=== PATIENT | male | born 1950 | race Caucasian/White ===

== ENCOUNTER 2023-03-19 08:31 | Outpatient (OUT) | payer MEDICARE, SELFPAY ==
--- NOTE | 2023-03-19 08:35 | CT_ITS ---
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 Dose reduction techniques were achieved by using automated exposure control and/or adjustment of mA and/or kV according to patient size and/or use of iterative reconstruction technique. FINDINGS: MAXILLARY SINUSES: No significant mucosal thickening or fluid. Infundibula are patent. No significant anomalous inferior orbital ethmoid ([place]) air cells. ETHMOID SINUSES: No significant mucosal thickening or fluid. Fovea ethmoidali and lamina papyracea are symmetric and intact. SPHENOID SINUSES: No significant mucosal thickening or fluid. Sphenoethmoidal recesses are patent. No bony dehiscence. FRONTAL SINUSES: Stable 2.3 x 1.6 x 0.8 cm rim calcified lesion within anterior medial aspect of right frontal sinus. No mucosal thickening or obstruction of the frontoethmoidal recesses. NASAL FOSSA: 3 mm rightward deviation of the nasal septum. No jewel bullosa or paradoxical turbinates are identified. OTHER: Negative. Limited views of the skull base and orbits are unremarkable. CT/CT sinus wo con IMPRESSION: 1. Stable rim calcified structure within right frontal sinus midline; nonspecific, possibly sequela of chronic fungal infection or remote infection. No osseous destruction, periosteal reaction, or overtly suspicious findings. Consider additional follow-up in one year. Electronically authenticated by: ONEL MCFARLAND Date: 03/19/2023 12:11
== END 2023-03-19 08:32 | disposition home or self-care (01) ==
LOC: CT 08:32
PROVIDERS: PCP Family Medicine
DX: D49.1 Neoplasm of unspecified behavior of respiratory system (principal)
CPT/HCPCS: 70486

== ENCOUNTER 2023-06-17 13:55 | Outpatient (OUT) | payer MEDICARE, SELFPAY ==
--- NOTE | 2023-06-17 | XR_ITS ---
The [address] [address] Patient Name: KEDAR VENTURA MRN: [id number] date: 1950 Sex: M Assigned Patient Location: [facility] Current Patient Location: Accession/Order Number: [id number] Exam Date: 06/17/2023 13:58 Report Date: 06/18/2023 07:30 At the request of: CLAUDIO HAYDEN Procedure: XR foot LT min 3V PROCEDURE: XR foot LT min 3V HISTORY: LEFT FOOT PAIN COMPARISON: None. FINDINGS: BONES:No fracture, acute abnormality, or significant arthropathy. SOFT TISSUES:No visible soft tissue swelling. Mild atherosclerotic disease. EFFUSION:None visible. OTHER: Negative. XR/XR foot LT min 3V IMPRESSION: 1. Minimal degenerative changes. 2. No acute or suspicious abnormality. Electronically authenticated by: ONEL MCFARLAND Date: 06/18/2023 07:30
--- NOTE | 2023-06-17 | XR_ITS ---
The [address] [address] Patient Name: KEDAR VENTURA MRN: [id number] date: 1950 Sex: M Assigned Patient Location: RAD Current Patient Location: [facility] Accession/Order Number: [id number] Exam Date: 06/17/2023 13:58 Report Date: 06/17/2023 23:15 At the request of: CLAUDIO HAYDEN Procedure: XR ankle LT min 3V EXAM: XR ankle LT min 3V HISTORY: LEFT ANKLE PAIN COMPARISON: None. TECHNIQUE: 3 views left ankle FINDINGS: Tibiotalar joint is congruent without large osteochondral defect. No acute fracture or aggressive osseous abnormality. There is generalized soft tissue swelling about the left ankle. Incidental note of vascular calcification. No joint effusion. XR/XR ankle LT min 3V IMPRESSION: Generalized soft tissue swelling of the left ankle without acute osseous abnormality. Electronically authenticated by: TAWANDA FRANCES Date: 06/17/2023 23:15
== END 2023-06-17 13:56 | disposition home or self-care (01) ==
LOC: RAD 13:57
PROVIDERS: PCP Family Medicine; Visit Provider Physician Assistant
DX: M25.572 Pain in left ankle and joints of left foot (principal); M25.472 Effusion, left ankle
CPT/HCPCS: 73610; 73630

== ENCOUNTER 2023-08-06 08:24 | Outpatient (OUT) | payer MEDICARE, SELFPAY ==
--- OUTSIDE RECORDS SUMMARY | 2023-08-06 08:26 | XMS_ITS | CCD ---
Author Name Unknown Address [address] [place] [address] Organization [facility] Care Team Providers Care Geoscientist Name Role Phone PHYSICIAN, DEFAULT Unavailable Unavailable PHYSICIAN, DEFAULT Unavailable Unavailable Adama Faye Primary Care Physician [phone] DALIA RANKIN Attending Unavailable HOY ., DR GALAN Attending Unavailable HOY ., DR GALAN Admitting Unavailable HOY ., DR GALAN Primary Care Unavailable HOY ., DR GALAN Consulting Unavailable DALIA RANKIN Admitting Unavailable DALIA RANKIN Attending Unavailable HOY ., DR GALAN Primary Care Unavailable HOY ., DR GALAN Attending Unavailable HOY ., DR GALAN Admitting Unavailable HOY ., DR GALAN Primary Care Unavailable HOY ., DR GALAN Consulting Unavailable HOY ., DR GALAN Attending Unavailable HOY ., DR GALAN Admitting Unavailable HOY ., DR GALAN Primary Care Unavailable HOY ., DR GALAN Consulting Unavailable BREEDEN, DR ALIYA Sierra Consulting Unavailable HOY ., DR GALAN Attending Unavailable HOY ., DR GALAN Admitting Unavailable HOY ., DR GALAN Primary Care Unavailable HOY ., DR GALAN Consulting Unavailable DONNELL RENTERIA Consulting Unavailable Adama Faye MD Primary Care Provider [phone] OSMIN GOODEN Referring Unavailable MARY ANN FAYELAS M Primary Care Unavailable OSMIN GOODEN Referring Unavailable ADAMA FAYE M Primary Care Unavailable OSMIN GOODEN Referring Unavailable HOY ADAMA M Primary Care Unavailable Unknown, Referring Provider Unavailable Unav ailable Unavailable Unavailable Yaniv, Dr. Charles Will Attending Susan vailable Yaniv, Dr. Charles Will Referring Susan vailable UNKNOWN, PCP Primary Care Unavailable Yaniv, Dr. Charles Will Attending Susan Dr. Charles Evans Referring Susan vailable UNKNOWN, PCP Primary Care Unavailable Dr. Charles Purvis Referring Susan vailable UNKNOWN, PCP Primary Care Unavailable Dr. Charles Purvis Attending Susan cesar Allergies Allergy Classification Reported Allergen(s) Allergy Type Date of Onset Reaction(s) Facility (2 sources) Penicillin; Translations: [penicillin] Drug Allergy Eruption of skin (disorder) [facility] (2 sources) Penicillins Drug allergy (disorder) 3 [facility] (3 sources) Penicillins Propensity to adverse reactions to drug 3 [facility] Medications Current Medications Medication Drug Class(es) Dates Sig (Normalized) Sig (Original) aspirin 81 mg oral tablet (4 sources) Platelet Aggregation Inhibitor, Nonsteroidal Anti-inflammatory Drug Start: 06-01-2019 take 1 tablet by mouth once daily aspirin 81 mg oral tablet 81 mg = 1 tab(s), Oral, Daily, # 30 tab(s), Refills(s) 0 Start Date: 06/01/19 Status: Ordered take 1 tablet by mouth once renee y aspirin 81 MG EC tablet Take 81 mg by mouth daily 0 Active 1 ml dexamethasone phosphate 4 mg/ml injection (3 sources) Corticosteroid Start: 10-15-2022 dexamethasone (DECADRON) injection 4 mg 2 ml dupilumab 150 mg/ml prefilled syringe (4 sources) Interleukin-4 Receptor alpha Antagonist Start: 06-20-2019 inject 300 mg by subcutaneous injection every other week Dupixent 300 mg/2 mL subcutaneous solution 300 mg, SubCutaneous, Once, Every 2 weeks for eczema Start Date: 06/20/19 Status: Ordered dupilumab (DUPIX ENT) 300 MG/2ML SOPN injection Inject 300 mg into the skin every 14 days 0 Active fluticasone propionate 0.05 mg/actuat metered dose nasal spray (3 sources) Corticosteroid take 1 spray(s) nasal route twice daily as needed fluticasone (FLONASE) 50 MCG/ACT nasal spray 1 spray by Each Nostril route 2 times daily as needed 0 Active lisinopril 40 mg oral tablet (1 source) Angiotensin Converting Enzyme Inhibitor Start: 04-28-20 take 1 mg by mouth once daily lisinopril 40 mg Tab mg tab(s), Oral, Daily, Refills(s) 0 Start Date: 04/28/19 Status: Ordered Completed/Discontinued Medications Medication Drug Class(es) Dates Sig (Normalized) Sig (Original) Cetirizine (6 sources) Histamine-1 Receptor Antagonist Cetirizine HCl TABS Quantity: 0 Refills: 0 Ordered: 03-Mar-2023 DO Active take 2 tablets by mouth once baron ly cetirizine (ZYRTEC) 10 MG tablet Take 20 mg by mouth daily 0 Active diclofenac sodium 75 mg delayed release oral tablet (6 sources) Nonsteroidal Anti-inflammatory Drug Start: 12-02-2022 Diclofenac Sodium 75 MG Oral Tablet Delayed Release Quantity: 60 Refills: 0 Ordered: 02-Dec-2022 DO Start : 02-Dec-2022 Active take 1 tablet by mouth twice baron ly diclofenac (VOLTAREN) 75 MG EC tablet Take 75 mg by mouth 2 times daily 0 Active esomeprazole 40 mg delayed release oral capsule (7 sources) Proton Pump Inhibitor Start: 12-05-2022 Esomeprazole Magnesi um 40 MG Oral Capsule Delayed Release Quantity: 90 Refills: 0 Ordered: 05-Dec-2022 DO Start : 05-Dec-2022 Active Start: 04-28-2019 take 1 mg by mouth once daily esomeprazole 40 mg Cap-EC mg cap(s), Oral, Daily, Refills(s) 0 Start Date: 04/28/19 Status: Ordered take 40 mg by mouth once daily e someprazole Magnesium (NEXIUM) 40 MG PACK Take 40 mg by mouth daily 0 Active ipratropium bromide 0.021 mg/actuat metered dose nasal spray (7 sources) Anticholinergic Start: 11-04-2022 take 2 spray(s) nasal route three times daily Ipratropium [place] 0.03 % Nasal Solution USE 2 SPRAYS IN EACH NOSTRIL 3 TIMES DAILY. Quantity: 1 Refills: 11 Ordered: 13-Apr-2023 Charles Purvis MD Start : 13-Apr-2023 Active irbesartan 300 mg oral tablet (6 sources) Angiotensin 2 Receptor Donna Start: 03-27-2022 take 1 tablet by mouth once daily Irbesartan 300 MG Oral Tablet TAKE 1 TABLET BY MOUTH EVERY DAY Quantity: 90 Refills: 0 Ordered: 24-Dec-2022 DO Start : 27-Mar-2022 Active latanoprost 0.05 mg/ml ophthalmic solution (6 sources) Prostaglandin Analog Start: 02-24-2023 Latanoprost 0.005 % Ophthalmic Solution Quantity: 8 Refills: 0 Ordered: 24-Feb-2023 DO Start : 24-Feb-2023 Active Latanoprost 0.00 5 % Ophthalmic Solution Quantity: 0 Refills: 0 Ordered: 03-Mar-2023 DO Active levoFLOXacin 750 mg oral tablet (3 sources) Quinolone Antimicrobial Start: 06-22-2022 take 1 tablet by mouth once daily levoFLOXacin 750 MG Oral Tablet TAKE 1 TABLET BY MOUTH EVERY DAY Quantity: 10 Refills: 0 Ordered: 22-Jun-2022 DO Start : 22-Jun-2022 Active montelukast 10 mg oral tablet (6 sources) Leukotriene Receptor Antagonist Start: 01-11-2023 Montelukast Sodium 10 MG Oral Tablet Quantity: 90 Refills: 0 Ordered: 11-Jan-2023 DO Start : 11-Jan-2023 Active take 1 tablet by mouth once renee y montelukast (SINGULAIR) 10 MG tablet Take 10 mg by mouth nightly 0 Active simvastatin 40 mg oral tablet (7 sources) HMG-CoA Reductase Inhibitor Start: 12-24-2022 take 1 tablet by mouth once daily Simvastatin 40 MG Oral Tablet TAKE 1 TABLET BY MOUTH EVERY DAY Quantity: 90 Refills: 0 Ordered: 24-Dec-2022 DO Start : 24-Dec-2022 Active Start: 04-28-2019 take 1 mg by mouth o nce daily at bedtime simvastatin 40 mg Tab mg tab(s), Oral, Once a day (at bedtime), Refills(s) 0 Start Date: 04/28/19 Status: Ordered Problems Active Problems Problem Classification Problem Date Documented Da te Episodic/Chronic Abdominal pain (1 source) Left lower quadrant pain 06-20-2019 Episodic Asthma (1 source) Asthma 04-28-2019 Chronic Calculus of urinary tract (2 sources) Kidney stone; Translations: [Calculus of kidney] Onset: 3 Episodic Deficiency and other anemia (1 source) Anemia, unspecified; Translations: [ANEMIA UNSPECIFIED] Onset: 3 Episodic Disorders of lipid metabolism (5 sources) Hyperlipidemia; Translations: [Hyperlipidemia, unspecified] Onset: 2 04-28-2019 Chronic Esophageal disorders (2 sources) Gastroesophageal reflux disease; Translations: [Gastroesophageal reflux disease with hiatal hernia] 04-28-2019 Chronic Essential hypertension (1 source) Hypertensive disorder 04-28-2019 Chronic Hyperplasia of prostate (2 sources) Benign prostatic hypertrophy with outflow obstruction; Translations: [Benign prostatic hyperplasia with lower urinary tract symptoms] Onset: 3 Chronic Neoplasms of unspecified nature or uncertain behavior (5 sources) Neoplasm of frontal sinus; 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] Episodic Osteoarthritis (1 source) Arthritis 04-28-2019 Chronic Other circulatory disease (5 sources) Clearing throat - hawking; Translations: [Other respiratory abnormalities] Episodic Other connective tissue disease (2 sources) Pain of bilateral hands; Translations: [Pain in right hand] Episodic Other connective tissue disease (3 sources) Pain in right hand; Translations: [Pain in right hand] Onset: 3 Episodic Other connective tissue disease (3 sources) Pain in left hand; Translations: [Pain in left hand] Onset: 3 Episodic Other diseases of kidney and ureters (1 source) Disorder of kidney and/or ureter; Translations: [Other specified disorders of kidney and ureter] Onset: 3 Chronic Other diseases of kidney and ureters (1 source) Renal mass 08-20-2020 Chronic Other diseases of kidney and ureters (1 source) 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; Translations: [Cyst of kidney, acquired] Onset: 3 Episodic Other diseases of kidney and ureters (1 source) 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 Other gastrointestinal disorders (1 source) Abdominal bloating 08-07-2019 Episodic Other gastrointestinal disorders (1 source) Constipation alternates with diarrhea 06-20-2019 Episodic Other non-traumatic joint disorders (4 sources) Other specified arthritis, unspecified hand; Translations: [OTHER SPECIFIED ARTHRITIS UNS HAND] Onset: 3 Chronic Other upper respiratory disease (4 sources) Other seasonal allergic rhinitis; Translations: [OTHER SEASONAL ALLERGIC RHINITIS] Onset: 3 Chronic Other upper respiratory disease (6 sources) Nasal discharge; Translations: [Other disease of nasal cavity and sinuses] Episodic Past or Other Problems Problem Classification Problem Date Documented Da te Episodic/Chronic Malaise and fatigue (1 source) Other fatigue; Translations: [OTHER FATIGUE] Onset: 05-04-2022 Episodic Other screening for suspected conditions (not mental disorders or infectious disease) (2 sources) Encounter for screening for malignant neoplasm of rectum; Translations: [Encounter for screening for malignant neoplasm of prostate] Onset: 04-10-2022 Episodic Results Test Name Value Interpretation Reference Range Facility Established Visit (Otolaryng ology)on 04-13-2023 Established Visit (Otolaryngology) Diagnoses/Problems Rhinorrhea (478.19) (J34.89) 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 Please feel free to contact my office by calling [phone] with any questions. Provider Impressions 1. Frontal sinus lesion; favor benign pathology 2. Rhinorrhea 3. Throat clearing, coughing, dysphonia, dysphagia 4. Dermatological issues on Dupixent 5. Asthma, allergic rhinitis with history of immunotherapy 6. Reflux on proton pump inhibitor Discussion: Kedar and I again discussed his baseline symptoms and imaging. In regard to his baseline symptoms, he was comfortable continuing his current intranasal medical therapy. We again discussed some concerns he had related to the sensation of mucus in his throat and that I am happy to arrange a consultation with one of my voice partners to look at a potential swallowing contribution. At this point in time, he was comfortable deferring. In regard to his imaging findings, the lesion within his frontal sinus has been stable over 6 months. We again discussed options including observation versus surgical intervention and he was comfortable with observation. Given that there is been no change person 6 months I recommended virtual follow-up in about 12 months to discuss additional options. He was amenable to this and all questions were answered. Chief Complaint An interactive audio and video telecommunication system which permits real time communications between the patient (at the originating site) and provider (at the distant site) was utilized to provide this telehealth service. Verbal consent was requested and obtained from KEDAR VENTURA on this date, 04/13/2023 04:00 PM , for a telehealth visit. 1. Frontal sinus lesion; favor benign pathology 2. Rhinorrhea 3. Throat clearing, coughing, dysphonia, dysphagia 4. Dermatological issues on Dupixent 5. Asthma, allergic rhinitis with history of immunotherapy 6. Reflux on proton pump inhibitor History of Present Illness Reason for visit: KEDAR VENTURA patient presents since last being seen 03/03/23. Main Symptoms: Patient has posterior nasal drainage. Associated Symptoms: Patient has throat clearing. Patient has coughing. Medications currently on for sinonasal symptoms Flonase/Fluticasone - PRN (as needed) . Ipratropium BID. Kedar presents for routine follow-up. He has been utilizing ipratropium and fluticasone for his nasal symptoms. He obtained imaging of his sinuses that we reviewed together today. 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 Irbesartan 300 MG Oral TabletTAKE 1 TABLET BY MOUTH EVERY DAY Latanoprost 0.005 % Ophthalmic Solution Latanoprost 0.005 % Ophthalmic Solution levoFLOXacin 750 MG Oral TabletTAKE 1 TABLET BY MOUTH EVERY DAY Montelukast Sodium 10 MG Oral Tablet Simvastatin 40 MG Oral TabletTAKE 1 TABLET BY MOUTH EVERY DAY Vitals Vital Signs Recorded: 13Apr2023 03:40PM Tobacco Useb) No Falls Screening (Age 18+)a) No falls within the last year Results/Data I personally reviewed a sinus CT from September 16, 2022 and March 19, 2023 and we compared the studies today. There was no significant change in the size of the anterior table frontal sinus neoplasm that was previously noted. 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 : Unknown Radiologist to Determine Optimal Study : Y What are the patient's signs and symptoms? : Bony frontal sinus neoplasm Patient Discussion/Summary Please feel free to contact my office by calling [phone] with any questions. Provider Impressions 1. Frontal sinus lesion; favor benign pathology 2. Rhinorrhea 3. Throat clearing, coughing, dysphonia, dysphagia 4. Dermatological issues on Dupixent 5. Asthma, allergic rhinitis with history of immunotherapy 6. Reflux on proton pump inhibitor Discussion: Kedar and I again discussed his postnasal drainage. We discussed a number of options in regard to medical therapies. He has been seen by a different ENT and evaluated without specific findings. We also discussed the concept of seeing a voice specialist particularly in the context of someone having issues with mucus in the throat but also in his context of some measure of dysphagia. I am happy to coordinate this assessment but in the short-term he was comfortable deferring. In regard to the frontal sinus lesion, we discussed obtaining a repeat CT sinus about 6 to 8 months following his original study in September. An order was placed for this today. He would like to obtain this closer to home so I will ask my litigation legal secretary to print off the order and mail it to him and he will need to obtain the imaging on a CD and I provided him with contact information for my office to mail the imaging back to us. Once it is received, we can coordinate a virtual visit to review as we have done previously. All questions were answered. Chief Complaint An interactive audio and video telecommunication system which permits real time communications between the patient (at the originating site) and provider (at the distant site) was utilized to provide this telehealth service. Verbal consent was requested and obtained from KEDAR VENTURA on this date, 03/03/2023 03:45 PM , for a telehealth visit. 1. Frontal sinus lesion; favor benign pathology 2. Rhinorrhea 3. Throat clearing, coughing, dysphonia, dysphagia 4. Dermatological issues on Dupixent 5. Asthma, allergic rhinitis with history of immunotherapy 6. Reflux on proton pump inhibitor History of Present Illness Reason for visit: KEDAR VENTURA patient presents since last being seen 11/04/22. Medications currently on for sinonasal symptoms. Ipratropium BID. Medications tried in the past for sinonasal symptoms Flonase/Fluticasone. Kedar presents for routine follow-up. He continues to have issues related to postnasal drainage despite ipratropium. He does feel the ipratropium is providing some measure of benefit. 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 Irbesartan 300 MG Oral TabletTAKE 1 TABLET BY MOUTH EVERY DAY Latanoprost 0.005 % Ophthalmic Solution Latanoprost 0.005 % Ophthalmic Solution levoFLOXacin 750 MG Oral TabletTAKE 1 TABLET BY MOUTH EVERY DAY Montelukast Sodium 10 MG Oral Tablet Simvastatin 40 MG Oral TabletTAKE 1 TABLET BY MOUTH EVERY DAY Results/Data We again reviewed his CT sinus from September 16, 2022 demonstrating an 11 x 8 mm lesion centrally between his right and left frontal sinus. 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 Provider Impressions 1. Frontal sinus lesion; favor benign pathology 2. Rhinorrhea 3. Throat clearing, coughing, dysphonia, dysphagia 4. Dermatological issues on Dupixent 5. Asthma, allergic rhinitis with history of immunotherapy 6. Reflux on proton pump inhibitor Discussion: Kedar presents with a number of ongoing concerns. In regard to the lesion within his frontal sinus we discussed a number of options including observation with repeat imaging versus obtaining a biopsy via an endoscopic approach. Given that this is the first time this lesion was visualized I think it would be in his best interest to observe in the short-term and get repeat imaging about 6 months after the original CT to look for changes. If the lesion is stable we can certainly consider repeat imaging a number of years in the future but if there are significant changes I do think biopsy would be indicated. He was comfortable with this concept. In regard to his ongoing sinonasal symptoms he was bothered by his nasal drainage and I suggested a trial of ipratropium. This was prescribed and my nurse and the patient discussed appropriate administration technique. In regard to his difficulty swallowing, this will be worked up with a swallowing evaluation and likely assessment with one of my voice partners. He was comfortable deferring this in the short-term but we certainly can discuss this at his next assessment. I will coordinate a virtual visit for him during the summer. I will order the repeat CT at that time. All questions were answered. Chief Complaint An interactive audio and video telecommunication system which permits real time communications between the patient (at the originating site) and provider (at the distant site) was utilized to provide this telehealth service.1 . Verbal consent was requested and obtained from KEDAR VENTURA on this date, 11/04/2022 01:15 PM , for a telehealth visit.1 . 1 Frontal sinus lesion 1 Amended By: Charles Purvis; Nov 06 2022 3:47 PM ESTHistory of Present Illness Reason for visit: KEDAR VENTURA presents to the Otolaryngology Clinic for a self-referred new patient visit for evaluation of sinus problems. Main Symptoms: Patient has anterior nasal drainage. tolerable. Patient has posterior nasal drainage. Patient does not have nasal airway obstruction. Patient does not have facial pain. Patient does not have facial pressure. Patient does not have decreased sense of smell. Associated Symptoms: Patient does not have headaches. Patient has throat clearing. often. Patient has coughing. spells once in a while. Patient has dysphonia. with voice usage. Patient has sneezing. Patient does not have itchy eyes. Patient has nasal bleeding. ? with steroid spray. Medications currently on for sinonasal symptoms Flonase/Fluticasone - PRN (as needed) and Zyrtec (BID) . Singulair, Dupixent every 2 weeks (for skin issues). Medications tried in the past for sinonasal symptoms. Antibiotics. Other Pertinent Medical Conditions: Patient has asthma. Patient does not have aspirin sensitivity. Patient does not have migraines. Patient has had allergy testing. When: 2019 (-). 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 Patient does not have history of sinus surgery. Patient has not had a nasal fracture. Patient does not have heartburn. The patient takes medical therapy for heartburn. Esomeprazole Qam. The patient has had imaging of sinuses, If yes,. Kedar presents as a new patient to me. He was having ongoing sinus symptoms and imaging was obtained demonstrating a lesion within his frontal sinus. He was asked to get a second opinion with me to discuss options. He had some other concerns that we discussed today including sinonasal symptoms as outlined above. He has some dermatological issues and utilizes Dupixent twice per month. He has a history of allergic shots in his youth but was retested as negative more recently. He can get some coughing with oral intake and questions whether or not he has enough moisture in his throat to move the food through. PMHx: Hypertension Active Problems Rhinorrhea (478.19) (J34.89) Allergies No Known Drug Allergies Recorded By: Fatou Lane; 11/04/2022 2:37:48 PM Results/Data I personally reviewed his sinus CT from September 16, 2022. There was a fibro-osseous lesion centrally within his right frontal sinus. This did not appear specifically concerning. 'Scores and Scales' Signatures Electronically signed by : Charles Purvis MD; Nov 06 2022 3:48PM EST (Author) Normal [facility] XR HAND LEFT (MIN 3 VIEWS)on 10-15-2022 XR HAND LEFT (MIN 3 VIEWS) EXAMINATION: THREE XRAY VIEWS OF THE LEFT HAND 10/15/2022 9:57 am COMPARISON: None. HISTORY: ORDERING SYSTEM PROVIDED HISTORY: Pain in both hands FINDINGS: There is no evidence of acute fracture. There is normal alignment. No acute joint abnormality. No focal osseous lesion. No focal soft tissue abnormality. Degenerative changes seen in the 1st CMC joint. Vascular calcifications. IMPRESSION: No acute osseous abnormality. Degenerative changes 1st CMC joint Interpreted by: Luis A Adams MD Signed by: Luis A Adams MD 10/15/22 Final result Normal [facility] No acute osseous abnormality. Degenerative changes 1st CMC joint [facility] EXAMINATION: THREE XRAY VIEWS OF THE LEFT HAND 10/15/2022 9:57 am COMPARISON: None. HISTORY: ORDERING SYSTEM PROVIDED HISTORY: Pain in both hands FINDINGS: There is no evidence of acute fracture. There is normal alignment. No acute joint abnormality. No focal osseous lesion. No focal soft tissue abnormality. Degenerative changes seen in the 1st CMC joint. Vascular calcifications. [facility] Luis A Adams MD - 10/15/2022 EXAMINATION: THREE XRAY VIEWS OF THE LEFT HAND 10/15/2022 9:57 am COMPARISON: None. HISTORY: ORDERING SYSTEM PROVIDED HISTORY: Pain in both hands FINDINGS: There is no evidence of acute fracture. There is normal alignment. No acute joint abnormality. No focal osseous lesion. No focal soft tissue abnormality. Degenerative changes seen in the 1st CMC joint. Vascular calcifications. IMPRESSION: No acute osseous abnormality. Degenerative changes 1st CMC joint [employer] Phone: Radiology Study observation (narrative) [employer]: XR HAND LEFT (MIN 3 VIEWS)Or dered By: Luis A Adams on 10-15-2022 [employer]: XR HAND RIGHT (MIN 3 VIEWS)o n 10-15-2022 XR HAND RIGHT (MIN 3 VIEWS) EXAMINATION: THREE XRAY VIEWS OF THE RIGHT HAND 10/15/2022 9:57 am COMPARISON: None. HISTORY: ORDERING SYSTEM PROVIDED HISTORY: Pain in both hands FINDINGS: There is no evidence of acute fracture. There is normal alignment. No acute joint abnormality. No focal osseous lesion. No focal soft tissue abnormality. Degenerative changes seen in the 3rd MCP joint and 1st CMC joint with joint space narrowing and bony overgrowth. IMPRESSION: No acute osseous abnormality. Degenerative changes 3rd MCP joint and 1st CMC joint Interpreted by: Luis A Adams MD Signed by: Luis A Adams MD 10/15/22 Final result Normal [facility] No acute osseous abnormality. Degenerative changes 3rd MCP joint and 1st CMC joint [facility] EXAMINATION: THREE XRAY VIEWS OF THE RIGHT HAND 10/15/2022 9:57 am COMPARISON: None. HISTORY: ORDERING SYSTEM PROVIDED HISTORY: Pain in both hands FINDINGS: There is no evidence of acute fracture. There is normal alignment. No acute joint abnormality. No focal osseous lesion. No focal soft tissue abnormality. Degenerative changes seen in the 3rd MCP joint and 1st CMC joint with joint space narrowing and bony overgrowth. [facility] Luis A Adams MD - 10/15/2022 EXAMINATION: THREE XRAY VIEWS OF THE RIGHT HAND 10/15/2022 9:57 am COMPARISON: None. HISTORY: ORDERING SYSTEM PROVIDED HISTORY: Pain in both hands FINDINGS: There is no evidence of acute fracture. There is normal alignment. No acute joint abnormality. No focal osseous lesion. No focal soft tissue abnormality. Degenerative changes seen in the 3rd MCP joint and 1st CMC joint with joint space narrowing and bony overgrowth. IMPRESSION: No acute osseous abnormality. Degenerative changes 3rd MCP joint and 1st CMC joint [facility] [employer] Phone: Radiology Study observation (narrative) [facility] Phone: XR HAND RIGHT (MIN 3 VIEWS)O rdered By: Luis A Adams on 10-15-2022 [facility] [employer] Phone: PERLA by IFAon 10-06-2022 Antinuclear Antibodies, IFA Negative Normal [facility] Comment on above: Result Comment: Nega tive <1:80 Borderline 1:80 Positive >1:80 ICAP nomenclature: AC-0 For more information about Hep-2 cell patterns use ANApatterns.org, the official website for the International Consensus on Antinuclear Antibody (PERLA) Patterns (ICAP). Performed By: #### C BC #### [facility] [address] [place] [address] Dr. Akua Thomas ANTISTREPTOLYSIN O AB (ASO)o n 10-06-2022 Antistreptolysin O Ab 69.9 IU/mL Normal 0.0-200.0 [facility] Comment on above: Performed By: #### A SOAB #### [facility] [address] [place] [address] Dr. Akua Thomas CALCIUM IONIZEDon 10-06-2022 Calcium, Ionized, Serum 5.5 mg/dL Normal 4.5-5.6 [facility] Comment on above: Performed By: #### C AIONZ #### [facility] [address] [place] [address] Dr. Akua Thomas RHEUMATOID FACTORon 10-06-19 RA Latex Turbid. 12.6 IU/mL Normal <14.0 [facility] Comment on above: Performed By: #### R F #### [facility] [address] [place] [address] Dr. Akua Thomas CBC AUTO DIFFon 10-05-2022 BASO # 0.0 103/ul Normal 0.0-0.1 [facility] Comment on above: Performed By: #### C BC #### [facility] [address] [place] [address] Dr. Akua Thomas Basophils/100 WBC (Bld) 0.2 % Normal 0.2-2.0 [facility] Comment on above: Performed By: #### C BC #### [facility] [address] [place] [address] Dr. Akua Thomas EO # 0.1 103/ul Normal 0.0-0.7 [facility] Comment on above: Performed By: #### C BC #### [facility] [address] [place] [address] Dr. Akua Thomas Eosinophils/100 WBC (Bld) 1.4 % Normal 0.9-7.0 [facility] Comment on above: Performed By: #### C BC #### [facility] [address] [place] [address] Dr. Akua Thomas Erythrocyte distribution width (RBC) [Ratio] 14.3 % Normal 11.0-15.0 [facility] Comment on above: Performed By: #### C BC #### [facility] [address] [place] [address] Dr. Akua Thomas Hematocrit (Bld) [Volume fraction] 45.5 % Normal 42.0-54.0 [facility] Comment on above: Performed By: #### C BC #### [facility] [address] [place] [address] Dr. Akua Thomas Hemoglobin (Bld) [Mass/Vol] 15.1 g/dL Normal 14.0-18.0 [facility] Comment on above: Performed By: #### C BC #### [facility] [address] [place] [address] Dr. Akua Thomas IG # 0.03 10e3/ul Normal 0.00-0.03 [facility] Comment on above: Performed By: #### C BC #### [facility] [address] [place] [address] Dr. Akua Thomas IG % 0.3 % Normal 0.0-0.5 [facility] Comment on above: Performed By: #### C BC #### [facility] [address] [place] [address] Dr. Akua Thomas LYMPH # 3.0 103/ul Normal 1.2-3.8 [facility] Comment on above: Performed By: #### C BC #### [facility] [address] [place] [address] Dr. Akua Thomas Lymphocytes/100 WBC (Bld) 31.9 % Normal 20.5-60.0 [facility] Comment on above: Performed By: #### C BC #### [facility] [address] [place] [address] Dr. Akua Thomas MANUAL DIFF REQ NO Normal [facility] Comment on above: Performed By: #### C BC #### [facility] [address] [place] [address] Dr. Akua Thomas MCH (RBC) [Entitic mass] 29.6 pg Normal 25.9-34.0 [facility] Comment on above: Performed By: #### C BC #### [facility] [address] [place] [address] Dr. Akua Thomas MCHC (RBC) [Mass/Vol] 33.2 g/dL Normal 29.9-35.2 [facility] Comment on above: Performed By: #### C BC #### [facility] [address] [place] [address] Dr. Akua Thomas MCV (RBC) [Entitic vol] 89.2 fL Normal 80.0-94.0 [facility] Comment on above: Performed By: #### C BC #### [facility] [address] [place] [address] Dr. Akua Thomas MONO # 0.7 103/ul Normal 0.3-0.8 [facility] Comment on above: Performed By: #### C BC #### [facility] [address] [place] [address] Dr. Akua Thomas Monocytes/100 WBC (Bld) 7.2 % Normal 1.7-12.0 [facility] Comment on above: Performed By: #### C BC #### [facility] [address] [place] [address] Dr. Akua Thomas NEUT # 5.5 103/ul Normal 1.4-6.5 [facility] Comment on above: Performed By: #### C BC #### [facility] [address] [place] [address] Dr. Akua Thomas Neutrophils/100 WBC (Bld) 59.0 % Normal 43.0-75.0 [facility] Comment on above: Performed By: #### C BC #### [facility] [address] [address] [address] Akua Thomas Platelet mean volume (Bld) [Entitic vol] 9.9 fL Normal 9.5-13.5 [facility] Comment on above: Performed By: #### C BC #### [facility] [address] [place] [address] Dr. Akua Thomas PLT 237 103/ul Normal 150-450 [facility] Comment on above: Performed By: #### C BC #### [facility] [address] [place] [address] Dr. Akua Thomas RBC 5.10 106/ul Normal 4.70-6.10 [facility] Comment on above: Performed By: #### C BC #### [facility] [address] [place] [address] Dr. Akua Thomas WBC 9.3 103/ul Normal 4.0-11.0 [facility] Comment on above: Performed By: #### C BC #### [facility] [address] [place] [address] Dr. Akua Thomas CRPon 10-05-2022 CRP [Mass/Vol] mg/L Normal <=1.0 [facility] Comment on above: Performed By: #### C MP, URIC, PHOS, MG, T7, CRP, TSH #### [facility] [address] [place] [address] Dr. Akua Thomas FREE THYROXINE INDEX T7on FTI 3.28 Normal 1.30-4.50 [facility] Comment on above: Performed By: #### C BC #### [facility] [address] [place] [address] Dr. Akua Thomas T3U 36.0 % Normal 33.0-40.0 [facility] Comment on above: Performed By: #### C BC #### [facility] [address] [place] [address] Dr. Akua Thomas T4 [Mass/Vol] 9.10 ug/dL Normal 4.50-12.10 [facility] Comment on above: Performed By: #### C BC #### [facility] [address] [place] [address] Dr. Akua Thomas IRONon 10-05-2022 Iron [Mass/Vol] 119.0 ug/dL Normal 65.0-175.0 [facility] Comment on above: Performed By: #### I SHILPI #### [facility] [address] [place] [address] Dr. Akua Thomas MAGNESIUMon 10-05-2022 Magnesium [Mass/Vol] 1.8 mg/dL Normal 1.8-2.4 [facility] Comment on above: Performed By: #### C BC #### [facility] [address] [place] [address] Dr. Akua Thomas PHOSPHORUSon 10-05-2022 Phosphate [Mass/Vol] 3.4 mg/dL Normal 2.6-4.7 [facility] Comment on above: Performed By: #### C BC #### [facility] [address] [place] [address] Dr. Akua Thomas PROF 14(COMP METB)on 023 Albumin [Mass/Vol] 4.0 g/dL Normal 3.4-5.0 [facility] Comment on above: Performed By: #### C BC #### [facility] [address] [place] [address] Dr. Akua Thomas Albumin/Globulin [Mass ratio] 1.4 {ratio} Normal [facility] Comment on above: Performed By: #### C BC #### [facility] [address] [place] [address] Dr. Akua Thomas ALP [Catalytic activity/Vol] 119 U/L Critically high 46-116 [facility] Comment on above: Performed By: #### C BC #### [facility] [address] [place] [address] Dr. Akua Thomas ALT [Catalytic activity/Vol] 69 U/L Critically high 16-63 [facility] Comment on above: Performed By: #### C BC #### [facility] [address] [place] [address] Dr. Akua Thomas Anion gap [Moles/Vol] 10.0 mmol/L Normal [facility] Comment on above: Performed By: #### C BC #### [facility] [address] [address] [address] Akua Thomas AST [Catalytic activity/Vol] 37 U/L Normal 15-37 [facility] Comment on above: Performed By: #### C BC #### [facility] [address] [address] [address] Akua Thomas Bilirubin [Mass/Vol] 0.7 mg/dL Normal 0.2-1.0 [facility] Comment on above: Performed By: #### C BC #### [facility] [address] [address] [address] Akua Thomas Calcium [Mass/Vol] 9.2 mg/dL Normal 8.5-10.1 [facility] Comment on above: Performed By: #### C BC #### [facility] [address] [address] [address] Akua Thomas Chloride [Moles/Vol] 100 mmol/L Normal 98-107 [facility] Comment on above: Performed By: #### C BC #### [facility] [address] [address] [address] Akua Thomsa CO2 [Moles/Vol] 30.5 mmol/L Normal 21.0-32.0 [facility] Comment on above: Performed By: #### C BC #### [facility] [address] [address] [address] Akua Thomas Creatinine [Mass/Vol] 0.75 mg/dL Normal 0.70-1.30 [facility] Comment on above: Performed By: #### C BC #### [facility] [address] [address] [address] Akua Thomas EGFR-AF BENINESE >60 Normal >=60 [facility] Comment on above: Performed By: #### C BC #### [facility] [address] [address] [address] Akua Thomas EGFR-NON AF BENINESE >60 Normal >=60 [facility] Comment on above: Performed By: #### C BC #### [facility] [address] [address] [address] Akua Thomas Globulin (S) [Mass/Vol] 2.9 g/dL Normal [facility] Comment on above: Performed By: #### C BC #### [facility] [address] [address] [address] Akua Thomas Glucose [Mass/Vol] 97 mg/dL Normal 74-106 [facility] Comment on above: Performed By: #### C BC #### [facility] [address] [place] [address] Dr. Akua Thomas Potassium [Moles/Vol] 4.5 mmol/L Normal 3.5-5.1 [facility] Comment on above: Performed By: #### C BC #### [facility] [address] [place] [address] Dr. Akua Thomas Protein [Mass/Vol] 6.9 g/dL Normal 6.4-8.2 [facility] Comment on above: Performed By: #### C BC #### [facility] [address] [place] [address] Dr. Akua Thomas Sodium [Moles/Vol] 136 mmol/L Normal 136-145 [facility] Comment on above: Performed By: #### C BC #### [facility] [address] [place] [address] Dr. Akua Thomas Urea nitrogen [Mass/Vol] 24.0 mg/dL Critically high 7.0-18.0 [facility] Comment on above: Performed By: #### C BC #### [facility] [address] [place] [address] Dr. Akua Thomas Urea nitrogen/Creatinine [Mass ratio] 32.0 mg/mg Normal [facility] Comment on above: Performed By: #### C BC #### [facility] [address] [place] [address] Dr. Akua Thomas TSHon 10-05-2022 TSH 0.725 uIU/mL Normal 0.358-3.740 [facility] Comment on above: Performed By: #### C BC #### [facility] [address] [place], [place] [address] Dr. Akua Thomas URIC ACID SERUMon 10-05-2022 Urate [Mass/Vol] 2.2 mg/dL Critically low 3.5-7.2 [facility] Comment on above: Performed By: #### C MP, URIC, PHOS, MG, T7, CRP, TSH #### [facility] [address] [place], [place] [address] Dr. Akua Thomas XR HAND LT MIN 3Von 10-05-19 23 XR HAND LT MIN 3V EXAMINATION: XR WRIS T MARÍA MIN 3 V, XR HAND LT MIN 3V HISTORY: Arthritis of hand COMPARISON: No relevant comparison available. FINDINGS: RIGHT FINDINGS: BONES: No acute fracture or dislocation. Severe degenerative changes at the first carpometacarpal joint with [id number] articulation and extensive heterotopic ossification SOFT TISSUES: Negative. No visible soft tissue swelling. OTHER: Negative. LEFT FINDINGS: BONES: No acute fracture or dislocation. Degenerative changes most significant in the medial carpus and first carpometacarpal joint but there is joint space narrowing and marginal osteophyte formation SOFT TISSUES: Negative. No visible soft tissue swelling. OTHER: Negative. IMPRESSION: RIGHT CONCLUSION: Severe degenerative changes first carpometacarpal joint LEFT CONCLUSION: Moderate degenerative changes Electronically authenticated by: ALIYA KILLIAN Date: 2022-10-05 13:24 Normal [facility] CT SINUSES WO CONon 09-16-[address] SINUSES WO CON EXAMINATION: CT SINUSES WO CON HISTORY: Seasonal allergic rhinitis COMPARISON: None. TECHNIQUE: Multi slice thin computed tomograms of the paranasal sinuses were obtained, with sagittal and coronal reconstructions. Dose reduction techniques were achieved by using automated exposure control and/or adjustment of mA and/or kV according to patient size and/or use of iterative reconstruction technique. FINDINGS: The paranasal sinuses are well-developed. There is a small mass with peripheral calcifications seen in the frontal sinuses in the midline, and the paranasal sinuses are otherwise clear. This mass is seen centered in image 32 of series 3 and image 23 of series 7. The ostiomeatal complex on either side is patent. The orbital rims and floors are intact. The zhang of the sinuses are intact. There is a small S-shaped appearance of the nasal septum, with small osteophytes extending eccentric to the right in the left, graves mild narrowing of the nasal passages. There is also some thickening of the mucosa about the turbinates, particularly along the inferior aspect. There is no obstruction of the nasal passages. The middle ears and the mastoid sinuses are not included in the [id number]. IMPRESSION: There is a small mass seen in the anterior aspect of the frontal sinuses near the midline, with peripheral calcification. While the exact etiology is uncertain, this appears benign in nature, possibly an intraosseous lipoma. The paranasal sinuses are otherwise clear. The ostiomeatal complex on either side is patent. The osseous structures are intact. There is no apparent fracture. Direct comparison with a previous study may be helpful in determining the chronicity of these findings. Electronically authenticated by: DONNELL RENTERIA Date: 2022-09-16 19:40 Normal [facility] Lab Reportson 08-20-2022 Lab Reports [id number]:127 Normal [facility] Screenson 08-20-2022 Screens [id number]:127 Normal [facility] Patient Educationon 08-19-19 Patient Education Urology Transurethral Resection of the Prostate Transurethral resection of the prostate (TURP) is the removal (resection) of part of the gland that produces semen (prostate gland). This procedure is done to treat benign prostatic hyperplasia (BPH). BPH is an abnormal, noncancerous (benign) increase in the number of cells that make up the prostate tissue. BPH causes the prostate to get bigger. The enlarged prostate can push against or block the tube that drains urine from the bladder out of the body (urethra). BPH can affect normal urine flow by causing bladder infections, difficulty controlling bladder function, and difficulty emptying the bladder. The goal of TURP is to remove enough prostate tissue to allow for a normal flow of urine. The procedure will allow you to empty your bladder more completely when you urinate so that you can urinate less often. In a transurethral resection, a thin telescope with a light, a tiny camera, and an electric cutting edge (resectoscope) is passed through the urethra and into the prostate. The opening of the urethra is at the end of the penis. Tell a health care provider about: ? Any allergies you have. ? All medicines you are taking, including vitamins, herbs, eye drops, creams, and odcy-pmh-ntcqzep medicines. ? Any problems you or family members have had with anesthetic medicines. ? Any blood disorders you have. ? Any surgeries you have had. ? Any medical conditions you have. ? Any prostate infections you have had. What are the risks? Generally, this is a safe procedure. However, problems may occur, including: ? Infection. ? Bleeding. ? Allergic reactions to medicines. ? Damage to other structures or organs, such as: ? The urethra. ? The bladder. ? Muscles that surround the prostate. ? Difficulty getting an erection. ? Inability to control when you urinate (incontinence). ? Scarring, which may cause problems with urine flow. What happens before the procedure? Medicines Ask your health care provider about: ? Changing or stopping your regular medicines. This is especially important if you are taking diabetes medicines or blood thinners. ? Taking medicines such as aspirin and ibuprofen. These medicines can thin your blood. Do not take these medicines unless your health care provider tells you to take them. ? Taking fjqy-ugd-fwwfpln medicines, vitamins, herbs, and supplements. Eating and drinking Follow instructions from your health care provider about eating and drinking, which may include: ? 8 hours before the procedure ? stop eating heavy meals or foods, such as meat, fried foods, or fatty foods. ? 6 hours before the procedure ? stop eating light meals or foods, such as toast or cereal. ? 6 hours before the procedure ? stop drinking milk or drinks that contain milk. ? 2 hours before the procedure ? stop drinking clear liquids. Staying hydrated Follow instructions from your health care provider about hydration, which may include: ? Up to 2 hours before the procedure ? you may continue to drink clear liquids, such as water, clear fruit juice, black coffee, and plain tea. General instructions ? You may have a physical exam. ? You may have a blood or urine sample taken. ? Ask your health care provider what steps will be taken to help prevent infection. These may include: ? Washing skin with a germ-killing soap. ? Taking antibiotic medicine. ? Plan to have someone take you home from the hospital or clinic. You may not be able to drive for up to 10 days after your procedure. ? Plan to have a responsible adult care for you for at least 24 hours after you leave the hospital or clinic. This is important. What happens during the procedure? ? An IV will be inserted into one of your veins. ? You will be given one or more of the following: ? A medicine to help you relax (sedative). ? A medicine to make you fall asleep (general anesthetic). ? A medicine that is injected into your spine to numb the area below and slightly above the injection site (spinal anesthetic). ? Your legs will be placed in foot rests (stirrups) so that your legs are apart and your knees are bent. ? The resectoscope will be passed through your urethra to your prostate. ? Parts of your prostate will be resected using the cutting edge of the resectoscope. ? The resectoscope will be removed. ? A small, thin tube (catheter) will be passed through your urethra and into your bladder. The catheter will drain urine into a bag outside of your body. ? Fluid may be passed through the catheter to keep the catheter open. The procedure may vary among health care providers and hospitals. What happens after the procedure? ? Your blood pressure, heart rate, breathing rate, and blood oxygen level will be monitored until you leave the hospital or clinic. ? You may continue to receive fluids and medicines through an IV. ? You may have some pain. Pain medicine will be m[place] (more content not included)... Normal [facility] Urology Office/Clinic Noteon 08-19-2022 Urology Office/Clinic Note Chief Complaint 1yr PSA HPI Staff DLS pt here for 1 yr PSA F/T. DX: BPH, Rt Renal Mass, Parapelvic Renal Cyst & Lt Kidney Stone. *No Urology Medications. PSA done 04/09/22- 0.9 & 17.8% IPSS 7 Denies any urinary complaints or concerns. Denies any flank pain. History of Present Illness staff HPI reviewed and agree. Review of Systems PHQ Score Initial Depression Screen Score: 0 no fever, chills, malaise, myalgia. no rash/lesions. no chest pain, palpitations, or SOB. no abdominal pain, nausea, vomiting. no unilateral calf swelling, redness, pain Physical Exam Vitals & Measurements HT: 71 in HT: 180 cm WT: 85.9 kg WT: 188.98 lb BMI: 26.51 General: nontoxic, NAD Mouth: moist mucosa Lungs: normal respiratory effort Cardio: regular rate, good distal perfusion Abdomen: nondistended, no suprapubic distention or tenderness, no CVA tenderness Neurologic: Grossly normal Skin: No rashes or suspicious lesions Assessment/Plan UA completed in office today shows no microhematuria or signs of infection. 1. BPH with obstruction/lower urinary tract symptoms (N40.1: Benign prostatic hyperplasia with lower urinary tract symptoms) Pt is currently taking no bladder/prostate medication and is highly satisfied with overall symptom control. No indication for treatment at this time. Continue to monitor. PSA was done 06/2020 and was at 1.0 PSA done 04/09/22- 0.9 & 17.8% 2. Right renal mass (N28.89: Other specified disorders of kidney and ureter) Stable 12mm nodule Vs complex cyst projecting laterally from the superior pole of the right kidney. This has been stable since 2015. Will no longer keep monitoring this according to DLS last OV. 3. 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 4. Kidney stone on left side (N20.0: Calculus of kidney) multiple small nonobstructing stones found on CT done 07/15/21. Pt denies any issues or passing any stones discussed 1 yr f/u vs PRN. pt prefers PRN. he will have his PCP order PSA for the next few years or will go to [facility] to obtain. Follow-up With When Contact Information DALIA RANKIN PA-C, URL Only if needed [id number] [place] [address] [phone] Additional Instructions: Patient Education Transurethral Resection of the Prostate Pilar Mobley personally scribed for Dalia Rankin PA-C on 08/19/2022 13:24:49. . Documentation recorded by the liliana Whitt accurately reflects the services(s) I performed and decisions made by me. Authenticated by Dalia Rankin PA-C on 08/19/2022 13:28:59. Problem List/Past Medical History Ongoing Alternating constipation and diarrhea Arthritis Asthma BPH with obstruction/lower urinary tract symptoms GERD (gastroesophageal reflux disease) Hiatal hernia with GERD Hyperlipidemia Hypertension Kidney stone on left side LLQ abdominal pain Parapelvic renal cyst Postprandial bloating Right renal mass Historical No qualifying data Procedure/Surgical History Colonoscopy, Shoulder. Medications aspirin 81 mg oral tablet, 81 mg= 1 tab(s), Oral, Daily Dupixent 300 mg/2 mL subcutaneous solution, 300 mg, SubCutaneous, Once esomeprazole 40 mg Cap-EC, Oral, Daily lisinopril 40 mg Tab, Oral, Daily simvastatin 40 mg Tab, Oral, Once a day (at bedtime) Allergies penicillin (Rash) Social History Alcohol - Denies Alcohol Use, 06/20/2019 Substance Abuse - Denies Substance Abuse, 06/20/2019 Tobacco - Denies Tobacco Use, 06/01/2019 Never (less than 100 in lifetime) Tobacco Use:. Never Smokeless Tobacco Use:. Stopped age 20 Years., 08/19/2022 Family History Family history is negative Immunizations Vaccine Date Status Comments influenza virus vaccine, inactivated 06/05/2022 Recorded SARS-CoV-2 (COVID-19) mRNA-1273 vaccine 07/07/2021 Recorded SARS-CoV-2 (COVID-19) mRNA-1273 vaccine 11/02/2020 Recorded 2022-08-19: TPV70 SARS-CoV-2 (COVID-19) mRNA-1273 vaccine 10/05/2020 Recorded 2022-08-19: TPV70 influenza virus vaccine, inactivated 05/08/2020 Recorded influenza virus vaccine, inactivated - Not Given Patient Refuses influenza virus vaccine, inactivated 05/17/2019 Recorded influenza virus vaccine, inactivated 05/25/2018 Recorded pneumococcal 13-valent vaccine 06/24/2017 Recorded Lab Results Test Name Test Result Date/Time PSA Total 1.1 ng/mL 08/05/2021 13:52 EST PSA, External 0.9 ng/mL 04/09/2022 12:50 EDT PSA, External 1.00 ng/mL 06/17/2020 13:41 EST Ambulatory Point of Care Results Bilirubin Urine Dipstick: Negative (08/19/22 13:07:00) Blood Urine Dipstick: Negative (08/19/22 13:07:00) Glucose Urine Dipstick: Negative (08/19/22 13:07:00) Ketones Urine Dipstick: Negative (08/19/22 13:07:00) Leukocytes Urine Dipstick: Negative (08/19/22 13:07:00) Nitrite Urine Dipstick: Negative (08/19/22 13:07:00) Protein Urine Dipstick: Negat (more content not included)... Normal [facility] Comment on above: Result Comment: Elec tronically Signed By: DALIA RANKIN PA-C\.br\Date and Time Signed: 08/19/22 13:29 EST\.br\Electronically Co-Signed By: Pilar Whitt MA\.br\Date and Time Co-Signed: 08/19/22 13:25 EST OCC BLD IMMUNO SCREENon 04-10 OCCULT BLOOD Negative Normal NEGATIVE [facility] Comment on above: Performed By: #### C BC #### [facility] [address] [address] [address] Akua Thomas PSA, FREE AND TOTAL RATIOon 04-10-2022 % Free PSA 17.8 % Normal [facility] Comment on above: Result Comment: The table below lists the probability of prostate cancer for men with non-suspicious MARY results and total PSA between 4 and 10 ng/mL, by patient age (Rafiq et al, RICKIE 1998, 279:1542). % Free PSA 50-64 yr 65-75 yr 0.00-10.00% 56% 55% 10.01-15.00% 24% 35% 15.01-20.00% 17% 23% 20.01-25.00% 10% 20% >25.00% 5% 9% Please note: Rafiq et al did not make specific recommendations regarding the use of percent free PSA for any other population of men. Performed By: #### C BC #### [facility] [address] [place] [id number] [address] Akua Thomas Prostate specific Ag [Mass/Vol] 0.9 ng/mL Normal 0.0-4.0 [facility] Comment on above: Result Comment: Leslye FOSTER methodology. . According to the [place] [employer], Serum PSA should decrease and remain at undetectable levels after radical prostatectomy. The AUA defines biochemical recurrence as an initial PSA value 0.2 ng/mL or greater followed by a subsequent confirmatory PSA value 0.2 ng/mL or greater. Values obtained with different assay methods or kits cannot be used interchangeably. Results cannot be interpreted as absolute evidence of the presence or absence of malignant disease. Performed By: #### C BC #### [facility] [address] [place] [address] Dr. Akua Thomas PSA, Free 0.16 ng/mL Normal N/A [facility] Comment on above: Result Comment: Leslye juan ECLIA methodology. Performed By: #### C BC #### [facility] [address] [place] [address] Dr. Akua Thomas T4 LABCORPon 04-10-2022 T4 [Mass/Vol] 8.0 ug/dL Normal 4.5-12.0 [facility] Comment on above: Performed By: #### C BC #### [facility] [address] [place] [address] Dr. Akua Thomas CBC AUTO DIFFon 04-09-2022 BASO # 0.0 103/ul Normal 0.0-0.1 [facility] Comment on above: Performed By: #### C BC #### [facility] [address] [place] [address] Dr. Akua Thomas Basophils/100 WBC (Bld) 0.2 % Normal 0.2-2.0 [facility] Comment on above: Performed By: #### C BC #### [facility] [address] [place] [address] Dr. Akua Thomas EO # 0.2 103/ul Normal 0.0-0.7 [facility] Comment on above: Performed By: #### C BC #### [facility] [address] [place] [address] Dr. Akua Thomas Eosinophils/100 WBC (Bld) 2.2 % Normal 0.9-7.0 [facility] Comment on above: Performed By: #### C BC #### [facility] [address] [place] [address] Dr. Akua Thomas Erythrocyte distribution width (RBC) [Ratio] 14.2 % Normal 11.0-15.0 [facility] Comment on above: Performed By: #### C BC #### [facility] [address] [place] [address] Dr. Akua Thomas Hematocrit (Bld) [Volume fraction] 43.3 % Normal 42.0-54.0 [facility] Comment on above: Performed By: #### C BC #### [facility] [address] [place] [address] Dr. Akua Thomas Hemoglobin (Bld) [Mass/Vol] 14.2 g/dL Normal 14.0-18.0 [facility] Comment on above: Performed By: #### C BC #### [facility] [address] [place] [address] Dr. Akua Thomas IG # 0.02 10e3/ul Normal 0.00-0.03 [facility] Comment on above: Performed By: #### C BC #### [facility] [address] [place] [address] Dr. Akua Thomas IG % 0.2 % Normal 0.0-0.5 [facility] Comment on above: Performed By: #### C BC #### [facility] [address] [place] [address] Dr. Akua Thomas LYMPH # 1.8 103/ul Normal 1.2-3.8 [facility] Comment on above: Performed By: #### C BC #### [facility] [address] [place] [address] Dr. Akua Thomas Lymphocytes/100 WBC (Bld) 20.6 % Normal 20.5-60.0 [facility] Comment on above: Performed By: #### C BC #### [facility] [address] [place] [address] Dr. Akua Thomas MANUAL DIFF REQ NO Normal [facility] Comment on above: Performed By: #### C BC #### [facility] [address] [place] [address] Dr. Akua Thomas MCH (RBC) [Entitic mass] 29.8 pg Normal 25.9-34.0 [facility] Comment on above: Performed By: #### C BC #### [facility] [address] [address] [address] Akua Thomas MCHC (RBC) [Mass/Vol] 32.8 g/dL Normal 29.9-35.2 [facility] Comment on above: Performed By: #### C BC #### [facility] [address] [address] [address] Akua Thomas MCV (RBC) [Entitic vol] 91.0 fL Normal 80.0-94.0 [facility] Comment on above: Performed By: #### C BC #### [facility] [address] [place] [address] Dr. Akua Thomas MONO # 0.7 103/ul Normal 0.3-0.8 [facility] Comment on above: Performed By: #### C BC #### [facility] [address] [place] [address] Dr. Akua Thomas Monocytes/100 WBC (Bld) 8.2 % Normal 1.7-12.0 [facility] Comment on above: Performed By: #### C BC #### [facility] [address] [place] [address] Dr. Akua Thomas NEUT # 6.1 103/ul Normal 1.4-6.5 [facility] Comment on above: Performed By: #### C BC #### [facility] [address] [place] [address] Dr. Akua Thomas Neutrophils/100 WBC (Bld) 68.6 % Normal 43.0-75.0 [facility] Comment on above: Performed By: #### C BC #### [facility] [address] [place] [address] Dr. Akua Thomas Platelet mean volume (Bld) [Entitic vol] 10.1 fL Normal 9.5-13.5 [facility] Comment on above: Performed By: #### C BC #### [facility] [address] [address] [address] Akua Thomas PLT 231 103/ul Normal 150-450 [facility] Comment on above: Performed By: #### C BC #### [facility] [address] [place] [address] Dr. Akua Thomas RBC 4.76 106/ul Normal 4.70-6.10 [facility] Comment on above: Performed By: #### C BC #### [facility] [address] [place] [address] Dr. Akua Thomas WBC 8.9 103/ul Normal 4.0-11.0 [facility] Comment on above: Performed By: #### C BC #### [facility] [address] [place] [address] Dr. Akua Thomas FREE T3on 04-09-2022 FREE T3 2.53 pg/mlL Normal 2.18-3.98 [facility] Comment on above: Performed By: #### R F #### [facility] [address] [place] [address] Dr. Akua Thomas GLYCOHEMOGLOBIN A1Con 2021 ADA RECOMMENDATION SEE BELOW Normal [facility] Comment on above: Result Comment: ADA RECOMMENDED LIMIT 4.0 - 6.0 ADA THERAPEUTIC TARGET < 7.0 ACTION SUGGESTED > 7.0 Performed By: #### A 1C #### [facility] [address] [place] [address] Dr. Akua Thomas Glucose [Mass/Vol] 123 mg/dL Normal [facility] Comment on above: Performed By: #### A 1C #### [facility] [address] [place] [address] Dr. Akua Thomas HbA1c (Bld) [Mass fraction] 5.9 % Normal 4.5-6.2 [facility] Comment on above: Performed By: #### A 1C #### [facility] [address] [place] [address] Dr. Akua Thomas LIPID PROFILEon 04-09-2022 CHOL-HDL RATIO NORM SEE BELOW Normal [facility] Comment on above: Result Comment: 3.3 - 4.4 LOW RISK 4.4 - 7.1 AVERAGE RISK 7.1 - 11.0 MODERATE RISK >11.0 HIGH RISK Performed By: #### R F #### [facility] [address] [address] [address] Akua Thomas Cholesterol [Mass/Vol] 154 mg/dL Normal <=200 [facility] Comment on above: Performed By: #### R F #### [facility] [address] [address] [address] Akua Thomas Cholesterol in HDL [Mass/Vol] 71 mg/dL Critically high 40-60 [facility] Comment on above: Performed By: #### R F #### [facility] [address] [address] [address] Akua Thomas Cholesterol in LDL [Mass/Vol] 74.8 mg/dL Normal [facility] Comment on above: Performed By: #### R F #### [facility] [address] [address] [address] Akua Thomas Cholesterol.total/Ch olesterol in HDL [Mass ratio] 2.2 {ratio} Normal [facility] Comment on above: Performed By: #### R F #### [facility] [address] [address] [address] Akua Thomas HDL NORMAL > or = 60 mg/dl - LO W CARDIOVASCULAR RISK <40 mg/dl - HIGH CARDIOVASCULAR RISK Normal [facility] Comment on above: Performed By: #### R F #### [facility] [address] [address] [address] Akua Thomas LDL CALC NORMAL SEE BELOW Normal [facility] Comment on above: Result Comment: <100 mg/dl OPTIMAL 100 - 129 mg/dl NEAR OR ABOVE OPTIMAL 130 - 159 mg/dl BORDERLINE HIGH 160 - 189 mg/dl HIGH >190 mg/dl VERY HIGH Performed By: #### R F #### [facility] [address] [address] [address] Akua Thomas Triglyceride [Mass/Vol] 41 mg/dL Normal <=150 [facility] Comment on above: Performed By: #### R F #### [facility] [address] [address] [address] Akua Thomas VLDL CALC 8.2 mg/dL Normal [facility] Comment on above: Performed By: #### R F #### [facility] [address] [place] [address] Dr. Akua Thomas PROF 14(COMP METB)on 022 Albumin [Mass/Vol] 3.8 g/dL Normal 3.4-5.0 [facility] Comment on above: Performed By: #### R F #### [facility] [address] [place] [address] Dr. Akua Thomas Albumin/Globulin [Mass ratio] 1.4 {ratio} Normal [facility] Comment on above: Performed By: #### R F #### [facility] [address] [place] [address] Dr. Akua Thomas ALP [Catalytic activity/Vol] 127 U/L Critically high 46-116 [facility] Comment on above: Performed By: #### R F #### [facility] [address] [place] [address] Dr. Akua Thomas ALT [Catalytic activity/Vol] 45 U/L Normal 16-63 [facility] Comment on above: Performed By: #### R F #### [facility] [address] [place] [address] Dr. Akua Thomas Anion gap [Moles/Vol] 12.6 mmol/L Normal [facility] Comment on above: Performed By: #### R F #### [facility] [address] [place] [address] Dr. Akua Thomas AST [Catalytic activity/Vol] 28 U/L Normal 15-37 [facility] Comment on above: Performed By: #### R F #### [facility] [address] [place] [address] Dr. Akua Thomas Bilirubin [Mass/Vol] 0.8 mg/dL Normal 0.2-1.0 [facility] Comment on above: Performed By: #### R F #### [facility] [address] [place] [address] Dr. Akua Thomas Calcium [Mass/Vol] 8.7 mg/dL Normal 8.5-10.1 [facility] Comment on above: Performed By: #### R F #### [facility] [address] [place] [address] Dr. Akua Thomas Chloride [Moles/Vol] 102 mmol/L Normal 98-107 [facility] Comment on above: Performed By: #### R F #### [facility] [address] [place] [address] Dr. Akua Thomas CO2 [Moles/Vol] 28.1 mmol/L Normal 21.0-32.0 [facility] Comment on above: Performed By: #### R F #### [facility] [address] [place] [address] Dr. Akua Thomas Creatinine [Mass/Vol] 0.77 mg/dL Normal 0.70-1.30 [facility] Comment on above: Performed By: #### R F #### [facility] [address] [place] [address] Dr. Akua Thomas EGFR-AF BENINESE >60 Normal >=60 [facility] Comment on above: Performed By: #### R F #### [facility] [address] [place] [address] Dr. Akua Thomas EGFR-NON AF BENINESE >60 Normal >=60 [facility] Comment on above: Performed By: #### R F #### [facility] [address] [place] [address] Dr. Akua Thomas Globulin (S) [Mass/Vol] 2.7 g/dL Normal [facility] Comment on above: Performed By: #### R F #### [facility] [address] [place] [address] Dr. Akua Thomas Glucose [Mass/Vol] 105 mg/dL Normal 74-106 [facility] Comment on above: Performed By: #### R F #### [facility] [address] [place] [address] Dr. Akua Thomas Potassium [Moles/Vol] 3.7 mmol/L Normal 3.5-5.1 [facility] Comment on above: Performed By: #### R F #### [facility] [address] [place] [address] Dr. Akua Thomas Protein [Mass/Vol] 6.5 g/dL Normal 6.4-8.2 [facility] Comment on above: Performed By: #### R F #### [facility] [address] [address] [address] Akua Thomas Sodium [Moles/Vol] 139 mmol/L Normal 136-145 [facility] Comment on above: Performed By: #### R F #### [facility] [address] [address] [address] Akua Thomas Urea nitrogen [Mass/Vol] 17.0 mg/dL Normal 7.0-18.0 [facility] Comment on above: Performed By: #### R F #### [facility] [address] [place] [address] Dr. Akua Thomas Urea nitrogen/Creatinine [Mass ratio] 22.1 mg/mg Normal [facility] Comment on above: Performed By: #### R F #### [facility] [address] [address] [address] Akua Thomas TSHon 04-09-2022 TSH 0.547 uIU/mL Normal 0.358-3.740 [facility] Comment on above: Performed By: #### R F #### [facility] [address] [place] [address] Dr. Akua Thomas Encounters Encounter Date Encounter Type Care Provider Facility Start: 04-13-2023 Patient encounter procedure Referring Provider [facility] Work Phone: Start: 04-13-[address] Charles Gallegos Facility:[id number] Start: 03-03-2023 Office outpatient vi sit 15 minutes Referring Provider Unknown OM-Gxpzoiwyspctvt-[place] Work Phone: Start: 03-03-2023 Patient encounter procedure Referring Provider Unknown OM-Ngdxhbiojyhxnc-Bwz [place] Work Phone: Start: 03-03-[address] Charles Gallegos Facility:[id number] Start: 11-04-2022 Office outpatient ne w 45 minutes Referring Provider Unknown BY-Pxjmqaljchonju-Huk grin [facility] 4100 Work Phone: Start: 11-04-2022 Patient encounter procedure Referring Provider Unknown TH-Vhqfgwozpgtmnk-Pss [place] Work Phone: Start: 11-04-[address] Charles Gallegos Facility:[id number] Start: 10-15-2022 End: 10-18-2022 ambulatory OSMIN GOODEN [facility] Start: 10-15-2022 End: 10-17-2022 Subsequent hospital visit by physician Paresh Griffith Dr Room 4 [facility] Comment on above: Pain in both hands Start: 10-05-2022 End: 10-06-[address] ADAMA FAYE . Facility: Start: 09-24-2022 ambulatory DALIA RANKIN Facility : Start: 09-16-2022 End: 09-17-[address] ADAMA FAYE . Facility: Start: 08-19-2022 End: 08-20-2022 ambulatory DALIA RANKIN Facility:[facility] Start: 08-19-2022 End: 08-19-2022 Patient encounter procedure DALIA RANKIN [facility] Start: 05-01-2022 End: 05-01-[address] ADAMA FAYE . Facility: Start: 04-09-2022 End: 04-10-[address] ADAMA FAYE . Facility: Start: 07-12-2017 End: 07-13-2017 Ambulatory DEFAULT PHYSICIAN Facility:[facility] Procedures Date Procedure Procedure Detail Performing Clinician Start: 10-15-2022 End: 10-15-2022 Radex hand minimum 3 views Osmin Gooden MD Work Phone: Colonoscopy DALIA RANKIN Shoulder region stru cture (body structure) DALIA RANKIN Plan of Treatment Date Care Activity Detail Author Start: 03-03-2023 PHUONG, Provider : Charles Purvis, Status: Pen, Time: 1:00 PM PHUONG, Provider: Charles Purvis, Status: Pen, Time: 1:00 PM DD-Pbfvsxcmyyygur-D [place] Work Phone: Start: 10-15-2022 Annual Wellness Visi t (AWV) Annual Wellness Visit (AWV) [facility] Start: 09-01-2021 COVID-19 Vaccine (4 - Booster for Moderna series) COVID-19 Vaccine (4 - Booster for Moderna series) [facility] Start: 06-24-2018 Pneumococcal 65+ yea rs Vaccine (2 - PPSV23 if available, else PCV20) Pneumococcal 65+ years Vaccine (2 - PPSV23 if available, else PCV20) [facility] Start: 2013 Abdominal aortic ane urysm screening AAA screen [facility] Start: 1998 Shingles vaccine (1 of 2) Becerril gles vaccine (1 of 2) [facility] Start: 1993 Screening for malign ant neoplasm of colon [facility] Start: 1967 DTaP/Tdap/Td vaccine (1 - Tdap) DTaP/Tdap/Td vaccine (1 - Tdap) [facility] Start: 1966 Hepatitis C screening Hepatitis C sc reen [facility] Start: 1960 Depression Screen Depression Screen [facility] Start: 1958 Lipid panel Lipids [facility] Immunizations Immunization Date Immunization Notes Care Provider [facility] 06-05-2022 influenza virus vaccine, unspecified formulation DALIA RANKIN [facility] 07-07-2021 SARS-CoV-2 (COVID-19 ) mRNA-1273 vaccine DALIA RANKIN [facility] 11-02-2020 SARS-CoV-2 (COVID-19 ) mRNA-1273 vaccine DALIA RANKIN [facility] Comment on above: Result Comment: 2022: TPV70 10-05-2020 SARS-CoV-2 (COVID-19 ) mRNA-1273 vaccine DALIA RANKIN [facility] Comment on above: Result Comment: 2022: TPV70 05-08-2020 influenza virus vaccine, unspecified formulation DALIA RANKIN [facility] 05-17-2019 influenza virus vaccine, unspecified formulation DALIAMAY RANKIN [facility] [place] 05-25-2018 influenza virus vaccine, unspecified formulation DALIAMAY RANKIN [facility] 06-24-2017 pneumococcal conjuga te vaccine, 13 valent DALIA MASSIEL [facility] NEGATED: Highlighted row has not occurred!06-20-2019 influenza virus vaccine, unspecified formulation DALIA RANKIN [facility] [place] Payers Date Payer Category Payer Private Health Insurance [id number] 1961 Self-pay 1950 Unknown [id number] [id number] 1950 Unknown [id number] 2.16.84 [id number] 1948 Unknown [id number] 2.16.84 [id number] 1948 Unknown [id number] 2.16.84 [id number] 1948 Unknown [id number] 2.16.84 [id number] 1948 Unknown [id number] 2.16.84 [id number] 1950 Unknown [id number] [id number] 1950 Unknown [id number] 2.16.8 [id number] 1950 Unknown [id number] 2.16.8 [id number] 1950 Unknown [id number] 2.16. [id number] 1950 Unknown [id number] 2.16. [id number] 1950 Unknown [id number] 2.16. [id number] Unknown Social History Date Type Detail Facility Start: 08-19-2022 Tobacco smoking status Never s moked tobacco (finding) [facility] Tobacco smoking status Never [facility] Sex Assigned At Male [facility] Start: 10-15-2022 Tobacco smoking stat [facility] Ex-smoker [employer] Phone: End: 08-09-1972 History of tobacco use Current smoker [employer] Phone: End: 08-09-1972 History of tobacco use Cigarette Smoker [employer] Phone: Start: 10-15-2022 Tobacco use and exposure Smokeless tobacco non-user [employer] Phone: Start: 10-15-2022 Alcohol intake Lifetime non-d rafa (finding) [employer] Phone: Start: 10-15-2022 Tobacco Comment Only smoked fo r about a year [employer] Phone: Start: 1950 Sex Assigned At Not on file [facility] Work Phone: Functional Status Date Assessment Result Facility 08-19-2022 Functional Status N/A [facility] Clinical Notes 08-19-2022 to 04-13-2023 Note Date & Type Note Facility 04-13-2023 Chief complaint Narrative - Reported An interactive audio and video telecommunication system which permits real time communications between the patient (at the originating site) and provider (at the distant site) was utilized to provide this telehealth service.Verbal consent was requested and obtained from KEDAR VENTURA on this date, 04/13/2023 04:00 PM , for a telehealth visit.1. Frontal sinus lesion; favor benign pathology2. Rhinorrhea3. Throat clearing, coughing, dysphonia, dysphagia4. Dermatological issues on Dupixent5. Asthma, allergic rhinitis with history of immunotherapy6. Reflux on proton pump inhibitor [facility] Work Phone: 03-03-2023 Chief complaint Narrative - Reported An interactive audio and video telecommunication system which permits real time communications between the patient (at the originating site) and provider (at the distant site) was utilized to provide this telehealth service.Verbal consent was requested and obtained from KEDAR VENTURA on this date, 03/03/2023 03:45 PM , for a telehealth visit.1. Frontal sinus lesion; favor benign pathology2. Rhinorrhea3. Throat clearing, coughing, dysphonia, dysphagia4. Dermatological issues on Dupixent5. Asthma, allergic rhinitis with history of immunotherapy6. Reflux on proton pump inhibitor PZ-Ybxiwffoxpxhta-Mcbnge ke Work Phone: 11-04-2022 Chief complaint Narrative - Reported An interactive audio and video telecommunication system which permits real time communications between the patient (at the originating site) and provider (at the distant site) was utilized to provide this telehealth service.Verbal consent was requested and obtained from KEDAR VENTURA on this date, 11/04/2022 01:15 PM , for a telehealth visit.Frontal sinus lesion [facility] Work Phone: 11-04-2022 History of Present illness Narrative Reason for visit:KEDAR VENTURA patient presents since last being seen 11/04/22.Medications currently on for sinonasal symptoms.Ipratropium BID.Medications tried in the past for sinonasal symptoms Flonase/Fluticasone.Spoke about PND CF-Cakbaxvtwcghkg-Fdafpm ke Work Phone: 11-04-2022 History of Present illness Narrative Reason for visit:KEDAR VENTURA patient presents since last being seen 11/04/22.Medications currently on for sinonasal symptoms.Ipratropium BID.Medications tried in the past for sinonasal symptoms Flonase/Fluticasone.Kedar presents for routine follow-up. He continues to have issues related to postnasal drainage despite ipratropium. He does feel the ipratropium is providing some measure of benefit. NZ-Ktddzrhcauigic-Utgfwo ke Work Phone: 08-19-2022 Hospital Discharge instructions Patient Education 08/19/2022 13:08:13 Transurethral Resection of the Prostate Transurethral Resection of the Prostate Transurethral resection of the prostate (TURP) is the removal (resection) of part of the gland that produces semen (prostate gland). This procedure is done to treat benign prostatic hyperplasia (BPH). BPH is an abnormal, noncancerous (benign) increase in the number of cells that make up the prostate tissue. BPH causes the prostate to get bigger. The enlarged prostate can push against or block the tube that drains urine from the bladder out of the body (urethra). BPH can affect normal urine flow by causing bladder infections, difficulty controlling bladder function, and difficulty emptying the bladder. The goal of TURP is to remove enough prostate tissue to allow for a normal flow of urine. The procedure will allow you to empty your bladder more completely when you urinate so that you can urinate less often. In a transurethral resection, a thin telescope with a light, a tiny camera, and an electric cutting edge (resectoscope) is passed through the urethra and into the prostate. The opening of the urethra is at the end of the penis. Tell a health care provider about: Any allergies you have. All medicines you are taking, including vitamins, herbs, eye drops, creams, and avwh-eco-hsedzdg medicines. Any problems you or family members have had with anesthetic medicines. Any blood disorders you have. Any surgeries you have had. Any medical conditions you have. Any prostate infections you have had. What are the risks? Generally, this is a safe procedure. However, problems may occur, including: Infection. Bleeding. Allergic reactions to medicines. Damage to other structures or organs, such as: ?The urethra. ?The bladder. ?Muscles that surround the prostate. Difficulty getting an erection. Inability to control when you urinate (incontinence). Scarring, which may cause problems with urine flow. What happens before the procedure? Medicines Ask your health care provider about: Changing or stopping your regular medicines. This is especially important if you are taking diabetes medicines or blood thinners. Taking medicines such as aspirin and ibuprofen. These medicines can thin your blood. Do not take these medicines unless your health care provider tells you to take them. Taking azhz-lph-llufmny medicines, vitamins, herbs, and supplements. Eating and drinking Follow instructions from your health care provider about eating and drinking, which may include: 8 hours before the procedure stop eating heavy meals or foods, such as meat, fried foods, or fatty foods. 6 hours before the procedure stop eating light meals or foods, such as toast or cereal. 6 hours before the procedure stop drinking milk or drinks that contain milk. 2 hours before the procedure stop drinking clear liquids. Staying hydrated Follow instructions from your health care provider about hydration, which may include: Up to 2 hours before the procedure you may continue to drink clear liquids, such as water, clear fruit juice, black coffee, and plain tea. General instructions You may have a physical exam. You may have a blood or urine sample taken. Ask your health care provider what steps will be taken to help prevent infection. These may include: ?Washing skin with a germ-killing soap. ?Taking antibiotic medicine. Plan to have someone take you home from the hospital or clinic. You may not be able to drive for up to 10 days after your procedure. Plan to have a responsible adult care for you for at least 24 hours after you leave the hospital or clinic. This is important. What happens during the procedure? An IV will be inserted into one of your veins. You will be given one or more of the following: ?A medicine to help you relax (sedative). ?A medicine to make you fall asleep (general anesthetic). ?A medicine that is injected into your spine to numb the area below and slightly above the injection site (spinal anesthetic). Your legs will be placed in foot rests (stirrups) so that your legs are apart and your knees are bent. The resectoscope will be passed through your urethra to your prostate. Parts of your prostate will be resected using the cutting edge of the resectoscope. The resectoscope will be removed. A small, thin tube (catheter) will be passed through your urethra and into your bladder. The catheter will drain urine into a bag outside of your body. ?Fluid may be passed through the catheter to keep the catheter open. The procedure may vary among health care providers and hospitals. What happens after the procedure? Your blood pressure, heart rate, breathing rate, and blood oxygen level will be monitored until you leave the hospital or clinic. You may continue to receive fluids and medicines through an IV. You may have some pain. Pain medicine will be available to help you. You will have a catheter draining your urine. ?You may have blood in your urine. Your catheter may be kept in until your urine is clear. ?Your urinary drainage will be monitored. If necessary, your bladder may be rinsed out (irrigated) through your catheter. You will be encouraged to walk around as soon as possible. You may have to wear compression stockings. These stockings help prevent blood clots and reduce swelling in your legs. Do not drive for 24 hours if you were given a sedative during your procedure. Summary Transurethral resection of the prostate (TURP) is the removal (resection) of part of the gland that produces semen (prostate gland). The goal of this procedure is to remove enough prostate tissue to allow for a normal flow of urine. Follow instructions from your health care provider about taking medicines and about eating and drinking before the procedure. This information is not intended to replace advice given to you by your health care provider. Make sure you discuss any questions you have with your health care provider. Document Released: 07/26/2006 Document Revised: 11/15/2019 Document Reviewed: 04/26/2019 [employer] Patient Education 2020 [employer] Follow Up Care 08/05/2021 11:01:39 With:MASSIEL CASE, DALAI Juan, URL Address: [address] [place] [address] [phone] When: only if needed [facility] Evaluation + Plan note No data available for this section [facility] Evaluation note Diagnosis Pain in both hands documented in this encounter [facility] Work Phone: History of Present illness Narrative* Reason for visit: * KEDAR VENTURA presents to the Otol[facility]ology Clinic for a self-referred new patient visit for evaluation of sinus problems. * Main Symptoms: * Patient has anterior nasal drainage. tolerable. * Patient has posterior nasal drainage. * Patient does not have nasal airway obstruction. * Patient does not have facial pain. * Patient does not have facial pressure. * Patient does not have decreased sense of smell. * Associated Symptoms: * Patient does not have headaches. * Patient has throat clearing. often. * Patient has coughing. spells once in a while. * Patient has dysphonia. with voice usage. * Patient has sneezing. * Patient does not have itchy eyes. * Patient has nasal bleeding. ? with steroid spray. * Medications currently on for sinonasal symptoms Flonase/Fluticasone - PRN (as needed) and Zyrtec (BID) . * Singulair, Dupixent every 2 weeks (for skin issues). * Medications tried in the past for sinonasal symptoms. * Antibiotics. * Other Pertinent Medical Conditions: * Patient has asthma. * Patient does not have aspirin sensitivity. * Patient does not have migraines. * Patient has had allergy testing. When: 2019 (-). 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 * Patient does not have history of sinus surgery. * Patient has not had a nasal fracture. * Patient does not have heartburn. * The patient takes medical therapy for heartburn. Esomeprazole Qam. * The patient has had imaging of sinuses, If yes,. * Can cough with oral intake ? not enough moisture in his throat * PMHx: Hypertension IU-Ebangimlfdosbd-Ytmgkool Work Phone: History of Present illness Narrative* Reason for visit: * KEDAR VENTURA presents to the Otolaryngology Clinic for a self-referred new patient visit for evaluation of sinus problems. * Main Symptoms: * Patient has anterior nasal drainage. tolerable. * Patient has posterior nasal drainage. * Patient does not have nasal airway obstruction. * Patient does not have facial pain. * Patient does not have facial pressure. * Patient does not have decreased sense of smell. * Associated Symptoms: * Patient does not have headaches. * Patient has throat clearing. often. * Patient has coughing. spells once in a while. * Patient has dysphonia. with voice usage. * Patient has sneezing. * Patient does not have itchy eyes. * Patient has nasal bleeding. ? with steroid spray. * Medications currently on for sinonasal symptoms Flonase/Fluticasone - PRN (as needed) and Zyrtec (BID) . * Singulair, Dupixent every 2 weeks (for skin issues). * Medications tried in the past for sinonasal symptoms. * Antibiotics. * Other Pertinent Medical Conditions: * Patient has asthma. * Patient does not have aspirin sensitivity. * Patient does not have migraines. * Patient has had allergy testing. When: 2019 (-). 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 * Patient does not have history of sinus surgery. * Patient has not had a nasal fracture. * Patient does not have heartburn. * The patient takes medical therapy for heartburn. Esomeprazole Qam. * The patient has had imaging of sinuses, If yes,. * Kedar presents as a new patient to me. He was having ongoing sinus symptoms and imaging was obtained demonstrating a lesion within his frontal sinus. He was asked to get a second opinion with me to discuss options. * He had some other concerns that we discussed today including sinonasal symptoms as outlined above. He has some dermatological issues and utilizes Dupixent twice per month. * He has a history of allergic shots in his youth but was retested as negative more recently. * He can get some coughing with oral intake and questions whether or not he has enough moisture in his throat to move the food through. * PMHx: Hypertension PV[facility]ruxkt[facility] Work Phone: History of Present illness Narrative* Main Symptoms: * Patient has posterior nasal drainage. * Associated Symptoms: * Patient has throat clearing. * Patient has coughing. * Medications currently on for sinonasal symptoms Flonase/Fluticasone - PRN (as needed) . * Ipratropium BID. SL-Pwjwrglkhirybq-HdttcmdSan[facility] Work Phone: Progress note No data available for this section [facility] Summary Purpose Family History No Family History Records FoundNo Family History Records FoundNo Family History Records FoundNo Family History Records FoundNo Family History Records FoundNo Family History Records Found Advance Directives No Advanced Directives Records FoundNo Advanced Directives Records FoundNo Advanced Directives Records FoundNo Advanced Directives Records FoundNo Advanced Directives Records FoundNo Advanced Directives Records Found Chief Complaint Frontal sinus lesion* 1. Frontal sinus lesion; favor benign pathology * 2. Rhinorrhea * 3. Throat clearing, coughing, dysphonia, dysphagia * 4. Dermatological issues on Dupixent * 5. Asthma, allergic rhinitis with history of immunotherapy * 6. Reflux on proton pump inhibitor Additional Source Comments (unrecognized sect ion and content) No Status Records FoundNo Status Records FoundNo Status Records FoundNo Status Records FoundNo Status Records FoundNo Status Records Found INFORMATION SOURCE (unrecogn ized section and content) DATE CREATED AUTHOR 02/01/2018 [facility] DATE CREATED AUTHOR AUTHOR'S ORGANIZ ATION 08/20/2022 [facility] DATE CREATED AUTHOR AUTHOR'S ORGANIZ ATION 10/10/2022 [facility] DATE CREATED AUTHOR AUTHOR'S ORGANIZ ATION 10/18/[address] [facility] DATE CREATED AUTHOR AUTHOR'S ORGANIZ ATION 04/13/2023 [facility] DATE CREATED AUTHOR AUTHOR'S ORGANIZ ATION 04/15/2023 [employer] Patient Care team informatio n (unrecognized section and content) Geoscientist Relationship Specialty Start Date End Date Aadma Faye MD [address] [place] [id number] PCP - General Family Medicine 10/08/22 Geoscientist Relationship Specialty Start Date End Date Adama Faye MD [address] [place] [address] PCP - General Family Medicine 10/08/22 FOR RECORDS PERTAINING TO PATIENTS WHO ARE OR HAVE BEEN ENROLLED IN A CHEMICAL DEPENDENCY/SUBSTANCEABUSE PROGRAM, SOME INFORMATION MAY BE OMITTED. This clinical summary was aggregated from multiple sources. Caution should be exercised in using it in the provision of clinical care. This summary normalizes information from multiple sources, and as a consequence, information in this document may materially change the coding, format and clinical context of patient data. In addition, data may be omitted in some cases. CLINICAL DECISIONS SHOULD BE BASED ON THE PRIMARY CLINICAL RECORDS. [employer] provides no warranty or guarantee of the accuracy or completeness of information in this document.
--- NOTE | 2023-08-06 08:27 | XR_ITS ---
The [address] [address] Patient Name: KEDAR VENTURA MRN: [id number] date: 1950 Sex: M Assigned Patient Location: LAB Current Patient Location: LAB Accession/Order Number: [id number] Exam Date: 08/06/2023 08:32 Report Date: 08/06/2023 09:32 At the request of: ADAMA OSBORNE Procedure: XR chest 2V EXAM: XR chest 2V HISTORY: Cough R05.9 COMPARISON: None. TECHNIQUE: PA and lateral views of the chest. FINDINGS: The cardiomediastinal silhouette is normal. No focal consolidation is identified. There is no pneumothorax. No pleural effusion is noted. The osseous structures are intact. XR/XR chest 2V IMPRESSION: No acute cardiopulmonary process. Electronically authenticated by: JENNIE BERTRAND Date: 08/06/2023 09:32
[2023-08-06 08:50] LABS: Basophils Percent Auto 0.4 % (0.2-2.0); Eosinophils Absolute Auto 0.4 10^3/uL (0.0-0.7); Eosinophils Percent Auto 4.6 % (0.9-7.0); Hematocrit 44.2 % (42.0-54.0); Hemoglobin 14.2 g/dL (14.0-18.0); Immature Granulocytes Abs Auto 0.02 10^3/uL (0.00-0.03); Immature Granulocytes Pct Auto 0.2 % (0.0-0.5); Lymphocytes Absolute Auto 2.1 10^3/uL (1.2-3.8); Lymphocytes Percent Auto 23.3 % (20.5-60.0); Mean Corpuscular HGB Conc 32.1 g/dL (29.9-35.2); Mean Corpuscular Hemoglobin 29.1 pg (25.9-34.0); Mean Corpuscular Volume 90.6 fL (80.0-94.0); Mean Platelet Volume 10.3 fL (9.5-13.5); Monocytes Absolute Auto 0.7 10^3/uL (0.3-0.8); Monocytes Percent Auto 8.2 % (1.7-12.0); Neutrophils Absolute Auto 5.6 10^3/uL (1.4-6.5); Neutrophils Percent Auto 63.3 % (43.0-75.0); Platelet Count 247 10^3/uL (150-450); Red Blood Count 4.88 10^6/uL (4.70-6.10); Red Cell Distribution Width 15.1 % (11.0-15.0); White Blood Count 8.9 10^3/uL (4.0-11.0)
[2023-08-06 10:01] LABS: Estimated Average Glucose 123 mg/dL; Glycohemoglobin A1C 5.9 % (4.5-6.2)
[2023-08-06 11:36] LABS: Alanine Aminotransferase 37 U/L (16-63); Albumin Globulin Ratio 1.1; Albumin Level 3.6 g/dL (3.4-5.0); Alkaline Phosphatase 102 U/L (46-116); Anion Gap 8.9; Aspartate Amino Transferase 20 U/L (15-37); BUN Creatinine Ratio 23.7; Bilirubin Total 0.7 mg/dL (0.2-1.0); Calcium 9.2 mg/dL (8.5-10.1); Carbon Dioxide 31.1 mmol/L (21.0-32.0); Chloride 101 mmol/L (98-107); Chol HDL Ratio 3.2; Cholesterol 237 mg/dL (<=200); Estimated GFR (African America >60 (>=60); Estimated GFR (Non-African Ame >60 (>=60); Free T3 2.58 pg/mL (2.18-3.98); Globulin 3.2 g/dL; Glucose 100 mg/dL (74-106); HDL Cholesterol 73 mg/dL (40-60); Sodium 137 mmol/L (136-145); Thyroid Stimulating Hormone 0.898 uIU/mL (0.358-3.740); Total Protein 6.8 g/dL (6.4-8.2); Triglycerides 83 mg/dL (<=150); VLDL CHOLESTEROL 16.6 mg/dL
[2023-08-06 12:45] LABS: Prostate Specific Antigen Scrn 1.56 ng/mL (<=4.00)
== END 2023-08-06 08:25 | disposition home or self-care (01) ==
LOC: LAB 08:24
PROVIDERS: PCP Family Medicine; Visit Provider Family Medicine
DX: R05.9 Cough, unspecified (principal); I10 Essential (primary) hypertension; R00.2 Palpitations; E78.5 Hyperlipidemia, unspecified; E03.9 Hypothyroidism, unspecified; Z12.5 Encounter for screening for malignant neoplasm of prostate; E11.65 Type 2 diabetes mellitus with hyperglycemia
CPT/HCPCS: 36415; 71046; 80053; 80061; 83036; 84436; 84443; 84481; 85025; G0103

== ENCOUNTER 2023-09-03 11:15 | Outpatient (REF) | payer MEDICARE, SELFPAY ==
--- OUTSIDE RECORDS SUMMARY | 2023-09-03 11:19 | XMS_ITS | CCD ---
Author Name Unknown Address [address] [place] [address] Organization [facility] Care Team Providers Care Delinquency Counselor Name Role Phone PHYSICIAN, DEFAULT Unavailable Unavailable PHYSICIAN, DEFAULT Unavailable Unavailable Adama Faye Primary Care Physician DALIA RANKIN Attending Unavailable HOY ., DR [...] Unavailable HOY ., DR GALAN Consulting Unavailable [place], DR ALIYA Sierra Consulting Unavailable HOY ., DR GALAN Attending Unavailable HOY ., DR GALAN Admitting Unavailable HOY ., DR GALAN Primary Care Unavailable HOY ., DR GALAN Consulting Unavailable DONNELL RENTERIA Consulting Unavailable Adama Faye MD Primary Care Provider [phone] OSMIN GOODEN Referring Unavailable MARY ANN [...] Eruption of skin (disorder) [facility] (2 sources) Penicillins Drug allergy (disorder) 3 [facility] Repository (3 sources) Penicillins Propensity to adverse reactions to drug 3 [facility] Medications Current Medications Medication Drug Class(es) Dates [...] spray(s) nasal route three times daily Ipratropium Monon 0.03 % Nasal Solution USE 2 SPRAYS [...] frontal sinus (239.1) (D49.1) Orders Start: Ipratropium Monon 0.03 % Nasal Solution; USE 2 SPRAYS IN EACH NOSTRIL 3 TIMES DAILY Patient Discussion/Summary Please followup with me in 12 months for reevaluation or sooner with any questions or concerns. Please feel free to contact my office by calling [phone] with any questions. Provider Impressions 1. Frontal [...] observation. Given that there is been no globe changer 6 months I recommended virtual follow-up in [...] 40 MG Oral Capsule Delayed Release Ipratropium Monon 0.03 % Nasal SolutionUSE 2 SPRAYS IN [...] falls within the last year MG-Otolaryngolo [facility] [address] Work Phone: Tobacco use status [facility] b) No MG-Otolaryngolo [facility] [address] Work Phone: Established Visit (Otolaryng ology)on [...] free to contact my office by calling [phone] with any questions. Provider Impressions 1. Frontal [...] to home so I will ask my medical secretary to print off the order and [...] 40 MG Oral Capsule Delayed Release Ipratropium Monon 0.03 % Nasal SolutionUSE 2 SPRAYS IN [...] Throat clearing (786.09) (R09.89) Orders Start: Ipratropium Monon 0.03 % Nasal Solution; USE 2 SPRAYS IN EACH NOSTRIL 3 TIMES DAILY NEEDED Patient Discussion/Summary Please feel free to contact my office by calling [phone] with any questions. Provider Impressions 1. Frontal [...] A Adams MD 10/15/22 Final result Normal [facility] No acute osseous abnormality. Degenerative changes 1st CMC joint [facility] EXAMINATION: THREE XRAY VIEWS OF THE LEFT HAND 10/15/2022 9:57 am COMPARISON: None. HISTORY: ORDERING SYSTEM PROVIDED HISTORY: Pain in both hands FINDINGS: There is no evidence of acute fracture. There is normal alignment. No acute joint abnormality. No focal osseous lesion. No focal soft tissue abnormality. Degenerative changes seen in the 1st CMC joint. Vascular calcifications. [facility] Luis A Adams MD - 10/15/2022 [...] osseous abnormality. Degenerative changes 1st CMC joint [employer] Phone: Radiology Study observation (narrative) [employer] Phone: XR HAND LEFT (MIN 3 VIEWS)Or dered By: Luis A Adams on 10-15-2022 [employer] Phone: XR HAND RIGHT (MIN 3 VIEWS)o [...] A Adams MD 10/15/22 Final result Normal [facility] No acute osseous abnormality. Degenerative changes 3rd MCP joint and 1st CMC joint [facility] EXAMINATION: THREE XRAY VIEWS OF THE [...] with joint space narrowing and bony overgrowth. [facility] Luis A Adams MD - 10/15/2022 [...] 3rd MCP joint and 1st CMC joint [facility] [employer] Phone: Radiology Study observation (narrative) [facility] Phone: XR HAND RIGHT (MIN 3 VIEWS)O rdered By: Luis A Adams on 10-15-2022 [facility] [employer] Phone: PERLA by IFAon 10-06-2022 Antinuclear Antibodies, IFA Negative Normal [facility] Comment on above: Result Comment: Nega tive <1:80 Borderline 1:80 Positive >1:80 ICAP nomenclature: AC-0 For more information about Hep-2 cell patterns use ANApatterns.org, the official website for the International Consensus on Antinuclear Antibody (PERLA) Patterns (ICAP). Performed By: #### C BC #### [facility] [address] [place] [address] Dr. Akua Thomas ANTISTREPTOLYSIN O AB (ASO)o n 10-06-2022 Antistreptolysin O Ab 69.9 IU/mL Normal 0.0-200.0 [facility] Comment on above: Performed By: #### A SOAB #### [facility] [address] [place] [address] Dr. Akua Thomas CALCIUM IONIZEDon 10-06-2022 Calcium, Ionized, Serum 5.5 mg/dL Normal 4.5-5.6 [facility] Comment on above: Performed By: #### C AIONZ #### [facility] [address] [place] [address] Dr. Akua Thomas RHEUMATOID FACTORon 10-06-19 RA Latex Turbid. 12.6 IU/mL Normal <14.0 [facility] Comment on above: Performed By: #### R F #### [facility] [address] [place] [address] Dr. Akua Thomas CBC AUTO DIFFon 10-05-2022 BASO # 0.0 103/ul Normal 0.0-0.1 [facility] Comment on above: Performed By: #### C BC #### [facility] [address] [place] [address] Dr. Akua Thomas Basophils/100 WBC (Bld) 0.2 % Normal 0.2-2.0 [facility] Comment on above: Performed By: #### C BC #### [facility] [address] [place] [address] Dr. Akua Thomas EO # 0.1 103/ul Normal 0.0-0.7 [facility] Comment on above: Performed By: #### C BC #### [facility] [address] [place] [address] Dr. Akua Thomas Eosinophils/100 WBC (Bld) 1.4 % Normal 0.9-7.0 [facility] Comment on above: Performed By: #### C BC #### [facility] [address] [place] [address] Dr. Akua Thomas Erythrocyte distribution width (RBC) [Ratio] 14.3 % Normal 11.0-15.0 [facility] Comment on above: Performed By: #### C BC #### [facility] [address] [place] [address] Dr. Akua Thomas Hematocrit (Bld) [Volume fraction] 45.5 % Normal 42.0-54.0 [facility] Comment on above: Performed By: #### C BC #### [facility] [address] [place] [address] Dr. Akua Thomas Hemoglobin (Bld) [Mass/Vol] 15.1 g/dL Normal 14.0-18.0 [facility] Comment on above: Performed By: #### C BC #### [facility] [address] [place] [address] Dr. Akua Thomas IG # 0.03 10e3/ul Normal 0.00-0.03 [facility] Comment on above: Performed By: #### C BC #### [facility] [address] [place] [address] Dr. Akua Thomas IG % 0.3 % Normal 0.0-0.5 [facility] Comment on above: Performed By: #### C BC #### [facility] [address] [place] [address] Dr. Akua Thomas LYMPH # 3.0 103/ul Normal 1.2-3.8 [facility] Comment on above: Performed By: #### C BC #### [facility] [address] [place] [address] Dr. Akua Thomas Lymphocytes/100 WBC (Bld) 31.9 % Normal 20.5-60.0 [facility] Comment on above: Performed By: #### C BC #### [facility] [address] [place] [address] Dr. Akua Thomas MANUAL DIFF REQ NO Normal The [facility] Comment on above: Performed By: #### C BC #### [facility] [address] [place] [address] Dr. Akua Thomas MCH (RBC) [Entitic mass] 29.6 pg Normal 25.9-34.0 [facility] Comment on above: Performed By: #### C BC #### [facility] [address] [place] [address] Dr. Akua Thomas MCHC (RBC) [Mass/Vol] 33.2 g/dL Normal 29.9-35.2 [facility] Comment on above: Performed By: #### C BC #### [facility] [address] [place] [address] Dr. Akua Thomas MCV (RBC) [Entitic vol] 89.2 fL Normal 80.0-94.0 [facility] Comment on above: Performed By: #### C BC #### [facility] [address] [place] [address] Dr. Akua Thomas MONO # 0.7 103/ul Normal 0.3-0.8 [facility] Comment on above: Performed By: #### C BC #### [facility] [address] [place] [address] Dr. Akua Thomas Monocytes/100 WBC (Bld) 7.2 % Normal 1.7-12.0 [facility] Comment on above: Performed By: #### C BC #### [facility] [address] [place] [address] Dr. Akua Thomas NEUT # 5.5 103/ul Normal 1.4-6.5 [facility] Comment on above: Performed By: #### C BC #### [facility] [address] [place] [address] Dr. Akua Thomas Neutrophils/100 WBC (Bld) 59.0 % Normal 43.0-75.0 [facility] Comment on above: Performed By: #### C BC #### [facility] [address] [address] [address] Akua Thomas Platelet mean volume (Bld) [Entitic vol] 9.9 fL Normal 9.5-13.5 [facility] Comment on above: Performed By: #### C BC #### [facility] [address] [place] [address] Dr. Akua Thomas PLT 237 103/ul Normal 150-450 [facility] Comment on above: Performed By: #### C BC #### [facility] [address] [place] [address] Dr. Akua Thomas RBC 5.10 106/ul Normal 4.70-6.10 [facility] Comment on above: Performed By: #### C BC #### [facility] [address] [place] [address] Dr. Akua Thomas WBC 9.3 103/ul Normal 4.0-11.0 [facility] Comment on above: Performed By: #### C BC #### [facility] [address] [place] [address] Dr. Akua Thomas CRPon 10-05-2022 CRP [Mass/Vol] mg/L Normal <=1.0 [facility] Comment on above: Performed By: #### C MP, URIC, PHOS, MG, T7, CRP, TSH #### [facility] [address] [place] [address] Dr. Akua Thomas FREE THYROXINE INDEX T7on FTI 3.28 Normal 1.30-4.50 [facility] Comment on above: Performed By: #### C BC #### [facility] [address] [place] [address] Dr. Akua Thomas T3U 36.0 % Normal 33.0-40.0 [facility] Comment on above: Performed By: #### C BC #### [facility] [address] [place] [address] Dr. Akua Thomas T4 [Mass/Vol] 9.10 ug/dL Normal 4.50-12.10 [facility] Comment on above: Performed By: #### C BC #### [facility] [address] [place] [address] Dr. Akua Thomas IRONon 10-05-2022 Iron [Mass/Vol] 119.0 ug/dL Normal 65.0-175.0 [facility] Comment on above: Performed By: #### I SHILPI #### [facility] [address] [place] [address] Dr. Akua Thomas MAGNESIUMon 10-05-2022 Magnesium [Mass/Vol] 1.8 mg/dL Normal 1.8-2.4 [facility] Comment on above: Performed By: #### C BC #### [facility] [address] [place] [address] Dr. Akua Thomas PHOSPHORUSon 10-05-2022 Phosphate [Mass/Vol] 3.4 mg/dL Normal 2.6-4.7 [facility] Comment on above: Performed By: #### C BC #### [facility] [address] [place] [address] Dr. Akua Thomas PROF 14(COMP METB)on 023 Albumin [Mass/Vol] 4.0 g/dL Normal 3.4-5.0 [facility] Comment on above: Performed By: #### C BC #### [facility] [address] [place] [address] Dr. Akua Thomas Albumin/Globulin [Mass ratio] 1.4 {ratio} Normal [facility] Comment on above: Performed By: #### C BC #### [facility] [address] [place] [address] Dr. Akua Thomas ALP [Catalytic activity/Vol] 119 U/L Critically high 46-116 [facility] Comment on above: Performed By: #### C BC #### [facility] [address] [place] [address] Dr. Akua Thomas ALT [Catalytic activity/Vol] 69 U/L Critically high 16-63 [facility] Comment on above: Performed By: #### C BC #### [facility] [address] [place] [address] Dr. Akua Thomas Anion gap [Moles/Vol] 10.0 mmol/L Normal [facility] Comment on above: Performed By: #### C BC #### [facility] [address] [address] [address] Akua Thomas AST [Catalytic activity/Vol] 37 U/L Normal 15-37 [facility] Comment on above: Performed By: #### C BC #### [facility] [address] [address] [address] Akua Thomas Bilirubin [Mass/Vol] 0.7 mg/dL Normal 0.2-1.0 [facility] Comment on above: Performed By: #### C BC #### [facility] [address] [address] [address] Akua Thomas Calcium [Mass/Vol] 9.2 mg/dL Normal 8.5-10.1 [facility] Comment on above: Performed By: #### C BC #### [facility] [address] [address] [address] Akua Thomas Chloride [Moles/Vol] 100 mmol/L Normal 98-107 [facility] Comment on above: Performed By: #### C BC #### [facility] [address] [address] [address] Akua Thomas CO2 [Moles/Vol] 30.5 mmol/L Normal 21.0-32.0 [facility] Comment on above: Performed By: #### C BC #### [facility] [address] [address] [address] Akua Thomas Creatinine [Mass/Vol] 0.75 mg/dL Normal 0.70-1.30 [facility] Comment on above: Performed By: #### C BC #### [facility] [address] [address] [address] Akua Thomas EGFR-AF GUINEAN >60 Normal >=60 [facility] Comment on above: Performed By: #### C BC #### [facility] [address] [address] [address] Akua Thomas EGFR-NON AF GUINEAN >60 Normal >=60 [facility] Comment on above: Performed By: #### C BC #### [facility] [address] [address] [address] Akua Thomas Globulin (S) [Mass/Vol] 2.9 g/dL Normal [facility] Comment on above: Performed By: #### C BC #### [facility] [address] [address] [address] Akua Thomas Glucose [Mass/Vol] 97 mg/dL Normal 74-106 [facility] Comment on above: Performed By: #### C BC #### [facility] [address] [place] [address] Dr. Akua Thomas Potassium [Moles/Vol] 4.5 mmol/L Normal 3.5-5.1 [facility] Comment on above: Performed By: #### C BC #### [facility] [address] [place] [address] Dr. Akua Thomas Protein [Mass/Vol] 6.9 g/dL Normal 6.4-8.2 [facility] Comment on above: Performed By: #### C BC #### [facility] [address] [place] [address] Dr. Akua Thomas Sodium [Moles/Vol] 136 mmol/L Normal 136-145 [facility] Comment on above: Performed By: #### C BC #### [facility] [address] [place] [address] Dr. Akua Thomas Urea nitrogen [Mass/Vol] 24.0 mg/dL Critically high 7.0-18.0 [facility] Comment on above: Performed By: #### C BC #### [facility] [address] [place] [address] Dr. Akua Thomas Urea nitrogen/Creatinine [Mass ratio] 32.0 mg/mg Normal [facility] Comment on above: Performed By: #### C BC #### [facility] [address] [place] [address] Dr. Akua Thomas TSHon 10-05-2022 TSH 0.725 uIU/mL Normal 0.358-3.740 [facility] Comment on above: Performed By: #### C BC #### [facility] [address] [place], [place] [address] Dr. Akua Thomas URIC ACID SERUMon 10-05-2022 Urate [Mass/Vol] 2.2 mg/dL Critically low 3.5-7.2 [facility] Comment on above: Performed By: #### C MP, URIC, PHOS, MG, T7, CRP, TSH #### [facility] [address] [place], [place] [address] Dr. Akua Thomas XR HAND LT MIN 3Von 10-05-19 23 XR HAND LT MIN 3V EXAMINATION: XR WRIS T MARÍA MIN 3 V, XR HAND LT MIN 3V HISTORY: Arthritis of hand COMPARISON: No relevant comparison available. FINDINGS: RIGHT FINDINGS: BONES: No acute fracture or dislocation. Severe degenerative changes at the first carpometacarpal joint with sgpd-ep-fxny articulation and extensive heterotopic ossification SOFT TISSUES: [...] ALIYA KILLIAN Date: 2022-10-05 13:24 Normal [facility] CT SINUSES WO CONon 09-16-[address] [...] mastoid sinuses are not included in the sckyz-kn-lesv. IMPRESSION: There is a small mass seen [...] by: DONNELL RENTERIA Date: 2022-09-16 19:40 Normal [facility] Lab Reportson 08-20-2022 Lab Reports [id number]:127 Normal [facility] Screenson 08-20-2022 Screens [id number]:127 Normal [facility] Patient Educationon 08-19-19 Patient Education Urology [...] including vitamins, herbs, eye drops, creams, and hsol-mhb-nxxcjyk medicines. ? Any problems you or family [...] tells you to take them. ? Taking tkbl-rfq-iempvkz medicines, vitamins, herbs, and supplements. Eating and [...] be [place] (more content not included)... Normal [facility] Urology Office/Clinic Noteon 08-19-2022 Urology Office/Clinic [...] next few years or will go to [facility] to obtain. Follow-up With When Contact Information DALIA RANKIN PA-C, URL Only if needed [address] [place] [address] [phone] Additional Instructions: Patient Education Transurethral Resection of [...] Dipstick: Negat (more content not included)... Normal [facility] Comment on above: Result Comment: Elec tronically Signed By: DALIA RANKIN PA-C\.br\Date and Time Signed: 08/19/22 13:29 EST\.br\Electronically Co-Signed By: Pilar Whitt MA\.br\Date and Time Co-Signed: 08/19/22 13:25 EST OCC BLD IMMUNO SCREENon 04-10 OCCULT BLOOD Negative Normal NEGATIVE [facility] Comment on above: Performed By: #### C BC #### [facility] [address] [address] [address] Akua Thomas PSA, FREE AND TOTAL RATIOon 04-10-2022 % Free PSA 17.8 % Normal [facility] Comment on above: Result Comment: [...] men. Performed By: #### C BC #### [facility] [address] [place] [address] [address] [address] Akua Thomas Prostate specific Ag [Mass/Vol] 0.9 ng/mL Normal 0.0-4.0 [facility] Comment on above: Result Comment: Leslye FOSTER methodology. . According to the [place] [employer], Serum PSA should decrease and [...] disease. Performed By: #### C BC #### [facility] [address] [place] [address] Dr. Akua Thomas PSA, Free 0.16 ng/mL Normal N/A [facility] Comment on above: Result Comment: Leslye juan ECLIA methodology. Performed By: #### C BC #### [facility] [address] [place] [address] Dr. Akua Thomas T4 LABCORPon 04-10-2022 T4 [Mass/Vol] 8.0 ug/dL Normal 4.5-12.0 [facility] Comment on above: Performed By: #### C BC #### [facility] [address] [place] [address] Dr. Akua Thomas CBC AUTO DIFFon 04-09-2022 BASO # 0.0 103/ul Normal 0.0-0.1 [facility] Comment on above: Performed By: #### C BC #### [facility] [address] [place] [address] Dr. Akua Thomas Basophils/100 WBC (Bld) 0.2 % Normal 0.2-2.0 [facility] Comment on above: Performed By: #### C BC #### [facility] [address] [place] [address] Dr. Akua Thomas EO # 0.2 103/ul Normal 0.0-0.7 [facility] Comment on above: Performed By: #### C BC #### [facility] [address] [place] [address] Dr. Akua Thomas Eosinophils/100 WBC (Bld) 2.2 % Normal 0.9-7.0 [facility] Comment on above: Performed By: #### C BC #### [facility] [address] [place] [address] Dr. Akua Thomas Erythrocyte distribution width (RBC) [Ratio] 14.2 % Normal 11.0-15.0 [facility] Comment on above: Performed By: #### C BC #### [facility] [address] [place] [address] Dr. Akua Thomas Hematocrit (Bld) [Volume fraction] 43.3 % Normal 42.0-54.0 [facility] Comment on above: Performed By: #### C BC #### [facility] [address] [place] [address] Dr. Akua Thomas Hemoglobin (Bld) [Mass/Vol] 14.2 g/dL Normal 14.0-18.0 [facility] Comment on above: Performed By: #### C BC #### [facility] [address] [place] [address] Dr. Akua Thomas IG # 0.02 10e3/ul Normal 0.00-0.03 [facility] Comment on above: Performed By: #### C BC #### [facility] [address] [place] [address] Dr. Akua Thomas IG % 0.2 % Normal 0.0-0.5 [facility] Comment on above: Performed By: #### C BC #### [facility] [address] [place] [address] Dr. Akua Thomas LYMPH # 1.8 103/ul Normal 1.2-3.8 [facility] Comment on above: Performed By: #### C BC #### [facility] [address] [place] [address] Dr. Akua Thomas Lymphocytes/100 WBC (Bld) 20.6 % Normal 20.5-60.0 [facility] Comment on above: Performed By: #### C BC #### [facility] [address] [place] [address] Dr. Akua Thomas MANUAL DIFF REQ NO Normal [facility] Comment on above: Performed By: #### C BC #### [facility] [address] [place] [address] Dr. Akua Thomas MCH (RBC) [Entitic mass] 29.8 pg Normal 25.9-34.0 [facility] Comment on above: Performed By: #### C BC #### [facility] [address] [address] [address] Akua Thomas MCHC (RBC) [Mass/Vol] 32.8 g/dL Normal 29.9-35.2 [facility] Comment on above: Performed By: #### C BC #### [facility] [address] [address] [address] Akua Thomas MCV (RBC) [Entitic vol] 91.0 fL Normal 80.0-94.0 [facility] Comment on above: Performed By: #### C BC #### [facility] [address] [place] [address] Dr. Akua Thomas MONO # 0.7 103/ul Normal 0.3-0.8 [facility] Comment on above: Performed By: #### C BC #### [facility] [address] [place] [address] Dr. Akua Thomas Monocytes/100 WBC (Bld) 8.2 % Normal 1.7-12.0 [facility] Comment on above: Performed By: #### C BC #### [facility] [address] [place] [address] Dr. Akua Thomas NEUT # 6.1 103/ul Normal 1.4-6.5 [facility] Comment on above: Performed By: #### C BC #### [facility] [address] [place] [address] Dr. Akua Thomas Neutrophils/100 WBC (Bld) 68.6 % Normal 43.0-75.0 [facility] Comment on above: Performed By: #### C BC #### [facility] [address] [place] [address] Dr. Akua Thomas Platelet mean volume (Bld) [Entitic vol] 10.1 fL Normal 9.5-13.5 [facility] Comment on above: Performed By: #### C BC #### [facility] [address] [address] [address] Akua Thomas PLT 231 103/ul Normal 150-450 [facility] Comment on above: Performed By: #### C BC #### [facility] [address] [place] [address] Dr. Akua Thomas RBC 4.76 106/ul Normal 4.70-6.10 [facility] Comment on above: Performed By: #### C BC #### [facility] [address] [place] [address] Dr. Akua Thomas WBC 8.9 103/ul Normal 4.0-11.0 [facility] Comment on above: Performed By: #### C BC #### [facility] [address] [place] [address] Dr. Akua Thomas FREE T3on 04-09-2022 FREE T3 2.53 pg/mlL Normal 2.18-3.98 [facility] Comment on above: Performed By: #### R F #### [facility] [address] [place] [address] Dr. Akua Thomas GLYCOHEMOGLOBIN A1Con 2021 ADA RECOMMENDATION SEE BELOW Normal [facility] Comment on above: Result Comment: ADA RECOMMENDED LIMIT 4.0 - 6.0 ADA THERAPEUTIC TARGET < 7.0 ACTION SUGGESTED > 7.0 Performed By: #### A 1C #### [facility] [address] [place] [address] Dr. Akua Thomas Glucose [Mass/Vol] 123 mg/dL Normal [facility] Comment on above: Performed By: #### A 1C #### [facility] [address] [place] [address] Dr. Akua hTomas HbA1c (Bld) [Mass fraction] 5.9 % Normal 4.5-6.2 [facility] Comment on above: Performed By: #### A 1C #### [facility] [address] [place] [address] Dr. Akua Thomas LIPID PROFILEon 04-09-2022 CHOL-HDL RATIO NORM SEE BELOW Normal [facility] Comment on above: Result Comment: 3.3 - 4.4 LOW RISK 4.4 - 7.1 AVERAGE RISK 7.1 - 11.0 MODERATE RISK >11.0 HIGH RISK Performed By: #### R F #### [facility] [address] [address] [address] Akua Thomas Cholesterol [Mass/Vol] 154 mg/dL Normal <=200 [facility] Comment on above: Performed By: #### R F #### [facility] [address] [address] [address] Akua Thomas Cholesterol in HDL [Mass/Vol] 71 mg/dL Critically high 40-60 [facility] Comment on above: Performed By: #### R F #### [facility] [address] [address] [address] Akua Thomas Cholesterol in LDL [Mass/Vol] 74.8 mg/dL Normal [facility] Comment on above: Performed By: #### R F #### [facility] [address] [address] [address] Akua Thomas Cholesterol.total/Ch olesterol in HDL [Mass ratio] 2.2 {ratio} Normal [facility] Comment on above: Performed By: #### R F #### [facility] [address] [address] [address] Akua Thomas HDL NORMAL > or = 60 mg/dl - LO W CARDIOVASCULAR RISK <40 mg/dl - HIGH CARDIOVASCULAR RISK Normal [facility] Comment on above: Performed By: #### R F #### [facility] [address] [address] [address] Akua Thomas LDL CALC NORMAL SEE BELOW Normal [facility] Comment on above: Result Comment: <100 mg/dl OPTIMAL 100 - 129 mg/dl NEAR OR ABOVE OPTIMAL 130 - 159 mg/dl BORDERLINE HIGH 160 - 189 mg/dl HIGH >190 mg/dl VERY HIGH Performed By: #### R F #### [facility] [address] [address] [address] Akua Thomas Triglyceride [Mass/Vol] 41 mg/dL Normal <=150 [facility] Comment on above: Performed By: #### R F #### [facility] [address] [address] [address] Akua Thomas VLDL CALC 8.2 mg/dL Normal [facility] Comment on above: Performed By: #### R F #### [facility] [address] [place] [address] Dr. Akua Thomas PROF 14(COMP METB)on 022 Albumin [Mass/Vol] 3.8 g/dL Normal 3.4-5.0 [facility] Comment on above: Performed By: #### R F #### [facility] [address] [place] [address] Dr. Akua Thomas Albumin/Globulin [Mass ratio] 1.4 {ratio} Normal [facility] Comment on above: Performed By: #### R F #### [facility] [address] [place] [address] Dr. Akua Thomas ALP [Catalytic activity/Vol] 127 U/L Critically high 46-116 [facility] Comment on above: Performed By: #### R F #### [facility] [address] [place] [address] Dr. Akua Thomas ALT [Catalytic activity/Vol] 45 U/L Normal 16-63 [facility] Comment on above: Performed By: #### R F #### [facility] [address] [place] [address] Dr. Akua Thomas Anion gap [Moles/Vol] 12.6 mmol/L Normal [facility] Comment on above: Performed By: #### R F #### [facility] [address] [place] [address] Dr. Akua Thomas AST [Catalytic activity/Vol] 28 U/L Normal 15-37 [facility] Comment on above: Performed By: #### R F #### [facility] [address] [place] [address] Dr. Akua Thomas Bilirubin [Mass/Vol] 0.8 mg/dL Normal 0.2-1.0 [facility] Comment on above: Performed By: #### R F #### [facility] [address] [place] [address] Dr. Akua Thomas Calcium [Mass/Vol] 8.7 mg/dL Normal 8.5-10.1 [facility] Comment on above: Performed By: #### R F #### [facility] [address] [place] [address] Dr. Akua Thomas Chloride [Moles/Vol] 102 mmol/L Normal 98-107 [facility] Comment on above: Performed By: #### R F #### [facility] [address] [place] [address] Dr. Akua Thomas CO2 [Moles/Vol] 28.1 mmol/L Normal 21.0-32.0 [facility] Comment on above: Performed By: #### R F #### [facility] [address] [place] [address] Dr. Akua Thomas Creatinine [Mass/Vol] 0.77 mg/dL Normal 0.70-1.30 [facility] Comment on above: Performed By: #### R F #### [facility] [address] [place] [address] Dr. Akua Thomas EGFR-AF GUINEAN >60 Normal >=60 [facility] Comment on above: Performed By: #### R F #### [facility] [address] [place] [address] Dr. Akua Thomas EGFR-NON AF GUINEAN >60 Normal >=60 [facility] Comment on above: Performed By: #### R F #### [facility] [address] [place] [address] Dr. Akua Thomas Globulin (S) [Mass/Vol] 2.7 g/dL Normal [facility] Comment on above: Performed By: #### R F #### [facility] [address] [place] [address] Dr. Akua Thomas Glucose [Mass/Vol] 105 mg/dL Normal 74-106 [facility] Comment on above: Performed By: #### R F #### [facility] [address] [place] [address] Dr. Akua Thomas Potassium [Moles/Vol] 3.7 mmol/L Normal 3.5-5.1 [facility] Comment on above: Performed By: #### R F #### [facility] [address] [place] [address] Dr. Akua Thomas Protein [Mass/Vol] 6.5 g/dL Normal 6.4-8.2 [facility] Comment on above: Performed By: #### R F #### [facility] [address] [address] [address] Akua Thomas Sodium [Moles/Vol] 139 mmol/L Normal 136-145 [facility] Comment on above: Performed By: #### R F #### [facility] [address] [address] [address] Akua Thomas Urea nitrogen [Mass/Vol] 17.0 mg/dL Normal 7.0-18.0 [facility] Comment on above: Performed By: #### R F #### [facility] [address] [place] [address] Dr. Akua Thomas Urea nitrogen/Creatinine [Mass ratio] 22.1 mg/mg Normal [facility] Comment on above: Performed By: #### R F #### [facility] [address] [address] [address] Akua Thomas TSHon 04-09-2022 TSH 0.547 uIU/mL Normal 0.358-3.740 [facility] Comment on above: Performed By: #### R F #### [facility] [address] [place] [address] Dr. Akua Thomas Encounters Encounter Date Encounter Type Care Provider Facility Start: 04-13-2023 Patient encounter procedure Referring Provider Unknown [facility] Work Phone: Start: 04-13-[address] Charles Gallegos Facility:[id number] Start: 03-03-2023 Office outpatient vi sit 15 minutes Referring Provider Unknown UD-Dqwbijscxajgmg-Qbi [place] Work Phone: Start: 03-03-2023 Patient encounter procedure Referring Provider Unknown AT-Gierzcbxgzfmgi-Vdl [place]lake Work Phone: Start: 03-03-[address] Charles Gallegos Facility:[id number] Start: 11-04-2022 Office outpatient ne w 45 minutes Referring Provider Unknown JY-Osdhrkqurfdgzt-Vqs grin [facility] 4100 Work Phone: Start: 11-04-2022 Patient encounter procedure Referring Provider Unknown AK-Ksmzdprdcefwya-Rqj [place] Work Phone: Start: 11-04-[address] Charles Gallegos Facility:[id number] Start: 10-15-2022 End: 10-18-2022 ambulatory OSMIN GOODEN [facility] Start: 10-15-2022 End: 10-17-2022 Subsequent hospital visit by physician Paresh Griffith Dr Room 4 [facility] Comment on above: Pain in both hands Start: 10-05-2022 End: 10-06-[address] ADAMA FAYE . Facility: Start: 09-24-2022 ambulatory DALIA RANKIN Facility : Start: 09-16-2022 End: 09-17-[address] ADAMA FAYE . Facility: Start: 08-19-2022 End: 08-20-2022 ambulatory DALIA RANKIN Facility:[facility] Start: 08-19-2022 End: 08-19-2022 Patient encounter procedure DALIA RANKIN [facility] Start: 05-01-2022 End: 05-01-[address] ADAMA FAYE . Facility: Start: 04-09-2022 End: 04-10-[address] ADAMA FAYE . Facility: Start: 07-12-2017 End: 07-13-2017 Ambulatory DEFAULT PHYSICIAN Facility:[facility] Procedures Date Procedure Procedure Detail Performing Clinician Start: 10-15-2022 End: 10-15-2022 Radex hand minimum 3 views Osmin Gooden MD Work Phone: Colonoscopy DALIA RANKIN Shoulder region stru cture (body structure) DALIA RANKIN Plan of Treatment Date Care Activity Detail Author Start: 03-03-2023 PHUONG, Provider : Charles Purvis, Status: Pen, Time: 1:00 PM PHUONG, Provider: Charles Purvis, Status: Pen, Time: 1:00 PM FC-Tvryjejuesrtre-F estlake Work Phone: Start: 10-15-2022 Annual Wellness Visi t (AWV) Annual Wellness Visit (AWV) [facility] Start: 09-01-2021 COVID-19 Vaccine (4 - Booster for Moderna series) COVID-19 Vaccine (4 - Booster for Moderna series) [facility] Start: 06-24-2018 Pneumococcal 65+ yea rs Vaccine (2 - PPSV23 if available, else PCV20) Pneumococcal 65+ years Vaccine (2 - PPSV23 if available, else PCV20) [facility] Start: 2013 Abdominal aortic ane urysm screening AAA screen [facility] Start: 1998 Shingles vaccine (1 of 2) Becerril gles vaccine (1 of 2) [facility] Start: 1993 Screening for malign ant neoplasm of colon [facility] Start: 1967 DTaP/Tdap/Td vaccine (1 - Tdap) DTaP/Tdap/Td vaccine (1 - Tdap) [facility] Start: 1966 Hepatitis C screening Hepatitis C sc reen [facility] Start: 1960 Depression Screen Depression Screen [facility] Start: 1958 Lipid panel Lipids [facility] Immunizations Immunization Date Immunization Notes Care Provider Codie [facility] 06-05-2022 influenza virus vaccine, unspecified formulation DALIA RANKIN [facility] 07-07-2021 SARS-CoV-2 (COVID-19 ) mRNA-1273 vaccine DALIA RANKIN [facility] 11-02-2020 SARS-CoV-2 (COVID-19 ) mRNA-1273 vaccine DALIA RANKIN [facility] Comment on above: Result Comment: 2022: TPV70 10-05-2020 SARS-CoV-2 (COVID-19 ) mRNA-1273 vaccine DALIA RANKIN [facility] Comment on above: Result Comment: 2022: [id number] 05-08-2020 influenza virus vaccine, unspecified formulation DALIA RANKIN [facility] 05-17-2019 influenza virus vaccine, unspecified formulation DALIAMAY RANKIN [facility] [place] 05-25-2018 influenza virus vaccine, unspecified formulation DALIAMAY RANKIN [facility] 06-24-2017 pneumococcal conjuga te vaccine, 13 valent DALIA MASSIEL [facility] NEGATED: Highlighted row has not occurred!06-20-2019 influenza virus vaccine, unspecified formulation DALIA RANKIN [facility] [place] Payers Date Payer Category Payer Private Health Insurance [id number] Self-pay 1950 Unknown [id number] 2.16.8 [id number] 1950 Unknown [id number] 2.16.84 [id number] 1950 Unknown [id number] 2.16.84 [id number] 1950 Unknown [id number] 2.16.84 [id number] 1950 Unknown [id number] 2.16.84 [id number] 1950 Unknown [id number] 2.16.84 [id number] 1950 Unknown [id number] 2.16.8 [id number] 1950 Unknown [id number] 2.16.8 [id number] 1950 Unknown [id number] 2.16.8 [id number] 1950 Unknown [id number] 2.16. [id number] 1950 Unknown [id number] 2.16. [id number] 1950 Unknown [id number] 2.16. [id number] Unknown Social History Date Type Detail Facility Start: 08-19-2022 Tobacco smoking status Never s moked tobacco (finding) [facility] Tobacco smoking status Never [facility] Sex Assigned At Male [facility] Start: 10-15-2022 Tobacco smoking stat [facility] Ex-smoker [employer] Phone: End: 08-09-1972 History of tobacco use Current smoker [employer] Phone: End: 08-09-1972 History of tobacco use Cigarette Smoker [employer] Phone: Start: 10-15-2022 Tobacco use and exposure Smokeless tobacco non-user [employer] Phone: Start: 10-15-2022 Alcohol intake Lifetime non-d rafa (finding) [employer] Phone: Start: 10-15-2022 Tobacco Comment Only smoked fo r about a year [employer] Phone: Start: 1950 Sex Assigned At Not on file B [facility] Work Phone: Functional Status Date Assessment Result Facility 08-19-2022 Functional Status N/A [facility] Clinical Notes 08-19-2022 to 04-13-2023 Note Date [...] of immunotherapy6. Reflux on proton pump inhibitor PC-[facility]hsg[facility]ynecrrfk[facility] Work Phone: 03-03-2023 Chief complaint [...] of immunotherapy6. Reflux on proton pump inhibitor BO-Bouvlgaifmplaj-Fjrztx ke Work Phone: 11-04-2022 Chief complaint Narrative - Reported An interactive audio and video telecommunication system which permits real time communications between the patient (at the originating site) and provider (at the distant site) was utilized to provide this telehealth service.Verbal consent was requested and obtained from KEDAR VENTURA on this date, 11/04/2022 01:15 PM , for a telehealth visit.Frontal sinus lesion L[facility] 4[facility] Work Phone: 11-04-2022 History of Present illness Narrative Reason for visit:KEDAR VENTURA patient presents since last being seen 11/04/22.Medications currently on for sinonasal symptoms.Ipratropium BID.Medications tried in the past for sinonasal symptoms Flonase/Fluticasone.Spoke about PND HK-Hnoeyzyowshwcn-Wnugld ke Work Phone: 11-04-2022 History of Present illness Narrative Reason for visit:KEDAR VENTURA patient presents since last being seen 11/04/22.Medications currently on for sinonasal symptoms.Ipratropium BID.Medications tried in the past for sinonasal symptoms Flonase/Fluticasone.Kedar presents for routine follow-up. He continues to have issues related to postnasal drainage despite ipratropium. He does feel the ipratropium is providing some measure of benefit. VS-Xrerhuqywtyyhc-Vrrpbd ke Work Phone: 08-19-2022 Hospital Discharge instructions [...] including vitamins, herbs, eye drops, creams, and onnb-mjd-nihuhnu medicines. Any problems you or family members [...] provider tells you to take them. Taking tyru-oxp-bvfklfq medicines, vitamins, herbs, and supplements. Eating and [...] 07/26/2006 Document Revised: 11/15/2019 Document Reviewed: 04/26/2019 [employer] Patient Education 2020 [place]. Follow Up Care 08/05/2021 11:01:39 With:MASSIEL CASE, DALIA Juan, URL Address: [address] [place] [address] [phone] When: only if needed [facility] [place] Evaluation + Plan note No data available for this section [facility] Evaluation note Diagnosis Pain in both hands documented in this encounter [facility] Work Phone: History of Present illness Narrative* [...] moisture in his throat * PMHx: Hypertension YA-Xipjhyhmgcghnn-Oytrevej Work Phone: History of Present illness Narrative* [...] move the food through. * PMHx: Hypertension [facility]qrk[facility] 4[facility] Work Phone: History of Present illness Narrative* Main Symptoms: * Patient has posterior nasal drainage. * Associated Symptoms: * Patient has throat clearing. * Patient has coughing. * Medications currently on for sinonasal symptoms Flonase/Fluticasone - PRN (as needed) . * Ipratropium BID. [facility]-Hcnhzpjofgwbfh[facility] 4100 Work Phone: Progress note No data available for this section [facility] Summary Purpose Family History No Family History [...] section and content) DATE CREATED AUTHOR 02/01/2018 [facility] DATE CREATED AUTHOR AUTHOR'S ORGANIZ ATION 08/20/2022 [facility] DATE CREATED AUTHOR AUTHOR'S ORGANIZ ATION 10/10/2022 [facility] DATE CREATED AUTHOR AUTHOR'S ORGANIZ ATION 10/18/2022 Triciajean-claude Karoline [facility] DATE CREATED AUTHOR AUTHOR'S ORGANIZ ATION 04/13/2023 [facility] DATE CREATED AUTHOR AUTHOR'S ORGANIZ ATION 04/15/2023 [employer] Patient Care team informatio n (unrecognized section and content) Delinquency Counselor Relationship Specialty Start Date End Date Adama Faye MD [address] [facility] [place] [address] PCP - General Family Medicine 10/08/22 Delinquency Counselor Relationship Specialty Start Date End Date Adama Faye MD [address] [place] [address] PCP - General Family Medicine 10/08/22 FOR [...] BE BASED ON THE PRIMARY CLINICAL RECORDS. [employer] provides no warranty or guarantee of the accuracy or completeness of information in this document.
[2023-09-04 03:10] LABS: Occult Blood Negative
== END 2023-09-03 11:16 | disposition home or self-care (01) ==
LOC: LAB 11:15
PROVIDERS: PCP Family Medicine; Visit Provider Family Medicine
DX: I10 Essential (primary) hypertension (principal); R00.2 Palpitations
CPT/HCPCS: G0328

== ENCOUNTER 2024-04-20 08:23 | Outpatient (OUT) | payer MEDICARE, SELFPAY ==
--- NOTE | 2024-04-20 08:26 | CT_ITS ---
The [address] [address] Patient Name: KEDAR VENTURA MRN: [id number] date: 1950 Sex: M Assigned Patient Location: CT Current Patient Location: CT Accession/Order Number: [id number] Exam Date: 04/20/2024 08:35 Report Date: 04/20/2024 10:34 At the request of: NON-STAFF PHYSICIAN Procedure: CT sinus wo con CT sinus wo con, 04/20/2024 8:35 AM EDT INDICATION: Benign Neoplasm Of Frontal Sinus COMPARISON: Prior CT of the sinuses dated 03/19/2023 and 09/16/2022 TECHNIQUE: Axial images of 1 mm were obtained from the base of the skull to vertex without contrast with coronal and sagittal reconstruction. Dose reduction techniques were achieved by using automated exposure control and/or adjustment of mA and/or kV according to patient size and/or use of iterative reconstruction technique. FINDINGS: There is an lesion within the right frontal sinus measuring approximately 1 x 0.6 x 1.5 cm (transverse, AP, CC) unchanged since prior studies. 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 No periosteal reaction or bone lysis is noted. The remainder of paranasal sinuses are clear. There is bilateral pneumatization of the supraorbital anterior ethmoidal air cells. The frontal and sphenoethmoidal recesses are patent. No abnormality of bilateral maxillary ostium and ethmoidal infundibulum is noted. The lamina papyracea is unremarkable bilaterally. No Linh bullosa is noted. There is a septal deviation to left side. There is small left nasal spur. The carotid arteries have normal intracranial pathway. The fovea ethmoidalis is mildly asymmetrical. No pneumatization of anterior clinoid process is noted. The olfactory fossa measures 5 mm right and 6 mm on the left . r There is no suspicious osteolytic or osteoblastic lesion. The visualized portions of orbits and mastoid air cells are unremarkable. No suprahyoid lymphadenopathy is noted. There is status post bilateral lens replacement. 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 No other significant abnormality is noted. Electronically authenticated by: ELIZABETH COOPER Date: 04/20/2024 10:34
--- OUTSIDE RECORDS SUMMARY | 2024-04-20 08:46 | XMS_ITS | CCD ---
Author Organization [facility] Care Team Providers Care Tool Die Maker Name Role Phone PHYSICIAN, DEFAULT Unavailable Unavailable [...] Unavailable HOY ., DR GALAN Consulting Unavailable CLEMONS, DR ALIYA Sierra Consulting Unavailable HOY ., DR GALAN Attending Unavailable HOY ., DR GALAN Admitting Unavailable HOY ., DR GALAN Primary Care Unavailable HOY ., DR GALAN Consulting Unavailable DONNELL RENTERIA Consulting Unavailable Adama Faye MD Primary Care Provider [phone] OSMIN GOODEN Referring Unavailable MARY ANN FAYELAS M Primary Care Unavailable OSMIN GOODEN Referring Unavailable ADAMA FAYE M Primary Care Unavailable OSMIN GOODEN Referring Unavailable ADAMA FAYE M Primary Care Unavailable Unknown, Referring Provider Unavailable Unav ailable Unavailable Unavailable Yaniv, Dr. Phillip Will Attending Susan vailable Yaniv, Dr. Phillip Will Referring Susan vailable UNKNOWN, PCP Primary Care Unavailable Yaniv, Dr. Phillip Will Attending Susan vailable Yaniv, Dr. Phillip Will Referring Susan vailable UNKNOWN, PCP Primary Care Unavailable YanivDr. Phillip Referring Susan vailable UNKNOWN, PCP Primary Care Unavailable Dr. Phillip Purvis Attending Susan vailable GERMAN TURNER Attending Unavailable PHILLIP PURVIS Attending Unavailable Allergies Allergy Classification Reported Allergen(s) Allergy Type Date of Onset Reaction(s) Facility (2 sources) Penicillin; Translations: [penicillin] Drug Allergy Eruption of skin (disorder) [facility] (2 sources) Penicillins Drug allergy (disorder) 3 [facility] Repository (3 sources) Penicillins Propensity to adverse reactions to drug 3 [facility] (1 source) ALLERGIES NOT ON FILE; Translations: [ALLERGIES NOT ON FILE] Propensity to adverse reactions (disorder) [facility] 3 Repository Medications Current Medications Medication Drug Class(es) Dates [...] (1 source) Angiotensin Converting Enzyme Inhibitor Start: 09-20-20 19 take 1 mg by mouth once daily [...] spray(s) nasal route three times daily Ipratropium Linneus 0.03 % Nasal Solution USE 2 SPRAYS IN EACH NOSTRIL 3 TIMES DAILY. Quantity: 1 Refills: 11 Ordered: 13-Apr-2023 Phillip Purvis MD Start : 13-Apr-2023 Active irbesartan [...] Osteoarthritis (1 source) Arthritis 04-28-2019 Chronic Other and unspecified benign neoplasm (2 sources) Benign neoplasm of middle ear, nasal cavity and accessory sinuses; Translations: [Benign neoplasm of middle ear, nasal cavity and accessory sinuses] Onset: 4 Episodic Other circulatory disease (5 sources) Clearing throat [...] frontal sinus (239.1) (D49.1) Orders Start: Ipratropium Linneus 0.03 % Nasal Solution; USE 2 SPRAYS IN EACH NOSTRIL 3 TIMES DAILY Patient Discussion/Summary Please followup with me in 12 months for reevaluation or sooner with any questions or concerns. Please feel free to contact my office by calling [phone] with any questions. Provider Impressions 1. Frontal [...] observation. 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 exchange wireless manager 6 months I recommended virtual follow-up in [...] 40 MG Oral Capsule Delayed Release Ipratropium Linneus 0.03 % Nasal SolutionUSE 2 SPRAYS IN [...] and Scales' Signatures Electronically signed by : Phillip Purvis MD; Apr 14 2023 11:03AM EST (Author) Normal Shoppable Falls Screening (Age 18+)on 04-13-2023 Fall risk assessment a) No falls within the last year MG-Otolarynlo [facility] [address] Work Phone: Tobacco use status [facility] b) No -Otolaryngolo [facility] [address] Work Phone: Established Visit (Otolaryng ology)on 03-03-2023 Established Visit (Otolaryngology) Diagnoses/Problems 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 : Unknown Radiologist to Determine Optimal Study : Y What are the patient's signs and symptoms? : Bony frontal sinus neoplasm Patient Discussion/Summary Please feel free to contact my office by calling [phone] with any questions. Provider Impressions 1. 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 Provider Impressions 1. Frontal [...] 1 Frontal sinus lesion 1 Amended By: Phillip Purvis; Nov 06 2022 3:47 PM ESTHistory [...] and Scales' Signatures Electronically signed by : Phillip Purvis MD; Nov 06 2022 3:48PM EST [...] A Adams MD 10/15/22 Final result Normal [facility] No acute osseous abnormality. Degenerative changes 1st CMC joint [facility] EXAMINATION: THREE XRAY VIEWS OF THE LEFT HAND 10/15/2022 9:57 am COMPARISON: None. HISTORY: ORDERING SYSTEM PROVIDED HISTORY: Pain in both hands FINDINGS: There is no evidence of acute fracture. There is normal alignment. No acute joint abnormality. No focal osseous lesion. No focal soft tissue abnormality. Degenerative changes seen in the 1st CMC joint. Vascular calcifications. [facility] Luis A Adams MD - 10/15/2022 [...] osseous abnormality. Degenerative changes 1st CMC joint [facility] Work Phone: Radiology Study observation (narrative) [facility] Preo Phone: XR HAND LEFT (MIN 3 VIEWS)Or dered By: Luis A Adams on 10-15-2022 [employer] [email or web address] Phone: XR HAND RIGHT (MIN 3 VIEWS)o [...] A Adams MD 10/15/22 Final result Normal [facility] No acute osseous abnormality. Degenerative changes 3rd MCP joint and 1st CMC joint [facility] EXAMINATION: THREE XRAY VIEWS OF THE [...] with joint space narrowing and bony overgrowth. [facility] Luis A Adams MD - 10/15/2022 [...] 3rd MCP joint and 1st CMC joint [employer] Phone: Radiology Study observation (narrative) [employer] Work Phone: XR HAND RIGHT (MIN 3 VIEWS)O rdered By: Luis A Adams on 10-15-2022 [employer] Phone: PERLA by IFAon 10-06-2022 Antinuclear Antibodies, IFA Negative Normal [facility] Comment on above: Result Comment: Nega tive <1:80 Borderline 1:80 Positive >1:80 ICAP nomenclature: AC-0 For more information about Hep-2 cell patterns use ANApatterns.org, the official website for the International Consensus on Antinuclear Antibody (PERLA) Patterns (ICAP). Performed By: #### C BC #### [facility] [address] [place] [address] Dr. Akua Thomas ANTISTREPTOLYSIN O AB (ASO)o n 10-06-2022 Antistreptolysin O Ab 69.9 IU/mL Normal 0.0-200.0 [facility] Comment on above: Performed By: #### A SOAB #### [facility] [address] [place] [address] Dr. Akua Thomas CALCIUM IONIZEDon 10-06-2022 Calcium, Ionized, Serum 5.5 mg/dL Normal 4.5-5.6 [facility] Comment on above: Performed By: #### C AIONZ #### [facility] [address] [place] [address] Dr. Akua Thomas RHEUMATOID FACTORon 10-06-19 RA Latex Turbid. 12.6 IU/mL Normal <14.0 [facility] Comment on above: Performed By: #### R F #### [facility] [address] [place] [address] Dr. Akua Thomas CBC AUTO DIFFon 10-05-2022 BASO # 0.0 103/ul Normal 0.0-0.1 [facility] Comment on above: Performed By: #### C BC #### [facility] [address] [place] [address] Dr. Akua Thomas Basophils/100 WBC (Bld) 0.2 % Normal 0.2-2.0 [facility] Comment on above: Performed By: #### C BC #### [facility] [address] [address] [address] Akua Thomas EO # 0.1 103/ul Normal 0.0-0.7 [facility] Comment on above: Performed By: #### C BC #### [facility] [address] [place] [address] Dr. Akua Thomas Eosinophils/100 WBC (Bld) 1.4 % Normal 0.9-7.0 [facility] Comment on above: Performed By: #### C BC #### [facility] [address] [place] [address] Dr. Akua Thomas Erythrocyte distribution width (RBC) [Ratio] 14.3 % Normal 11.0-15.0 [facility] Comment on above: Performed By: #### C BC #### [facility] [address] [place] [address] Dr. Akua Thomas Hematocrit (Bld) [Volume fraction] 45.5 % Normal 42.0-54.0 [facility] Comment on above: Performed By: #### C BC #### [facility] [address] [place] [address] Dr. Akua Thomas Hemoglobin (Bld) [Mass/Vol] 15.1 g/dL Normal 14.0-18.0 [facility] Comment on above: Performed By: #### C BC #### [facility] [address] [place] [address] Dr. Akua Thomas IG # 0.03 10e3/ul Normal 0.00-0.03 [facility] Comment on above: Performed By: #### C BC #### [facility] [address] [place] [address] Dr. Akua Thomas IG % 0.3 % Normal 0.0-0.5 [facility] Comment on above: Performed By: #### C BC #### [facility] [address] [place] [address] Dr. Akua Thomas LYMPH # 3.0 103/ul Normal 1.2-3.8 [facility] Comment on above: Performed By: #### C BC #### [facility] [address] [place] [address] Dr. Akua Thomas Lymphocytes/100 WBC (Bld) 31.9 % Normal 20.5-60.0 [facility] Comment on above: Performed By: #### C BC #### [facility] [address] [place] [address] Dr. Akua Thomas MANUAL DIFF REQ NO Normal [facility] Comment on above: Performed By: #### C BC #### [facility] [address] [place] [address] Dr. Akua Thomas MCH (RBC) [Entitic mass] 29.6 pg Normal 25.9-34.0 [facility] Comment on above: Performed By: #### C BC #### [facility] [address] [place] [address] Dr. Akua Thomas MCHC (RBC) [Mass/Vol] 33.2 g/dL Normal 29.9-35.2 [facility] Comment on above: Performed By: #### C BC #### [facility] [address] [place] [address] Dr. Akua Thomas MCV (RBC) [Entitic vol] 89.2 fL Normal 80.0-94.0 [facility] Comment on above: Performed By: #### C BC #### [facility] [address] [place] [address] Dr. Akua Thomas MONO # 0.7 103/ul Normal 0.3-0.8 [facility] Comment on above: Performed By: #### C BC #### [facility] [address] [place] [address] Dr. Akua Thomas Monocytes/100 WBC (Bld) 7.2 % Normal 1.7-12.0 [facility] Comment on above: Performed By: #### C BC #### [facility] [address] [place] [address] Dr. Akua Thomas NEUT # 5.5 103/ul Normal 1.4-6.5 [facility] Comment on above: Performed By: #### C BC #### [facility] [address] [place] [address] Dr. Akua Thomas Neutrophils/100 WBC (Bld) 59.0 % Normal 43.0-75.0 [facility] Comment on above: Performed By: #### C BC #### [facility] [address] [place] [address] Dr. Akua Thomas Platelet mean volume (Bld) [Entitic vol] 9.9 fL Normal 9.5-13.5 [facility] Comment on above: Performed By: #### C BC #### [facility] [address] [place] [address] Dr. Akua Thomas PLT 237 103/ul Normal 150-450 [facility] Comment on above: Performed By: #### C BC #### [facility] [address] [place] [address] Dr. Akua Thomas RBC 5.10 106/ul Normal 4.70-6.10 [facility] Comment on above: Performed By: #### C BC #### [facility] [address] [place] [address] Dr. Akua Thomas WBC 9.3 103/ul Normal 4.0-11.0 [facility] Comment on above: Performed By: #### C BC #### [facility] [address] [place] [address] Dr. Akua Thomas CRPon 10-05-2022 CRP [Mass/Vol] mg/L Normal <=1.0 [facility] Comment on above: Performed By: #### C MP, URIC, PHOS, MG, T7, CRP, TSH #### [facility] [address] [place] [address] Dr. Akua Thomas FREE THYROXINE INDEX T7on FTI 3.28 Normal 1.30-4.50 [facility] Comment on above: Performed By: #### C BC #### [facility] [address] [place] [address] Dr. Akua Thomas T3U 36.0 % Normal 33.0-40.0 [facility] Comment on above: Performed By: #### C BC #### [facility] [address] [place] [address] Dr. Akua Thomas T4 [Mass/Vol] 9.10 ug/dL Normal 4.50-12.10 [facility] Comment on above: Performed By: #### C BC #### [facility] [address] [place] [address] Dr. Akua Thomas IRONon 10-05-2022 Iron [Mass/Vol] 119.0 ug/dL Normal 65.0-175.0 [facility] Comment on above: Performed By: #### I SHILPI #### [facility] [address] [place] [address] Dr. Akua Thomas MAGNESIUMon 10-05-2022 Magnesium [Mass/Vol] 1.8 mg/dL Normal 1.8-2.4 [facility] Comment on above: Performed By: #### C BC #### [facility] [address] [place] [address] Dr. Akua Thomas PHOSPHORUSon 10-05-2022 Phosphate [Mass/Vol] 3.4 mg/dL Normal 2.6-4.7 [facility] Comment on above: Performed By: #### C BC #### [facility] [address] [place] [address] Dr. Akua Thomas PROF 14(COMP METB)on 023 Albumin [Mass/Vol] 4.0 g/dL Normal 3.4-5.0 [facility] Comment on above: Performed By: #### C BC #### [facility] [address] [place] [address] Dr. Akua Thomas Albumin/Globulin [Mass ratio] 1.4 {ratio} Normal [facility] Comment on above: Performed By: #### C BC #### [facility] [address] [place] [address] Dr. Akua Thomas ALP [Catalytic activity/Vol] 119 U/L Critically high 46-116 [facility] Comment on above: Performed By: #### C BC #### [facility] [address] [place] [address] Dr. Auka Thomas ALT [Catalytic activity/Vol] 69 U/L Critically high 16-63 [facility] Comment on above: Performed By: #### C BC #### [facility] [address] [place] [address] Dr. Akua Thomas Anion gap [Moles/Vol] 10.0 mmol/L Normal [facility] Comment on above: Performed By: #### C BC #### [facility] [address] [address] [address] Akua Thomas AST [Catalytic activity/Vol] 37 U/L Normal 15-37 [facility] Comment on above: Performed By: #### C BC #### [facility] [address] [address] [address] Akua Thomas Bilirubin [Mass/Vol] 0.7 mg/dL Normal 0.2-1.0 [facility] Comment on above: Performed By: #### C BC #### [facility] [address] [place] [address] Dr. Akua Thomas Calcium [Mass/Vol] 9.2 mg/dL Normal 8.5-10.1 [facility] Comment on above: Performed By: #### C BC #### [facility] [address] [place] [address] Dr. Akua Thomas Chloride [Moles/Vol] 100 mmol/L Normal 98-107 [facility] Comment on above: Performed By: #### C BC #### [facility] [address] [place] [address] Dr. Akua Thomas CO2 [Moles/Vol] 30.5 mmol/L Normal 21.0-32.0 [facility] Comment on above: Performed By: #### C BC #### [facility] [address] [place] [address] Dr. Akua Thomas Creatinine [Mass/Vol] 0.75 mg/dL Normal 0.70-1.30 [facility] Comment on above: Performed By: #### C BC #### [facility] [address] [place] [address] Dr. Akua Thomas EGFR-AF MONEGASQUE >60 Normal >=60 [facility] Comment on above: Performed By: #### C BC #### [facility] [address] [address] [address] Akua Thomas EGFR-NON AF MONEGASQUE >60 Normal >=60 [facility] Comment on above: Performed By: #### C BC #### [facility] [address] [address] [address] Akua Thomas Globulin (S) [Mass/Vol] 2.9 g/dL Normal [facility] Comment on above: Performed By: #### C BC #### [facility] [address] [address] [address] Akua Thomas Glucose [Mass/Vol] 97 mg/dL Normal 74-106 [facility] Comment on above: Performed By: #### C BC #### [facility] [address] [address] [address] Akua Thomas Potassium [Moles/Vol] 4.5 mmol/L Normal 3.5-5.1 [facility] Comment on above: Performed By: #### C BC #### [facility] [address] [address] [address] Akua Thomas Protein [Mass/Vol] 6.9 g/dL Normal 6.4-8.2 [facility] Comment on above: Performed By: #### C BC #### [facility] [address] [address] [address] Akua Thomas Sodium [Moles/Vol] 136 mmol/L Normal 136-145 [facility] Comment on above: Performed By: #### C BC #### [facility] [address] [address] [address] Akua Thomas Urea nitrogen [Mass/Vol] 24.0 mg/dL Critically high 7.0-18.0 [facility] Comment on above: Performed By: #### C BC #### [facility] [address] [address] [address] Akua Thomas Urea nitrogen/Creatinine [Mass ratio] 32.0 mg/mg Normal [facility] Comment on above: Performed By: #### C BC #### [facility] [address] [place], [place] [id number] Dr. Akua Thomas TSHon 10-05-2022 TSH 0.725 uIU/mL Normal 0.358-3.[address] [facility] Comment on above: Performed By: #### C BC #### [facility] [address] [place], [place] [address] Dr. Akua Thomas URIC ACID SERUMon 10-05-2022 Urate [Mass/Vol] 2.2 mg/dL Critically low 3.5-7.2 [facility] Comment on above: Performed By: #### C MP, URIC, PHOS, MG, T7, CRP, TSH #### [facility] [id number] Akua Thomas XR HAND LT MIN 3Von 10-05-19 XR HAND LT MIN 3V EXAMINATION: XR WRIS T MARÍA MIN 3 V, XR HAND LT MIN 3V HISTORY: Arthritis of hand COMPARISON: No relevant comparison available. FINDINGS: RIGHT FINDINGS: BONES: No acute fracture or dislocation. Severe degenerative changes at the first carpometacarpal joint with ylpk-cn-tfod articulation and extensive heterotopic ossification SOFT TISSUES: [...] by: ALIYA KILLIAN Date: 2022-10-05 13:24 Normal [facility] CT SINUSES WO CONon 09-16-19 23 [...] mastoid sinuses are not included in the [id number]-[id number]. IMPRESSION: There is a small mass seen [...] by: DONNELL RENTERIA Date: 2022-09-16 19:40 Normal [facility] Lab Reportson 08-20-2022 Lab Reports [id number] .[id number]:127 Normal [facility] Screenson 08-20-2022 Screens [id number] .[id number]:127 Normal [facility] Patient Educationon 08-19-19 Patient Education Urology Transurethral [...] including vitamins, herbs, eye drops, creams, and tifc-wxk-gkyrxdp medicines. ? Any problems you or family [...] tells you to take them. ? Taking aliw-noq-jxwxpgy medicines, vitamins, herbs, and supplements. Eating and [...] be mari[place] (more content not included)... Normal [facility] Urology Office/Clinic Noteon 08-19-2022 Urology Office/Clinic Note [...] right kidney. This has been stable since 2016. Will no longer keep monitoring this according [...] next few years or will go to [facility] to obtain. Follow-up With When Contact Information DALIA RANKIN PA-C, URL Only if needed [address] [place] [address] [phone] Additional Instructions: Patient Education Transurethral Resection of [...] Dipstick: Negat (more content not included)... Normal [facility] Comment on above: Result Comment: Elec tronically Signed By: DALIA RANKIN PA-C\.br\Date and Time Signed: 08/19/22 13:29 EST\.br\Electronically Co-Signed By: Pilar Whitt MA\.br\Date and Time Co-Signed: 08/19/22 13:25 EST OCC BLD IMMUNO SCREENon 04-10 OCCULT BLOOD Negative Normal NEGATIVE [facility] Comment on above: Performed By: #### C BC #### [facility] [address] [place] [address] Dr. Akua Thomas PSA, FREE AND TOTAL RATIOon 04-10-2022 % Free PSA 17.8 % Normal [facility] Comment on above: Result Comment: The [...] men. Performed By: #### C BC #### [facility] [address] [place] [address] Dr. Akua Thomas Prostate specific Ag [Mass/Vol] 0.9 ng/mL Normal 0.0-4.0 [facility] Comment on above: Result Comment: Leslye FOSTER methodology. . According to the [employer], Serum PSA should decrease and [...] disease. Performed By: #### C BC #### [facility] [address] [place] [address] Dr. Akua Thomas PSA, Free 0.16 ng/mL Normal N/A [facility] Comment on above: Result Comment: Leslye FOSTER methodology. Performed By: #### C BC #### [facility] [address] [place] [address] Dr. Akua Thomas T4 LABCORPon 04-10-2022 T4 [Mass/Vol] 8.0 ug/dL Normal 4.5-12.0 [facility] Comment on above: Performed By: #### C BC #### [facility] [address] [place] [address] Dr. Akua Thomas CBC AUTO DIFFon 04-09-2022 BASO # 0.0 103/ul Normal 0.0-0.1 [facility] Comment on above: Performed By: #### C BC #### [facility] [address] [place] [address] Dr. Akua Thomas Basophils/100 WBC (Bld) 0.2 % Normal 0.2-2.0 [facility] Comment on above: Performed By: #### C BC #### [facility] [address] [place] [address] Dr. Akua Thomas EO # 0.2 103/ul Normal 0.0-0.7 [facility] Comment on above: Performed By: #### C BC #### [facility] [address] [place] [address] Dr. Akua Thomas Eosinophils/100 WBC (Bld) 2.2 % Normal 0.9-7.0 [facility] Comment on above: Performed By: #### C BC #### [facility] [address] [place] [address] Dr. Akua Thomas Erythrocyte distribution width (RBC) [Ratio] 14.2 % Normal 11.0-15.0 [facility] Comment on above: Performed By: #### C BC #### [facility] [address] [place] [address] Dr. Akua Thomas Hematocrit (Bld) [Volume fraction] 43.3 % Normal 42.0-54.0 [facility] Comment on above: Performed By: #### C BC #### [facility] [address] [place] [address] Dr. Akua Thomas Hemoglobin (Bld) [Mass/Vol] 14.2 g/dL Normal 14.0-18.0 [facility] Comment on above: Performed By: #### C BC #### [facility] [address] [place] [address] Dr. Akua Thomas IG # 0.02 10e3/ul Normal 0.00-0.03 [facility] Comment on above: Performed By: #### C BC #### [facility] [address] [place] [address] Dr. Akua Thomas IG % 0.2 % Normal 0.0-0.5 [facility] Comment on above: Performed By: #### C BC #### [facility] [address] [place] [address] Dr. Akua Thomas LYMPH # 1.8 103/ul Normal 1.2-3.8 [facility] Comment on above: Performed By: #### C BC #### [facility] [address] [place] [address] Dr. Akua Thomas Lymphocytes/100 WBC (Bld) 20.6 % Normal 20.5-60.0 [facility] Comment on above: Performed By: #### C BC #### [facility] [address] [place] [address] Dr. Akua Thomas MANUAL DIFF REQ NO Normal [facility] Comment on above: Performed By: #### C BC #### [facility] [address] [place] [address] Dr. Akua Thomas MCH (RBC) [Entitic mass] 29.8 pg Normal 25.9-34.0 [facility] Comment on above: Performed By: #### C BC #### [facility] [address] [place] [address] Dr. Akua Thomas MCHC (RBC) [Mass/Vol] 32.8 g/dL Normal 29.9-35.2 [facility] Comment on above: Performed By: #### C BC #### [facility] [address] [place] [address] Dr. Akua Thomas MCV (RBC) [Entitic vol] 91.0 fL Normal 80.0-94.0 [facility] Comment on above: Performed By: #### C BC #### [facility] [address] [place] [address] Dr. Akua Thomas MONO # 0.7 103/ul Normal 0.3-0.8 [facility] Comment on above: Performed By: #### C BC #### [facility] [address] [place] [address] Dr. Akua Thomas Monocytes/100 WBC (Bld) 8.2 % Normal 1.7-12.0 [facility] Comment on above: Performed By: #### C BC #### [facility] [address] [place] [address] Dr. Akua Thomas NEUT # 6.1 103/ul Normal 1.4-6.5 [facility] Comment on above: Performed By: #### C BC #### [facility] [address] [place] [address] Dr. Akua Thomas Neutrophils/100 WBC (Bld) 68.6 % Normal 43.0-75.0 [facility] Comment on above: Performed By: #### C BC #### [facility] [address] [place] [address] Dr. Akua Thomas Platelet mean volume (Bld) [Entitic vol] 10.1 fL Normal 9.5-13.5 [facility] Comment on above: Performed By: #### C BC #### [facility] [address] [place] [address] Dr. Akua Thomas PLT 231 103/ul Normal 150-450 [facility] Comment on above: Performed By: #### C BC #### [facility] [address] [address] [address] Akua Thomas RBC 4.76 106/ul Normal 4.70-6.10 [facility] Comment on above: Performed By: #### C BC #### [facility] [address] [place] [address] Dr. Akua Thomas WBC 8.9 103/ul Normal 4.0-11.0 [facility] Comment on above: Performed By: #### C BC #### [facility] [address] [place] [address] Dr. Akua Thomas FREE T3on 04-09-2022 FREE T3 2.53 pg/mlL Normal 2.18-3.98 [facility] Comment on above: Performed By: #### R F #### [facility] [address] [place] [address] Dr. Akua Thomas GLYCOHEMOGLOBIN A1Con 2021 ADA RECOMMENDATION SEE BELOW Normal [facility] Comment on above: Result Comment: ADA RECOMMENDED LIMIT 4.0 - 6.0 ADA THERAPEUTIC TARGET < 7.0 ACTION SUGGESTED > 7.0 Performed By: #### A 1C #### [facility] [address] [place] [address] Dr. Akua Thomas Glucose [Mass/Vol] 123 mg/dL Normal [facility] Comment on above: Performed By: #### A 1C #### [facility] [address] [place] [address] Dr. Akua Thomas HbA1c (Bld) [Mass fraction] 5.9 % Normal 4.5-6.2 [facility] Comment on above: Performed By: #### A 1C #### [facility] [address] [place] [address] Dr. Akua Thomas LIPID PROFILEon 04-09-2022 CHOL-HDL RATIO NORM SEE BELOW Normal [facility] Comment on above: Result Comment: 3.3 - 4.4 LOW RISK 4.4 - 7.1 AVERAGE RISK 7.1 - 11.0 MODERATE RISK >11.0 HIGH RISK Performed By: #### R F #### [facility] [address] [address] [address] Akua Thomas Cholesterol [Mass/Vol] 154 mg/dL Normal <=200 [facility] Comment on above: Performed By: #### R F #### [facility] [address] [address] [address] Akua Thomas Cholesterol in HDL [Mass/Vol] 71 mg/dL Critically high 40-60 [facility] Comment on above: Performed By: #### R F #### [facility] [address] [address] [address] Akua Thomas Cholesterol in LDL [Mass/Vol] 74.8 mg/dL Normal [facility] Comment on above: Performed By: #### R F #### [facility] [address] [address] [address] Akua Thomas Cholesterol.total/Ch olesterol in HDL [Mass ratio] 2.2 {ratio} Normal [facility] Comment on above: Performed By: #### R F #### [facility] [address] [address] [address] Akua Thomas HDL NORMAL > or = 60 mg/dl - LO W CARDIOVASCULAR RISK <40 mg/dl - HIGH CARDIOVASCULAR RISK Normal [facility] Comment on above: Performed By: #### R F #### [facility] [address] [address] [address] Akua Thomas LDL CALC NORMAL SEE BELOW Normal [facility] Comment on above: Result Comment: <100 mg/dl OPTIMAL 100 - 129 mg/dl NEAR OR ABOVE OPTIMAL 130 - 159 mg/dl BORDERLINE HIGH 160 - 189 mg/dl HIGH >190 mg/dl VERY HIGH Performed By: #### R F #### [facility] [address] [address] [address] Akua Thomas Triglyceride [Mass/Vol] 41 mg/dL Normal <=150 [facility] Comment on above: Performed By: #### R F #### [facility] [address] [place] [address] Dr. Akua Thomas VLDL CALC 8.2 mg/dL Normal [facility] Comment on above: Performed By: #### R F #### [facility] [address] [place] [address] Dr. Akua Thomas PROF 14(COMP METB)on 022 Albumin [Mass/Vol] 3.8 g/dL Normal 3.4-5.0 [facility] Comment on above: Performed By: #### R F #### [facility] [address] [place] [address] Dr. Akua Thomas Albumin/Globulin [Mass ratio] 1.4 {ratio} Normal [facility] Comment on above: Performed By: #### R F #### [facility] [address] [place] [address] Dr. Akua Thomas ALP [Catalytic activity/Vol] 127 U/L Critically high 46-116 [facility] Comment on above: Performed By: #### R F #### [facility] [address] [place] [address] Dr. Akua Thomas ALT [Catalytic activity/Vol] 45 U/L Normal 16-63 [facility] Comment on above: Performed By: #### R F #### [facility] [address] [place] [address] Dr. Akua Thomas Anion gap [Moles/Vol] 12.6 mmol/L Normal [facility] Comment on above: Performed By: #### R F #### [facility] [address] [place] [address] Dr. Akua Thomas AST [Catalytic activity/Vol] 28 U/L Normal 15-37 [facility] Comment on above: Performed By: #### R F #### [facility] [address] [place] [address] Dr. Akua Thomas Bilirubin [Mass/Vol] 0.8 mg/dL Normal 0.2-1.0 [facility] Comment on above: Performed By: #### R F #### [facility] [address] [place] [address] Dr. Akua Thomas Calcium [Mass/Vol] 8.7 mg/dL Normal 8.5-10.1 [facility] Comment on above: Performed By: #### R F #### [facility] [address] [place] [address] Dr. Akua Thomas Chloride [Moles/Vol] 102 mmol/L Normal 98-107 [facility] Comment on above: Performed By: #### R F #### [facility] [address] [place] [address] Dr. Akua Thomas CO2 [Moles/Vol] 28.1 mmol/L Normal 21.0-32.0 [facility] Comment on above: Performed By: #### R F #### [facility] [address] [place] [address] Dr. Akua Thomas Creatinine [Mass/Vol] 0.77 mg/dL Normal 0.70-1.30 [facility] Comment on above: Performed By: #### R F #### [facility] [address] [place] [address] Dr. Akua Thomas EGFR-AF MONEGASQUE >60 Normal >=60 [facility] Comment on above: Performed By: #### R F #### [facility] [address] [place] [address] Dr. Akua Thomas EGFR-NON AF MONEGASQUE >60 Normal >=60 [facility] Comment on above: Performed By: #### R F #### [facility] [address] [place] [address] Dr. Akua Thomas Globulin (S) [Mass/Vol] 2.7 g/dL Normal [facility] Comment on above: Performed By: #### R F #### [facility] [address] [place] [address] Dr. Akua Thomas Glucose [Mass/Vol] 105 mg/dL Normal 74-106 [facility] Comment on above: Performed By: #### R F #### [facility] [address] [place] [address] Dr. Akua Thomas Potassium [Moles/Vol] 3.7 mmol/L Normal 3.5-5.1 [facility] Comment on above: Performed By: #### R F #### [facility] [address] [address] [address] Akua Thomas Protein [Mass/Vol] 6.5 g/dL Normal 6.4-8.2 [facility] Comment on above: Performed By: #### R F #### [facility] [address] [address] [address] Akua Thomas Sodium [Moles/Vol] 139 mmol/L Normal 136-145 [facility] Comment on above: Performed By: #### R F #### [facility] [address] [address] [address] Akua Thomas Urea nitrogen [Mass/Vol] 17.0 mg/dL Normal 7.0-18.0 [facility] Comment on above: Performed By: #### R F #### [facility] [address] [address] [address] Akua Thomas Urea nitrogen/Creatinine [Mass ratio] 22.1 mg/mg Normal [facility] Comment on above: Performed By: #### R F #### [facility] [address] [address] [address] Akua Thomas TSHon 04-09-2022 TSH 0.547 uIU/mL Normal 0.358-3.[address] [facility] Comment on above: Performed By: #### R F #### [facility] [address] [place] [address] Dr. Akua Thomas Encounters Encounter Date Encounter Type Care Provider Facility Start: 04-13-2024 End: 04-13-2024 ambulatory PHILLIP PURVIS [facility]ulatory Start: 04-04-2024 End: 04-04-2024 ambulatory GERMAN TURNER Not Available Start: 04-13-2023 Patient encounter procedure Referring Provider Unknown [facility] Work Phone: Start: 04-13-[address] Phillip Gallegos Facility:[id number] Start: 03-03-2023 Office outpatient visit 15 minutes Referring Provider Unknown OD-Mzvlxhbbodfouf-[place] Work Phone: Start: 03-03-2023 Patient encounter procedure Referring Provider Unknown DH-Ewjpzabwkcaicx-[place] Work Phone: Start: 03-03-[address] Phillip Gallegos Facility:[id number] Start: 11-04-2022 Office outpatient ne w 45 minutes Referring Provider Unknown [facility] Work Phone: Start: 11-04-2022 Patient encounter procedure Referring Provider Unknown ZX-Lterkxoomaiygf-[place] Work Phone: Start: 11-04-[address] Phillip Gallegos Facility:[id number] Start: 10-15-2022 End: 10-18-2022 ambulatory OSMIN GOODEN [facility] Start: 10-15-2022 End: 10-17-2022 Subsequent hospital visit by physician Paresh Griffith Dr Room 4 [facility]iology Comment on above: Pain in both hands Start: 10-05-2022 End: 10-06-[address] ADAMA FAYE . Facility: Start: 09-24-2022 ambulatory DALIA RANKIN Facility : Start: 09-16-2022 End: 09-17-[address] ADAMA FAYE . Facility: Start: 08-19-2022 End: 08-20-2022 ambulatory DALIA RANKIN Facility:[facility] Start: 08-19-2022 End: 08-19-2022 Patient encounter procedure DALIA RANKIN [facility] Start: 05-01-2022 End: 05-01-[address] ADAMA FAYE . Facility: Start: 04-09-2022 End: 04-10-[address] ADAMA FAYE . Facility: Start: 07-12-2017 End: 07-13-2017 Ambulatory DEFAULT PHYSICIAN Facility:[facility] Procedures Date Procedure Procedure Detail Performing Clinician Start: 10-15-2022 End: 10-15-2022 Radex hand minimum 3 views Osmin Gooden MD Work Phone: Colonoscopy DALIA RANKIN Shoulder region stru cture (body structure) DALIA RANKIN Plan of Treatment Date Care Activity Detail Author Start: 03-03-2023 PHUONG, Provider : Phillip Purvis, Status: Pen, Time: 1:00 PM PHUONG, Provider: Phillip Purvis, Status: Pen, Time: 1:00 PM NO-Stimhoithntgia-L [place] Work Phone: Start: 10-15-2022 Annual Wellness Visi t (AWV) Annual Wellness Visit (AWV) [facility] Start: 09-01-2021 COVID-19 Vaccine (4 - Booster for Moderna series) COVID-19 Vaccine (4 - Booster for Moderna series) [facility] Start: 06-24-2018 Pneumococcal 65+ yea rs Vaccine (2 - PPSV23 if available, else PCV20) Pneumococcal 65+ years Vaccine (2 - PPSV23 if available, else PCV20) [facility] Start: 2013 Abdominal aortic ane urysm screening AAA screen [facility] Start: 1998 Shingles vaccine (1 of 2) Becerril gles vaccine (1 of 2) [facility] Start: 1993 Screening for malign ant neoplasm of colon [facility] Start: 1967 DTaP/Tdap/Td vaccine (1 - Tdap) DTaP/Tdap/Td vaccine (1 - Tdap) [facility] Start: 1966 Hepatitis C screening Hepatitis C sc reen [facility] Start: 1960 Depression Screen Depression Screen [facility] Start: 1958 Lipid panel Lipids [facility] Immunizations Immunization Date Immunization Notes Care Provider Codie kumar 06-05-2022 influenza virus vaccine, unspecified formulation DALIA RANKIN [facility] 07-07-2021 SARS-CoV-2 (COVID-19 ) mRNA-1273 vaccine DALIA MASSIEL [facility] 11-02-2020 SARS-CoV-2 (COVID-19 ) mRNA-1273 vaccine DALIA MASSIEL [facility] Comment on above: Result Comment: 2022: TPV70 10-05-2020 SARS-CoV-2 (COVID-19 ) mRNA-1273 vaccine DALIA MASSIEL [facility] Comment on above: Result Comment: 2022: [id number] 05-08-2020 influenza virus vaccine, unspecified formulation DALIA MASSIEL [facility] 05-17-2019 influenza virus vaccine, unspecified formulation DALIA MASSIEL [facility] [place] 05-25-2018 influenza virus vaccine, unspecified formulation DALIA MASSIEL [facility] 06-24-2017 pneumococcal conjuga te vaccine, 13 valent DALIA MASSIEL [facility] NEGATED: Highlighted row has not occurred!06-20-2019 influenza virus vaccine, unspecified formulation DALIA MASSIEL [facility] [place] Payers Date Payer Category Payer Private Health Insurance [id number] Self-pay 1950 Unknown [id number] 2.16.8 [id number] 1950 Unknown [id number] 2.16.84 [id number] 1950 Unknown [id number] 2.16.84 [id number] 1948 Unknown [id number] 2.16.84 [id number] 1948 Unknown [id number] 2.16.84 [id number] 1948 Unknown [id number] 2.16.84 [id number] 1948 Unknown [id number] 2.16.8 [id number] 1948 Unknown [id number] 2.16.8 [id number] 1948 Unknown [id number] 2.16.8 [id number] 1948 Unknown [id number] 2.16. [id number] 1950 Unknown [id number] 2.16. [id number] 1948 Unknown [id number] 2.16. [id number] 1948 Unknown [id number] 2.16.84 [id number] 1948 Unknown [id number] 2.16.8 [id number] Unknown Social History Date Type Detail Facility Start: 08-19-2022 Tobacco smoking status Never s moked tobacco (finding) [facility] Tobacco smoking status Never [facility] Sex Assigned At Male [facility] Start: 10-15-2022 [facility] D[facility] [employer] Work Phone: End: 08-09-1972 History of tobacco use Current smoker [employer] Phone: End: 08-09-1972 History of tobacco use Cigarette Smoker [employer] Phone: Start: 10-15-2022 Tobacco use and exposure Smokeless tobacco non-user [employer] Phone: Start: 10-15-2022 Alcohol intake Lifetime non-d rafa (finding) [employer] Phone: Start: 10-15-2022 Tobacco Comment Only smoked fo r about a year [employer] Phone: Start: 1950 Sex Assigned At Not on file B ON [employer] Phone: Functional Status Date Assessment Result Facility 08-19-2022 Functional Status N/A [facility] Clinical Notes 08-19-2022 to 04-13-2023 [...] of immunotherapy6. Reflux on proton pump inhibitor [facility] Work Phone: 03-03-2023 Chief complaint Narrative [...] of immunotherapy6. Reflux on proton pump inhibitor TC-Ekhuwurreevztt-Nbjvlx ke Work Phone: 11-04-2022 Chief complaint Narrative - Reported An interactive audio and video telecommunication system which permits real time communications between the patient (at the originating site) and provider (at the distant site) was utilized to provide this telehealth service.Verbal consent was requested and obtained from KEDAR VENTURA on this date, 11/04/2022 01:15 PM , for a telehealth visit.Frontal sinus lesion [facility] Work Phone: 11-04-2022 History of Present illness Narrative Reason for visit:KEDAR VENTURA patient presents since last being seen 11/04/22.Medications currently on for sinonasal symptoms.Ipratropium BID.Medications tried in the past for sinonasal symptoms Flonase/Fluticasone.Spoke about PND JP-Isjuwvfnoywakh-Whoefp ke Work Phone: 11-04-2022 History of Present illness Narrative Reason for visit:KEDAR VENTURA patient presents since last being seen 11/04/22.Medications currently on for sinonasal symptoms.Ipratropium BID.Medications tried in the past for sinonasal symptoms Flonase/Fluticasone.Kedar presents for routine follow-up. He continues to have issues related to postnasal drainage despite ipratropium. He does feel the ipratropium is providing some measure of benefit. GV-Itgrhemmhlfdcw-Ixfwgx ke Work Phone: 08-19-2022 Hospital Discharge instructions [...] including vitamins, herbs, eye drops, creams, and wajv-iae-stpnjnw medicines. Any problems you or family members [...] provider tells you to take them. Taking dour-kbd-gbktbxs medicines, vitamins, herbs, and supplements. Eating and [...] 07/26/2006 Document Revised: 11/15/2019 Document Reviewed: 04/26/2019 [employer] Patient Education 2020 [employer]. Follow Up Care 08/05/2021 11:01:39 With:MASSIEL CASE, DALIA Juan, URL Address: [address] [place] [address] [phone] When: only if needed [facility] Evaluation + Plan note No data available for this section [facility] Evaluation note Diagnosis Pain in both hands documented in this encounter [facility] Work Phone: History of Present illness Narrative* [...] moisture in his throat * PMHx: Hypertension NW-Unoitfwlamqinm-Ofnilybj Work Phone: History of Present illness Narrative* [...] move the food through. * PMHx: Hypertension ME[facility]edutpscynwvke[facility] Work Phone: History of Present illness Narrative* Main Symptoms: * Patient has posterior nasal drainage. * Associated Symptoms: * Patient has throat clearing. * Patient has coughing. * Medications currently on for sinonasal symptoms Flonase/Fluticasone - PRN (as needed) . * Ipratropium BID. [facility] 4100 Work Phone: Progress note No data available for this section [facility] Summary Purpose Family History No [...] section and content) DATE CREATED AUTHOR 02/01/2018 [facility] DATE CREATED AUTHOR AUTHOR'S ORGANIZ ATION 08/20/2022 Emeterio Almonte [facility] DATE CREATED AUTHOR AUTHOR'S ORGANIZ ATION 10/10/2022 [facility] DATE CREATED AUTHOR AUTHOR'S ORGANIZ ATION 10/18/2022 [facility] DATE CREATED AUTHOR AUTHOR'S ORGANIZ ATION 04/13/2023 [facility] DATE CREATED AUTHOR AUTHOR'S ORGANIZ ATION 04/15/2023 [employer] DATE CREATED AUTHOR AUTHOR'S ORGANIZ ATION 04/06/2024 [facility] EPIC DATE CREATED AUTHOR AUTHOR'S ORGANIZ ATION 04/17/2024 [facility] Ambulatory Patient Care team informatio n (unrecognized section and content) 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 [employer] provides no warranty or guarantee of the accuracy or completeness of information in this document.
== END 2024-04-20 08:24 | disposition home or self-care (01) ==
LOC: CT 08:23
PROVIDERS: PCP Family Medicine
DX: D14.0 Benign neoplasm of middle ear, nasal cavity and accessory sinuses (principal)
CPT/HCPCS: 70486

== ENCOUNTER 2024-10-12 13:51 | Outpatient (OUT) | payer MEDICARE, SELFPAY ==
--- NOTE | 2024-10-12 13:55 | US_ITS ---
[facility] [place] [id number] Patient Name: KEDAR VENTURA MRN: [id number] date: 1950 Sex: M Assigned Patient Location: US Current Patient Location: [place] Accession/Order Number: [id number] Exam Date: 10/12/2024 23:02 Report Date: 10/12/2024 23:03 At the request of: MARIO ALBERTO CASTILLO MD Procedure: US chest Soft tissue ultrasound. Reason for exam: Palpable lump right mid back. COMPARISON: None. TECHNIQUE: Grayscale and color Doppler images of the area of concern were obtained. FINDINGS: In the area palpable lump involving the right mid back, a hyperechoic mass is noted measuring 1.9 x 1.8 x 1.4 cm suspicious for lipoma. US/US chest IMPRESSION: A presumed lipoma is seen in the area of lump involving the right mid back measuring 1.9 x 1.8 x 1.4 cm. Impression dictated by: Sherman Camacho Jr.OSriram10/12/2024 11:03 PM Dictation Location: [place] [address] Electronically authenticated by: [id number] Y Date: 10/12/2024 23:03
--- OUTSIDE RECORDS SUMMARY | 2024-10-12 14:06 | XMS_ITS | CCD ---
Author Organization [facility] Care Team Providers Care Slip Operator Name Role Phone PHYSICIAN, DEFAULT Unavailable Unavailable PHYSICIAN, DEFAULT Unavailable Unavailable Adama Faye Primary Care Physician NEYDA ., DR GALAN Attending Unavailable HOY ., DR GALAN Admitting Unavailable HOY ., DR GALAN Primary Care Unavailable HOY ., DR GALAN Consulting Unavailable KRISTOFER RANKIN Admitting Unavailable KRISTOFER RANKIN Attending Unavailable HOY ., DR GALAN Primary Care Unavailable HOY ., DR GALAN Attending Unavailable HOY ., DR GALAN Admitting Unavailable HOY ., DR GALAN Primary Care Unavailable HOY ., DR GALAN Consulting Unavailable HOY ., DR GALAN Attending Unavailable HOY ., DR GALAN Admitting Unavailable HOY ., DR GALAN Primary Care Unavailable HOY ., DR GALAN Consulting Unavailable [place], DR ALIYA Sierra Consulting Unavailable HOY ., DR GALAN Attending Unavailable HOY ., DR GALAN Admitting Unavailable HOY ., DR GALAN Primary Care Unavailable HOY ., DR GALAN Consulting Unavailable DONNELL RENTERIA Consulting Unavailable Adama Faye MD Primary Care Provider [phone] OSMIN GOODEN Referring Unavailable ADAMA FAYE Primary Care Unavailable OSMIN GOODEN Referring Unavailable ADAMA FAYE Primary Care Unavailable OSMIN GOODEN Referring Unavailable ADAMA FAYE Primary Care Unavailable Unknown, Referring Provider Unavailable Unav ailable Unavailable Unavailable Dr. Phillip Purvis Attending Susan vailable Yaniv, Dr. Phillip Will Referring Susan vailable UNKNOWN, PCP Primary Care Unavailable Yaniv, Dr. Phillip Will Attending Susan vailable Yaniv, Dr. Phillip Will Referring Susan vailable UNKNOWN, PCP Primary Care Unavailable Yaniv, Dr. Phillip Will Referring Susan vailable UNKNOWN, PCP Primary Care Unavailable Dr. Phillip Purvis Attending Susan vailable NUHA TURNER Attending Unavailable Adama Faye MD Primary Care Provider [phone] PHILLIP PURVIS Attending Unavailable PHILLIP PURVIS Attending Unavailable ADAMA FAYE Primary Care Unavailable Unavailable Primary Care Provider Unavailabl e Unavailable Primary Care Provider Unavailnilesh e Luis A CASTILLO Attending Unavailable Adama Faye Referring Unavailable Allergies Allergy Classification Reported Allergen(s) Allergy Type Date of Onset Reaction(s) Facility (3 sources) Penicillin; Translations: [penicillin] Drug Allergy Eruption of skin (disorder) [facility] (2 sources) Penicillins Drug allergy (disorder) 3 [facility] Repository (3 sources) Penicillins Propensity to adverse reactions to drug 3 Rash [facility] (1 source) ALLERGIES NOT ON FILE; Translations: [ALLERGIES NOT ON FILE] Propensity to adverse reactions (disorder) [facility] 3 Repository (4 sources) Penicillins Drug Allergy 3 Unknown [facility] Medications Current Medications Medication Drug Class(es) Dates Sig (Normalized) Sig (Original) aspirin 81 mg oral tablet (9 sources) Platelet Aggregation Inhibitor, Nonsteroidal Anti-inflammatory Drug Start: 06-01-2019 take 1 tablet by mouth once daily aspirin 81 mg oral tablet 81 mg = 1 tab(s), Oral, Daily, # 30 tab(s), Refills(s) 0 Start Date: 06/01/19 Status: Ordered ASPIRIN 81 PO As pir-81 Active take 1 tablet by mouth once renee y aspirin 81 MG EC tablet Take 81 mg by mouth daily 0 Active betamethasone 0.0005 mg/mg topical ointment (4 sources) Corticosteroid Start: 11-02-2022 betamethasone dipropionate (Diprolene) 0.05 % ointment apply to hands and feet (avoid face and skin folds) Externally bid prn (hold when clear) for 30 day(s) 11/02/2022 Active cetirizine hydrochloride 10 mg oral tablet (11 sources) Histamine-1 Receptor Antagonist take 1 tablet by mouth once daily cetirizine (ZyrTEC) 10 mg tablet Take 1 tablet (10 mg) by mouth once daily. Active Cetirizine HCl T ABS Quantity: 0 Refills: 0 Ordered: 03-Mar-2023 DO Active take 2 tablets by mouth once baron ly cetirizine (ZYRTEC) 10 MG tablet Take 20 mg by mouth daily 0 Active 1 ml dexamethasone phosphate 4 mg/ml injection (3 sources) Corticosteroid Start: 10-15-2022 dexamethasone (DECADRON) injection 4 mg diclofenac sodium 0.01 mg/mg topical gel (7 sources) Nonsteroidal Anti-inflammatory Drug Start: 10-02-2024 diclofenac topica l 1% gel as directed, Refill(s) 0 Start Date: 10/02/24 Status: Ordered Start: 12-02-2022 Diclofenac Sod ium 75 MG Oral Tablet Delayed Release Quantity: 60 Refills: 0 Ordered: 02-Dec-2022 DO Start : 02-Dec-2022 Active take 1 tablet by billy th twice daily diclofenac (VOLTAREN) 75 MG EC tablet Take 75 mg by mouth 2 times daily 0 Active 2 ml dupilumab 150 mg/ml prefilled syringe (11 sources) Interleukin-4 Receptor alpha Antagonist Start: 04-06-2024 Dupixent 300 MG/2ML injection Indications: Atopic Dermatitis Inject 1 Syringe (300 mg) under the skin every 14 (fourteen) days 12 mL 4 04/06/2024 Active Start: 02-02-2019 inject 300 mg by sub cutaneous injection every other week Dupixent 300 mg/2 mL subcutaneous solution 300 mg, SubCutaneous, Once, Every 2 weeks for eczema Start Date: 06/20/19 Status: Ordered dupilumab (Dupix ent Pen) 300 mg/2 mL pen injector Inject under the skin. Active dupilumab (DUPIX ENT) 300 MG/2ML SOPN injection Inject 300 mg into the skin every 14 days 0 Active fluticasone propionate 0.05 mg/actuat metered dose nasal spray (4 sources) Corticosteroid Start: 10-02-2024 Flonase 0.05 m g/inh [place] 1 spray(s), Nasal, Daily, Refill(s) 0 Start Date: 10/02/24 Status: Ordered take 1 spray(s) nasa l route twice daily as needed fluticasone (FLONASE) 50 MCG/ACT nasal spray 1 spray by Each Nostril route 2 times daily as needed 0 Active irbesartan 300 mg oral tablet (8 sources) Angiotensin 2 Receptor Donna Start: 10-02-2024 take 1 tablet by mouth once daily irbesartan 300 mg Tab 300 mg = 1 tab(s), Oral, Daily, Refills(s) 0 Start Date: 10/02/24 Status: Ordered Start: 03-27-2022 take 1 tablet by billy th once daily Irbesartan 300 MG Oral Tablet TAKE 1 TABLET BY MOUTH EVERY DAY Quantity: 90 Refills: 0 Ordered: 24-Dec-2022 DO Start : 27-Mar-2022 Active lisinopril 40 mg oral tablet (1 source) Angiotensin Converting Enzyme Inhibitor Start: 04-28-2019 take 1 mg by mouth once daily lisinopril 40 mg Tab mg tab(s), Oral, Daily, Refills(s) 0 Start Date: 04/28/19 Status: Ordered loratadine 10 mg oral tablet (1 source) Start: 10-02-2024 take 1 tablet by mouth once daily loratadine 10 mg Tab 10 mg = 1 tab(s), Oral, Daily, Refills(s) 0 Start Date: 10/02/24 Status: Ordered multivitamin tablet (1 source) take 1 tablet by mouth once daily multivitamin tablet Take 1 tablet by mouth once daily. Active simvastatin 40 mg oral tablet (13 sources) HMG-CoA Reductase Inhibitor Start: 04-28-2019 take 1 mg by mouth once daily at bedtime simvastatin 40 mg Tab mg tab(s), Oral, Once a day (at bedtime), Refills(s) 0 Start Date: 04/28/19 Status: Ordered SIMVASTATIN PO S imvastatin Active tiZANidine 4 mg oral tablet (1 source) Central alpha-2 Adrenergic Agonist Start: 10-02-2024 take 1 tablet by mouth once daily in the morning, then take 2 tablets by mouth at bedtime tiZANidine 4 mg Tab 1 tabs qam and 2 tabs at HS, Oral, Refills(s) 0 Start Date: 10/02/24 Status: Ordered triamcinolone acetonide 1 mg/ml topical cream (9 sources) Corticosteroid Start: 05-03-2024 triamcinolone (Kenalog) 0.1 % cream Indications: Other atopic dermatitis Apply to affected areas, up to twice a day when flared, do not use one the face, groin, or underarms, 30 day supply 454 g 11 05/03/2024 Active triamcinolone (K enalog) 0.1 % cream Apply to itchy areas topically bid prn for flares. Avoid face and groin for 30 days Active triamcinolone (K enalog) 0.1 % cream every 12 (twelve) hours. Active Completed/Discontinued Medications Medication Drug Class(es) Dates Sig (Normalized) Sig (Original) esomeprazole 40 mg delayed release oral capsule (12 sources) Proton Pump Inhibitor Start: 12-05-2022 Esomeprazole Magnesium 40 MG Oral Capsule Delayed Release Quantity: 90 Refills: 0 Ordered: 05-Dec-2022 DO Start : 05-Dec-2022 Active Start: 04-28-2019 take 1 mg by mouth once daily esomeprazole 40 mg Cap-EC mg cap(s), Oral, Daily, Refills(s) 0 Start Date: 04/28/19 Status: Ordered take 1 capsule by mo uth twice daily esomeprazole (NexIUM) [address] capsule take 1 capsule by oral route 2 times every day Oral Active take 40 mg by mouth once daily e someprazole Magnesium (NEXIUM) 40 MG PACK Take 40 mg by mouth daily 0 Active ipratropium bromide 0.021 mg/actuat metered dose nasal spray (7 sources) Anticholinergic Start: 11-04-2022 take 2 spray(s) nasal route three times daily Ipratropium [facility] 0.03 % Nasal Solution USE 2 SPRAYS IN EACH NOSTRIL 3 TIMES DAILY. Quantity: 1 Refills: 11 Ordered: 13-Apr-2023 Phillip Purvis MD Start : 13-Apr-2023 Active latanoprost 0.05 mg/ml ophthalmic solution (6 [...] 22-Jun-2022 Active montelukast 10 mg oral tablet (11 sources) Leukotriene Receptor Antagonist Start: 01-11-2023 Montelukast Sodium 10 MG Oral Tablet Quantity: 90 Refills: 0 Ordered: 11-Jan-2023 DO Start : 11-Jan-2023 Active take 1 tablet by mouth once renee y montelukast (Singulair) 10 mg tablet Take 1 tablet (10 mg) by mouth once daily. Active Montelukast Sodi um (SINGULAIR PO) Singulair Active Problems Active Problems Problem Classification Problem Date Documented Da te Episodic/Chronic Abdominal pain (2 sources) Left lower quadrant pain 06-20-2019 Episodic Allergic reactions (3 sources) Atopic dermatitis; Translations: [Other atopic dermatitis] 04-04-2024 Chronic Allergic reactions (1 source) Eczema 10-02-2024 Episodic Asthma (2 sources) Asthma 04-28-2019 Chronic Calculus of urinary tract (3 sources) Kidney stone; Translations: [Calculus of kidney] Onset: 3 Episodic Deficiency and other anemia (1 source) Anemia, unspecified; Translations: [ANEMIA UNSPECIFIED] Onset: 3 Episodic Disorders of lipid metabolism (6 sources) Hyperlipidemia; Translations: [Hyperlipidemia, unspecified] Onset: 2 04-28-2019 Chronic Esophageal disorders (4 sources) Gastroesophageal reflux disease; Translations: [Gastroesophageal reflux disease with hiatal hernia] 04-28-2019 Chronic Essential hypertension (2 sources) Hypertensive disorder 04-28-2019 Chronic Hyperplasia of prostate (3 sources) Benign prostatic hypertrophy with outflow obstruction; Translations: [Benign prostatic hyperplasia with lower urinary tract symptoms] Onset: 3 Chronic Neoplasms of unspecified nature or uncertain behavior (5 sources) Neoplasm of frontal sinus; 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] Episodic Osteoarthritis (2 sources) Arthritis 04-28-2019 Chronic Other and unspecified benign neoplasm (2 sources) Benign neoplasm of frontal sinus; Translations: [Benign neoplasm of middle ear, nasal cavity and accessory sinuses] 05-29-2024 Episodic Other and unspecified benign neoplasm (2 sources) Benign neoplasm of middle ear, nasal cavity and accessory sinuses; Translations: [Benign neoplasm of middle ear, nasal cavity and accessory sinuses] Onset: 4 Episodic Other circulatory disease (5 sources) Clearing throat - hawking; Translations: [Other respiratory abnormalities] Episodic Other circulatory disease (1 source) Vascular insufficiency 10-02-2024 Episodic Other connective tissue disease (2 sources) [...] Chronic Other diseases of kidney and ureters (2 sources) Renal mass 08-20-2020 Chronic Other diseases of kidney and ureters (1 source) 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; Translations: [Cyst of kidney, acquired] Onset: 3 Episodic Other diseases of kidney and ureters (2 sources) 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 Other gastrointestinal disorders (2 sources) Abdominal bloating 08-07-2019 Episodic Other gastrointestinal disorders (2 sources) Constipation alternates with diarrhea 06-20-2019 Episodic Other non-traumatic joint disorders (4 sources) Other specified arthritis, unspecified hand; Translations: [OTHER SPECIFIED ARTHRITIS UNS HAND] Onset: 3 Chronic Other nutritional; endocrine; and metabolic disorders (1 source) Overweight 10-10-2024 Episodic Other nutritional; endocrine; and metabolic disorders (1 source) Overweight in adulthood with body mass index of 25 or more but less than 30 10-10-2024 Episodic Other skin disorders (1 source) Mass of trunk; Translations: [Localized swelling, mass and lump, trunk] Onset: 5 Episodic Other skin disorders (1 source) Mass of subcutaneous tissue of back 10-10-2024 Episodic Other upper respiratory disease (4 sources) Other seasonal allergic rhinitis; Translations: [OTHER SEASONAL ALLERGIC RHINITIS] Onset: 3 Chronic Other upper respiratory disease (1 source) Seasonal allergic rhinitis 10-02-2024 Chronic Other upper respiratory disease (6 sources) [...] malignant neoplasm of prostate] Onset: 04-10-2022 Episodic Unclassified (1 source) Onset: 05-23-2024 05-23-2024 Results Test Name Value Interpretation Reference Range Facility Ambulatory Visit Summaryon 0 10-10-2024 Ambulatory Visit Summary Ambulatory Visit Summary KEDAR NÚÑEZ :1950 Visit Date:10/10/2024 Ambulatory Visit Instructions Your Care Team Attending Physician - JONATHAN SOLIZ, Luis A Calle Primary Care Physician - Neyda SOLIZ, Adama Referring Physician - Adama Faye MD This Is Your Medications List Contact prescribing physician if questions or concerns aspirin (aspirin 81 mg oral tablet) diclofenac topical (diclofenac topical 1% gel) dupilumab (Dupixent 300 mg/2 mL subcutaneous solution) esomeprazole (esomeprazole 40 mg Cap-EC) fluticasone nasal (Flonase 0.05 mg/inh [place]) irbesartan (irbesartan 300 mg Tab) loratadine (loratadine 10 mg Tab) simvastatin (simvastatin 40 mg Tab) tizanidine (tiZANidine 4 mg Tab) Procedures Performed Colonoscopy (07/2019), EGD - esophagogastroduodenoscopy (07/2019), Colonoscopy, Shoulder. Discharge Vitals Heart Rate (Peripheral) 70 Respiratory Rate 16 Blood Pressure 146/68 Height 180.34 cm Height 71 in Weight 85.1 kg Weight 187.613 lb BMI 26.17 Medications What How Much When Instructions Unchanged aspirin (aspirin 81 mg oral tablet) 1 Tablets By Mouth Every day Contact prescribing physician if questions or concerns Unchanged diclofenac topical (diclofenac topical 1% gel) as directed Contact prescribing physician if questions or concerns Unchanged dupilumab (Dupixent 300 mg/ 2 mL subcutaneous solution) 300 Milligram Subcutaneous Once Every 2 weeks for eczema Contact prescribing physician if questions or concerns Unchanged esomeprazole (esomeprazole 40 mg Cap-EC) By Mouth Every day Contact prescribing physician if questions or concerns Unchanged fluticasone nasal (Flonase 0.05 mg/ inh [place]) 1 Sprays Nasal Inhalation Every day Contact prescribing physician if questions or concerns Unchanged irbesartan (irbesartan 300 mg Tab) 1 Tablets By Mouth Every day Contact prescribing physician if questions or concerns Unchanged loratadine (loratadine 10 mg Tab) 1 Tablets By Mouth Every day Contact prescribing physician if questions or concerns Unchanged simvastatin (simvastatin 40 mg Tab) By Mouth Once a day (at bedtime) Contact prescribing physician if questions or concerns Unchanged tizanidine (tiZANidine 4 mg Tab) 1 tabs qam and 2 tabs at HS By Mouth Contact prescribing physician if questions or concerns Allergies penicillin (Rash) Problems Ongoing - Any problem that you are currently receiving treatment for. Alternating constipation and diarrhea Arthritis Asthma BMI 26.0-26.9,adult BPH with obstruction/lower urinary tract symptoms Eczema GERD (gastroesophageal reflux disease) Hiatal hernia with GERD Hyperlipidemia Hypertension Kidney stone on left side Overweight Parapelvic renal cyst Right renal mass Seasonal allergic rhinitis Venous insufficiency Historical - Any problem that you are no longer receiving treatment for. LLQ abdominal pain Postprandial bloating Patient Survey You may receive a survey via text or e-mail asking about your office visit. Please share your experience with us by completing your survey. We appreciate your feedback and thank you for choosing us for your care. 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 Please feel free to contact my office by calling [phone] with any questions. Provider Impressions 1. Frontal [...] Given that there is been no change attendant 6 months I recommended virtual follow-up in [...] consent was requested and obtained from KEDAR NÚÑEZ on this date, 04/13/2023 04:00 PM , for a telehealth visit. 1. Frontal sinus lesion; favor benign pathology 2. Rhinorrhea 3. Throat clearing, coughing, dysphonia, dysphagia 4. Dermatological issues on Dupixent 5. Asthma, allergic rhinitis with history of immunotherapy 6. Reflux on proton pump inhibitor History of Present Illness Reason for visit: KEDAR NÚÑEZ patient presents since last being seen 03/03/23. 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 : Unknown Radiologist to Determine Optimal Study : Y What are the patient's signs and symptoms? : Bony frontal sinus neoplasm Patient Discussion/Summary Please feel free to contact my office by calling [phone] with any questions. Provider Impressions 1. 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 1. Frontal sinus lesion; favor benign pathology 2. Rhinorrhea 3. Throat clearing, coughing, dysphonia, dysphagia 4. Dermatological issues on Dupixent 5. Asthma, allergic rhinitis with history of immunotherapy 6. Reflux on proton pump inhibitor History of Present Illness Reason for visit: KEDAR NÚÑEZ patient presents since last being seen 11/04/22. 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 Provider Impressions 1. Frontal [...] consent was requested and obtained from KEDAR NÚÑEZ on this date, 11/04/2022 01:15 PM , for a telehealth visit.1 . 1 Frontal sinus lesion 1 Amended By: Phillip Purvis; Nov 06 2022 3:47 PM ESTHistory of Present Illness Reason for visit: KEDAR NÚÑEZ presents to the Otolaryngology Clinic for a [...] Nov 06 2022 3:48PM EST (Author) [facility] XR HAND LEFT (MIN 3 VIEWS)on 10-15-2022 [...] A Adams MD 10/15/22 Final result Normal [facility] No acute osseous abnormality. Degenerative changes 1st [facility] joint [facility] RIS CONSOLIDATED EXAMINATION: THREE XRAY VIEWS OF THE LEFT HAND 10/15/2022 9:57 am COMPARISON: None. HISTORY: ORDERING SYSTEM PROVIDED HISTORY: Pain in both hands FINDINGS: There is no evidence of acute fracture. There is normal alignment. No acute joint abnormality. No focal osseous lesion. No focal soft tissue abnormality. Degenerative changes seen in the 1st [facility] joint. Vascular calcifications. [facility] CONSOLIDATED Luis A Adams MD [...] osseous abnormality. Degenerative changes 1st [facility] joint [employer] [facility] Phone: Radiology Study observation (narrative) [employer] [facility] [employer] [facility] Phone: XR HAND LEFT (MIN 3 VIEWS)Or dered By: Luis A Adams on 10-15-2022 [employer] [facility] Phone: XR HAND RIGHT (MIN 3 VIEWS)o [...] A Adams MD 10/15/22 Final result Normal [facility] No acute osseous abnormality. Degenerative changes 3rd MCP joint and 1st [facility] joint [facility] CONSOLIDATED EXAMINATION: THREE XRAY VIEWS [...] with joint space narrowing and bony overgrowth. [facility] CONSOLIDATED Luis A Adams MD [...] 3rd MCP joint and 1st [facility] joint [employer] Phone: Radiology Study observation (narrative) [employer] [facility] Phone: XR HAND RIGHT (MIN 3 VIEWS)O rdered By: Luis A Adams on 10-15-2022 [employer] [facility] [employer] Phone: PERLA by IFAon 10-06-2022 Antinuclear Antibodies, IFA Negative Normal [facility] Comment on above: Result Comment: Nega tive <1:80 Borderline 1:80 Positive >1:80 ICAP nomenclature: AC-0 For more information about Hep-2 cell patterns use ANApatterns.org, the official website for the International Consensus on Antinuclear Antibody (PERLA) Patterns (ICAP). Performed By: #### C BC #### [facility] [address] [place] [address] Dr. Akua Thomas ANTISTREPTOLYSIN O AB (ASO)o n 10-06-2022 Antistreptolysin O Ab 69.9 IU/mL Normal 0.0-200.0 [facility] Comment on above: Performed By: #### A SOAB #### [facility] [address] [address] [address] Akua Thomas CALCIUM IONIZEDon 10-06-2022 Calcium, Ionized, Serum 5.5 mg/dL Normal 4.5-5.6 [facility] Comment on above: Performed By: #### C AIONZ #### [facility] [address] [place] [address] Dr. Akua Thomas RHEUMATOID FACTORon 10-06-19 RA Latex Turbid. 12.6 IU/mL Normal <14.0 [facility] Comment on above: Performed By: #### R F #### [facility] [address] [place] [address] Dr. Akua Thomas CBC AUTO DIFFon 10-05-2022 BASO # 0.0 103/ul Normal 0.0-0.1 [facility] Comment on above: Performed By: #### C BC #### [facility] [address] [place] [address] Dr. Akua Thomas Basophils/100 WBC (Bld) 0.2 % Normal 0.2-2.0 [facility] Comment on above: Performed By: #### C BC #### [facility] [address] [place] [address] Dr. Akua Thomas EO # 0.1 103/ul Normal 0.0-0.7 [facility] Comment on above: Performed By: #### C BC #### [facility] [address] [place] [address] Dr. Akua Thomas Eosinophils/100 WBC (Bld) 1.4 % Normal 0.9-7.0 [facility] Comment on above: Performed By: #### C BC #### [facility] [address] [place] [address] Dr. Akua Thomas Erythrocyte distribution width (RBC) [Ratio] 14.3 % Normal 11.0-15.0 [facility] Comment on above: Performed By: #### C BC #### [facility] [address] [place] [address] Dr. Akua Thomas Hematocrit (Bld) [Volume fraction] 45.5 % Normal 42.0-54.0 [facility] Comment on above: Performed By: #### C BC #### [facility] [address] [place] [address] Dr. Akua Thomas Hemoglobin (Bld) [Mass/Vol] 15.1 g/dL Normal 14.0-18.0 [facility] Comment on above: Performed By: #### C BC #### [facility] [address] [place] [address] Dr. Akua Thomas IG # 0.03 10e3/ul Normal 0.00-0.03 [facility] Comment on above: Performed By: #### C BC #### [facility] [facility] [address] [place] [address] Dr. Akua Thomas IG % 0.3 % Normal 0.0-0.5 [facility] Comment on above: Performed By: #### C BC #### [facility] [address] [place] [address] Dr. Akua Thomas LYMPH # 3.0 103/ul Normal 1.2-3.8 [facility] Comment on above: Performed By: #### C BC #### [facility] [address] [place] [address] Dr. Akua Thomas Lymphocytes/100 WBC (Bld) 31.9 % Normal 20.5-60.0 [facility] Comment on above: Performed By: #### C BC #### [facility] [address] [place] [address] Dr. Akua Thomas MANUAL DIFF REQ NO Normal [facility] Comment on above: Performed By: #### C BC #### [facility] [address] [place] [address] Dr. Akua Thomas MCH (RBC) [Entitic mass] 29.6 pg Normal 25.9-34.0 [facility] Comment on above: Performed By: #### C BC #### [facility] [address] [place] [address] Dr. Akua Thomas MCHC (RBC) [Mass/Vol] 33.2 g/dL Normal 29.9-35.2 [facility] Comment on above: Performed By: #### C BC #### [facility] [address] [place] [address] Dr. Akua Thomas MCV (RBC) [Entitic vol] 89.2 fL Normal 80.0-94.0 [facility] Comment on above: Performed By: #### C BC #### [facility] [address] [place] [address] Dr. Akua Thomas MONO # 0.7 103/ul Normal 0.3-0.8 [facility] Comment on above: Performed By: #### C BC #### [facility] [address] [address] [address] Akua Thomas Monocytes/100 WBC (Bld) 7.2 % Normal 1.7-12.0 [facility] Comment on above: Performed By: #### C BC #### [facility] [address] [address] [address] Akua Thomas NEUT # 5.5 103/ul Normal 1.4-6.5 [facility] Comment on above: Performed By: #### C BC #### [facility] [address] [place] [address] Dr. Akua Thomas Neutrophils/100 WBC (Bld) 59.0 % Normal 43.0-75.0 [facility] Comment on above: Performed By: #### C BC #### [facility] [address] [place] [address] Dr. Akua Thomas Platelet mean volume (Bld) [Entitic vol] 9.9 fL Normal 9.5-13.5 [facility] Comment on above: Performed By: #### C BC #### [facility] [address] [place] [address] Dr. Akua Thomas PLT 237 103/ul Normal 150-450 [facility] Comment on above: Performed By: #### C BC #### [facility] [address] [place] [address] Dr. Akua Thomas RBC 5.10 106/ul Normal 4.70-6.10 [facility] Comment on above: Performed By: #### C BC #### [facility] [address] [place] [address] Dr. Akua Thomas WBC 9.3 103/ul Normal 4.0-11.0 [facility] Comment on above: Performed By: #### C BC #### [facility] [address] [place] [address] Dr. Akua Thomas CRPon 10-05-2022 CRP [Mass/Vol] mg/L Normal <=1.0 [facility] Comment on above: Performed By: #### C MP, URIC, PHOS, MG, T7, CRP, TSH #### [facility] [address] [place] [address] Dr. Akua Thomas FREE THYROXINE INDEX T7on FTI 3.28 Normal 1.30-4.50 [facility] Comment on above: Performed By: #### C BC #### [facility] [address] [place] [address] Dr. Akua Thomas T3U 36.0 % Normal 33.0-40.0 [facility] Comment on above: Performed By: #### C BC #### [facility] [address] [place] [address] Dr. Akua Thomas T4 [Mass/Vol] 9.10 ug/dL Normal 4.50-12.10 [facility] Comment on above: Performed By: #### C BC #### [facility] [address] [place] [address] Dr. Akua Thomas IRONon 10-05-2022 Iron [Mass/Vol] 119.0 ug/dL Normal 65.0-175.0 [facility] Comment on above: Performed By: #### I SHILPI #### [facility] [address] [place] [address] Dr. Akua Thomas MAGNESIUMon 10-05-2022 Magnesium [Mass/Vol] 1.8 mg/dL Normal 1.8-2.4 [facility] Comment on above: Performed By: #### C BC #### [facility] [address] [place] [address] Dr. Akua Thomas PHOSPHORUSon 10-05-2022 Phosphate [Mass/Vol] 3.4 mg/dL Normal 2.6-4.7 [facility] Comment on above: Performed By: #### C BC #### [facility] [address] [place] [address] Dr. Akua Thomas PROF 14(COMP METB)on 023 Albumin [Mass/Vol] 4.0 g/dL Normal 3.4-5.0 [facility] Comment on above: Performed By: #### C BC #### [facility] [address] [place] [address] Dr. Akua Thomas Albumin/Globulin [Mass ratio] 1.4 {ratio} Normal [facility] Comment on above: Performed By: #### C BC #### [facility] [address] [place] [address] Dr. Akua Thomas ALP [Catalytic activity/Vol] 119 U/L Critically high 46-116 [facility] Comment on above: Performed By: #### C BC #### [facility] [address] [place] [address] Dr. Akua Thomas ALT [Catalytic activity/Vol] 69 U/L Critically high 16-63 [facility] Comment on above: Performed By: #### C BC #### [facility] [address] [place] [address] Dr. Akua Thomas Anion gap [Moles/Vol] 10.0 mmol/L Normal [facility] Comment on above: Performed By: #### C BC #### [facility] [address] [place] [address] Dr. Akua Thomas AST [Catalytic activity/Vol] 37 U/L Normal 15-37 [facility] Comment on above: Performed By: #### C BC #### [facility] [address] [place] [address] Dr. Akua Thomas Bilirubin [Mass/Vol] 0.7 mg/dL Normal 0.2-1.0 [facility] Comment on above: Performed By: #### C BC #### [facility] [address] [place] [address] Dr. Akua Thomas Calcium [Mass/Vol] 9.2 mg/dL Normal 8.5-10.1 [facility] Comment on above: Performed By: #### C BC #### [facility] [address] [place] [address] Dr. Akua Thomas Chloride [Moles/Vol] 100 mmol/L Normal 98-107 [facility] Comment on above: Performed By: #### C BC #### [facility] [address] [place] [address] Dr. Akua Tohmas CO2 [Moles/Vol] 30.5 mmol/L Normal 21.0-32.0 [facility] Comment on above: Performed By: #### C BC #### [facility] [address] [place] [address] Dr. Akua Thomas Creatinine [Mass/Vol] 0.75 mg/dL Normal 0.70-1.30 [facility] Comment on above: Performed By: #### C BC #### [facility] [address] [address] [address] Akua Thomas EGFR-AF GUYANESE >60 Normal >=60 [facility] Comment on above: Performed By: #### C BC #### [facility] [address] [place] [address] Dr. Akua Thomas EGFR-NON AF GUYANESE >60 Normal >=60 [facility] Comment on above: Performed By: #### C BC #### [facility] [address] [place] [address] Dr. Akua Thomas Globulin (S) [Mass/Vol] 2.9 g/dL Normal [facility] Comment on above: Performed By: #### C BC #### [facility] [address] [place] [address] Dr. Akua Thomas Glucose [Mass/Vol] 97 mg/dL Normal 74-106 [facility] Comment on above: Performed By: #### C BC #### [facility] [address] [place] [address] Dr. Akua Thomas Potassium [Moles/Vol] 4.5 mmol/L Normal 3.5-5.1 [facility] Comment on above: Performed By: #### C BC #### [facility] [address] [place] [address] Dr. Akua Thomas Protein [Mass/Vol] 6.9 g/dL Normal 6.4-8.2 [facility] Comment on above: Performed By: #### C BC #### [facility] [address] [place] [address] Dr. Akua Thomas Sodium [Moles/Vol] 136 mmol/L Normal 136-145 [facility] Comment on above: Performed By: #### C BC #### [facility] [address] [address] [address] Akua Thomas Urea nitrogen [Mass/Vol] 24.0 mg/dL Critically high 7.0-18.0 [facility] Comment on above: Performed By: #### C BC #### [facility] [address] [place] [address] Dr. Akua Thomas Urea nitrogen/Creatinin e [Mass ratio] 32.0 mg/mg Normal [facility] Comment on above: Performed By: #### C BC #### [facility] [address] [place] [address] Dr. Akua Thomas TSHon 10-05-2022 TSH 0.725 uIU/mL Normal 0.358-3.74 0 [facility] Comment on above: Performed By: #### C BC #### [facility] [address] [place] [address] Dr. Akua Thomas URIC ACID SERUMon 10-05-2022 Urate [Mass/Vol] 2.2 mg/dL Critically low 3.5-7.2 [facility] Comment on above: Performed By: #### C MP, URIC, PHOS, MG, T7, CRP, TSH #### [facility] [address] [place] [address] Dr. Akua Thomas XR HAND LT MIN 3Von 10-05-19 23 XR HAND LT MIN 3V EXAMINATION: XR WRIS T MARÍA MIN 3 V, XR HAND LT MIN 3V HISTORY: Arthritis of hand COMPARISON: No relevant comparison available. FINDINGS: RIGHT FINDINGS: BONES: No acute fracture or dislocation. 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 IMPRESSION: There is a small mass seen [...] by: DONNELL RENTERIA Date: 2022-09-16 19:40 Normal [facility] OCC BLD IMMUNO SCREENon 04-10 OCCULT BLOOD Negative Normal NEGATIVE [facility] Comment on above: Performed By: #### C BC #### [facility] [address] [place] [address] Dr. Akua Thomas PSA, FREE AND TOTAL RATIOon 04-10-2022 % Free PSA 17.8 % Normal [facility] Comment on above: Result Comment: The [...] men. Performed By: #### C BC #### [facility] [address] [place] [address] Dr. Akua Thomas Prostate specific Ag [Mass/Vol] 0.9 ng/mL Normal 0.0-4.0 [facility] Comment on above: Result Comment: Leslye FOSTER methodology. . According to the [employer], Serum PSA should decrease and [...] disease. Performed By: #### C BC #### [facility] [address] [place] [address] Dr. Akua Thomas PSA, Free 0.16 ng/mL Normal N/A [facility] Comment on above: Result Comment: Leslye ceballos ECLASHLYN methodology. Performed By: #### C BC #### [facility] [address] [place] [address] Dr. Akua Thomas T4 LABCORPon 04-10-2022 T4 [Mass/Vol] 8.0 ug/dL Normal 4.5-12.0 [facility] Comment on above: Performed By: #### C BC #### [facility] [address] [place] [address] Dr. Akua Thomas CBC AUTO DIFFon 04-09-2022 BASO # 0.0 103/ul Normal 0.0-0.1 [facility] Comment on above: Performed By: #### C BC #### [facility] [address] [place] [address] Dr. Akua Thomas Basophils/100 WBC (Bld) 0.2 % Normal 0.2-2.0 [facility] Comment on above: Performed By: #### C BC #### [facility] [address] [place] [address] Dr. Akua Thomas EO # 0.2 103/ul Normal 0.0-0.7 [facility] Comment on above: Performed By: #### C BC #### [facility] [address] [place] [address] Dr. Akua Thomas Eosinophils/100 WBC (Bld) 2.2 % Normal 0.9-7.0 [facility] Comment on above: Performed By: #### C BC #### [facility] [address] [place] [address] Dr. Akua Thomas Erythrocyte distribution width (RBC) [Ratio] 14.2 % Normal 11.0-15.0 [facility] Comment on above: Performed By: #### C BC #### [facility] [address] [place] [address] Dr. Akua Thomas Hematocrit (Bld) [Volume fraction] 43.3 % Normal 42.0-54.0 [facility] Comment on above: Performed By: #### C BC #### [facility] [address] [place] [address] Dr. Akua Thomas Hemoglobin (Bld) [Mass/Vol] 14.2 g/dL Normal 14.0-18.0 [facility] Comment on above: Performed By: #### C BC #### [facility] [address] [place] [address] Dr. Akua Thomas IG # 0.02 10e3/ul Normal 0.00-0.03 [facility] Comment on above: Performed By: #### C BC #### [facility] [address] [place] [address] Dr. Akua Thomas IG % 0.2 % Normal 0.0-0.5 [facility] Comment on above: Performed By: #### C BC #### [facility] [address] [place] [address] Dr. Akua Thomas LYMPH # 1.8 103/ul Normal 1.2-3.8 [facility] Comment on above: Performed By: #### C BC #### [facility] [address] [place] [address] Dr. Akua Thomas Lymphocytes/100 WBC (Bld) 20.6 % Normal 20.5-60.0 [facility] Comment on above: Performed By: #### C BC #### [facility] [address] [place] [address] Dr. Akua Thomas MANUAL DIFF REQ NO Normal [facility] Comment on above: Performed By: #### C BC #### [facility] [address] [place] [address] Dr. Akua Thomas MCH (RBC) [Entitic mass] 29.8 pg Normal 25.9-34.0 [facility] Comment on above: Performed By: #### C BC #### [facility] [address] [place] [address] Dr. Akua Thomas MCHC (RBC) [Mass/Vol] 32.8 g/dL Normal 29.9-35.2 [facility] Comment on above: Performed By: #### C BC #### [facility] [address] [place] [address] Dr. Akua Thomas MCV (RBC) [Entitic vol] 91.0 fL Normal 80.0-94.0 [facility] Comment on above: Performed By: #### C BC #### [facility] [address] [place] [address] Dr. Akua Thomas MONO # 0.7 103/ul Normal 0.3-0.8 [facility] Comment on above: Performed By: #### C BC #### [facility] [address] [place] [address] Dr. Akua Thomas Monocytes/100 WBC (Bld) 8.2 % Normal 1.7-12.0 [facility] Comment on above: Performed By: #### C BC #### [facility] [address] [place] [address] Dr. Akua Thomas NEUT # 6.1 103/ul Normal 1.4-6.5 [facility] Comment on above: Performed By: #### C BC #### [facility] [address] [place] [address] Dr. Akua Thomas Neutrophils/100 WBC (Bld) 68.6 % Normal 43.0-75.0 [facility] Comment on above: Performed By: #### C BC #### [facility] [address] [place] [address] Dr. Akua Thomas Platelet mean volume (Bld) [Entitic vol] 10.1 fL Normal 9.5-13.5 [facility] Comment on above: Performed By: #### C BC #### [facility] [address] [place] [address] Dr. Akua Thomas PLT 231 103/ul Normal 150-450 [facility] Comment on above: Performed By: #### C BC #### [facility] [address] [place] [address] Dr. Akua Thomas RBC 4.76 106/ul Normal 4.70-6.10 [facility] Comment on above: Performed By: #### C BC #### [facility] [address] [place] [address] Dr. Akua Thomas WBC 8.9 103/ul Normal 4.0-11.0 [facility] Comment on above: Performed By: #### C BC #### [facility] [address] [place] [address] Dr. Akua Thomas FREE T3on 04-09-2022 FREE T3 2.53 pg/mlL Normal 2.18-3.98 [facility] Comment on above: Performed By: #### R F #### [facility] [address] [place] [address] Dr. Akua Thomas GLYCOHEMOGLOBIN A1Con 2021 ADA RECOMMENDATION SEE BELOW Normal [facility] Comment on above: Result Comment: ADA RECOMMENDED LIMIT 4.0 - 6.0 ADA THERAPEUTIC TARGET < 7.0 ACTION SUGGESTED > 7.0 Performed By: #### A 1C #### [facility] [address] [address] [address] Akua Thomas Glucose [Mass/Vol] 123 mg/dL Normal [facility] Comment on above: Performed By: #### A 1C #### [facility] [address] [address] [address] Akua Thomas HbA1c (Bld) [Mass fraction] 5.9 % Normal 4.5-6.2 [facility] Comment on above: Performed By: #### A 1C #### [facility] [address] [place] [address] Dr. Akua Thomas LIPID PROFILEon 04-09-2022 CHOL-HDL RATIO NORM SEE BELOW Normal [facility] Comment on above: Result Comment: 3.3 - 4.4 LOW RISK 4.4 - 7.1 AVERAGE RISK 7.1 - 11.0 MODERATE RISK >11.0 HIGH RISK Performed By: #### R F #### [facility] [address] [place] [address] Dr. Akua Thomas Cholesterol [Mass/Vol] 154 mg/dL Normal <=200 [facility] Comment on above: Performed By: #### R F #### [facility] [address] [place] [address] Dr. Akua Thomas Cholesterol in HDL [Mass/Vol] 71 mg/dL Critically high 40-60 [facility] Comment on above: Performed By: #### R F #### [facility] [address] [place] [address] Dr. Akua Thomas Cholesterol in LDL [Mass/Vol] 74.8 mg/dL Normal [facility] Comment on above: Performed By: #### R F #### [facility] [address] [place] [address] Dr. Akua Thomas Cholesterol.total/ Cholesterol in HDL [Mass ratio] 2.2 {ratio} Normal [facility] Comment on above: Performed By: #### R F #### [facility] [address] [place] [address] Dr. Akua Thomas HDL NORMAL > or = 60 mg/dl - LO W CARDIOVASCULAR RISK <40 mg/dl - HIGH CARDIOVASCULAR RISK Normal [facility] Comment on above: Performed By: #### R F #### [facility] [address] [place] [address] Dr. Akua Thomas LDL CALC NORMAL SEE BELOW Normal [facility] Comment on above: Result Comment: <100 mg/dl OPTIMAL 100 - 129 mg/dl NEAR OR ABOVE OPTIMAL 130 - 159 mg/dl BORDERLINE HIGH 160 - 189 mg/dl HIGH >190 mg/dl VERY HIGH Performed By: #### R F #### [facility] [address] [place] [address] Dr. Akua Thomas Triglyceride [Mass/Vol] 41 mg/dL Normal <=150 [facility] Comment on above: Performed By: #### R F #### [facility] [address] [place] [address] Dr. Akua Thomas VLDL CALC 8.2 mg/dL Normal [facility] Comment on above: Performed By: #### R F #### [facility] [address] [place] [address] Dr. Akua Thomas PROF 14(COMP METB)on 022 Albumin [Mass/Vol] 3.8 g/dL Normal 3.4-5.0 [facility] Comment on above: Performed By: #### R F #### [facility] [address] [place] [address] Dr. Akua Thomas Albumin/Globulin [Mass ratio] 1.4 {ratio} Normal [facility] Comment on above: Performed By: #### R F #### [facility] [address] [place] [address] Dr. Akua Thomas ALP [Catalytic activity/Vol] 127 U/L Critically high 46-116 [facility] Comment on above: Performed By: #### R F #### [facility] [address] [place] [address] Dr. Akua Thomas ALT [Catalytic activity/Vol] 45 U/L Normal 16-63 [facility] Comment on above: Performed By: #### R F #### [facility] [address] [place] [address] Dr. Akua Thomas Anion gap [Moles/Vol] 12.6 mmol/L Normal [facility] Comment on above: Performed By: #### R F #### [facility] [address] [place] [address] Dr. Akua Thomas AST [Catalytic activity/Vol] 28 U/L Normal 15-37 [facility] Comment on above: Performed By: #### R F #### [facility] [address] [place] [address] Dr. Akua Thomas Bilirubin [Mass/Vol] 0.8 mg/dL Normal 0.2-1.0 [facility] Comment on above: Performed By: #### R F #### [facility] [address] [place] [address] Dr. Akua Thomas Calcium [Mass/Vol] 8.7 mg/dL Normal 8.5-10.1 [facility] Comment on above: Performed By: #### R F #### [facility] [address] [place] [address] Dr. Akua Thomas Chloride [Moles/Vol] 102 mmol/L Normal 98-107 [facility] Comment on above: Performed By: #### R F #### [facility] [address] [place] [address] Dr. Akua Thomas CO2 [Moles/Vol] 28.1 mmol/L Normal 21.0-32.0 [facility] Comment on above: Performed By: #### R F #### [facility] [address] [place] [address] Dr. Akua Thomas Creatinine [Mass/Vol] 0.77 mg/dL Normal 0.70-1.30 [facility] Comment on above: Performed By: #### R F #### [facility] [address] [place] [address] Dr. Akua Thomas EGFR-AF GUYANESE >60 Normal >=60 [facility] Comment on above: Performed By: #### R F #### [facility] [address] [place] [address] Dr. Akua Thomas EGFR-NON AF GUYANESE >60 Normal >=60 [facility] Comment on above: Performed By: #### R F #### [facility] [address] [address] [address] Akua Thomas Globulin (S) [Mass/Vol] 2.7 g/dL Normal [facility] Comment on above: Performed By: #### R F #### [facility] [address] [place] [address] Dr. Akua Thomas Glucose [Mass/Vol] 105 mg/dL Normal 74-106 [facility] Comment on above: Performed By: #### R F #### [facility] [address] [place] [address] Dr. Akua Thomas Potassium [Moles/Vol] 3.7 mmol/L Normal 3.5-5.1 [facility] Comment on above: Performed By: #### R F #### [facility] [address] [place] [address] Dr. Akua Thomas Protein [Mass/Vol] 6.5 g/dL Normal 6.4-8.2 [facility] Comment on above: Performed By: #### R F #### [facility] [address] [place] [address] Dr. Akua Thomas Sodium [Moles/Vol] 139 mmol/L Normal 136-145 [facility] Comment on above: Performed By: #### R F #### [facility] [address] [place] [address] Dr. Akua Thomas Urea nitrogen [Mass/Vol] 17.0 mg/dL Normal 7.0-18.0 [facility] Comment on above: Performed By: #### R F #### [facility] [address] [place] [address] Dr. Akua Thomas Urea nitrogen/Creatinin e [Mass ratio] 22.1 mg/mg Normal [facility] Comment on above: Performed By: #### R F #### [facility] [address] [place] [address] Dr. Akua Thomas TSHon 04-09-2022 TSH 0.547 uIU/mL Normal 0.358-3.74 0 [facility] Comment on above: Performed By: #### R F #### [facility] [address] [place] [address] Dr. Akua Thomas Vital Signs Date Time Vital Sign Value Performing Clinician Edil rees 10-10-2024 13:51-0500 Blood Pressure Location Luis A MORRELLL [facility] 10-10-2024 13:51-0500 Diastolic blood pressure 68 mm[Hg] Luis A NILL [facility] 10-10-2024 13:51-0500 Heart rate 70 /min Luis A NILL [facility] 10-10-2024 13:51-0500 Respiratory rate 16 /min Luis A NILL [facility] 10-10-2024 13:51-0500 Systolic blood pressure 146 mm[Hg] Luis A NILL [facility] Encounters Encounter Date Encounter Type Care Provider Facility Start: 10-10-2024 ambulatory Luis A Calle JONATHAN Facility :[facility] Start: 10-10-2024 End: 10-10-2024 Patient encounter procedure Luis A CASTILLO [facility] Start: 05-23-2024 End: 05-23-2024 Office outpatient visit 15 minutes Phillip Purvis MD Work Phone: [facility] Comment on above: 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) Start: 05-23-2024 ambulatory PHILLIP PURVIS [facility] Start: 05-03-2024 End: 05-03-2024 Telephone encounter Nunu Charles MA [facility] Comment on above: Med Refill Start: 04-13-2024 End: 04-13-2024 ambulatory PHILLIP Ferguson [facility] Ambulatory Start: 04-13-2024 End: 04-13-2024 Office outpatient visit 15 minutes Phillip Purvis MD Work Phone: [facility] Comment on above: 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 Phillip Gallegos Facility:[id number] Start: 03-03-2023 Office outpatient visit 15 minutes Referring Provider Unknown [facility] Work Phone: Start: 03-03-2023 Patient encounter procedure Referring Provider Unknown [facility] Work Phone: Start: 03-03-[address] Phillip Gallegos Facility:[id number] Start: 11-04-2022 Office outpatient ne w 45 minutes Referring Provider Unknown [facility] 4[facility] Work Phone: Start: 11-04-2022 Patient encounter procedure Referring Provider Unknown [facility] Work Phone: Start: 11-04-[address] Phillip Gallegos Facility:[id number] Start: 10-15-2022 End: 10-18-2022 ambulatory OSMIN Brown [facility] Start: 10-15-2022 End: 10-17-2022 Subsequent hospital visit by physician Paresh Griffith Dr Room 4 [facility] Comment on above: Pain in both hands Start: 10-05-2022 End: 10-06-[address] ADAMA FAYE . Facility:[facility]1 Start: 09-24-2022 ambulatory KRISTOFER RANKIN Facility :[facility]1 Start: 09-16-2022 End: 09-17-[address] ADAMA FAYE . Facility:[facility] Start: 08-19-2022 End: 08-19-2022 Patient encounter procedure KRISTOFER RANKIN [facility] Start: 05-01-2022 End: 05-01-[address] ADAMA FAYE . Facility:[facility]1 Start: 04-09-2022 End: 04-10-[address] ADAMA FAYE . Facility: Start: 07-12-2017 End: 07-13-2017 Ambulatory DEFAULT PHYSICIAN Facility:[facility] Procedures Date Procedure Procedure Detail Performing Clinician Start: 10-15-2022 End: 10-15-2022 Radex hand minimum 3 views Osmin guerrero MD Work Phone: Start: 07-09-2019 Colonoscopy Luis A CASTILLO Start: 07-09-2019 Esophagogastroduodenoscopy Luis A CASTILLO Colonoscopy KRISTOFER RANKIN Shoulder region stru cture (body structure) KRISTOFER RANKIN Plan of Treatment Date Care Activity Detail Author Start: 04-04-2025 End: 04-04-2025 Patient encounter procedure 04/04/2025 10:45 AM EDT Office Visit [facility] [address] [place] [address] Nuha Turner MD [address] [place] [address] [facility] Start: 06-22-2024 End: 06-22-2024 Patient encounter procedure 06/22/2024 11:00 AM EST Office Visit [address] [address] [place] [address] [place] [address] [facility] Start: 04-13-2024 End: 04-13-2025 CT Sinuses WO contrast CT sinuss wo IV contrast volumetric surgical planning Imaging Routine Benign neoplasm of frontal sinus Expected: 04/13/2024, Expires: 04/13/2025 [facility] Service Area Work Phone: Comment on above: Expected: 04/13/2024 , Expires: 04/13/2025 Start: 04-09-2024 COVID-19 Vaccine ( season) COVID-19 Vaccine ( season) [facility] Start: 04-09-2024 COVID-19 Vaccine ( season) COVID-19 Vaccine ( season) [facility] Start: 04-09-2024 Influenza vaccination Influenza Vacc ine (#1) [facility] Start: 04-04-2024 End: 04-04-2024 Patient encounter procedure 04/04/2024 11:00 AM EDT Office Visit [facility] [address] [place] [address] Nuha Turner MD [address] [place] [address] Arrived [facility] Comment on above: Arrived Start: 2023 RSV High Risk: (Elde rly (60+) or Population) (1 - 1-dose 75+ series) RSV High Risk: (Elderly (60+) or Population) (1 - 1-dose 75+ series) [facility] Start: 03-03-2023 PHUONG, Provider : Phillip Purvis, Status: Pen, Time: 1:00 PM PHUONG, Provider: Phillip Purvis, Status: Pen, Time: 1:00 PM [facility] Work Phone: Start: 10-15-2022 Annual Wellness Visi t (AWV) Annual Wellness Visit (AWV) [facility] Start: 09-01-2021 COVID-19 Vaccine (4 - Booster for Moderna series) COVID-19 Vaccine (4 - Booster for Moderna series) [facility] Start: 06-24-2018 Pneumococcal 65+ yea rs Vaccine (2 - PPSV23 if available, else PCV20) Pneumococcal 65+ years Vaccine (2 - PPSV23 if available, else PCV20) [facility] Start: 06-24-2018 Pneumococcal Vaccine : 65+ Years (2 of 2 - PPSV23 or PCV20) Pneumococcal Vaccine: 65+ Years (2 of 2 - PPSV23 or PCV20) [facility] Start: 2013 Abdominal aortic aneurysm screening [facility] Start: 2008 RSV patient s and/or patients aged 60+ years (1 - 1-dose 60+ series) RSV patients and/or patients aged 60+ years (1 - 1-dose 60+ series) [facility] Start: 1998 Shingles vaccine (1 of 2) Shingles vaccine (1 of 2) [facility] Start: 1998 Zoster Vaccines (1 o f 2) Zoster Vaccines (1 of 2) [facility] Start: 1993 Screening for malign ant neoplasm of colon [facility] Start: 1970 DTaP/Tdap/Td Vaccine s (1 - Tdap) DTaP/Tdap/Td Vaccines (1 - Tdap) [facility] Start: 1967 DTaP/Tdap/Td vaccine (1 - Tdap) DTaP/Tdap/Td vaccine (1 - Tdap) [facility] Start: 1966 Hepatitis C screening [facility] Start: 1960 Depression Screen Depression Screen [facility] Start: 1958 Lipid panel Lipids [facility] Start: 1948 Annual wellness visit Medicare Initial Physical (IPPE) [facility] Start: 1948 Lipid panel Lipid Panel [facility] Start: 1948 Medicare Annual Wellness Visit Medicare Annual Wellness Visit (AWV) [facility] Start: 1948 Screening for malign ant neoplasm of colon [facility] Immunizations Immunization Date Immunization Notes Care Provider Fa josé 06-05-2022 influenza virus vaccine, unspecified formulation KRISTOFER MASSIEL [facility] 07-07-2021 SARS-CoV-2 (COVID-19 ) mRNA-1273 vaccine KRISTOFER MASSIEL [facility] 11-02-2020 SARS-CoV-2 (COVID-19 ) mRNA-1273 vaccine KRISTOFER MASSIEL [facility] Comment on above: Result Comment: 2022: [id number] 10-05-2020 SARS-CoV-2 (COVID-19 ) mRNA-1273 vaccine KRISTOFER MASSIEL [facility] Comment on above: Result Comment: 2022: [id number] 05-08-2020 influenza virus vaccine, unspecified formulation KRISTOFER MASSIEL [facility] 05-17-2019 influenza virus vaccine, unspecified formulation KRISTOFER MASSIEL [facility] [place] 05-25-2018 influenza virus vaccine, unspecified formulation KRISTOFER MASSIEL [facility] 06-24-2017 pneumococcal conjuga te vaccine, 13 valent KRISTOFER MASSIEL [facility] NEGATED: Highlighted row has not occurred!06-20-2019 influenza virus vaccine, unspecified formulation KRISTOFER MASSIEL [facility] [place] Payers Date Payer Category Payer Medicare [id number] 2022 Medicare (Managed Care) [employer] [id number] 1959 Medicare [id number] 1959 Self-pay 1948 Unknown [id number]. 593 1948 Unknown [id number] [id number]. 593 1948 Unknown [id number] 2.16.840.1.520361.3.579.2. 593 1948 Unknown [id number] 2.16.840.1.299123.3.579.2. 593 1948 Unknown [id number] 2.16.840.1.267044.3.579.2. 593 1948 Unknown [id number] 2.16.840.1.193251.3.579.2. 173 1948 Unknown [id number] 2.16.840.1.878986.3.579.2. 173 1948 Unknown [id number] 2.16.840.1.600170.3.579.2. 173 1948 Unknown [id number] 2.16.840.1.277157.3.579.2. 356 1948 Unknown [id number] 2.16.840.1.398411.3.579.2. 356 1948 Unknown [id number] 2.16.840.1.590026.3.579.2. 356 1948 Unknown [id number] 2.16.840.1.963458.3.579.2. 1259 1948 Unknown [id number] 2.16.840.1.066109.3.579.2. 1244 1948 Unknown [id number] [id number]. 1244 1948 Unknown [id number] [id number]. 727 Unknown Social History Date Type Detail Facility Start: 08-19-2022 End: 10-10-2024 Tobacco smoking status Never smoked tobacco (finding) [facility] Tobacco smoking status Never [facility] Start: 04-04-2024 End: 05-23-2024 Sex Assigned At Male [facility] Start: 10-15-2022 End: 05-23-2024 Tobacco smoking status NHIS Ex-smoker [facility] Phone: End: 08-09-1973 History of tobacco use Current smoker [facility] Phone: End: 08-09-1973 History of tobacco use Cigarette Smoker [facility] Phone: Start: 10-15-2022 End: 01-06-2023 Tobacco use and exposure Smokeless tobacco non-user [facility] Phone: Start: 10-15-2022 End: 04-04-2024 Alcohol intake Lifetime non-drinker (finding) [facility] Phone: Start: 10-15-2022 Tobacco Comment Only smoked fo r about a year [facility] [employer] Phone: Start: 1950 Sex Assigned At Not on file [facility] [employer] Phone: Start: 04-04-2024 End: 05-23-2024 History of Social function [facility] Start: 04-03-2024 End: 05-23-2024 Exposure to SARS-CoV-2 (event) Unable to assess [facility] Work Phone: Tobacco smoking status NHIS Tobacco smoking consumption unknown [facility] Work Phone: Start: 01-06-2023 Alcohol Comment caffeine 1-2 cups/da y [facility] Healthcare Functional Status Date Assessment Result Facility 10-10-2024 Functional Status N/A [facility] [place] 08-19-2022 Functional Status N/A [facility] Clinical Notes 08-19-2022 to 10-10-2024 Phillip Purvis MD - 05/23/2024 4:30 PM EDTTelephone Encounter - Nunu Charles MA - 05/03/2024 9:29 AM EDTTelephone Encounter - Nunu Charles MA - 05/03/2024 9:29 AM EDT Note Date & Type Note Facility 10-10-2024 Note General Surgery Offi ce/Clinic Note Chief Complaint consultation for lipoma HPI Staff 74 year old male presents on consultation for Dr. Faye for lipoma. Reports noting small mass thoracic back to the right of the spine. Reports noting this approximately 5-6 weeks ago. Denies change in size since first noted. Verbalized occasional soreness when pressure is applied. History of Present Illness 74 yo male with h/o htn, hyperlipidemia, asthma, bph, GERD, eczema, venous insufficiency, referred for possible lipoma; patient noticed small lump on right mid back 5 weeks ago, sore if pressure to area, no skin changes, no change in size, no imaging; no h/o other similar lesions; no injury to area; on baby asa daily; no tobacco use. Review of Systems PHQ Score Initial Depression Screen Score: 0 SCORE ROS - Provider Constitutional: no fever, no sweats, no weight loss. Eyes: yes glasses, no blurred vision, no visual loss. ENMT: no dentures, no hoarseness, no swallowing difficulties, no hearing loss, no ear infection(s), no nose bleeds. Cardiovascular: normal blood pressure, no chest pain, regular heartbeat, no heart murmur. Respiratory: no shortness of breath, no cough, no asthma, no wheezing. Gastrointestinal: no nausea, no vomiting, no diarrhea, no constipation, no blood in stool, no change in bowel habits, no abdominal pain, no hepatitis. Genitourinary: no kidney stones, no urine infection, no dysuria. Musculoskeletal: no pain, no weakness. Skin: no changing moles, no rash, yes skin lumps. Neurologic: no seizures, no epilepsy, no headache. Psychiatric: no emotional or psychiatric problem. Heme/Lymph: no bleeding problems, no anemia, no blood clots, no transfusions. Allergy/Immunologic: no swollen lymph nodes/glands, no IV drug abuse. Other: Additional ROS info: Except as noted in the above Review of Systems and in the History of Present Illness, all other systems have been reviewed and are negative or noncontributory. Physical Exam Vitals & Measurements HR: 70(Peripheral) RR: 16 BP: 146/68 HT: 71 in HT: 180.34 cm WT: 85.1 kg WT: 187.613 lb BMI: 26.17 skin: right midback with 5 mm nodule to right of spine, appears attached to vertebra; nontender, no overlying skin changes, nonmobile. Assessment/Plan 1. Mass of subcutaneous tissue of back (R22.2: Localized swelling, mass and lump, trunk) possible musculoskeletal, on a cyst, not consistent with lipoma on exam; will obtain US of area for initial evaluation, will call patient with results. Ordered: E&M of New Patient Low 30-44 Min 49700 US Chest or Upper Back, Limited Follow-up No qualifying data available Problem List/Past Medical History Ongoing Alternating constipation and diarrhea Arthritis Asthma BMI 26.0-26.9,adult BPH with obstruction/lower urinary tract symptoms Eczema GERD (gastroesophageal reflux disease) Hiatal hernia with GERD Hyperlipidemia Hypertension Kidney stone on left side Mass of subcutaneous tissue of back Overweight Parapelvic renal cyst Right renal mass Seasonal allergic rhinitis Venous insufficiency Historical LLQ abdominal pain Postprandial bloating Procedure/Surgical History Colonoscopy (07/2019), EGD - esophagogastroduodenoscopy (07/2019), Colonoscopy, Shoulder. Medications aspirin 81 mg oral tablet, 81 mg= 1 tab(s), Oral, Daily diclofenac topical 1% gel, as directed Dupixent 300 mg/2 mL subcutaneous solution, 300 mg, SubCutaneous, Once esomeprazole 40 mg Cap-EC, Oral, Daily Flonase 0.05 mg/inh [place], 1 spray(s), Nasal, Daily irbesartan 300 mg Tab, 300 mg= 1 tab(s), Oral, Daily loratadine 10 mg Tab, 10 mg= 1 tab(s), Oral, Daily simvastatin 40 mg Tab, Oral, Once a day (at bedtime) tiZANidine 4 mg Tab, 1 tabs qam and 2 tabs at HS, Oral Allergies penicillin (Rash) Social History Alcohol - Denies Alcohol Use, 06/20/2019 Substance Abuse - Denies Substance Abuse, 06/20/2019 Tobacco - Denies Tobacco Use, 06/01/2019 Never (less than 100 in lifetime) Tobacco Use:. Never Smokeless Tobacco Use:. Stopped age 20 Years., 10/10/2024 Family History Diabetes mellitus type 2: Mother. Hypertension: Mother. Immunizations Vaccine Date Status Comments influenza virus [...] 05/25/2018 Recorded pneumococcal 13-valent vaccine 06/24/2017 Recorded [facility] Comment on above: Result Comment: Elec tronically Signed By: JONATHAN SOLIZ, Luis A Livingston\Date and Time Signed: 10/10/24 14:50 EST 05-23-2024 History of Present illness Narrative Images from the original note were not included. Sinus & Skull Base Surgery Virtual visit consent: An interactive audio and video telecommunication system which permits real time communications between the patient (at the originating site) and provider (at the distant site) was utilized to provide this telehealth service. Verbal consent was requested and obtained from Kedar Núñez on this date, 05/23/2024, for a telehealth visit. Chief Complaint: 1. Frontal sinus lesion; favor benign pathology 2. Intermittent nasal airway obstruction 3. Throat clearing, dysphonia 4. Dermatological issues on Dupixent 5. Asthma, allergic rhinitis with history of immunotherapy History Of Present Illness: Kedar Núñez presents since last being seen 04/13/2024. After his last evaluation, another CT sinus was ordered and obtained April 20, 2024. He presents today to review that imaging. Active Problems: There is no problem list on file for this patient. Past Medical History: He has no past medical history on file. Surgical History: He has no past surgical history on file. Family History: No family history on file. Social History: He has no history on file for tobacco use, alcohol use, and drug use. Allergies: Patient has no allergy information on record. Current Meds:No current outpatient medications on file. Vitals: There were no vitals taken for this visit. Physical Exam: Virtual visit. Results/Data: I reviewed the CT sinus dated April 20, 2024, March 19, 2023, and September 16, 2022. The lesion of concern within his frontal sinuses has remained stable during this time. Provider Impressions: 1. Frontal sinus lesion; favor benign pathology 2. Intermittent nasal airway obstruction 3. Throat clearing, dysphonia 4. Dermatological issues on Dupixent 5. Asthma, allergic rhinitis with history of immunotherapy Discussion: Kedar Núñez and I discussed his imaging. He was comfortable with observation and I recommended repeat assessment in 12 months. Because of the location of the lesion all surveillance will need to be accomplished with imaging and given the stability since September 2022 I think waiting more than a year after his last imaging would be appropriate or simply observation moving forward. All questions were answered. Scribe Attestation By signing my name below, I, Myriam Vallejo, attest that this documentation has been prepared under the direction and in the presence of Phillip Purvis MD. Signature: Phillip Purvis MD documented in this encounter [facility] Work Phone: 05-03-2024 Telephone encounter Note Patient called requesting a refill of: Triamcinolone 0.1% cream Diagnosis: Atopic Dermatitis Prescribing provider: Nuha Turner MD Last visit: 04/04/2024 Next visit: 04/04/25 Action: prescription was sent to patient's pharmacy [facility] with enough refills until next visit. [facility] 05-03-2024 Miscellaneous Notes Patient called requesting a refill of: Triamcinolone 0.1% cream Diagnosis: Atopic Dermatitis Prescribing provider: Nuha Turner MD Last visit: 04/04/2024 Next visit: 04/04/25 Action: prescription was sent to patient's pharmacy [facility] with enough refills until next visit. documented in this encounter [facility] 04-13-2024 History of Present illness Narrative An interactive audio and video telecommunication system which permits real time communications between the patient (at the originating site) and provider (at the distant site) was utilized to provide this telehealth service. Verbal consent was requested and obtained for a telehealth visit. Chief Complaint: 1. Frontal sinus lesion; favor benign pathology 2. Rhinorrhea 3. Throat clearing, coughing, dysphonia, dysphagia 4. Dermatological issues on Dupixent 5. Asthma, allergic rhinitis with history of immunotherapy 6. Reflux on proton pump inhibitor History Of Present Illness: Kedar Núñez presents since last being seen 04/13/23. Main Symptoms: Patient does not have anterior nasal drainage. Patient does not have posterior nasal drainage. Patient has nasal airway obstruction. Intermittent in AM. Not present every day. Patient does not have facial pain. Patient does not have facial pressure. Patient does not have decreased sense of smell. Associated Symptoms: Patient does not have headaches. Patient has throat clearing. Intermittent. Patient does not have coughing. Patient has dysphonia. Patient does not have nasal bleeding. Medications currently on for sinonasal symptoms: Ipratropium twice per day; fluticasone as needed for congestion Active Problems: There is no problem list on file for this patient. Past Medical History: He has no past medical history on file. Surgical History: He has no past surgical history on file. Family History: No family history on file. Social History: He has no history on file for tobacco use, alcohol use, and drug use. Allergies: Patient has no allergy information on record. Current Meds: No current outpatient medications on file. Vitals: There were no vitals taken for this visit. Physical Exam: Virtual visit. Results/Data: I personally reviewed a CT from September 16, 2022 and March 19, 2023. Each CT demonstrates a lesion centrally abutting the anterior table within his frontal sinuses. Provider Impressions: 1. Frontal sinus lesion; favor benign pathology 2. Intermittent nasal airway obstruction 3. Throat clearing, dysphonia 4. Dermatological issues on Dupixent 5. Asthma, allergic rhinitis with history of immunotherapy Discussion: Kedar Núñez and I discussed his imaging and next steps. Unfortunately, the only way to visualize this lesion would be to obtain additional imaging. We discussed the rationale for this and he was comfortable moving forward with aCT sinus. This would be 12 months from his last imaging and about 18 months from his original CT. If the lesion is stable I think observation would make sense moving forward. He was comfortable with this and all questions were answered. He obtains his imaging locally so I will ask my nurse to reach out to the patient to determine the best way to get the imaging uploaded into our system. All questions were answered. I will see him for a virtual visit after we have access to the imaging to review those results and compare his imaging to his previous studies. Signature: Phillip Purvis MD. documented in this encounter [facility] Work Phone: 04-04-2024 History of Present illness Narrative Images from the original note were not included. Follow up Diagnosis: Atopic Dermatitis Location: Generalized including feet Last visit: 11/02/2022 Symptoms: red, scaly, dry, denies itch Status: Improved. Flares with heat and sweat Current treatment: Dupixent 300 mg/2ml every other week, TAC 0.1% cream bid prn, not using betamethasone ointment Previous IGA: 2 All pertinent medical history, medications, and allergies were reviewed. General Exam: alert , oriented to person, place, and time , normal affect, well appearing Unaccompanied A focused exam completed based on patient reported problems, see below: 1. Other atopic dermatitis Thin erythematous patches. BSA 2 % and IGA 1 Discussed that atopic dermatitis is a chronic condition that can be controlled but not cured. Continue Dupixent 300 mg/2ml every other week, TAC 0.1% cream bid prn. Improvement in BSA and itch since starting medication. Encouraged daily moisturizing and gentle cleansers to prevent flares. Notify office if flaring despite treatment. Patient declined refills today of TAC. Next Visit: 1 year documented in this encounter [facility] 04-13-2023 Chief complaint Narrative - Reported An interactive audio and video telecommunication system which permits real time communications between the patient (at the originating site) and provider (at the distant site) was utilized to provide this telehealth service.Verbal consent was requested and obtained from KEDAR NÚÑEZ on this date, 04/13/2023 04:00 PM , for a telehealth visit.1. Frontal sinus lesion; favor benign pathology2. Rhinorrhea3. Throat clearing, coughing, dysphonia, dysphagia4. Dermatological issues on Dupixent5. Asthma, allergic rhinitis with history of immunotherapy6. Reflux on proton pump inhibitor [facility]srcgdaqomraqu[facility] Work Phone: 03-03-2023 Chief complaint Narrative - Reported An interactive audio and video telecommunication system which permits real time communications between the patient (at the originating site) and provider (at the distant site) was utilized to provide this telehealth service.Verbal consent was requested and obtained from KEDAR NÚÑEZ on this date, 03/03/2023 03:45 PM , for a telehealth visit.1. Frontal sinus lesion; favor benign pathology2. Rhinorrhea3. Throat clearing, coughing, dysphonia, dysphagia4. Dermatological issues on Dupixent5. Asthma, allergic rhinitis with history of immunotherapy6. Reflux on proton pump inhibitor [facility] Work Phone: 11-04-2022 Chief complaint Narrative - Reported An interactive audio and video telecommunication system which permits real time communications between the patient (at the originating site) and provider (at the distant site) was utilized to provide this telehealth service.Verbal consent was requested and obtained from KEDAR NÚÑEZ on this date, 11/04/2022 01:15 PM , for a telehealth visit.Frontal sinus lesion [facility] Work Phone: 11-04-2022 History of Present illness Narrative Reason for visit:KEDAR NÚÑEZ patient presents since last being seen 11/04/22.Medications currently on for sinonasal symptoms.Ipratropium BID.Medications tried in the past for sinonasal symptoms Flonase/Fluticasone.Spoke about PND [facility] Work Phone: 11-04-2022 History of Present illness Narrative Reason for visit:KEDAR NÚÑEZ patient presents since last being seen 11/04/22.Medications currently on for sinonasal symptoms.Ipratropium BID.Medications tried in the past for sinonasal symptoms Flonase/Fluticasone.Kedar presents for routine follow-up. He continues to have issues related to postnasal drainage despite ipratropium. He does feel the ipratropium is providing some measure of benefit. [facility] Work Phone: 08-19-2022 Hospital Discharge instructions Patient [...] including vitamins, herbs, eye drops, creams, and suan-lpz-npfgizq medicines. Any problems you or family members [...] provider tells you to take them. Taking tqvp-cuq-jvzktga medicines, vitamins, herbs, and supplements. Eating and [...] 07/26/2006 Document Revised: 11/15/2019 Document Reviewed: 04/26/2019 [employer] Patient Education 2020 [employer]. Follow Up Care 08/05/2021 11:01:39 With:MASSIEL CASE, KRISTOFER Ceballos, URL Address: [address] 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, middle ear, and accessory sinuses documented in this encounter [facility] Work Phone: Evaluation note* Diagnosis 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, middle ear, and accessory sinuses documented in this encounter [facility] Work Phone: Evaluation note* Diagnosis Other atopic dermatitis- Primary [facility] Diagnosis Other atopic dermatitis [facility] this [facility] N[facility]* Reason for visit: * KEDAR NÚÑEZ presents to the [facility]ology Clinic for a [...] moisture in his throat * PMHx: Hypertension CY-Qnrnygltbheknu-Bktmvypw Work Phone: History of Present illness Narrative* Reason for visit: * KEDAR NÚÑEZ presents to the Otolaryngology Clinic for a [...] move the food through. * PMHx: Hypertension [facility]lww[facility] Work Phone: History of Present illness Narrative* Main Symptoms: * Patient has posterior nasal drainage. * Associated Symptoms: * Patient has throat clearing. * Patient has coughing. * Medications currently on for sinonasal symptoms Flonase/Fluticasone - PRN (as needed) . * Ipratropium BID. BE-Pbksfpxxdtjlqn-[facility]pjxecv[facility] 4[facility] Work Phone: Hospital Discharge instructions No data available for this section [facility] [place] [facility] note No data available for this section [facility] Summary Purpose Family History No Family History Records FoundNo Family History Records FoundNo Family History Records FoundNo Family History Records FoundNo Family History Records FoundNo Family History Records FoundNo Family History Records FoundNo Family History Records Found No data available for this section Advance Directives No Advanced Directives Records FoundNo [...] * 6. Reflux on proton pump inhibitor Reason for Referral Specialty Diagnoses / Procedures Referred By Conthamlet t Referred To Contact Radiology Diagnoses Benign neoplasm of frontal sinus Procedures CT sinuss wo IV contrast volumetric surgical planning Phillip Purvis MD [address] [facility] [address] [place] [address] Referral ID Status Reason Start Date Expiration Date Visits Requested Visits Authorized [id number] Pending Review Perform Procedure 04/13/2024 04/13/2025 1 1 Additional Source Comments (unrecognized sect ion and content) No Status Records FoundNo Status Records FoundNo Status Records FoundNo Status Records FoundNo Status Records FoundNo Status Records FoundNo Status Records FoundNo Status Records Found INFORMATION SOURCE (unrecogn ized section and content) DATE CREATED AUTHOR 02/01/2018 [facility] DATE CREATED AUTHOR AUTHOR'S ORGANIZ ATION 10/10/2022 [facility] DATE CREATED AUTHOR AUTHOR'S ORGANIZ ATION 10/18/2022 [facility] DATE CREATED AUTHOR AUTHOR'S ORGANIZ ATION 04/13/2023 [facility] DATE CREATED AUTHOR AUTHOR'S ORGANIZ ATION 04/15/2023 [employer] DATE CREATED AUTHOR AUTHOR'S ORGANIZ ATION 04/06/2024 [facility] EPIC DATE CREATED AUTHOR AUTHOR'S ORGANIZ ATION 05/31/2024 [facility] DATE CREATED AUTHOR AUTHOR'S ORGANIZ ATION 10/10/2024 [facility] Patient Care team informatio n (unrecognized section and content) Personnel Name: Adama Faye MD Address: Address: [address] [place] [phone]- Slip Operator Relationship Specialty Start Date End Date Adama Faye MD [address] [place] [address] PCP - General Family Medicine 10/08/22 Slip Operator Relationship Specialty Start Date End Date Adama Faye MD [address] [place] [address] [phone] PCP - General Family Medicine 10/08/22 Slip Operator Relationship Specialty Start Date End Date Adama Faye MD [address] [place], [place] [phone] PCP - General Family Medicine 04/24/24 Reason for Visit (unrecogniz ed section and content) Reason Comments Follow-up Reason Onset Date Comments Med Refill 05/03/2024 FOR RECORDS PERTAINING TO PATIENTS WHO ARE [...] BE BASED ON THE PRIMARY CLINICAL RECORDS. [employer] [facility]. provides no warranty or guarantee of the accuracy or completeness of information in this document.
== END 2024-10-12 13:52 | disposition home or self-care (01) ==
LOC: US 13:51
PROVIDERS: PCP Family Medicine; Visit Provider Surgery
DX: R22.2 Localized swelling, mass and lump, trunk (principal)
CPT/HCPCS: 76604

== ENCOUNTER 2024-11-17 14:19 | Outpatient (OUT) | payer MEDICARE, SELFPAY ==
--- NOTE | 2024-11-17 14:26 | XR_ITS ---
The [place] [id number] Patient Name: KEDAR VENTURA MRN: [id number] date: 1950 Sex: M Assigned Patient Location: LAB Current Patient Location: LAB Accession/Order Number: [id number] Exam Date: 11/17/2024 15:06 Report Date: 11/17/2024 15:09 At the request of: ADAMA OSBORNE MD Procedure: XR hip BI w PEL 1V 2 views both hips with single view pelvis plain film COMPARISON: None HISTORY: Low back pain. ACUTE FINDINGS: None DEGENERATIVE CHANGE: Unremarkable hips. Unremarkable SI joints and lower lumbar spine. SOFT TISSUE FINDINGS: Unremarkable JOINT EFFUSION: None POSTOP CHANGES: None BONY MINERALIZATION: Adequate XR/XR hip BI w PEL 1V IMPRESSION: No acute bony findings or significant degeneration. Impression dictated by: Tino Swartz M.D.11/17/2024 3:09 PM Dictation Location: [place] [address] Electronically authenticated by: [id number] Y Date: 11/17/2024 15:09
--- NOTE | 2024-11-17 14:26 | XR_ITS ---
The [place] [id number] Patient Name: KEDAR VENTURA MRN: [id number] date: 1950 Sex: M Assigned Patient Location: LAB Current Patient Location: LAB Accession/Order Number: [id number] Exam Date: 11/17/2024 14:59 Report Date: 11/17/2024 15:07 At the request of: ADAMA OSBORNE MD Procedure: XR lumbar spine min 4V LUMBAR SPINE -5 views: CLINICAL HISTORY: Low Back Pain COMPARISON: CT 07/15/2021 AP, lateral lumbar and lumbosacral and both oblique views views were obtained. 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 There is osteopenia. There is no evidence of fracture. There is no prominent displacement within limits of positioning on the lateral views. There is disc space narrowing at the lumbosacral junction. Mild endplate spurring is present, greater proximally. There is lower lumbar facet hypertrophy. No pars defect is identified. The sacroiliac joints are maintained. There are no paraspinal soft tissue abnormalities. XR/XR lumbar spine min 4V IMPRESSION: OSTEOPENIA AND MILD DEGENERATIVE CHANGES. NO ACUTE BONY FINDINGS. Impression dictated by: Leighann Page M.D.11/17/2024 3:07 PM Dictation Location: [place] [address] Electronically authenticated by: [id number] Y Date: 11/17/2024 15:07
== END 2024-11-17 14:20 | disposition home or self-care (01) ==
LOC: LAB 14:20
PROVIDERS: PCP Family Medicine; Visit Provider Family Medicine
DX: M54.50 Low back pain, unspecified (principal); M85.80 Other specified disorders of bone density and structure, unspecified site
CPT/HCPCS: 72110; 73523

== ENCOUNTER 2025-03-14 16:45 | Outpatient (OUT) | payer MEDICARE, SELFPAY ==
--- NOTE | 2025-03-14 | XR_ITS ---
The [address] [address] Patient Name: KEDAR VENTURA MRN: [id number] date: 1950 Sex: M Assigned Patient Location: RAD Current Patient Location: [facility] Accession/Order Number: [id number] Exam Date: 03/14/2025 18:05 Report Date: 03/14/2025 18:10 At the request of: ADAMA OSBORNE MD Procedure: XR lumbar spine min 4V LUMBAR SPINE - 5 views CLINICAL HISTORY: M25.552 Hip pain, acute, left COMPARISON: 11/17/2024 FINDINGS: L4-5 disc space level of iliac crest. No fracture malalignment. Moderate facet arthropathy L5-S1 lumbarization of S1 noted with rudimentary disc at S1/2. Minimal retrolisthesis L2 on L3 5 mm. Otherwise moderate degenerative changes L1-L2. Moderate severe degenerative changes T12-L1. Mild degenerative changes remaining disc levels. XR/XR lumbar spine min 4V IMPRESSION: NO ACUTE BONY INJURY. UQDO-QD-ADMCGHOR DEGENERATIVE CHANGE. Impression dictated by: Krishna Henry M.D. 03/14/2025 6:10 PM [facility]ictation [facility] authenticated by: [id number] Y Date: 03/14/2025 18:10
--- NOTE | 2025-03-14 | XR_ITS ---
[place] [id number] Patient Name: KEDAR VENTURA MRN: [id number] date: 1950 Sex: M Assigned Patient Location: [facility] Current Patient Location: [facility] Accession/Order Number: [id number] Exam Date: 03/14/2025 18:14 Report Date: 03/14/2025 18:15 At the request of: ADAMA OSBORNE MD Procedure: XR hip LT 2V w/ pelvis Single view pelvis 2 views left hip INDICATION: Acute left hip pain COMPARISON: 11/17/2024 FINDINGS: Mild degenerative changes both hips. Mild degenerative changes of sacral joints. No evidence acute fracture or dislocation. Soft tissues unremarkable. Phleboliths. XR/XR hip LT 2V w/ pelvis IMPRESSION: Mild degenerative change. Negative acute osseous abnormality. Impression dictated by: Krishna Henry M.D. 03/14/2025 6:15 PM Dictation Location: [place] [address] Electronically authenticated by: [id number] Y Date: 03/14/2025 18:15
== END 2025-03-14 16:46 | disposition home or self-care (01) ==
LOC: RAD 16:47
PROVIDERS: PCP Family Medicine; Visit Provider Family Medicine
DX: M25.552 Pain in left hip (principal); M51.369 Other intervertebral disc degeneration, lumbar region without mention of lumbar back pain or lower extremity pain
CPT/HCPCS: 72110; 73502

== ENCOUNTER 2025-04-16 09:46 | Outpatient (OUT) | payer MEDICARE, SELFPAY ==
--- OUTSIDE RECORDS SUMMARY | 2025-04-16 09:50 | XMS_ITS | Encounter Summary ---
Author Organization [facility] Address [address] [facility] [place] [address] Care Team Providers Care Food Science Professor Name Role Phone Unavailable Primary Care Provider Unavailabl e Encounter Details Date Type Department Care Team (Late st Contact Info) Description 04/02/2025 Telephone [facility] [address] [facility] [address] [place] [phone] Kelly Amezquita LPN [address] [facility] [place] [address] Social History Tobacco Use Types Packs/Day Years Used Date Smoking Tobacco: Never Smokeless Tobacco: Never Alcohol Use Standard Drinks/Week Comments Never 0 (1 standard drink = 0.6 oz pur e alcohol) caffeine 1-2 cups/day Sex and Gender Information Value Date Recorded Sex Assigned at Not on file Legal Sex Male 6:37 PM EDT Gender Identity Not on file Sexual Orientation Not on file documented as of this encounter Miscellaneous Notes * Telephone Encounter - Giovanna Peoples LPN - 04/02/2025 1:01 PM EDT Spoke with pt. He states the pain from the Dupixent shot only happened twice. He's had the injection since then and it's been tolerable. Pt states he was always getting his shot in his right arm, he doesn't like shots in the left arm because he saw a documentary once and someone got a vaccine in their left arm and it killed them. He never gets shots in his left arm. I informed the pt that he needs to rotate sites when receiving injection and reviewed different body sites that can be used. Instructed pt to notify the office if injections become very painful again. Pt voiced understanding. * Telephone Encounter - Giovanna Peoples LPN - 04/02/2025 10:41 AM EDT LM * Telephone Encounter - Nuha King MD - 04/02/2025 9:59 AM EDT Ok to add him on to my schedule this week to evaluate his eczema and discuss his issues with Dupixent. Thanks! * Telephone Encounter - Kelly Amezquita LPN - 04/02/2025 9:40 AM EDT VM from pt stating he took Dupixent 4-5 monthas ago and he experienced bad pain with the first injection. The next injection was ten times worse and he almost passed out from the pain of the injection. His family doctor advised him to notify the prescriber as he told his family doctor about his issue. Patient did not notify us but notified linen room worker of Dupixent and states he never heard anything from anybody. Last visit was 04/04/2024. Next visit is 06/06/2025. Patient canceled 04/04/2025 appointment. Please advise. documented in this encounter Plan of Treatment Upcoming Encounters Date Type Department Care Team (Late st Contact Info) Description 06/06/2025 10:50 AM EDT Office Visit [facility] [address] [place] [address] Nuha King MD [address] [place] [address] documented as of this encounter Visit Diagnoses Not on filedocumented in this encounter
--- OUTSIDE RECORDS SUMMARY | 2025-04-16 09:50 | XMS_ITS | Clinical Summary ---
Author Organization [facility] Address [address] [place] [address] Care Team Providers Care Commercial Instructor Supervisor Name Role Phone Unavailable Primary Care Provider Unavailabl e Allergies Active Allergy Reactions Criticality Noted Date Comments Penicillins Unknown 12/27/2022 Medications triamcinolone (Kenalog) 0.1 % cream Apply to itchy areas topically bid prn for flares. Avoid face and groin for 30 days Active dupilumab (Dupixent) 300 MG/2ML injection Inject 1 PFS Subcutaneous every other week 9 Active cetirizine (ZyrTEC) 10 MG tablet 1 (one) time each day at the same time. Active betamethasone dipropionate (Diprolene) 0.05 % ointment apply to hands and feet (avoid face and skin folds) Externally bid prn (hold when clear) for 30 day(s) 3 Active triamcinolone (Kenalog) 0.1 % cream every 12 (twelve) hours. Active Montelukast Sodium (SINGULAIR PO) Singulair Activ e SIMVASTATIN PO Simvastatin Act lukasz esomeprazole (NexIUM) [address] capsule take 1 capsule by oral route 2 times every day Oral Active ASPIRIN 81 PO Aspir-81 Active Dupixent 300 MG/2ML injectionIndicat ions:Atopic Dermatitis Inject 1 Syringe (300 mg) under the skin every 14 (fourteen) days 12 mL 4 4 Active triamcinolone (Kenalog) 0.1 % creamIndications :Other atopic dermatitis Apply to affected areas, up to twice a day when flared, do not use one the face, groin, or underarms, 30 day supply 454 g 11 5 Active Active Problems No known active problems Encounters Date Type Department Care Team Description 04/02/2025 Telephone [facility] [address] [facility] [address] [place] [phone] Japanese, Kelly, GOLF COURSE ASSISTANT from Last 3 Months Family History Medical History Relation Name Comments Hypertension Father Stroke Father Heart disease Mother Hypertension Mother Relation Name Status Comments Father Mother Social History Tobacco Use Types Packs/Day Years Used Date Smoking Tobacco: Never Smokeless Tobacco: Never Tobacco Cessation:Counseling Given: Not Answered Alcohol Use Standard Drinks/Week Comments Never 0 (1 standard drink = 0.6 oz pur e alcohol) caffeine 1-2 cups/day Sex and Gender Information Value Date Recorded Sex Assigned at Not on file Legal Sex Male 6:37 PM EDT Gender Identity Not on file Sexual Orientation Not on file Last Filed Vital Signs Vital Sign Reading Time Taken Comments Blood Pressure 149/80 10/26/2022 12:00 PM EDT Pulse - - Temperature - - Respiratory Rate - - Oxygen Saturation - - Inhaled Oxygen Concentration - - Weight 85.3 kg (188 lb) 10/26/2022 12:00 PM EDT Height 180.3 cm (5' 11 ) 11/02/2022 12:00 PM EDT Body Mass Index 26.22 10/26/2022 12:00 PM EDT Plan of Treatment Upcoming Encounters Date Type Department Care Team (Late st Contact Info) Description 06/06/2025 10:50 AM EDT Office Visit [facility] [address] [facility] [address] [place] [phone] Nuha King MD [address] [facility] [address] [place] [address] Health Maintenance Due Date Last Done Comments Influenza Vaccine (#1) 2025 , 06/05/2022, 05/08/2020, Additional history exists Pneumococcal Vaccine: 65+ Ye ars (2 of 2 - PPSV23) 04/27/2025 04/27/2024, 06/24/2017 Insurance [employer] MED[employer]ARE [employer]AGE
--- OUTSIDE RECORDS SUMMARY | 2025-04-16 09:50 | XMS_ITS | Clinical Summary ---
Author Organization [facility] Address [address] [address] Phone Care Team Providers Care Oil Lease Broker Name Role Phone Marshall Faye MD Primary Care Provider [phone] Allergies No known active allergies Medications irbesartan (Avapro) 300 mg tablet Take 1 tablet (300 mg) by mouth once daily. Active simvastatin (Zocor) 40 mg tablet Take 1 tablet (40 mg) by mouth once daily. Active montelukast (Singulair) 10 mg tablet Take 1 tablet (10 mg) by mouth once daily. Active dupilumab (Dupixent Pen) 300 mg/2 mL pen injector Inject under the skin. Active cetirizine (ZyrTEC) 10 mg tablet Take 1 tablet (10 mg) by mouth once daily. Active multivitamin tablet Take 1 tablet by mouth once daily. Active Social History Tobacco Use Types Packs/Day Years Used Date Smoking Tobacco: Former Cigarettes Q uit: 1973 Smokeless Tobacco: Never Tobacco Cessation:Counseling Given: Not Answered Sex and Gender Information Value Date Recorded Sex Assigned at Not on file Legal Sex Male 12:13 PM EDT Gender Identity Not on file Sexual Orientation Not on file Plan of Treatment Health Maintenance Due Date Last Done Comments Lipid Panel 1950 Medicare Annual Wellness Visit (AWV) 1950 Hepatitis C Screening 1966 DTaP/Tdap/Td Vaccines (1 - Tdap) 1970 Zoster Vaccines (1 of 2) 1998 RSV High Risk: (Elderly (60+) or Population) (1 - 1-dose 75+ series) 2023 COVID-19 Vaccine ( - 2024- season) 2025 07/07/2021, 11/02/2020, 10/05/2020 Influenza Vaccine (#1) 2025 2, 05/08/2020, 05/17/2019, Additional history exists Pneumococcal Vaccine Completed 04/27/2024, 06/24/20 17 HIB Vaccines Aged Out No longer eligi ble based on patient's age to complete this topic HPV Vaccines Aged Out No longer eligi ble based on patient's age to complete this topic Hepatitis A Vaccines Aged Out No long er eligible based on patient's age to complete this topic Hepatitis B Vaccines Aged Out No long er eligible based on patient's age to complete this topic IPV Vaccines Aged Out No longer eligi ble based on patient's age to complete this topic Meningococcal Vaccine Aged Out No domenica michela eligible based on patient's age to complete this topic Rotavirus Vaccines Aged Out No longer eligible based on patient's age to complete this topic Insurance [employer] GOLDEN MEDICARE AET[employer] GOLDEN MEDICARE Care Teams Oil Lease Broker Relationship Specialty Start Date End Date Marshall Faye MD [address] [place] [address] PCP - General Family Medicine 04/24/24
--- OUTSIDE RECORDS SUMMARY | 2025-04-16 09:50 | XMS_ITS | Encounter Summary ---
Author Organization [facility] Address [address] [place] [address] Phone Care Team Providers Care Market Basket Maker Name Role Phone Marshall Faye MD Primary Care Provider [phone] Encounter Details Date Type Department Care Team ([facility] st Contact Info) Description 03/19/2023 Scanned Document [facility] [address] [place] [address] Conversion, Onbase Social History Tobacco Use Types Packs/Day Years Used Date Smoking Tobacco: Never Assessed Sex and Gender Information Value Date Recorded Sex Assigned at Not on file Legal Sex Male 12:13 PM EDT Gender Identity Not on file Sexual Orientation Not on file documented as of this encounter Plan of Treatment Not on file documented as of this encounter Procedures Procedure Name Priority Date/Time Associated Diagnosis Comments OUTSIDE IMAGING SCAN 03/19/2023 documented in this encounter Results * OUTSIDE IMAGING SCAN (03/19/2023) Anatomical Region Laterality Modality Other Narrative 03/19/2023 Ordered by an unspecified provider. us Onbase Conversion OUTSIDE SCAN Final Result documented in this encounter Visit Diagnoses Not on filedocumented in this encounter Care Teams Market Basket Maker Relationship Specialty Start Date End Date Marshall Faye MD [address] [place] [address] PCP - General Family Medicine 04/24/24 documented as of this encounter
--- OUTSIDE RECORDS SUMMARY | 2025-04-16 09:50 | XMS_ITS | Encounter Summary ---
Author Organization [facility] Address [address] [place] [address] Care Team Providers Care Appliance Service Supervisor Name Role Phone Unavailable Primary Care Provider Unavailabl e Encounter Details Date Type Department Care Team ([facility] Contact Info) Description 01/06/2023 Abstract [facility] [address] [facility] [address] [place] [address] Nuha King MD [address] [facility] [address] [place] [address] Social History Tobacco Use Types Packs/Day Years [...] as of this encounter Plan of Treatment Upcoming Encounters Date Type Department Care Team ([facility] Contact Info) Description 06/06/2025 10:50 AM EDT Office Visit [facility] [address] [facility] [address] [place] [address] Nuha King MD [address] [facility] [address] [place] [address] documented as of this encounter Visit Diagnoses Not on filedocumented in this encounter
--- OUTSIDE RECORDS SUMMARY | 2025-04-16 09:54 | XMS_ITS | CCD ---
Author Organization [facility] Care Team Providers Care Dental Sales Representative Name Role Phone PHYSICIAN, DEFAULT Unavailable Unavailable PHYSICIAN, DEFAULT Unavailable Unavailable Adama Faye Primary Care Physician [phone] NEYDA ., DR GALAN Attending Unavailable HOY [...] Unavailable HOY ., DR GALAN Consulting Unavailable [place], DR ALIYA Sierra Consulting Unavailable HOY ., DR GALAN Attending Unavailable HOY ., DR GALAN Admitting Unavailable HOY ., DR GALAN Primary Care Unavailable HOY ., DR GALAN Consulting Unavailable DONNELL RENTERIA Consulting Unavailable Adama Faye MD Primary Care Provider [phone] OSMIN GOODEN Referring Unavailable ADAMA FAYE [...] Unavailable Adama Faye MD Primary Care Provider PHILLIP PURVIS Attending Unavailable PHILLIP PURVIS Attending Unavailable ADAMA FAYE Primary Care Unavailable Unavailable Primary Care Provider Unavailabl e Unavailable Primary Care Provider Unavailnilesh e Luis A CASTILLO Attending Unavailable Adama Faye Referring Unavailable Allergies Allergy Classification Reported Allergen(s) Allergy Type Date of Onset Reaction(s) Facility (3 sources) Penicillin; Translations: [penicillin] Drug Allergy Eruption of skin (disorder) [facility] (2 sources) Penicillins Drug allergy (disorder) 3 [facility] Repository (3 sources) Penicillins Propensity to adverse reactions to drug 3 Rash [facility] (1 source) ALLERGIES NOT ON FILE; Translations: [ALLERGIES NOT ON FILE] Propensity to adverse reactions (disorder) [facility] 3 Repository (4 sources) Penicillins Drug Allergy [...] Corticosteroid Start: 10-02-2024 Flonase 0.05 m g/inh [place] 1 spray(s), Nasal, Daily, Refill(s) 0 Start [...] spray(s) nasal route three times daily Ipratropium [place] 0.03 % Nasal Solution USE 2 SPRAYS [...] Instructions Your Care Team Attending Physician - JONTAHAN SOLIZ, Luis A Calle Primary Care Physician - Neyda SOLIZ, Adama Referring Physician - Adama Faye MD This Is Your Medications List Contact prescribing physician if questions or concerns aspirin (aspirin 81 mg oral tablet) diclofenac topical (diclofenac topical 1% gel) dupilumab (Dupixent 300 mg/2 mL subcutaneous solution) esomeprazole (esomeprazole 40 mg Cap-EC) fluticasone nasal (Flonase 0.05 mg/inh [place]) irbesartan (irbesartan 300 mg Tab) loratadine (loratadine [...] Unchanged fluticasone nasal (Flonase 0.05 mg/ inh [place]) 1 Sprays Nasal Inhalation Every day Contact [...] you for choosing us for your care. 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 Please feel free to contact my office by calling [phone] with any questions. Provider Impressions 1. Frontal [...] observation. Given that there is been no regional climate change analyst 6 months I recommended virtual follow-up in [...] 40 MG Oral Capsule Delayed Release Ipratropium [place] 0.03 % Nasal SolutionUSE 2 SPRAYS IN [...] Apr 14 2023 11:03AM EST (Author) Normal [employer] Falls Screening (Age 18+)on 04-13-2023 Fall risk assessment a) No falls within the last year MG-Otolaryngo [facility] 4100 Work Phone: Tobacco use status [facility]PHS b) No -OtolarynCHI [facility] 4[facility] Work Phone: Established Visit (Otolaryng ology)on 03-03-2023 Established Visit (Otolaryngology) Diagnoses/Problems 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 : Unknown Radiologist to Determine Optimal Study : Y What are the patient's signs and symptoms? : Bony frontal sinus neoplasm Patient Discussion/Summary Please feel free to contact my office by calling [phone] with any questions. Provider Impressions 1. Frontal [...] to home so I will ask my patient care secretary to print off the order and [...] 40 MG Oral Capsule Delayed Release Ipratropium [place] 0.03 % Nasal SolutionUSE 2 SPRAYS IN [...] Throat clearing (786.09) (R09.89) Orders Start: Ipratropium [place] 0.03 % Nasal Solution; USE 2 SPRAYS IN EACH NOSTRIL 3 TIMES DAILY NEEDED Patient Discussion/Summary Please feel free to contact my office by calling [phone] with any questions. Provider Impressions 1. Frontal [...] 10/15/22 Final result Normal [facility] No acute osseous abnormality. Degenerative changes 1st CMC joint [facility] CONSOLIDATED EXAMINATION: THREE XRAY VIEWS OF THE LEFT HAND 10/15/2022 9:57 am COMPARISON: None. HISTORY: ORDERING SYSTEM PROVIDED HISTORY: Pain in both hands FINDINGS: There is no evidence of acute fracture. There is normal alignment. No acute joint abnormality. No focal osseous lesion. No focal soft tissue abnormality. Degenerative changes seen in the 1st CMC joint. Vascular calcifications. [facility] CONSOLID[facility] Luis A Adams MD - [...] osseous abnormality. Degenerative changes 1st CMC joint Tip or Skip Phone: Radiology Study observation (narrative) Tip or Skip Phone: XR HAND LEFT (MIN 3 VIEWS)Or dered By: Luis A Adams on 10-15-2022 Tip or Skip Phone: XR HAND RIGHT (MIN 3 VIEWS)o [...] 10/15/22 Final result Normal [facility] No acute osseous abnormality. Degenerative changes 3rd MCP joint and 1st CMC joint [facility] CONSOLIDATED EXAMINATION: THREE XRAY VIEWS OF [...] with joint space narrowing and bony overgrowth. [facility] CON[facility] Luis A Adams MD - [...] 3rd MCP joint and 1st CMC joint Tip or Skip Phone: Radiology Study observation (narrative) Tip or Skip Phone: XR HAND RIGHT (MIN 3 VIEWS)O rdered By: Luis A Adams on 10-15-2022 Tip or Skip Phone: PERLA by IFAon 10-06-2022 Antinuclear Antibodies, IFA Negative Normal [facility] Comment on above: Result Comment: Nega tive <1:80 Borderline 1:80 Positive >1:80 ICAP nomenclature: AC-0 For more information about Hep-2 cell patterns use ANApatterns.org, the official website for the International Consensus on Antinuclear Antibody (PERLA) Patterns (ICAP). Performed By: #### C BC #### [facility] [address] [place] [address] Dr. Akua Thomas ANTISTREPTOLYSIN O AB (ASO)o n 10-06-2022 Antistreptolysin O Ab 69.9 IU/mL Normal 0.0-200.0 [facility] Comment on above: Performed By: #### A SOAB #### [facility] [address] [address] [address] Akua Thomas CALCIUM IONIZEDon 10-06-2022 Calcium, Ionized, Serum 5.5 mg/dL Normal 4.5-5.6 [facility] Comment on above: Performed By: #### C AIONZ #### [facility] [address] [place] [address] Dr. Akua Thomas RHEUMATOID FACTORon 10-06-19 RA Latex Turbid. 12.6 IU/mL Normal <14.0 [facility] Comment on above: Performed By: #### R F #### [facility] [address] [place] [address] Dr. Akua Thomas CBC AUTO DIFFon 10-05-2022 BASO # 0.0 103/ul Normal 0.0-0.1 [facility] Comment on above: Performed By: #### C BC #### [facility] [address] [place] [address] Dr. Akua Thomas Basophils/100 WBC (Bld) 0.2 % Normal 0.2-2.0 [facility] Comment on above: Performed By: #### C BC #### [facility] [address] [place] [address] Dr. Akua Thomas EO # 0.1 103/ul Normal 0.0-0.7 [facility] Comment on above: Performed By: #### C BC #### [facility] [address] [place] [address] Dr. Akua Thomas Eosinophils/100 WBC (Bld) 1.4 % Normal 0.9-7.0 [facility] Comment on above: Performed By: #### C BC #### [facility] [address] [place] [address] Dr. Akua Thomas Erythrocyte distribution width (RBC) [Ratio] 14.3 % Normal 11.0-15.0 [facility] Comment on above: Performed By: #### C BC #### [facility] [address] [place] [address] Dr. Akua Thomas Hematocrit (Bld) [Volume fraction] 45.5 % Normal 42.0-54.0 [facility] Comment on above: Performed By: #### C BC #### [facility] [address] [place] [address] Dr. Akua Thomas Hemoglobin (Bld) [Mass/Vol] 15.1 g/dL Normal 14.0-18.0 [facility] Comment on above: Performed By: #### C BC #### [facility] [address] [place] [address] Dr. Akua Thomas IG # 0.03 10e3/ul Normal 0.00-0.03 [facility] Comment on above: Performed By: #### C BC #### [facility] [address] [place] [address] Dr. Akua Thomas IG % 0.3 % Normal 0.0-0.5 [facility] Comment on above: Performed By: #### C BC #### [facility] [address] [place] [address] Dr. Akua Thomas LYMPH # 3.0 103/ul Normal 1.2-3.8 [facility] Comment on above: Performed By: #### C BC #### [facility] [address] [place] [address] Dr. Akua Thomas Lymphocytes/100 WBC (Bld) 31.9 % Normal 20.5-60.0 [facility] Comment on above: Performed By: #### C BC #### [facility] [address] [place] [address] Dr. Akua Thomas MANUAL DIFF REQ NO Normal [facility] Comment on above: Performed By: #### C BC #### [facility] [address] [place] [address] Dr. Akua Thomas MCH (RBC) [Entitic mass] 29.6 pg Normal 25.9-34.0 [facility] Comment on above: Performed By: #### C BC #### [facility] [address] [place] [address] Dr. Akua Thomas MCHC (RBC) [Mass/Vol] 33.2 g/dL Normal 29.9-35.2 [facility] Comment on above: Performed By: #### C BC #### [facility] [address] [place] [address] Dr. Akua Thomas MCV (RBC) [Entitic vol] 89.2 fL Normal 80.0-94.0 [facility] Comment on above: Performed By: #### C BC #### [facility] [address] [place] [address] Dr. Akua Thomas MONO # 0.7 103/ul Normal 0.3-0.8 [facility] Comment on above: Performed By: #### C BC #### [facility] [address] [address] [address] Akua Thomas Monocytes/100 WBC (Bld) 7.2 % Normal 1.7-12.0 [facility] Comment on above: Performed By: #### C BC #### [facility] [address] [address] [address] Akua Thomas NEUT # 5.5 103/ul Normal 1.4-6.5 [facility] Comment on above: Performed By: #### C BC #### [facility] [address] [place] [address] Dr. Akua Thomas Neutrophils/100 WBC (Bld) 59.0 % Normal 43.0-75.0 [facility] Comment on above: Performed By: #### C BC #### [facility] [address] [place] [address] Dr. Akua Thomas Platelet mean volume (Bld) [Entitic vol] 9.9 fL Normal 9.5-13.5 [facility] Comment on above: Performed By: #### C BC #### [facility] [address] [place] [address] Dr. Akua Thomas PLT 237 103/ul Normal 150-450 [facility] Comment on above: Performed By: #### C BC #### [facility] [address] [place] [address] Dr. Akua Thomas RBC 5.10 106/ul Normal 4.70-6.10 [facility] Comment on above: Performed By: #### C BC #### [facility] [address] [place] [address] Dr. Akua Thomas WBC 9.3 103/ul Normal 4.0-11.0 [facility] Comment on above: Performed By: #### C BC #### [facility] [address] [place] [address] Dr. Akua Thomas CRPon 10-05-2022 CRP [Mass/Vol] mg/L Normal <=1.0 [facility] Comment on above: Performed By: #### C MP, URIC, PHOS, MG, T7, CRP, TSH #### [facility] [address] [place] [address] Dr. Akua Thomas FREE THYROXINE INDEX T7on FTI 3.28 Normal 1.30-4.50 [facility] Comment on above: Performed By: #### C BC #### [facility] [address] [place] [address] Dr. Akua Thomas T3U 36.0 % Normal 33.0-40.0 [facility] Comment on above: Performed By: #### C BC #### [facility] [address] [place] [address] Dr. Akua Thomas T4 [Mass/Vol] 9.10 ug/dL Normal 4.50-12.10 [facility] Comment on above: Performed By: #### C BC #### [facility] [address] [place] [address] Dr. Akua Thomas IRONon 10-05-2022 Iron [Mass/Vol] 119.0 ug/dL Normal 65.0-175.0 [facility] Comment on above: Performed By: #### I SHILPI #### [facility] [address] [place] [address] Dr. Akua Thomas MAGNESIUMon 10-05-2022 Magnesium [Mass/Vol] 1.8 mg/dL Normal 1.8-2.4 [facility] Comment on above: Performed By: #### C BC #### [facility] [address] [place] [address] Dr. Akua Thomas PHOSPHORUSon 10-05-2022 Phosphate [Mass/Vol] 3.4 mg/dL Normal 2.6-4.7 [facility] Comment on above: Performed By: #### C BC #### [facility] [address] [place] [address] Dr. Akua Thomas PROF 14(COMP METB)on 023 Albumin [Mass/Vol] 4.0 g/dL Normal 3.4-5.0 [facility] Comment on above: Performed By: #### C BC #### [facility] [address] [place] [address] Dr. Akua Thomas Albumin/Globulin [Mass ratio] 1.4 {ratio} Normal [facility] Comment on above: Performed By: #### C BC #### [facility] [address] [place] [address] Dr. Akua Thomas ALP [Catalytic activity/Vol] 119 U/L Critically high 46-116 [facility] Comment on above: Performed By: #### C BC #### [facility] [address] [place] [address] Dr. Akua Thomas ALT [Catalytic activity/Vol] 69 U/L Critically high 16-63 [facility] Comment on above: Performed By: #### C BC #### [facility] [address] [place] [address] Dr. Akua Thoams Anion gap [Moles/Vol] 10.0 mmol/L Normal [facility] Comment on above: Performed By: #### C BC #### [facility] [address] [place] [address] Dr. Akua Thomas AST [Catalytic activity/Vol] 37 U/L Normal 15-37 [facility] Comment on above: Performed By: #### C BC #### [facility] [address] [place] [address] Dr. Akua Thomas Bilirubin [Mass/Vol] 0.7 mg/dL Normal 0.2-1.0 [facility] Comment on above: Performed By: #### C BC #### [facility] [address] [place] [address] Dr. Akua Thomas Calcium [Mass/Vol] 9.2 mg/dL Normal 8.5-10.1 [facility] Comment on above: Performed By: #### C BC #### [facility] [address] [place] [address] Dr. Akua Thomas Chloride [Moles/Vol] 100 mmol/L Normal 98-107 [facility] Comment on above: Performed By: #### C BC #### [facility] [address] [place] [address] Dr. Akua Thomas CO2 [Moles/Vol] 30.5 mmol/L Normal 21.0-32.0 [facility] Comment on above: Performed By: #### C BC #### [facility] [address] [place] [address] Dr. Akua Thomas Creatinine [Mass/Vol] 0.75 mg/dL Normal 0.70-1.30 [facility] Comment on above: Performed By: #### C BC #### [facility] [address] [address] [address] Akua Thomas EGFR-AF CHILEAN >60 Normal >=60 [facility] Comment on above: Performed By: #### C BC #### [facility] [address] [place] [address] Dr. Akua Thomas EGFR-NON AF CHILEAN >60 Normal >=60 [facility] Comment on above: Performed By: #### C BC #### [facility] [address] [place] [address] Dr. Akua Thomas Globulin (S) [Mass/Vol] 2.9 g/dL Normal [facility] Comment on above: Performed By: #### C BC #### [facility] [address] [place] [address] Dr. Akua Thomas Glucose [Mass/Vol] 97 mg/dL Normal 74-106 [facility] Comment on above: Performed By: #### C BC #### [facility] [address] [place] [address] Dr. Akua Thomas Potassium [Moles/Vol] 4.5 mmol/L Normal 3.5-5.1 [facility] Comment on above: Performed By: #### C BC #### [facility] [address] [place] [address] Dr. Akua Thomas Protein [Mass/Vol] 6.9 g/dL Normal 6.4-8.2 [facility] Comment on above: Performed By: #### C BC #### [facility] [address] [place] [address] Dr. Akua Thomas Sodium [Moles/Vol] 136 mmol/L Normal 136-145 [facility] Comment on above: Performed By: #### C BC #### [facility] [address] [address] [address] Akua Thomas Urea nitrogen [Mass/Vol] 24.0 mg/dL Critically high 7.0-18.0 [facility] Comment on above: Performed By: #### C BC #### [facility] [address] [place] [address] Dr. Akua Thomas Urea nitrogen/Creatinin e [Mass ratio] 32.0 mg/mg Normal [facility] Comment on above: Performed By: #### C BC #### [facility] [address] [place] [address] Dr. Akua Thomas TSHon 10-05-2022 TSH 0.725 uIU/mL Normal 0.358-3.74 0 [facility] Comment on above: Performed By: #### C BC #### [facility] [address] [place] [address] Dr. Akua Thomas URIC ACID SERUMon 10-05-2022 Urate [Mass/Vol] 2.2 mg/dL Critically low 3.5-7.2 [facility] Comment on above: Performed By: #### C MP, URIC, PHOS, MG, T7, CRP, TSH #### [facility] [address] [place] [address] Dr. Akua Thomas XR HAND LT MIN 3Von 10-05-19 23 XR HAND LT MIN 3V EXAMINATION: XR WRIS T MARÍA MIN 3 V, XR HAND LT MIN 3V HISTORY: Arthritis of hand COMPARISON: No relevant comparison available. FINDINGS: RIGHT FINDINGS: BONES: No acute fracture or dislocation. Severe degenerative changes at the first carpometacarpal joint with [id number] articulation and extensive heterotopic ossification SOFT TISSUES: [...] ALIYA KILLIAN Date: 2022-10-05 13:24 [address] [facility] [address] SINUSES WO CONon 09-16-19 23 [...] mastoid sinuses are not included in the oaonu-td-huge. IMPRESSION: There is a small mass seen [...] DONNELL RENTERIA Date: 2022-09-16 19:40 Normal [facility] OCC BLD IMMUNO SCREENon 04-10 OCCULT BLOOD Negative Normal NEGATIVE [facility] Comment on above: Performed By: #### C BC #### [facility] [address] [place] [address] Dr. Akua Thomas PSA, FREE AND TOTAL RATIOon 04-10-2022 % Free PSA 17.8 % Normal [facility] Comment on above: Result Comment: The [...] men. Performed By: #### C BC #### [facility] [address] [place] [address] Dr. Akua Thomas Prostate specific Ag [Mass/Vol] 0.9 ng/mL Normal 0.0-4.0 [facility] Comment on above: Result Comment: Leslye FOSTER methodology. . According to the [place] [employer], Serum PSA should decrease and [...] disease. Performed By: #### C BC #### [facility] [address] [place] [address] Dr. Akua Thomas PSA, Free 0.16 ng/mL Normal N/A [facility] Comment on above: Result Comment: Leslye ceballos ECLASHLYN methodology. Performed By: #### C BC #### [facility] [address] [place] [address] Dr. Akua Thomas T4 LABCORPon 04-10-2022 T4 [Mass/Vol] 8.0 ug/dL Normal 4.5-12.0 [facility] Comment on above: Performed By: #### C BC #### [facility] [address] [place] [address] Dr. Akua Thomas CBC AUTO DIFFon 04-09-2022 BASO # 0.0 103/ul Normal 0.0-0.1 [facility] Comment on above: Performed By: #### C BC #### [facility] [address] [place] [address] Dr. Akua Thomas Basophils/100 WBC (Bld) 0.2 % Normal 0.2-2.0 [facility] Comment on above: Performed By: #### C BC #### [facility] [address] [place] [address] Dr. Akua Thomas EO # 0.2 103/ul Normal 0.0-0.7 [facility] Comment on above: Performed By: #### C BC #### [facility] [address] [place] [address] Dr. Akua Thomas Eosinophils/100 WBC (Bld) 2.2 % Normal 0.9-7.0 [facility] Comment on above: Performed By: #### C BC #### [facility] [address] [place] [address] Dr. Akua Thomas Erythrocyte distribution width (RBC) [Ratio] 14.2 % Normal 11.0-15.0 [facility] Comment on above: Performed By: #### C BC #### [facility] [address] [place] [address] Dr. Akua Thomas Hematocrit (Bld) [Volume fraction] 43.3 % Normal 42.0-54.0 [facility] Comment on above: Performed By: #### C BC #### [facility] [address] [place] [address] Dr. Akua Thomas Hemoglobin (Bld) [Mass/Vol] 14.2 g/dL Normal 14.0-18.0 [facility] Comment on above: Performed By: #### C BC #### [facility] [address] [place] [address] Dr. Akua Thomas IG # 0.02 10e3/ul Normal 0.00-0.03 [facility] Comment on above: Performed By: #### C BC #### [facility] [address] [place] [address] Dr. Akua Thomas IG % 0.2 % Normal 0.0-0.5 [facility] Comment on above: Performed By: #### C BC #### [facility] [address] [place] [address] Dr. Akua Thomas LYMPH # 1.8 103/ul Normal 1.2-3.8 [facility] Comment on above: Performed By: #### C BC #### [facility] [address] [place] [address] Dr. Akua Thomas Lymphocytes/100 WBC (Bld) 20.6 % Normal 20.5-60.0 [facility] Comment on above: Performed By: #### C BC #### [facility] [address] [place] [address] Dr. Akua Thomas MANUAL DIFF REQ NO Normal [facility] Comment on above: Performed By: #### C BC #### [facility] [address] [place] [address] Dr. Akua Thomas MCH (RBC) [Entitic mass] 29.8 pg Normal 25.9-34.0 [facility] Comment on above: Performed By: #### C BC #### [facility] [address] [place] [address] Dr. Akua Thomas MCHC (RBC) [Mass/Vol] 32.8 g/dL Normal 29.9-35.2 [facility] Comment on above: Performed By: #### C BC #### [facility] [address] [place] [address] Dr. Akua Thomas MCV (RBC) [Entitic vol] 91.0 fL Normal 80.0-94.0 [facility] Comment on above: Performed By: #### C BC #### [facility] [address] [place] [address] Dr. Akua Thomas MONO # 0.7 103/ul Normal 0.3-0.8 [facility] Comment on above: Performed By: #### C BC #### [facility] [address] [place] [address] Dr. Akua Thomas Monocytes/100 WBC (Bld) 8.2 % Normal 1.7-12.0 [facility] Comment on above: Performed By: #### C BC #### [facility] [address] [place] [address] Dr. Akua Thomas NEUT # 6.1 103/ul Normal 1.4-6.5 [facility] Comment on above: Performed By: #### C BC #### [facility] [address] [place] [address] Dr. Akua Thomas Neutrophils/100 WBC (Bld) 68.6 % Normal 43.0-75.0 [facility] Comment on above: Performed By: #### C BC #### [facility] [address] [place] [address] Dr. Akua Thomas Platelet mean volume (Bld) [Entitic vol] 10.1 fL Normal 9.5-13.5 [facility] Comment on above: Performed By: #### C BC #### [facility] [address] [place] [address] Dr. Akua Thomas PLT 231 103/ul Normal 150-450 [facility] Comment on above: Performed By: #### C BC #### [facility] [address] [place] [address] Dr. Akua Thomas RBC 4.76 106/ul Normal 4.70-6.10 [facility] Comment on above: Performed By: #### C BC #### [facility] [address] [place] [address] Dr. kAua Thomas WBC 8.9 103/ul Normal 4.0-11.0 [facility] Comment on above: Performed By: #### C BC #### [facility] [address] [place] [address] Dr. Akua Thomas FREE T3on 04-09-2022 FREE T3 2.53 pg/mlL Normal 2.18-3.98 [facility] Comment on above: Performed By: #### R F #### [facility] [address] [place] [address] Dr. Akua Thomas GLYCOHEMOGLOBIN A1Con 2021 ADA RECOMMENDATION SEE BELOW Normal [facility] Comment on above: Result Comment: ADA RECOMMENDED LIMIT 4.0 - 6.0 ADA THERAPEUTIC TARGET < 7.0 ACTION SUGGESTED > 7.0 Performed By: #### A 1C #### [facility] [address] [address] [address] Akua Thomas Glucose [Mass/Vol] 123 mg/dL Normal [facility] Comment on above: Performed By: #### A 1C #### [facility] [address] [address] [address] Akua Thomas HbA1c (Bld) [Mass fraction] 5.9 % Normal 4.5-6.2 [facility] Comment on above: Performed By: #### A 1C #### [facility] [address] [place] [address] Dr. Akua Thomas LIPID PROFILEon 04-09-2022 CHOL-HDL RATIO NORM SEE BELOW Normal [facility] Comment on above: Result Comment: 3.3 - 4.4 LOW RISK 4.4 - 7.1 AVERAGE RISK 7.1 - 11.0 MODERATE RISK >11.0 HIGH RISK Performed By: #### R F #### [facility] [address] [place] [address] Dr. Akua Thomas Cholesterol [Mass/Vol] 154 mg/dL Normal <=200 [facility] Comment on above: Performed By: #### R F #### [facility] [address] [place] [address] Dr. Akua Thomas Cholesterol in HDL [Mass/Vol] 71 mg/dL Critically high 40-60 [facility] Comment on above: Performed By: #### R F #### [facility] [address] [place] [address] Dr. Akua Thomas Cholesterol in LDL [Mass/Vol] 74.8 mg/dL Normal [facility] Comment on above: Performed By: #### R F #### [facility] [address] [place] [address] Dr. Akua Thomas Cholesterol.total/ Cholesterol in HDL [Mass ratio] 2.2 {ratio} Normal [facility] Comment on above: Performed By: #### R F #### [facility] [address] [place] [address] Dr. Akua Thomas HDL NORMAL > or = 60 mg/dl - LO W CARDIOVASCULAR RISK <40 mg/dl - HIGH CARDIOVASCULAR RISK Normal [facility] Comment on above: Performed By: #### R F #### [facility] [address] [place] [address] Dr. Akua Thomas LDL CALC NORMAL SEE BELOW Normal [facility] Comment on above: Result Comment: <100 mg/dl OPTIMAL 100 - 129 mg/dl NEAR OR ABOVE OPTIMAL 130 - 159 mg/dl BORDERLINE HIGH 160 - 189 mg/dl HIGH >190 mg/dl VERY HIGH Performed By: #### R F #### [facility] [address] [place] [address] Dr. Akua Thomas Triglyceride [Mass/Vol] 41 mg/dL Normal <=150 [facility] Comment on above: Performed By: #### R F #### [facility] [address] [place] [address] Dr. Akua Thomas VLDL CALC 8.2 mg/dL Normal [facility] Comment on above: Performed By: #### R F #### [facility] [address] [place] [address] Dr. Akua Thomas PROF 14(COMP METB)on 022 Albumin [Mass/Vol] 3.8 g/dL Normal 3.4-5.0 [facility] Comment on above: Performed By: #### R F #### [facility] [address] [place] [address] Dr. Akua Thomas Albumin/Globulin [Mass ratio] 1.4 {ratio} Normal [facility] Comment on above: Performed By: #### R F #### [facility] [address] [place] [address] Dr. Akua Thomas ALP [Catalytic activity/Vol] 127 U/L Critically high 46-116 [facility] Comment on above: Performed By: #### R F #### [facility] [address] [place] [address] Dr. Akua Thomas ALT [Catalytic activity/Vol] 45 U/L Normal 16-63 [facility] Comment on above: Performed By: #### R F #### [facility] [address] [place] [address] Dr. Akua Thomas Anion gap [Moles/Vol] 12.6 mmol/L Normal [facility] Comment on above: Performed By: #### R F #### [facility] [address] [place] [address] Dr. Akua Thomas AST [Catalytic activity/Vol] 28 U/L Normal 15-37 [facility] Comment on above: Performed By: #### R F #### [facility] [address] [place] [address] Dr. Akua Thomas Bilirubin [Mass/Vol] 0.8 mg/dL Normal 0.2-1.0 [facility] Comment on above: Performed By: #### R F #### [facility] [address] [place] [address] Dr. Akua Thomas Calcium [Mass/Vol] 8.7 mg/dL Normal 8.5-10.1 [facility] Comment on above: Performed By: #### R F #### [facility] [address] [place] [address] Dr. Akua Thomas Chloride [Moles/Vol] 102 mmol/L Normal 98-107 [facility] Comment on above: Performed By: #### R F #### [facility] [address] [place] [address] Dr. Akua Thomas CO2 [Moles/Vol] 28.1 mmol/L Normal 21.0-32.0 [facility] Comment on above: Performed By: #### R F #### [facility] [address] [place] [address] Dr. Akua Thomas Creatinine [Mass/Vol] 0.77 mg/dL Normal 0.70-1.30 [facility] Comment on above: Performed By: #### R F #### [facility] [address] [place] [address] Dr. Akua Thomas EGFR-AF CHILEAN >60 Normal >=60 [facility] Comment on above: Performed By: #### R F #### [facility] [address] [place] [address] Dr. Akua Thomas EGFR-NON AF CHILEAN >60 Normal >=60 [facility] Comment on above: Performed By: #### R F #### [facility] [address] [address] [address] Akua Thomas Globulin (S) [Mass/Vol] 2.7 g/dL Normal [facility] Comment on above: Performed By: #### R F #### [facility] [address] [place] [address] Dr. Akua Thmoas Glucose [Mass/Vol] 105 mg/dL Normal 74-106 [facility] Comment on above: Performed By: #### R F #### [facility] [address] [place] [address] Dr. Akua Thomas Potassium [Moles/Vol] 3.7 mmol/L Normal 3.5-5.1 [facility] Comment on above: Performed By: #### R F #### [facility] [address] [place] [address] Dr. Akua Thomas Protein [Mass/Vol] 6.5 g/dL Normal 6.4-8.2 [facility] Comment on above: Performed By: #### R F #### [facility] [address] [place] [address] Dr. Akua Thomas Sodium [Moles/Vol] 139 mmol/L Normal 136-145 [facility] Comment on above: Performed By: #### R F #### [facility] [address] [place] [address] Dr. Akua Thomsa Urea nitrogen [Mass/Vol] 17.0 mg/dL Normal 7.0-18.0 [facility] Comment on above: Performed By: #### R F #### [facility] [address] [place] [address] Dr. kAua Thomas Urea nitrogen/Creatinin e [Mass ratio] 22.1 mg/mg Normal [facility] Comment on above: Performed By: #### R F #### [facility] [address] [place] [address] Dr. Akua Thomas TSHon 04-09-2022 TSH 0.547 uIU/mL Normal 0.358-3.74 0 [facility] Comment on above: Performed By: #### R F #### [facility] [address] [place] [address] Dr. Akua Thomas Vital Signs Date Time Vital Sign Value Performing Clinician Edil rees 10-10-2024 13:51-0500 Blood Pressure Location Luis A MORRELLL [facility] 10-10-2024 13:51-0500 Diastolic blood pressure 68 mm[Hg] Luis A NILL [facility] 10-10-2024 13:51-0500 Heart rate 70 /min Luis A NILL [facility] 10-10-2024 13:51-0500 Respiratory rate 16 /min Luis A NILL [facility] 10-10-2024 13:51-0500 Systolic blood pressure 146 mm[Hg] Luis A NILL [facility] Encounters Encounter Date Encounter Type Care Provider Facility Start: 10-10-2024 End: 10-10-2024 ambulatory Luis A CASTILLO Facility:[facility] Start: 10-10-2024 End: 10-10-2024 Patient encounter procedure Luis A CASTILLO [facility] Start: 05-23-2024 End: 05-23-2024 Office outpatient visit 15 minutes Phillip Purvis MD Work Phone: [facility] Comment on above: 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) Start: 05-23-2024 ambulatory PHILLIP PURVIS [facility]ulatory Start: 05-03-2024 End: 05-03-2024 Telephone encounter Nunu Charles MA [facility] Comment on above: Med Refill Start: 04-13-2024 End: 04-13-2024 ambulatory PHILLIP [facility] Start: 04-13-2024 End: 04-13-2024 Office outpatient visit 15 minutes Phillip Purvis MD Work Phone: [facility] Comment on above: Benign neoplasm of f [...] 04-13-2023 Patient encounter procedure Referring Provider [facility] Work Phone: Start: 04-13-[address] Phillip Gallegos Facility:[id number] Start: 03-03-2023 Office outpatient visit 15 minutes Referring Provider Unknown [facility] Work Phone: Start: 03-03-2023 Patient encounter procedure Referring Provider Unknown [facility] Work Phone: Start: 03-03-[address] Phillip Gallegos Facility:[id number] Start: 11-04-2022 Office outpatient ne w 45 minutes Referring Provider Unknown [facility] 4100 Work Phone: Start: 11-04-2022 Patient encounter procedure Referring Provider Unknown [facility] Work Phone: Start: 11-04-[address] Phillip Gallegos Facility:[id number] Start: 10-15-2022 End: 10-18-2022 [place] Start: 10-15-2022 End: 10-17-2022 Subsequent hospital visit by physician Paresh Griffith Dr Room 4 [facility] Comment on above: Pain in both hands Start: 10-05-2022 End: 10-06-[address] ADAMA FAYE . Facility: Start: 09-24-2022 ambulatory KRISTOFER RANKIN Facility :[facility]1 Start: 09-16-2022 End: 09-17-[address] ADAMA FAYE . Facility:[facility] Start: 08-19-2022 End: 08-19-2022 Patient encounter procedure KRISTOFER RANKIN [facility] Start: 05-01-2022 End: 05-01-[address] ADAMA FAYE . Facility:[facility] Start: 04-09-2022 End: 04-10-[address] ADAMA FAYE . Facility:[facility] Start: 07-12-2017 End: 07-13-2017 Ambulatory DEFAULT PHYSICIAN Facility:[facility] Procedures Date Procedure Procedure Detail Performing Clinician [...] DERM [address] [place] [address] Nuha Turner MD [address] [place] [address] [facility] Start: 06-22-2024 End: 06-22-2024 Patient encounter procedure 06/22/2024 11:00 AM EST Office Visit [address] [address] [place] [address] [place] [address] [facility] Start: 04-13-2024 End: 04-13-2025 CT Sinuses WO contrast CT sinuss wo IV contrast volumetric surgical planning Imaging Routine Benign neoplasm of frontal sinus Expected: 04/13/2024, Expires: 04/13/2025 [facility] Service Area Work Phone: Comment on above: Expected: 04/13/2024 , Expires: 04/13/2025 Start: 04-09-2024 COVID-19 Vaccine ( season) COVID-19 Vaccine ( season) [facility] Start: 04-09-2024 COVID-19 Vaccine ( season) COVID-19 Vaccine ( season) [facility] Start: 04-09-2024 Influenza vaccination Influenza Vacc ine (#1) [facility] Start: 04-04-2024 End: 04-04-2024 Patient encounter procedure 04/04/2024 11:00 AM EDT Office Visit [facility] [address] [place] [address] Nuha Turner MD [address] [place] [address] Arrived [facility] Comment on above: Arrived Start: 2023 RSV High Risk: (Elde rly (60+) or Population) (1 - 1-dose 75+ series) RSV High Risk: (Elderly (60+) or Population) (1 - 1-dose 75+ series) [facility] Start: 03-03-2023 PHUONG, Provider : Phillip Purvis, Status: Pen, Time: 1:00 PM PHUONG, Provider: Phillip Purvis, Status: Pen, Time: 1:00 PM [facility] Work Phone: Start: 10-15-2022 Annual Wellness Visi t (AWV) Annual Wellness Visit (AWV) [facility] Start: 09-01-2021 COVID-19 Vaccine (4 - Booster for Moderna series) COVID-19 Vaccine (4 - Booster for Moderna series) [facility] Start: 06-24-2018 Pneumococcal 65+ yea rs Vaccine (2 - PPSV23 if available, else PCV20) Pneumococcal 65+ years Vaccine (2 - PPSV23 if available, else PCV20) [facility] Start: 06-24-2018 Pneumococcal Vaccine : 65+ Years (2 of 2 - PPSV23 or PCV20) Pneumococcal Vaccine: 65+ Years (2 of 2 - PPSV23 or PCV20) [facility] Start: 2013 Abdominal aortic aneurysm screening [facility] Start: 2008 RSV patient s and/or patients aged 60+ years (1 - 1-dose 60+ series) RSV patients and/or patients aged 60+ years (1 - 1-dose 60+ series) [facility] Start: 1998 Shingles vaccine (1 of 2) Shingles vaccine (1 of 2) [facility] Start: 1998 Zoster Vaccines (1 o f 2) Zoster Vaccines (1 of 2) [facility] Start: 1993 Screening for malign ant neoplasm of colon [facility] Start: 1970 DTaP/Tdap/Td Vaccine s (1 - Tdap) DTaP/Tdap/Td Vaccines (1 - Tdap) [facility] Start: 1967 DTaP/Tdap/Td vaccine (1 - Tdap) DTaP/Tdap/Td vaccine (1 - Tdap) [facility] Start: 1966 Hepatitis C screening B ON [facility] Start: 1960 Depression Screen Depression Screen [facility] Start: 1958 Lipid panel Lipids [facility] Start: 1948 Annual wellness visit Medicare Initial Physical (IPPE) [facility] Start: 1948 Lipid panel Lipid Panel [facility] Start: 1948 Medicare Annual Wellness Visit Medicare Annual Wellness Visit (AWV) [facility] Start: 1948 Screening for malign ant neoplasm of colon [facility] Immunizations Immunization Date Immunization Notes Care Provider Codie kumar 06-05-2022 influenza virus vaccine, unspecified formulation KRISTOFER MASSIEL [facility] 07-07-2021 SARS-CoV-2 (COVID-19 ) mRNA-1273 vaccine KRISTOFER MASSIEL [facility] 11-02-2020 SARS-CoV-2 (COVID-19 ) mRNA-1273 vaccine KRISTOFER MASSIEL [facility] Comment on above: Result Comment: 2022: [id number] 10-05-2020 SARS-CoV-2 (COVID-19 ) mRNA-1273 vaccine KRISTOFER MASSIEL [facility] Comment on above: Result Comment: 2022: [id number] 05-08-2020 influenza virus vaccine, unspecified formulation KRISTOFER MASSIEL [facility] 05-17-2019 influenza virus vaccine, unspecified formulation KRISTOFER MASSIEL [facility] [place] 05-25-2018 influenza virus vaccine, unspecified formulation KRISTOFER MASSIEL [facility] 06-24-2017 pneumococcal conjuga te vaccine, 13 valent KRISTOFER MASSIEL [facility] NEGATED: Highlighted row has not occurred!06-20-2019 influenza virus vaccine, unspecified formulation KRISTOFER MASSIEL [facility] [place] Payers Date Payer Category Payer Medicare [id number] 2022 Medicare (Managed Care) [employer] [place] [employer] [id number] 1959 Medicare [id number] 1959 Self-pay 1948 Unknown [id number] [id number]. 593 1948 Unknown [id number] 2.16.840.1.229372.3.579.2. 593 1948 Unknown [id number] 2.16.840.1.526282.3.579.2. 593 1948 Unknown [id number] 2.16.840.1.345562.3.579.2. 593 1948 Unknown [id number] 2.16.840.1.198906.3.579.2. 593 1948 Unknown [id number] 2.16.840.1.633383.3.579.2. 173 1948 Unknown [id number] 2.16.840.1.445264.3.579.2. 173 1948 Unknown [id number] 2.16.840.1.096867.3.579.2. 173 1948 Unknown [id number] 2.16.840.1.287635.3.579.2. 356 1948 Unknown [id number] 2.16.840.1.133778.3.579.2. 356 1948 Unknown [id number] 2.16.840.1.215233.3.579.2. 356 1948 Unknown [id number] 2.16.840.1.458246.3.579.2. 1259 1948 Unknown [id number] 2.16.840.1.432652.3.579.2. 1244 1948 Unknown [id number] 2.16.840.1.217941.3.579.2. 1244 1948 Unknown [id number] 2.16.840.1.486666.3.579.2. 727 Unknown Social History Date Type Detail Facility Start: 08-19-2022 End: 10-10-2024 Tobacco smoking status Never smoked tobacco (finding) [facility] Tobacco smoking status Never [facility] Start: 04-04-2024 End: 05-23-2024 Sex Assigned At Male [facility] Start: 10-15-2022 End: 05-23-2024 Tobacco smoking status NHIS Ex-smoker [employer] Phone: End: 08-09-1973 History of tobacco use Current smoker [facility] Phone: End: 08-09-1973 History of tobacco use Cigarette Smoker [facility] Phone: Start: 10-15-2022 End: 01-06-2023 Tobacco use and exposure Smokeless tobacco non-user [facility] Phone: Start: 10-15-2022 End: 04-04-2024 Alcohol intake Lifetime non-drinker (finding) [facility] Phone: Start: 10-15-2022 Tobacco Comment Only smoked fo r about a year [facility] [employer] Phone: Start: 1950 Sex Assigned At Not on file [facility] [employer] Phone: Start: 04-04-2024 End: 05-23-2024 History of Social function [facility] Start: 04-03-2024 End: 05-23-2024 Exposure to SARS-CoV-2 (event) Unable to assess [facility] Work Phone: Tobacco smoking status NHIS Tobacco smoking consumption unknown [facility] Work Phone: Start: 01-06-2023 Alcohol Comment caffeine 1-2 cups/da y [facility] Healthcare Functional Status Date Assessment Result Facility 10-10-2024 Functional Status N/A [facility] [place] 08-19-2022 Functional Status N/A [facility] Clinical Notes 08-19-2022 to 10-10-2024 Phillip Purvis MD - 05/23/2024 4:30 PM EDTTelephone Encounter - Nunu hCarles MA - 05/03/2024 9:29 AM EDTTelephone Encounter [...] E&M of New Patient Low 30-44 Min [id number] US Chest or Upper Back, Limited Follow-up [...] mg Cap-EC, Oral, Daily Flonase 0.05 mg/inh [place], 1 spray(s), Nasal, Daily irbesartan 300 mg [...] 05/25/2018 Recorded pneumococcal 13-valent vaccine 06/24/2017 Recorded [facility] Comment on above: Result Comment: Elec tronically [...] Phillip Purvis MD documented in this encounter [facility] Work Phone: 05-03-2024 Telephone encounter Note Patient called requesting a refill of: Triamcinolone 0.1% cream Diagnosis: Atopic Dermatitis Prescribing provider: Nuha Turner MD Last visit: 04/04/2024 Next visit: 04/04/25 Action: prescription was sent to patient's pharmacy [facility] with enough refills until next visit. [facility] 05-03-2024 Miscellaneous Notes Patient called requesting a refill of: Triamcinolone 0.1% cream Diagnosis: Atopic Dermatitis Prescribing provider: Nuha Turner MD Last visit: 04/04/2024 Next visit: 04/04/25 Action: prescription was sent to patient's pharmacy [facility] with enough refills until next visit. documented in this encounter [facility] 04-13-2024 History of Present illness Narrative An [...] Phillip Purvis MD. documented in this encounter [facility] Work Phone: 04-04-2024 History of Present illness [...] 1 year documented in this encounter [facility] 04-13-2023 Chief complaint Narrative - Reported An [...] of immunotherapy6. Reflux on proton pump inhibitor [facility] Work Phone: 03-03-2023 Chief complaint Narrative - [...] of immunotherapy6. Reflux on proton pump inhibitor QX-[place]ig[place]wmtycsc[place] Work Phone: 11-04-2022 Chief complaint Narrative - Reported An interactive audio and video telecommunication system which permits real time communications between the patient (at the originating site) and provider (at the distant site) was utilized to provide this telehealth service.Verbal consent was requested and obtained from KEDAR NÚÑEZ on this date, 11/04/2022 01:15 PM , for a telehealth visit.Frontal sinus lesion QP-[facility]gzijfxmwfwvuj[facility] Work Phone: 11-04-2022 History of Present illness Narrative Reason for visit:KEDAR NÚÑEZ patient presents since last being seen 11/04/22.Medications currently on for sinonasal symptoms.Ipratropium BID.Medications tried in the past for sinonasal symptoms Flonase/Fluticasone.Spoke about PND [facility] Work Phone: 11-04-2022 History of Present illness Narrative Reason for visit:KEDAR NÚÑEZ patient presents since last being seen 11/04/22.Medications currently on for sinonasal symptoms.Ipratropium BID.Medications tried in the past for sinonasal symptoms Flonase/Fluticasone.Kedar presents for routine follow-up. He continues to have issues related to postnasal drainage despite ipratropium. He does feel the ipratropium is providing some measure of benefit. [facility] Work Phone: 08-19-2022 Hospital Discharge instructions Patient [...] including vitamins, herbs, eye drops, creams, and mxmc-wpj-uueodwg medicines. Any problems you or family members [...] provider tells you to take them. Taking huar-msb-pvvhcfo medicines, vitamins, herbs, and supplements. Eating and [...] 07/26/2006 Document Revised: 11/15/2019 Document Reviewed: 04/26/2019 [employer] Patient Education 2019 [employer] Follow Up Care 08/05/2021 11:01:39 With:MASSIEL CASE, KRISTOFER Ceballos, URL Address: [address] 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 * PMHx: Hypertension YU[facility]Lhctdtelmxifhx[facility] 4[facility] Work Phone: History of Present illness Narrative* Main Symptoms: * Patient has posterior nasal drainage. * Associated Symptoms: * Patient has throat clearing. * Patient has coughing. * Medications currently on for sinonasal symptoms Flonase/Fluticasone - PRN (as needed) . * Ipratropium BID. ZA-Ybhakwykjprvwv-[facility]anzfP[facility] 4100 Work Phone: Hospital Discharge instructions No data available for this section [facility] [place] Progress note No data available for this section [facility] Summary Purpose Family History No Family History Records FoundNo Family History Records FoundNo Family History Records FoundNo Family History Records FoundNo Family History Records FoundNo Family History Records FoundNo Family History Records Found No data available for this section No Family History Records Found Advance Directives No [...] Referral Specialty Diagnoses / Procedures Referred By Colton perez Referred To Contact Radiology Diagnoses Benign neoplasm of frontal sinus Procedures CT sinuss wo IV contrast volumetric surgical planning Phillip Purvis MD [address] [facility] [address] [place] [address] Referral ID Status Reason Start Date Expiration Date Visits Requested Visits Authorized [id number] Pending Review Perform Procedure 04/13/2024 04/13/2025 1 1 Additional Source Comments (unrecognized sect ion and content) No Status Records FoundNo Status Records FoundNo Status Records FoundNo Status Records FoundNo Status Records FoundNo Status Records FoundNo Status Records FoundNo Status Records Found INFORMATION SOURCE (unrecogn ized section and content) DATE CREATED AUTHOR 02/01/2018 [facility] DATE CREATED AUTHOR AUTHOR'S ORGANIZ ATION 10/10/2022 [facility] DATE CREATED AUTHOR AUTHOR'S ORGANIZ ATION 10/18/2022 [facility] DATE CREATED AUTHOR AUTHOR'S ORGANIZ ATION 04/13/2023 [facility] DATE CREATED AUTHOR AUTHOR'S ORGANIZ ATION 04/15/2023 [employer] DATE CREATED AUTHOR AUTHOR'S ORGANIZ ATION 04/06/2024 [facility] EPIC DATE CREATED AUTHOR AUTHOR'S ORGANIZ ATION 05/31/[address] [facility] DATE CREATED AUTHOR AUTHOR'S ORGANIZ ATION 10/12/2024 [facility] Patient Care team informatio n (unrecognized section and content) Dental Sales Representative Relationship Specialty Start Date End Date Adama Faye MD [address] [place] [address] PCP - General Family Medicine 10/08/22 Dental Sales Representative Relationship Specialty Start Date End Date Adama Faye MD [address] [place] [address] PCP - General Family Medicine 10/08/22 Dental Sales Representative Relationship Specialty Start Date End Date Adama Faye MD [address] [place] [address] PCP - General Family Medicine 04/24/24 Reason [...] BE BASED ON THE PRIMARY CLINICAL RECORDS. [employer] provides no warranty or guarantee of the accuracy or completeness of information in this document.
--- NOTE | 2025-04-16 10:12 | XR_ITS ---
The [address] [address] Patient Name: KEDAR VENTURA MRN: [id number] date: 1950 Sex: M Assigned Patient Location: RAD Current Patient Location: [facility] Accession/Order Number: [id number] Exam Date: 04/16/2025 10:00 Report Date: 04/16/2025 10:38 At the request of: ADAMA OSBORNE MD Procedure: XR sinus min 3V PARANASAL SINUSES - 4 views COMPARISON: CT 04/20/2024 CLINICAL DATA: Recurrent frontal sinusitis. Sinus congestion. Dickinson, Arie's, lateral and submental vertex views were obtained. There is appropriate development and pneumatization of the paranasal sinuses. The suspected right frontal mucocele at the time of the comparison CT is again noted, without significant change. There is no developing mucosal thickening or air-fluid levels. No bony destruction is noted. The nasal septum is midline. XR/XR sinus min 3V IMPRESSION: STABLE RIGHT FRONTAL FINDING, PREVIOUSLY THOUGHT TO BE MUCOCELE ON CT. NO OTHER SIGNS SINUSITIS. Impression dictated by: Leighann Page M.D. 04/16/2025 10:38 AM Dictation Location: [employer] Electronically authenticated by: [id number] Y Date: 04/16/2025 10:38
== END 2025-04-16 09:47 | disposition home or self-care (01) ==
PROVIDERS: PCP Family Medicine; Visit Provider Family Medicine
DX: M25.552 Pain in left hip (principal); J01.11 Acute recurrent frontal sinusitis
CPT/HCPCS: 70220

== ENCOUNTER 2025-04-19 14:04 | Outpatient (OUT) | payer MEDICARE, SELFPAY ==
--- OUTSIDE RECORDS SUMMARY | 2025-03-16 06:02 | XMS_ITS ---
Author Organization The [facility] in [place] Address [address] [place] [address] Care Team Providers Care Route Service Representative Name Role Phone Armond Faey Primary Care Provider REASON FOR VISIT meloxicam Encounters Encounter Location Date Provider Diagnosis [facility] [address] [place] [address] 03/16/2025 Armond Faye Plan Of Treatment No Information Progress Notes * Mitchell VENTURA GDOB:1950 (74 yo M)Acc No.[id number]:03/16/2025 Patient: Lucille Mitchell HULL :1950 A ge:74 Y S ex:Male Address:[address] [place], [address] * true * Date: Generated for Mohani ng/Fasixtog/eTransmitting on: 0 04/19/2025 02:06 PM EDT
--- OUTSIDE RECORDS SUMMARY | 2025-03-21 09:00 | XMS_ITS ---
Author Organization [facility] [place] Address [address] [place] [address] Care Team Providers Care Burnt Lime Drawer Name Role Phone Armond Faye Primary Care Provider REASON FOR VISIT Presents to office for bi-weekly standing order Dupixent injection per Dr. Fisher Encounters Encounter Location Date Provider Diagnosis [facility] [address] [place] [address] 03/21/2025 Armond Faye Eczema of both hands L30.9 Assessments Encounter Date Diagnosis (ICD Code) Assessment Notes Treatment Notes Treatment Clinical Notes Section Notes 03/21/2025 Eczema of both hands (ICD-10 - L30.9) Plan Of Treatment No Information Medications Administered Medication Instructions Date of Administration Dosage Notes Dupixent 03/21/2025 2 mL Progress Notes * Mitchell VENTURA GDOB:1950 (74 yo M)Acc No.[id number]:03/21/2025 Progress Note Patient: Mitchell SALES Provider[facility] [place] :1950 A ge:74 Y S ex:Male Date:03/21/2025 Address[address] [facility] Check In:02:29 PM ESTCheck O ut:03:43 PM EST Subjective: * Chief Complaints: * P resents to office for bi-weekly standing order Dupixent injection per Dr. Fisher * Active Problem List M25.541 Pain in joints of ri ght hand Modified On:11/12/2022U Status:confirmed M13.849 Other specified arth ritis, unspecified hand Modified On:11/12/2022U Status:confirmed E66.3 Over weight Modified On:11/12/2022 Status:confirmed M65.4 De Quervain's tenosy novitis, bilateral Modified On:11/12/2022U Status:confirmed K21.9 Gastro-esophageal re flux disease without esophagitis Modified On:11/12/2022U Status:confirmed J01.11 Acute recurrent fron fabi sinusitis Modified On:07/21/2023U Status:confirmed N28.89 Renal mass Modified On:11/12/2022U Status:confirmed I86.1 Varicocele Modified On:11/12/2022U Status:confirmed J30.2 Seasonal allergic rh initis Modified On:10/01/2023U Status:confirmed R60.0 Ankle edema Modified On:11/12/2022U Status:confirmed N28.1 Acquired cyst of kid chio Modified On:11/12/2022U Status:confirmed R20.2 Paresthesia of skin Modified On:11/12/2022U Status:confirmed M54.2 Neck pain Modified On:09/17/2023U Status:confirmed K57.92 Diverticulitis Modified On:11/12/2022U Status:confirmed I10 Hypertension Modified On:07/07/2023U Status:confirmed K58.9 Irritable bowel synd tristan Modified On:11/12/2022U Status:confirmed L30.9 Eczema of both hands Modified On:11/12/2023U Status:confirmed R00.2 Palpitations Modified On:07/07/2023U Status:confirmed N52.9 Impotence Modified On:11/12/2022U Status:confirmed M25.572 Pain in left ankle a nd joints of left foot Modified On:06/17/2023U Status:confirmed G89.29 Other chronic pain Modified On:06/17/2023U Status:confirmed M21.6X2 Other acquired defor mities of left foot Modified On:06/17/2023/U Status:confirmed I87.2 Venous insufficiency (chronic) (peripheral) Modified On:06/17/2023/U Status:confirmed D17.9 Lipoma Modified On:09/27/2024/U Status:confirmed M54.50 Low back pain at mul tiple sites Modified On:11/17/2024/U Status:confirmed * Medical History: * Surgical History: * Hospitalization/Major Diagno stic Procedure: * Medications: Objective: * Vitals: Assessment: * Assessment: 1. E czema of both hands - L30.9 (Primary) Plan: * Treatment: * Therapeutic Injections: Dupixent : 2 mL (Route: Subcutaneous) given by MR Steven on left arm subcutaneous (Eczema of both hands) * Procedure Codes: 9 [id number] THERAP.INJ. OF MED. INTRAMUSCULAR OR [id number] UNCLASSIFIED DRUG * * Sign off status: Completed Visit Status: C YOEL (Check Out) true * Provider: Phyllis Faye (TTC)MD Date: 0 03/21/2025 Generated for Dayne miranda/Letitia/Lesliitting on: 04/19/2025 02:06 PM EDT
--- OUTSIDE RECORDS SUMMARY | 2025-04-16 05:00 | XMS_ITS ---
Author Organization [facility] in [place] Address [address] [place] [address] Care Team Providers Care Flat Screen Worker Name Role Phone Armond Osborne Primary Care Provider [phone] Allergies Allergen (clinical drug ingredient) Drug/Non Drug Allergy documented on EMR Reaction Allergy Type Onset Date Status Penicillin Unknown Drug Allergy Active Results Component Value Reference Range Notes XR sinus min 3V Reviewed date:04/16/2025 07:29:21 PM Interpretation: Performing Lab: Notes/Report: Source Facility: [place] [address] XRay Report Signed Patient: KEDAR VENTURA MR#: [id number] : 1950 Acct:[id number] Age/Sex: 74 / M ADM Date: 04/16/25 Loc: RAD Attending Dr: Adama Osborne M.D. Ordering Physician: Adama Osborne M.D. Date of Service: 04/16/25 Procedure(s): XR sinus min 3V Accession Number(s): [id number] cc: Adama Osborne M.D. [place] [id number] Patient Name: KEDAR VENTURA MRN: [id number] date: 1950 Sex: M Assigned Patient Location: RAD Current Patient Location: RAD Accession/Order Number: [id number] Exam Date: 04/16/2025 10:00 Report Date: 04/16/2025 10:38 At the request of: ADAMA OSBORNE MD Procedure: XR sinus min 3V PARANASAL SINUSES - 4 views COMPARISON: CT 04/20/2024 CLINICAL DATA: Recurrent frontal sinusitis. Sinus congestion. Dickinson, Arie's, lateral and submental vertex views were obtained. There is appropriate development and pneumatization of the paranasal sinuses. The suspected right frontal mucocele at the time of the comparison CT is again noted, without significant change. There is no developing mucosal thickening or air-fluid levels. No bony destruction is noted. The nasal septum is midline. XR/XR sinus min 3V IMPRESSION: STABLE RIGHT FRONTAL FINDING, PREVIOUSLY THOUGHT TO BE MUCOCELE ON CT. NO OTHER SIGNS SINUSITIS. Impression dictated by: Leighann Page M.D. 04/16/2025 10:38 AM Dictation Location: [place] [address] Electronically authenticated by: [id number] Y Date: 04/16/2025 10:38 Dictated By: Leighann Page M.D. Signed By: 04/16/25 1041 DD/ 1038 TD/TT: Profile Saw Setup Operator: [place] [address] XRay Report Signed Patient: KEDAR VENTURA MR#: [id number] : 1950 Acct:[id number] Age/Sex: 74 / M ADM Date: 04/16/25 Loc: [facility] Attending Dr: Adama Osborne M.D. Ordering Physician: Adama Osborne M.D. Date of Service: 04/16/25 Procedure(s): XR sinus min 3V Accession Number(s): [id number] cc: Adama Osborne M.D. [place] [id number] Patient Name: KEDAR VENTURA MRN: [id number] date: 1950 Sex: M Assigned Patient Location: RAD Current Patient Location: [facility] Accession/Order Numb er: [id number] Exam Date: 04/16/2025 10:00 Report Date: 04/16/2025 10:38 At the request of: ADAMA OSBORNE MD Procedure: XR sinus min 3V PARANASAL SINUSES - 4 views COMPARISON: CT 04/20/2024 CLINICAL DATA: Recur rent frontal sinusitis. Sinus congestion. Dickinson, Arie's, lat eral and submental vertex views were obtained. There is appropriate developm ent and pneumatization of the paranasal sinuses. The suspected right fron fabi mucocele at the time of the comparison CT is again noted, without signi ficant change. There is no developing mucosal thickening or air-fluid levels. No bony destruction is noted. The nasal septum is midline. X R/XR sinus min 3V IMPRESSION: STABLE RIGHT FRONTAL FINDING, PREVIOUSLY THOUGHT TO BE MUCOCELE ON CT. NO OTHER SIGNS SINUSITIS. Impression dictated by: Leighann Page M.D. 04/16/2025 10:38 AM Dictation Location: [employer] Electronically authe nticated by: [id number] Y Date: 04/16/2025 10:38 Dictated By: Leighann Page M.D. Signed By: 04/16/25 1041 DD/ 1038 TD/TT: Profile Saw Setup Operator: Reason For Referral Diagnosis 1 Hoarseness (R49.0) Referral Organization [facility] Medicine Referring Provider First Name Armond Referring Provider Last Name Neyda Referring Provider [facility]ity [facility] Referred Provider Joycelyn Christine Referred Provider Specialty Otolaryngolo gy Referral Priority Routine REASON FOR VISIT Presents to office alone for c/o PND x 5-6 weeks. Is losing voice and coughing a lot, Still having on going left hip pain Medications Medication SIG (Take, Route, Frequency, Duration) Notes Start Date End Date Status Esomeprazole Magnesium 40 MG TAKE 1 CAPSULE BY MOUTH EVERY DAY for 90 Active Allergy Relief 10 MG 1 tablet Orally Onc e a day for 30 day(s) Active Dupixent 300 MG/2ML as directed Subcutaneous Active Fluticasone Propionate 50 MCG/ACT 1 spray in each nostril Nasally Once a day for 30 day(s) Active Irbesartan 300 MG TAKE 1 TABLET BY AIYANA TH EVERY DAY for 90 Active Simvastatin 40 MG TAKE 1 TABLET BY AIYANA TH EVERY DAY for 90 Active Social History Tobacco Use: Social History Observation Description Date Details (start date - stop date) Never Smoker NA - NA Tobacco Use/Smoking Question Answer Notes Patient is a nonsmoker AUDIT-C (Standard) Question Answer Notes Did you have a drink containing alcohol in the p ast year? No Points 0 Interpretation Negative Problems Problem Type SNOMED Code ICD Code Onset Dates Problem Status W/U Status Risk Notes Problem Arthralgia of the pelvic region and thigh (785858128) Hip pain, acute, left (M25.552) Active confirmed Vital Signs Blood pressure systolic 130 mm Hg 04/16/20 25 Blood pressure diastolic 64 mm Hg 025 Height 71 in 04/16/2025 Weight 165.6 lbs 04/16/2025 BMI 23.09 kg/m2 04/16/2025 Encounters Encounter Location Date Provider Diagnosis [facility] [address] [place] [address] 04/16/2025 Armond Osborne Acute recurrent frontal sinusitis J01.11 ; Hip pain, acute, left M25.552 and Hoarseness R49.0 Assessments Encounter Date Diagnosis (ICD Code) Assessment Notes Treatment Notes Treatment Clinical Notes Section Notes 04/16/2025 Acute recurrent frontal sinusitis (ICD-10 - J01.11) 04/16/2025 Hip pain, acute, left (ICD-10 - M25.552) 04/16/2025 Hoarseness (ICD-10 - R49.0) Plan Of Treatment Pending Test Test Name Order Date CT HIP LEFT WO CONTRAST 04/16/2025 Referrals Referral Date Details 04/16/2025 04/16/2025, Joycelyn morejon Progress Notes * Kedar VENTURA GDOB:1950 (74 yo M)Acc No.[id number]:04/16/2025 Progress Note Patient: Kedar SALES Provider: Phyllis Osborne ([facility])MD :1950 A ge:74 Y S ex:Male Date:04/16/2025 Address:[address] [facility], [id number] Check In:08:43 AM ESTCheck O ut:09:46 AM EST Subjective: * Chief Complaints: * P resents to office alone for c/o PND x 5-6 weeks. Is losing voice and coughing a lotStill having on going left hip pain * HPI: G eneral: 6-7 weeks -clearing throat and losing voice - no ST - no fever hip pain also. * ROS: E ENT: hearing changes d enies. v isual changes d enies.?non-healing mouth sores d enies. s wollen glands or neck lumps d enies. h oarseness d enies. s ore throat d enies. d ifficulty swallowing d enies. n ose bleeds d enies. n mary congestion d enies. e ar ache d enies. e ar discharge?denies. r inging in ears d enies. l ight sensitivity d enies. e ye pain d enies. b lurring d enies. e ye irritation d enies. d ouble vision d enies.?vision loss d enies. G eneral/Constitutional: Sweats: D enies. F atigue d enies. S leep problems d enies. A norexia d enies. M alaise d enies. W eight loss d enies.?Fatigue or Weakness d enies. F ever or Chills d enies. C ardiovascular: Shortness of Breath w/lying flat d enies. L ightheadedness/dizziness d enies. C hest tightness/ heavy pressure d enies. S welling of legs, ankles, or feet d enies. W aking up with shortness of breath d enies. C hest pain denies. P alpitations d enies. W eight gain d enies. R espiratory: Chronic or frequent cough d enies. C oughing up blood?denies. D ifficulty breathing d enies. P roductive cough d enies. S noring?denies. S hortness of breath that awakens from sleep (PND) d enies. C hest pain d enies. S putum production d enies. W heezing d enies. M usculoskeletal: Joint pain d enies. J oint Fluid d enies. B ack pain d enies. K nee pain d enies. N jacquelin pain d enies. J oint Stiffness d enies. M uscle cramps d enies. W eakness of muscles d enies. A rthritis d enies. M uscle aches d enies. P ain in shoulder(s) d enies. S wollen joints d enies. * Active Problem List M25.541 Pain in joints of ri ght hand Modified On:11/12/2022U Status:confirmed M13.849 Other specified arth ritis, unspecified hand Modified On:11/12/2022U Status:confirmed E66.3 Over weight Modified On:11/12/2022U Status:confirmed M65.4 De Quervain's tenosy novitis, bilateral Modified On:11/12/2022U Status:confirmed K21.9 Gastro-esophageal re flux disease without esophagitis Modified On:11/12/2022 Status:confirmed J01.11 Acute recurrent fron faib sinusitis Modified On:07/21/2023 Status:confirmed I86.1 Varicocele Modified On:11/12/2022 Status:confirmed J30.2 Seasonal allergic rh initis Modified [...] a nd joints of left foot Modified On:11/09/2023W/U Status:confirmed G89.29 Other chronic pain Modified On:06/17/2023U Status:confirmed M21.6X2 Other acquired defor mities of left foot Modified On:06/17/2023U Status:confirmed I87.2 Venous insufficiency (chronic) (peripheral) Modified On:06/17/2023U Status:confirmed D17.9 Lipoma Modified On:09/27/2024/U Status:confirmed M54.50 Low back pain at mul tiple sites Modified On:11/17/2024/U Status:confirmed M25.552 Hip pain, acute, lef t Modified On:04/16/2025U Status:confirmed * Medical History: * Surgical History: R t Shoulder surgery * Hospitalization/Major Diagno stic Procedure: * Family History: F ather: . M other: , diagnosed with Diabetes mellitus without mention of complication, type II or unspecified type, not stated as uncontrolled, Unspecified essential hypertension. B rother(s): alive. 3 brother(s) - healthy. 1 son(s) . . * Social History: T obacco Use: T obacco Use/Smoking P atient is a n onsmoker D rug/Alcohol: A JUNE-C (Standard) D id you have a drink containing alcohol in the past year? N o P oints 0 I nterpretation N egative * Medications: T akingAllergy Relief(Loratadine) 10 MG Tablet 1 tablet Orally Once a day Dupixent(Dupilumab) 300 MG/2ML Solution Prefilled Syringe as directed Subcutaneous Esomeprazole Magnesium 40 MG Capsule Delayed Release TAKE 1 CAPSULE BY MOUTH EVERY DAY Fluticasone Propionate 50 MCG/ACT Suspension 1 spray in each nostril Nasally Once a day Irbesartan 300 MG Tablet TAKE 1 TABLET BY MOUTH EVERY DAY Simvastatin 40 MG Tablet TAKE 1 TABLET BY MOUTH EVERY DAY Taking Allergy Relief(Loratadine) 10 MG Tablet 1 tablet Orally Once a day Taking Dupixent(Dupilumab) 300 MG/2ML Solution Prefilled Syringe as directed Subcutaneous Taking Esomeprazole Magnesium 40 MG Capsule Delayed Release TAKE 1 CAPSULE BY MOUTH EVERY DAY Taking Fluticasone Propionate 50 MCG/ACT Suspension 1 spray in each nostril Nasally Once a day Taking Irbesartan 300 MG Tablet TAKE 1 TABLET BY MOUTH EVERY DAY Taking Simvastatin 40 MG Tablet TAKE 1 TABLET BY MOUTH EVERY DAY DiscontinuedMeloxicam 15 MG Tablet 1 tablet Orally Once a day tiZANidine HCl 4 MG Tablet 2 tabs Orally qhs Medication List reviewed and reconciled with the patientDiscontinued Meloxicam 15 MG Tablet 1 tablet Orally Once a day Discontinued tiZANidine HCl 4 MG Tablet 2 tabs Orally qhs Medication List reviewed and reconciled with the patient * Allergies: P enicillinno[Allergies Verified] Objective: * Vitals: W t:165.6lbs, Ht: 71 in, BP:130/64mm Hg, BMI:23.09Index, Ht-cm: 180.34 cm, Wt-k.12 kg. * Examination: P hysical Exam: GENERAL: w ell developed, well nourished, in no acute distress. HEAD: n ormocephalic/atraumatic. EYES: p upils equal, round and reactive to light, conjunctivae and sclerae normal. EARS: n o deformity or lesion of external ear, canals and TM appear normal bilaterally, TM's intact, not inflamed with normal light reflex, hearing grossly normal to conversational speech. NOSE: n o deformity, discharge, inflammation, or lesions.? MOUTH: m ucous membranes moist, normal oropharynx and posterior pharynx without lesions or exudates, tongue normal, dentition normal. NECK: n jacquelin supple, no masses or palpable cervical nodes, trachea midline, thyroid without nodules, masses, tenderness, or enlargement. CHEST: n o chest wall deformity, no chest wall tenderness.? LUNGS: n ormal respiratory effort and clear to auscultation, no wheezes, rales, or rhonchi, good air exchange. CARDIO: r egular rate and rhythm, normal S1 and S2, nor murmur, rub, or gallop. PULSES: n ormal capillary refill. ABDOMEN: s oft, non-distended, non-tender, no masses. MUSCULOSKELETAL: n o deformity or scoliosis noted, normal range of motion, joints normal, no erythema, edema, effusion, or ecchymosis. EXTREMITY: n o clubbing, cyanosis, edema, or deformity with normal ROM in both upper and lower bilateral extremities. NEUROLOGIC: g rossly normal. SKIN: n o rashes, ulcerations, or suspicious lesions. LYMPH NODES: n o cervical adenopathy, nodes normal. MENTAL STATUS: a lert and oriented x3, normal mood and affect. Assessment: * Assessment: 1. A cute recurrent frontal sinusitis - J01.11 (Primary) 2 . H ip pain, acute, left - M25.552 3 . H oarseness - R49.0 Plan: * Treatment: 2. H ip pain, acute, left I maging: CT HIP LEFT WO CONTRAST 3. H oarseness Referral To:Joycelyn Christine Otolaryng[facility] Reason: * Procedure Codes: * Preventive Medicine: Screenings/Counseling: F ALL RISK SCREENING Fall Risk Assessment: N o falls in the past year * * Sign off status: Completed Visit Status: C HK (Check Out) true * Provider: Phyllis Osborne ([facility])MD Date: 04/16/2025 Generated for Printi ng/Faxing/eTransmitting on: 04/19/2025 02:06 PM EDT History and Physical Notes * HPI (History of Present Illness) Category Sub-Category Detail Notes Category Not es General 6-7 weeks -clearing throat and losing voice - no ST - no fever hip pain also Examination Category Sub-Category Detail Notes Category Not es Physical Exam GENERAL: well developed, well nourished, in no acute distress HEAD: normocephalic/atraum atic EYES: pupils equal, round and reactive to light, conjunctivae and sclerae normal EARS: no deformity or lesi on of external ear, canals and TM appear normal bilaterally, TM's intact, not inflamed with normal light reflex, hearing grossly normal to conversational speech NOSE: no deformity, discha rge, inflammation, or lesions MOUTH: mucous membranes donna st, normal oropharynx and posterior pharynx without lesions or exudates, tongue normal, dentition normal NECK: neck supple, no mass es or palpable cervical nodes, trachea midline, thyroid without nodules, masses, tenderness, or enlargement CHEST: no chest wall deform ity, no chest wall tenderness LUNGS: normal respiratory e ffort and clear to auscultation, no wheezes, rales, or rhonchi, good air exchange CARDIO: regular rate and rhy thm, normal S1 and S2, nor murmur, rub, or gallop PULSES: normal capillary ref ill ABDOMEN: soft, non-distended, non-tender, no masses RECTAL: MUSCULOSKELETAL: no deformity or scol iosis noted, normal range of motion, joints normal, no erythema, edema, effusion, or ecchymosis EXTREMITY: no clubbing, cyanosi s, edema, or deformity with normal ROM in both upper and lower bilateral extremities NEUROLOGIC: grossly normal SKIN: no rashes, ulceratio ns, or suspicious lesions LYMPH NODES: no cervical adenopat hy, nodes normal MENTAL STATUS: alert and oriented x 3, normal mood and affect Consultation Request Notes Referral Date Referring Provider Referred Provider Not es 04/16/2025 Armond Osborne Hilary
--- OUTSIDE RECORDS SUMMARY | 2025-04-16 06:19 | XMS_ITS ---
Author Organization [facility] [place] Address [address] [place] [address] Care Team Providers Care Polo Coach Name Role Phone NeydaArmond Primary Care Provider REASON FOR VISIT right knee Medications Medication SIG (Take, Route, Fr equency, Duration) Notes Start Date End Date Status Meloxicam 15 MG 1 tablet Orally Once a day for 30 days 04/16/2025 Active Encounters Encounter Location Date Provider Diagnosis [facility] [address] [place] [address] 04/16/2025 Armond Faye Plan Of Treatment Medication Medication Name Sig Start Date Stop Date Notes Meloxicam 15 MG 1 tablet Orally Once a day for 30 days 03/2025 Progress Notes * Mitchell VENTURA GDOB:1950 (74 yo M)Acc No.[id number]:04/16/2025 Patient: Lucille Mitchell HULL :1950 A ge:74 Y S ex:Male Address:[address] [place], [address] * Refills Start Meloxicam Tablet, 15 MG, Orally, 30 Tablet, 1 tablet, Once a day, 30 days, Refills=11 * true * Date: Generated for Mohani ng/Faxing/eTransmitting on: 0 04/19/2025 02:07 PM EDT
--- OUTSIDE RECORDS SUMMARY | 2025-04-16 15:28 | XMS_ITS ---
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 Assessments Encounter Date Diagnosis (ICD Code) Assessment Notes Treatment Notes Treatment Clinical Notes Section Notes 04/16/2025 Mucocele of nasal sinus (ICD-10 - J34.1) Plan Of Treatment Pending Test Test Name Order Date CT sinus w con 04/16/2025 Progress Notes * Mitchell VENTURA GDOB:1950 (74 yo M)Acc No.[id number]:04/16/2025 Patient: Lucille Mitchell HULL :1950 A ge:74 Y S ex:Male Address:[address] [place], [address] Subjective: * Chief Complaints: * M ucocele- CT ordered * Medical History: * Surgical History: * Hospitalization/Major Diagno stic Procedure: * Medications: Objective: * Vitals: * Physical Examination: Assessment: * Assessment: 1. 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
--- NOTE | 2025-04-19 14:06 | CT_ITS ---
The [address] [address] Patient Name: KEDAR VENTURA MRN: [id number] date: 1950 Sex: M Assigned Patient Location: CT Current Patient Location: CT Accession/Order Number: [id number] Exam Date: 04/19/2025 14:18 Report Date: 04/19/2025 15:53 At the request of: ADAMA OSBORNE MD Procedure: CT hip LT wo con CT left hip without contrast TECHNIQUE: The CT exam was performed using one or more the following dose reduction techniques: Automated exposure control, adjustment of the MA and/or Kv according to patient size, or use of the iterative reconstruction technique. COMPARISON: Plain film imaging 03/14/2025 HISTORY: Left hip pain. No injury. 5 weeks' duration. Adequate alignment. No acute displaced fracture. Adequate left hip joint space. Decreased bony mineralization. No soft tissue abnormality. Unremarkable musculature. Atherosclerosis. No subcutaneous abnormality. CT/CT hip LT wo con IMPRESSION: Mild left hip degeneration. Decreased bony mineralization. Impression dictated by: Tino Swartz M.D. 04/19/2025 3:53 PM Dictation Location: [place] [address] Electronically authenticated by: [id number] Y Date: 04/19/2025 15:53
--- OUTSIDE RECORDS SUMMARY | 2025-04-19 14:06 | XMS_ITS | Clinical Summary ---
Author Organization [facility] Address [address] [facility], [address] [place] [address] Care Team Providers Care Water Mechanic Name Role Phone Marshall Faye MD Primary Care Provider [phone] Allergies Active Allergy Reactions Criticality Noted Date Comments Penicillins Rash Low 10/15/2022 Medications aspirin 81 MG EC tablet Take 81 mg by mouth daily Active dupilumab (DUPIXENT) 300 MG/2ML SOPN injection Inject 300 mg into the skin every 14 days Active montelukast (SINGULAIR) 10 MG tablet Take 10 mg by mouth nightly Active fluticasone (FLONASE) 50 MCG/ACT nasal spray 1 spray by Each Nostril route 2 times daily as needed Active diclofenac (VOLTAREN) 75 MG EC tablet Take 75 mg by mouth 2 times daily Active simvastatin (ZOCOR) 40 MG tablet Take 40 mg by mouth nightly Active irbesartan (AVAPRO) 300 MG tablet Take 300 mg by mouth nightly Active cetirizine (ZYRTEC) 10 MG tablet Take 20 mg by mouth daily Active esomeprazole Magnesium (NEXIUM) 40 MG PACK Take 40 mg by mouth daily Active Hospital, Clinic, or Other Facility Administered Medication Ordered Dose Route Frequency Start Date End Date Status dexamethasone (DECADRON) injection 4 mg 4 mg OTHER ONCE 10/15/2022 Active Family History Medical History Relation Name Comments Stroke Father Hypertension Mother Relation Name Status Comments Father Mother Social History Tobacco Use Types Packs/Day Years Used Date Smoking Tobacco: Former Cigarettes Q uit: 1973 Smokeless Tobacco: Never Tobacco Cessation:Counseling Given: Not Answered Comments:Only smoked for about a year Alcohol Use Standard Drinks/Week Comments Never 0 (1 standard drink = 0.6 oz pur e alcohol) Sex and Gender Information Value Date Recorded Sex Assigned at Not on file Legal Sex Male 3:54 PM EST Gender Identity Not on file Sexual Orientation Not on file Last Filed Vital Signs Vital Sign Reading Time Taken Comments Blood Pressure 133/69 10/15/2022 8:57 AM EST Pulse 82 10/15/2022 8:57 AM EST Temperature 36.6 C (97.8 F) 10/15/2022 8:57 AM EST Respiratory Rate 18 10/15/2022 8:57 AM EST Oxygen Saturation - - Inhaled Oxygen Concentration - - Weight 86.5 kg (190 lb 12.8 oz) 10/15/2022 8:57 AM EST Height 180.3 cm (5' 11 ) 10/15/2022 8:57 AM EST Body Mass Index 26.61 10/15/2022 8:57 AM EST Plan of Treatment Health Maintenance Due Date Last Done Comments Lipids 1958 Depression Screen 1960 Hepatitis C screen 1966 DTaP/Tdap/Td vaccine (1 - Tdap) 1967 Shingles vaccine (1 of 2) 1998 Pneumococcal 50+ years Vacci ne (2 of 2 - PCV20 or PCV21) 06/24/2018 06/24/2017 Respiratory Syncytial Virus (RSV) or age 60 yrs+ (1 - 1-dose 75+ series) 2023 Annual Wellness Visit (Medicare Advantage) 08/09/2024 Flu vaccine (#1) 03/09/2025 06/05/2022, 05/08/2020, 05/25/2018 COVID-19 Vaccine (2024-2 6 season) 2025 07/07/2021, 11/02/2020, 10/05/2020 Hepatitis A vaccine Aged Out No longe r eligible based on patient's age to complete this topic Hepatitis B vaccine Aged Out No longe r eligible based on patient's age to complete this topic Hib vaccine Aged Out No longer eligi ble based on patient's age to complete this topic Meningococcal (ACWY) vaccine Aged Out No longer eligible based on patient's age to complete this topic Meningococcal B vaccine Aged Out No l onger eligible based on patient's age to complete this topic Polio vaccine Aged Out No longer elig ible based on patient's age to complete this topic Insurance [employer] MEDICARE Care Teams Water Mechanic Relationship Specialty Start Date End Date Marshall Faye MD [address] [place] [address] PCP - General Family Medicine 10/08/22
--- OUTSIDE RECORDS SUMMARY | 2025-04-19 14:06 | XMS_ITS | Patient Health Record ---
Author Organization [facility] in [place] Address [address] [place] [address] Care Team Providers Care Iron Assorter Name Role Phone Armond Faye Primary Care Provider Allergies Allergen (clinical drug ingredient) Drug/Non Drug Allergy documented on EMR Reaction Allergy Type Onset Date Status Penicillin Unknown Drug Allergy Active Results Component Value Reference Range Notes UA DIP NONAUTO WO MICRO (810 02) - IN OFFICE Reviewed date:03/14/2025 04:02:19 PM Interpretation: Performing Lab: Notes/Report: COLOR Yellow CLARITY Clear GLUCOSE Neg BILIRUBIN Neg KETONE Neg SPECIFIC GRAVITY 1.010 BLOOD Neg PH 6 PROTEIN Neg UROBILINOGEN Neg NITRITE Neg LEUKOCYTE ESTERASE Neg CT sinus wo con Reviewed date:04/20/2024 09:30:45 PM Interpretation: Performing Lab: Notes/Report: Source Facility: [place] [address] [place] [address] CT Scan Report Signed Patient: KEDAR NÚÑEZ MR#: [id number] : 1950 Acct:[id number] Age/Sex: 73 / M ADM Date: 04/20/24 Loc: CT Attending Dr: Cady-Staff Physician Daivla Ordering Physician: Baudilio Hernandez M.D. Date of Service: 04/20/24 Procedure(s): CT sinus wo con Accession Number(s): [id number] cc: Adama Faye M.D. [place] [address] Patient Name: KEDAR NÚÑEZ MRN: [facility]:[id number] date: 1950 Sex: M Assigned Patient Location: CT Current Patient Location: CT Accession/Order Number: [id number] Exam Date: 04/20/2024 08:35 Report Date: 04/20/2024 10:34 At the request of: NON-STAFF PHYSICIAN Procedure: CT sinus wo con CT sinus wo con, 04/20/2024 8:35 AM EDT INDICATION: Benign Neoplasm Of Frontal Sinus COMPARISON: Prior CT of the sinuses dated 03/19/2023 and 09/16/2022 TECHNIQUE: Axial images of 1 mm were obtained from the base of the skull to vertex without contrast with coronal and sagittal reconstruction. Dose reduction techniques were achieved by using automated exposure control and/or adjustment of mA and/or kV according to patient size and/or use of iterative reconstruction technique. FINDINGS: There is an lesion within the right frontal sinus measuring approximately 1 x 0.6 x 1.5 cm (transverse, AP, CC) unchanged since prior studies. 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 No periosteal reaction or bone lysis is noted. The remainder of paranasal sinuses are clear. There is bilateral pneumatization of the supraorbital anterior ethmoidal air cells. The frontal and sphenoethmoidal recesses are patent. No abnormality of bilateral maxillary ostium and ethmoidal infundibulum is noted. The lamina papyracea is unremarkable bilaterally. No Linh bullosa is noted. There is a septal deviation to left side. There is small left nasal spur. The carotid arteries have normal intracranial pathway. The fovea ethmoidalis is mildly asymmetrical. No pneumatization of anterior clinoid process is noted. The olfactory fossa measures 5 mm right and 6 mm on the left . r There is no suspicious osteolytic or osteoblastic lesion. The visualized portions of orbits and mastoid air cells are unremarkable. No suprahyoid lymphadenopathy is noted. There is status post bilateral lens replacement. 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 No other significant abnormality is noted. Electronically authenticated by: ELIZABETH COOPER Date: 04/20/2024 10:34 Dictated By: Elizabeth Cooper M.D. Signed By: 04/20/24 1037 DD/ 1034 TD/TT: Camp Guard: The [address] [address] [address] Scan Report Signed Patient: KEDAR NÚÑEZ MR#: [id number] : 1950 Acct:[id number] Age/Sex: 73 / M ADM Date: 04/20/24 Loc: CT Attending Dr: Annita Hernandez M.D. Ordering Physician: Baudilio Hernandez M.D. Date of Service: 04/20/24 Procedure(s): CT sinus wo con Accession Number(s): [id number] cc: Adama Faye M.D. [address] [address] Patient Name: KEDAR NÚÑEZ MRN: [id number] date: 1950 Sex: M Assigned Patient Location: CT Current Patient Location: CT Accession/Order Numb er: [id number] Exam Date: 04/20/2024 08:35 Report Date: 04/20/2024 10:34 At the request of: NON-STAFF PHYSICIAN Procedure: CT sinus wo con CT sinus wo con, 04/09 8:35 AM EDT INDICATION: Benign N eoplasm Of Frontal Sinus COMPARISON: Prior CT of the sinuses dated 03/19/2023 and 09/16/2022 TECHNIQUE: Axial jass ges of 1 mm were obtained from the base of the skull to vertex without contr ast with coronal and sagittal reconstruction. Dose reduction techn iques were achieved by using automated exposure control and/or adjustment of mA and/or kV according to patient size and/or use of iterative reconstruc tion technique. FINDINGS: There is an lesion w ithin the right frontal sinus measuring approximately 1 x 0.6 x 1.5 cm (transv erse, AP, CC) unchanged since prior studies. 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 No periosteal reaction or bone lysis is noted. The remainder of par anasal sinuses are clear. There is bilateral pneumatization of the supraorbital anterior ethmoidal air cells. The frontal and sphe noethmoidal recesses are patent. No abnormality of bi lateral maxillary ostium and ethmoidal infundibulum is noted. The lamina papyracea is unremarkable bilaterally. No Linh bullosa is noted. There is a septal de viation to left side. There is small left nasal spur. The carotid arteries have normal intracranial pathway. The fovea ethmoidali s is mildly asymmetrical. No pneumatization of anterior clinoid process is n oted. The olfactory fossa measures 5 mm right and 6 mm on the left . r There is no suspicio us osteolytic or osteoblastic lesion. The visualized portions of orbits a nd mastoid air cells are unremarkable. No suprahyoid lympha denopathy is noted. There is status post bilateral lens replacement. C T/CT sinus wo con IMPRESSION: Stable frontal lesio n most likely consistent with a mucocele. No other significant abnormal ity is noted. Electronically authe nticated by: ELIZABETH COOPER Date: 04/20/2024 10:34 Dictated By: Elizabeth Cooper M.D. Signed By: 04/20/24 1037 DD/ 1034 TD/TT: [employer]: US chest Reviewed date:10/15/2024 10:10:16 AM Interpretation: Performing Lab: Notes/Report: Source Facility: [place] [address] [place] [address] Ultrasound Report Signed Patient: KEDAR NÚÑEZ MR#: [id number] : 1950 Acct:[id number] Age/Sex: 74 / M ADM Date: 10/12/24 Loc: US Attending Dr: Mario Alberto Schroeder M.D. Ordering Physician: Mario Alberto Schroeder M.D. Date of Service: 10/12/24 Procedure(s): US chest Accession Number(s): [id number] cc: Adama Faye M.D.; Mario Alberto Schroeder M.D. [place] [address] Patient Name: KEDAR NÚÑEZ MRN: [id number] date: 1950 Sex: M Assigned Patient Location: US Current Patient Location: US Accession/Order Number: [id number] Exam Date: 10/12/2024 23:02 Report Date: 10/12/2024 23:03 At the request of: MARIO ALBERTO SCHROEDER MD Procedure: US chest Soft tissue ultrasound. Reason for exam: Palpable lump right mid back. COMPARISON: None. TECHNIQUE: Grayscale and color Doppler images of the area of concern were obtained. FINDINGS: In the area palpable lump involving the right mid back, a hyperechoic mass is noted measuring 1.9 x 1.8 x 1.4 cm suspicious for lipoma. US/US chest IMPRESSION: A presumed lipoma is seen in the area of lump involving the right mid back measuring 1.9 x 1.8 x 1.4 cm. Impression dictated by: Sampson Garcia Jr. DSriramOSriram10/12/2024 11:03 PM Dictation Location: [place] [address] Electronically authenticated by: [id number] Y Date: 10/12/2024 23:03 Dictated By: Sampson Garcia M.D. Signed By: 10/12/242305 DD/ 02 TD/TT: Camp Guard: [place] [address] Ultrasound Report Signed Patient: KEDAR NÚÑEZ MR#: [id number] : 1950 Acct:[id number] Age/Sex: 74 / M ADM Date: 10/12/24 Loc: Attending Dr: Mario Alberto Schroeder M.D. Ordering Physician: Mario Alberto Schroeder M.D. Date of Service: 10/12/24 Procedure(s): US chest Accession Number(s): [id number] cc: Adama Faye M.D. ; Mario Alberto Schroeder M.D. [place] [address] Patient Name: KEDAR NÚÑEZ MRN: [id number] date: 1950 Sex: M Assigned Patient Location: US Current Patient Location: US Accession/Order Numb er: [id number] Exam Date: 10/12/2024 23:02 Report Date: 10/12/2024 23:03 At the request of: MARIO ALBERTO SCHROEDER MD Procedure: US chest Soft tissue ultrasound. Reason for exam: Pal pable lump right mid back. COMPARISON: None. TECHNIQUE: Grayscale and color Doppler images of the area of concern were obtained. FINDINGS: In the are a palpable lump involving the right mid back, a hyperechoic mass is noted measuring 1.9 x 1.8 x 1.4 cm suspicious for lipoma. US/US chest IMPRESSION: A presum ed lipoma is seen in the area of lump involving the right mid back measuring 1 .9 x 1.8 x 1.4 cm. Impression dictated by: Sampson Garcia Jr., D.O.10/12/2024 11:03 PM Dictation Location: [place] [address] Electronically authe nticated by: [id number] Y Date: 10/12/2024 23:03 Dictated By: Sampson Trejo i, M.D. Signed By: 10/12/242305 DD/ 02 TD/TT: [employer]: XR lumbar spine min 4V Reviewed date:11/17/2024 03:18:15 PM Interpretation: Performing Lab: Notes/Report: Source Facility: [place] [address] XRay Report Signed Patient: KEDAR NÚÑEZ MR#: [id number] : 1950 Acct:[id number] Age/Sex: 74 / M ADM Date: 11/17/24 Loc: LAB Attending Dr: Adama Faye M.D. Ordering Physician: Adama Faye M.D. Date of Service: 11/17/24 Procedure(s): XR lumbar spine min 4V Accession Number(s): [id number] cc: Adama Faye M.D. [place] [id number] Patient Name: KEDAR NÚÑEZ MRN: [id number] date: 1950 Sex: M Assigned Patient Location: LAB Current Patient Location: LAB Accession/Order Number: [id number] Exam Date: 11/17/2024 14:59 Report Date: 11/17/2024 15:07 At the request of: ADAMA FAYE MD Procedure: XR lumbar spine min 4V LUMBAR SPINE -5 views: CLINICAL HISTORY: Low Back Pain COMPARISON: CT 07/15/2021 AP, lateral lumbar and lumbosacral and both oblique views views were obtained. 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 There is osteopenia. There is no evidence of fracture. There is no prominent displacement within limits of positioning on the lateral views. There is disc space narrowing at the lumbosacral junction. Mild endplate spurring is present, greater proximally. There is lower lumbar facet hypertrophy. No pars defect is identified. The sacroiliac joints are maintained. There are no paraspinal soft tissue abnormalities. XR/XR lumbar spine min 4V IMPRESSION: OSTEOPENIA AND MILD DEGENERATIVE CHANGES. NO ACUTE BONY FINDINGS. Impression dictated by: Leighann Page M.D.11/17/2024 3:07 PM Dictation Location: [place] [address] Electronically authenticated by: [id number] Y Date: 11/17/2024 15:07 Dictated By: Leighann Page M.D. Signed By: 11/17/24 1510 DD/ 1507 TD/TT: Camp Guard: [address] [address] XRay Report Signed Patient: KEDAR NÚÑEZ MR#: [id number] : 1950 Acct:[id number] Age/Sex: 74 / M ADM Date: 11/17/24 Loc: LAB Attending Dr: Adama Faye M.D. Ordering Physician: Adama Faye M.D. Date of Service: 11/17/24 Procedure(s): XR lum bar spine min 4V Accession Number(s): [id number] cc: Admaa Faye M.D. [address] [address] Patient Name: KEDAR NÚÑEZ MRN: [id number] date: 1950 Sex: M Assigned Patient Location: LAB Current Patient Location: LAB Accession/Order Numb er: [id number] Exam Date: 11/17/2024 14:59 Report Date: 11/17/2024 15:07 At the request of: ADAMA FAYE MD Procedure: XR lumbar spine min 4V LUMBAR SPINE -5 views: CLINICAL HISTORY: Low Back Pain COMPARISON: CT 07/15/2021 AP, lateral lumbar a nd lumbosacral and both oblique views views were obtained. The study is read wi th the assumption there are hypoplastic 12th ribs and partial sacralizatio n of L5 on the left. There is osteopenia. There is no evidence of fracture . There is no prominent displacement within limits of positioning on the l ateral views. There is disc space narrowing at the lumbosacral junction . Mild endplate spurring is present, greater proximally. There is lower lumba r facet hypertrophy. No pars defect is identified. The sacroiliac joints ar e maintained. There are no paraspinal soft tissue abnormalities. X R/XR lumbar spine min 4V IMPRESSION: OSTEOPENIA AND MILD DEGENERATIVE CHANGES. NO ACUTE BONY FINDINGS. Impression dictated by: Leighann Page M.D.11/17/2024 3:07 PM Dictation Location: [place] [address] Electronically authe nticated by: [id number] Y Date: 11/17/2024 15:07 Dictated By: Leighann Page M.D. Signed By: 11/17/24 1510 DD/ 1507 TD/TT: [employer]: XR hip BI w PEL 1V Reviewed date:11/17/2024 03:18:15 PM Interpretation: Performing Lab: Notes/Report: Source Facility: [place] [address] [place] [address] XRay Report Signed Patient: KEDAR NÚÑEZ MR#: [id number] : 1950 Acct:[id number] Age/Sex: 74 / M ADM Date: 11/17/24 Loc: LAB Attending Dr: Adama Faye M.D. Ordering Physician: Adama Faye M.D. Date of Service: 11/17/24 Procedure(s): XR hip BI w PEL 1V Accession Number(s): [id number] cc: Adama Faye M.D. [address] [address] Patient Name: KEDAR NÚÑEZ MRN: [id number] date: 1950 Sex: M Assigned Patient Location: LAB Current Patient Location: LAB Accession/Order Number: [id number] Exam Date: 11/17/2024 15:06 Report Date: 11/17/2024 15:09 At the request of: ADAMA FAYE MD Procedure: XR hip BI w PEL 1V 2 views both hips with single view pelvis plain film COMPARISON: None HISTORY: Low back pain. ACUTE FINDINGS: None DEGENERATIVE CHANGE: Unremarkable hips. Unremarkable SI joints and lower lumbar spine. SOFT TISSUE FINDINGS: Unremarkable JOINT EFFUSION: None POSTOP CHANGES: None BONY MINERALIZATION: Adequate XR/XR hip BI w PEL 1V IMPRESSION: No acute bony findings or significant degeneration. Impression dictated by: Tino Swartz M.D.11/17/2024 3:09 PM Dictation Location: [place] [address] Electronically authenticated by: [id number] Y Date: 11/17/2024 15:09 Dictated By: Tino Swartz D.O. Signed By: 11/17/24 1512 DD/ 1509 TD/TT: Camp Guard: [place] [address] XRay Report Signed Patient: KEDAR NÚÑEZ MR#: [id number] : 1950 Acct:[id number] Age/Sex: 74 / M ADM Date: 11/17/24 Loc: LAB Attending Dr: Aadma Faye M.D. Ordering Physician: Adama Faye M.D. Date of Service: 11/17/24 Procedure(s): XR hip BI w PEL 1V Accession Number(s): [id number] cc: Adama Faye M.D. [address] [address] Patient Name: KEDAR NÚÑEZ MRN: [id number] date: 1950 Sex: M Assigned Patient Location: LAB Current Patient Location: LAB Accession/Order Numb er: [id number] Exam Date: 11/17/2024 15:06 Report Date: 11/17/2024 15:09 At the request of: ADAMA FAYE MD Procedure: XR hip BI w PEL 1V 2 views both hips wi th single view pelvis plain film COMPARISON: None HISTORY: Low back pain. ACUTE FINDINGS: None DEGENERATIVE CHANGE: Unremarkable hips. Unremarkable SI joints and lower lumbar spine. SOFT TISSUE FINDINGS : Unremarkable JOINT EFFUSION: None POSTOP CHANGES: None BONY MINERALIZATION: Adequate X R/XR hip BI w PEL 1V IMPRESSION: No acute bony findings or significant degeneration. Impression dictated by: Tino Swartz M.D.11/17/2024 3:09 PM Dictation Location: [facility] Electronically authe nticated by: [id number] Y Date: 11/17/2024 15:09 Dictated By: Tino Swartz D.O. Signed By: 11/17/24 1512 DD/ 1509 TD/TT: [employer]: XR hip LT 2V w/ pelvis Reviewed date:03/15/2025 09:59:57 PM Interpretation: Performing Lab: Notes/Report: Source Facility: [place] [address] XRay Report Signed Patient: KEDAR NÚÑEZ MR#: [id number] : 1950 Acct:[id number] Age/Sex: 74 / M ADM Date: 03/14/25 Loc: RAD Attending Dr: Adama Faye M.D. Ordering Physician: Adama Faye M.D. Date of Service: 03/14/25 Procedure(s): XR hip LT 2V w/ pelvis Accession Number(s): [id number] cc: Adama Faye M.D. [place] [address] Patient Name: KEDAR NÚÑEZ MRN: [id number] date: 1950 Sex: M Assigned Patient Location: RAD Current Patient Location: RAD Accession/Order Number: [id number] Exam Date: 03/14/2025 18:14 Report Date: 03/14/2025 18:15 At the request of: ADAMA FAYE MD Procedure: XR hip LT 2V w/ pelvis Single view pelvis 2 views left hip INDICATION: Acute left hip pain COMPARISON: 11/17/2024 FINDINGS: Mild degenerative changes both hips. Mild degenerative changes of sacral joints. No evidence acute fracture or dislocation. Soft tissues unremarkable. Phleboliths. XR/XR hip LT 2V w/ pelvis IMPRESSION: Mild degenerative change. Negative acute osseous abnormality. Impression dictated by: Krishna Henry M.D. 03/14/2025 6:15 PM Dictation Location: [place] [address] Electronically authenticated by: [id number] Y Date: 03/14/2025 18:15 Dictated By: Krishna Henry M.D. Signed By: 03/14/251816 DD/ 14 TD/TT: Camp Guard: [place] [address] XRay Report Signed Patient: KEDAR NÚÑEZ MR#: [id number] : 1950 Acct:[id number] Age/Sex: 74 / M ADM Date: 03/14/25 Loc: [facility] Attending Dr: Adama Faye M.D. Ordering Physician: Adama Faye M.D. Date of Service: 03/14/25 Procedure(s): XR hip LT 2V w/ pelvis Accession Number(s): [id number] cc: Adama Faye M.D. [place] [address] Patient Name: KEDAR NÚÑEZ MRN: [id number] date: 1950 Sex: M Assigned Patient Location: RAD Current Patient Location: [facility] Accession/Order Numb er: [id number] Exam Date: 03/14/2025 18:14 Report Date: 03/14/2025 18:15 At the request of: ADAMA FAYE MD Procedure: XR hip LT 2V w/ pelvis Single view pelvis 2 views left hip INDICATION: Acute left hip pain COMPARISON: 11/17/2024 FINDINGS: Mild degen erative changes both hips. Mild degenerative changes of sacral joints. No ev idence acute fracture or dislocation. Soft tissues unremarkable. Phleboliths. X R/XR hip LT 2V w/ pelvis IMPRESSION: Mild deg enerative change. Negative acute osseous abnormality. Impression dictated by: Krishna Henry M.D. 03/14/2025 6:15 PM Dictation Location: [place] [address] Electronically authe nticated by: [id number] Y Date: 03/14/2025 18:15 Dictated By: Krishna Henry M.D. Signed By: 03/14/251816 DD/ 14 TD/TT: [employer]: XR lumbar spine min 4V Reviewed date:03/15/2025 09:59:57 PM Interpretation: Performing Lab: Notes/Report: Source Facility: [place] [address] XRay Report Signed Patient: KEDAR NÚÑEZ MR#: [id number] : 1950 Acct:[id number] Age/Sex: 74 / M ADM Date: 03/14/25 Loc: [facility] Attending Dr: Admaa Faye M.D. Ordering Physician: Adama Faye M.D. Date of Service: 03/14/25 Procedure(s): XR lumbar spine min 4V Accession Number(s): [id number] cc: Adama Faye M.D. [place] [address] Patient Name: KEDAR NÚÑEZ MRN: [id number] date: 1950 Sex: M Assigned Patient Location: [facility] Current Patient Location: [facility] Accession/Order Number: [id number] Exam Date: 03/14/2025 18:05 Report Date: 03/14/2025 18:10 At the request of: ADAMA FAYE MD Procedure: XR lumbar spine min 4V LUMBAR SPINE - 5 views CLINICAL HISTORY: M25.552 Hip pain, acute, left COMPARISON: 11/17/2024 FINDINGS: L4-5 disc space level of iliac crest. No fracture malalignment. Moderate facet arthropathy L5-S1 lumbarization of S1 noted with rudimentary disc at S1/2. Minimal retrolisthesis L2 on L3 5 mm. Otherwise moderate degenerative changes L1-L2. Moderate severe degenerative changes T12-L1. Mild degenerative changes remaining disc levels. XR/XR lumbar spine min 4V IMPRESSION: NO ACUTE BONY INJURY. [id number] DEGENERATIVE CHANGE. Impression dictated by: Krishna Henry M.D. 03/14/2025 6:10 PM Dictation Location: [place] [address] Electronically authenticated by: [id number] Y Date: 03/14/2025 18:10 Dictated By: Krishna Henry M.D. Signed By: 03/14/251812 DD/ 09 TD/TT: Camp Guard: [place] [address] XRay Report Signed Patient: KEDAR NÚÑEZ MR#: [id number] : 1950 Acct:[id number] Age/Sex: 74 / M ADM Date: 03/14/25 Loc: RAD Attending Dr: Adama Faye M.D. Ordering Physician: Adama Faye M.D. Date of Service: 03/14/25 Procedure(s): XR lum bar spine min 4V Accession Number(s): [id number] cc: Adama Faye M.D. [place] [address] Patient Name: KEDAR NÚÑEZ MRN: [id number] date: 1950 Sex: M Assigned Patient Location: [facility] Current Patient Location: RAD Accession/Order Numb er: [id number] Exam Date: 03/14/2025 18:05 Report Date: 03/14/2025 18:10 At the request of: ADAMA FAYE MD Procedure: XR lumbar spine min 4V LUMBAR SPINE - 5 views CLINICAL HISTORY: M2 5.552 Hip pain, acute, left COMPARISON: 11/17/2024 FINDINGS: L4-5 disc space leve l of iliac crest. No fracture malalignment. Moderate facet arthropathy L5 -S1 lumbarization of S1 noted with rudimentary disc at S1/2. Minimal retrol isthesis L2 on L3 5 mm. Otherwise moderate degenerative changes L1-L2. Moder ate severe degenerative changes T12-L1. Mild degenerative changes remaining disc levels. X R/XR lumbar spine min 4V IMPRESSION: NO ACUTE BONY INJURY . [id number] DEGENERATIVE CHANGE. Impression dictated by: Krishna Henry M.D. 03/14/2025 6:10 PM Dictation Location: [place] [address] Electronically authe nticated by: [id number] Y Date: 03/14/2025 18:10 Dictated By: Krishna Henry M.D. Signed By: 03/14/251812 DD/ 09 TD/TT: [employer]: XR sinus min 3V Reviewed date:04/16/2025 07:29:21 PM Interpretation: Performing Lab: Notes/Report: Source Facility: [place] [address] XRay Report Signed Patient: KEDAR NÚÑEZ MR#: [id number] : 1950 Acct:[id number] Age/Sex: 74 / M ADM Date: 04/16/25 Loc: [facility] Attending Dr: Adama Faye M.D. Ordering Physician: Adama Faye M.D. Date of Service: 04/16/25 Procedure(s): XR sinus min 3V Accession Number(s): [id number] cc: Adama Faye M.D. [place] [address] Patient Name: KEDAR NÚÑEZ MRN: [id number] date: 1950 Sex: M Assigned Patient Location: [facility] Current Patient Location: [facility] Accession/Order Number: [id number] Exam Date: 04/16/2025 10:00 Report Date: 04/16/2025 10:38 At the request of: ADAMA FAYE MD Procedure: XR sinus min 3V PARANASAL [...] Page M.D. 04/16/2025 10:38 AM Dictation Location: [place] [address] Electronically authenticated by: [id number] Y Date: 04/16/2025 10:38 Dictated By: Leighann Page M.D. Signed By: 04/16/25 1041 DD/ 1038 TD/TT: Camp Guard: [place] [address] XRay Report Signed Patient: KEDAR NÚÑEZ MR#: [id number] : 1950 Acct:[id number] Age/Sex: 74 / M ADM Date: 04/16/25 Loc: [facility] Attending Dr: Adama Faye M.D. Ordering Physician: Adama Faye M.D. Date of Service: 04/16/25 Procedure(s): XR sinus min 3V Accession Number(s): [id number] cc: Adama Faye M.D. [place] [id number] Patient Name: KEDAR NÚÑEZ MRN: [id number] date: 1950 Sex: M Assigned Patient Location: [facility] Current Patient Location: RAD Accession/Order Numb er: [id number] Exam Date: 04/16/2025 10:00 Report Date: 04/16/2025 10:38 At the request of: ADAMA FAYE MD Procedure: XR sinus min 3V PARANASAL [...] Page M.D. 04/16/2025 10:38 AM Dictation Location: [place] [address] Electronically authe nticated by: [id number] Y Date: 04/16/2025 10:38 Dictated By: Leighann Page M.D. Signed By: 04/16/25 1041 DD/ 1038 TD/TT: [employer]: STEFANIE AREVALOAUTElif WO MICRO (810 02) - IN OFFICE Reviewed date:11/17/2024 03:18:15 PM Interpretation: Performing Lab: Notes/Report: COLOR lt yellow CLARITY clear GLUCOSE n BILIRUBIN n KETONE n SPECIFIC GRAVITY 1.000 BLOOD n PH 8 PROTEIN n UROBILINOGEN n NITRITE n LEUKOCYTE ESTERASE trace COVID-19, Flu A+B IH Reviewed date:11/17/2024 03:18:15 PM Interpretation: Performing Lab: Notes/Report: COVID neg FLU A neg FLU B neg Control pos Reason For Referral Diagnosis 1 Lipoma (D17.9) Referral Organization [facility] Referring Provider First Name Armond Referring Provider Last Name [facility] Referring Provider [facility] Referred Provider Mario Alberto Schroeder Referred Provider Specialty General S[facility] Referral Priority Routine Diagnosis 1 Hoarseness (R49.0) Referral Organization [facility] Referring Provider First Name Armond Referring Provider Last Name [facility] Referring Provider [facility] Referred Provider Joycelyn Christine Referred Provider Specialty Otolaryngolo gy Referral Priority Routine Medications Medication SIG (Take, Route, Frequency, Duration) Notes Start Date End Date Status Fluticasone Propionate 50 MCG/ACT 1 spray in each nostril Nasally Once a day for 30 day(s) Active Irbesartan 300 MG TAKE 1 TABLET BY AIYANA TH EVERY DAY for 90 Active Simvastatin 40 MG TAKE 1 TABLET BY AIYANA TH EVERY DAY for 90 Active Meloxicam 15 MG 1 tablet Orally Once a day for 30 days 04/16/2025 Active Esomeprazole Magnesium 40 MG TAKE 1 CAPSULE BY MOUTH EVERY DAY for 90 Active Allergy Relief 10 MG 1 tablet Orally Onc e a day for 30 day(s) Active Dupixent 300 MG/2ML as directed Subcutaneous Active Immunizations Vaccine Route Administration Date Status Comme nts Flu, Fluad (61915) 65 yrs and older, single-dose syringe (2420-3447) IM Intramuscular 05/17/2024 Administered Flu, Fluad (56333) 65 yrs+, single-dose syringe (2766-5959) IM Intramuscular 05/31/2023 Administered Pneumococcal (Prevnar 13) IM Intramuscular 04/27/2024 Admi nistered Tdap (Adacel) IM Intramuscular 02/23/2025 Administered Social History Tobacco Use: Social History Observation Description Date Details (start date - stop date) Never Smoker NA - NA Tobacco Use/Smoking Question Answer Notes Patient is a nonsmoker Alcohol Screen (Audit-C) Question Answer Notes Did you have a drink containing alcohol in the p ast year? No Points 0 Interpretation Negative AUDIT-C (Standard) Question Answer Notes Did you have a drink containing alcohol in the p ast year? 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) Other specified arthritis, unspecified hand (M13.849) Active confirmed Problem 7772215348590335 Other acquired deformities of left foot (M21.6X2) Active confirmed Problem 03533593460853 Pain in left ankle and joints of left foot (M25.572) Active confirmed Problem Palpitations (09186902) Palpitations (R00.2) Active confirmed Problem 78968102 Paresthesia of skin (R20.2) Active confirmed Problem Hypertension (19699654) Hypertension (I10) Active confirmed Problem Neck pain (66299499) Neck pain (M54.2) Active confirmed Problem Lipoma (98218713) Lipoma (D17.9) Active confirm ed Problem Irritable bowel syndrome (35215665) Irritable bowel syndrome (K58.9) Active confirmed Problem Seasonal allergic rhinitis (202768706) Seasonal allergic rhinitis (J30.2) Active confirmed Problem Diverticulitis (36211451) Diverticulitis (K57.92) Active confirmed Problem 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 confirmed Problem Overweight (042589367) Over weight (E66.3) Active confirmed Problem Varicocele (70040224) Varicocele (I86.1) Active confirmed Problem Erectile dysfunction (disorder) (696261216) Impotence (N52.9) Active confirmed Problem Dermatitis (504678688) Eczema of both hands (L30.9) Active confirmed Problem Ankle edema (12400663) Ankle edema (R60.0) Active confirmed Problem Arthralgia of the pelvic region and thigh (966952086) Hip pain, acute, left (M25.552) Active confirmed Problem 3267381442637083 Pain in joints of right hand (M25.541) Active confirmed Problem Radial styloid tenosynovitis (57149996) De Quervain's tenosynovitis, bilateral (M65.4) Active confirmed Problem Low back pain (finding) (415794236) Low back pain at multiple sites (M54.50) Active confirmed Vital Signs Temperature 97.3 degrees Fahrenheit 04/25/2024 Blood pressure diastolic 64 mm Hg 04/16/2025 Height 71 in 04/16/2025 Blood pressure systolic 130 mm Hg 04/16/2025 Weight 165.6 lbs 04/16/2025 BMI 23.09 kg/m2 04/16/2025 Procedures Procedure Date Ordered Date Performed Result Body Sit e Cerumen Removal - performed 10/19/2024 N/A Encounters Encounter Location Date Provider Diagnosis [facility] [address] [place] [address] 11/17/2024 Armond Hoy Low back pain at multiple sites M54.50 [facility] [address] [place] [address] 09/27/2024 Armond Hoy Lipoma D17.9 [facility] [address] [facility] [place] [address] 10/19/2024 Armond Hoy Acute non-recurrent sinusitis, unspecified location J01.90 ; Nasal congestion R09.81 ; Acute recurrent frontal sinusitis J01.11 ; Cerumen impaction H61.20 and Bilateral impacted cerumen H61.23 [facility] [address] [facility] [place] [address] 04/25/2024 Armond Hoy Acute non-recurrent sinusitis, unspecified location J01.90 and Nasal congestion R09.81 [facility] [address] [place] [address] 06/15/2024 Armond Hoy Other chronic pain G89.29 [facility] [address] [facility] [place] [address] 04/16/2025 Armond Hoy Acute recurrent fron fabi sinusitis J01.11 ; Hip pain, acute, left M25.552 and Hoarseness R49.0 [facility] [address] [facility] [place] [address] 04/19/2024 Armond Hoy Eczema of both hands L30.9 [facility] [address] [facility] [place] [address] 06/26/2024 Armond Hoy Eczema of both hands L30.9 [facility] [address] [facility] [place] [address] 07/13/2024 Armond Hoy Eczema of both hands L30.9 [facility] [address] [facility] [place] [address] 07/24/2024 Armond Hoy Paresthesia of skin R20.2 [facility] [address] [place] [address] 08/23/2024 Armond Hoy Eczema of both hands L30.9 [facility] [address] [place] [address] 09/07/2024 Armond Hoy Eczema of both hands L30.9 [facility] [address] [facility] [place] [address] 05/03/2024 Armond Hoy Eczema of both hands L30.9 and Paresthesia of skin R20.2 [facility] [address] [facility] [place] [address] 05/17/2024 Armond Hoy Eczema of both hands L30.9 and Encounter for immunization Z23 [facility] [address] [facility] [place] [address] 06/08/2024 Armond Hoy Eczema of both hands L30.9 [facility] [address] [place] [facility] [place] [address] 11/01/2024 Armond Hoy Paresthesia of skin R20.2 [facility] [address] [facility] [place] [address] 11/13/2024 Armond Hoy Eczema of both hands L30.9 [facility] [address] [facility] [place] [address] 10/16/2024 Armond Hoy Other specified arthritis, unspecified hand M13.849 and Paresthesia of skin R20.2 [facility] [address] [facility] [place] [address] 12/29/2024 Armond Hoy Eczema of both hands L30.9 [facility] [address] [facility] [place] [address] 01/11/2025 Armond Hoy Paresthesia of skin R20.2 [facility] [address] [place] [facility] [address] 01/26/2025 Armond Hoy Eczema of both hands L30.9 [facility] [address] [place] [facility] [place] [address] 02/14/2025 Armond Hoy Eczema of both hands L30.9 [facility] [address] [place] [facility] [place] [address] 02/28/2025 Armond Hoy Eczema of both hands L30.9 [facility] [address] [place] [facility] [place] [address] 03/21/2025 Armond Hoy Eczema of both hands L30.9 [facility] [address] [facility] [address] 04/27/2024 Armond Hoy Encounter for Medic are annual wellness exam Z00.00 and Encounter for immunization Z23 [facility] [address] [facility] [place] [address] 02/23/2025 Armond Hoy Cellulitis L03.90 an d Abrasion T14.8XXA [facility] [address] [place] [facility] [place] [address] 03/14/2025 Armond Hoy Flank pain R10.9 ; L ow back pain at multiple sites M54.50 ; Cellulitis L03.90 and Hip pain, acute, left M25.552 [facility] [address] [place] [facility] [address] 05/08/2024 Armond Hoy [facility] [address] [facility] [place] [address] 08/24/2024 Armond Hoy [facility] [address] [place] [facility] [address] 09/01/2024 Armond Hoy Neck pain M54.2 [facility] [address] [place] [facility] [place] [address] 10/15/2024 Armond Yakovy [facility] [address] [place] [facility] [place] [address] 11/17/2024 Armond Hoy [facility] [address] [place] [facility] [place] [address] 02/23/2025 Armond Hoy [facility] [address] [place] [facility] [place] [address] 03/15/2025 Armond y [facility] [address] [place] [facility] [address] 03/16/2025 Armond Neyda [facility] [address] [place] [facility] [address] 04/16/2025 Armond Hoy [facility] [address] [place] [address] 04/16/2025 Armond Hoy Mucocele of nasal si nus J34.1 Assessments Encounter Date Diagnosis (ICD Code) Assessment Notes Treatment Notes Treatment Clinical Notes Section Notes 04/27/2024 Encounter for Medicare annual wellness exam (ICD-10 - Z00.00) 04/19/2024 Eczema of both hands (ICD-10 - L30.9) 04/25/2024 Acute non-recurrent sinusitis, unspecified location (ICD-10 - J01.90) Rest and drink more liquids, especially water. You may use a humidifier or vaporizer to help keep the drainage moist. Ktht-qcs-ragbuwh Nasal Saline may help the stuffy and runny nose. Use Ibuprofen and or Tylenol as needed for fever, chills, body aches or pain. Children 5 years old should not be given efja-eow-yopbtou cough and cold medications such as guaifenesin and dextromethorphan. If you're over age 5, you may try acoz-wvk-zbhcmsj cold medications such as guaifenesin and dextromethorphan, or multi-symptom cold reliever such as Dayquil to help reduce the symptoms. Antibiotics have been prescribed. You should take these until completed and follow the directions. Antibiotics can sometimes cause upset stomach, and in rare cases, serious allergic reactions or serious gastrointestinal problems. If you start having severe abdominal pain, severe vomiting, or bloody diarrhea, you should be reevaluated by your physician or urgent care immediately. Follow up with your Primary Care Provider or return to clinic if symptoms do not improve within 3-5 days 05/17/2024 Eczema of both hands (ICD-10 - L30.9) 05/17/2024 Encounter for immunization (ICD-10 - Z23) 06/08/2024 Eczema of both hands (ICD-10 - L30.9) 06/15/2024 Other chronic pain (ICD-10 - G89.29) 06/26/2024 Eczema of both hands (ICD-10 - L30.9) 07/13/2024 Eczema of both hands (ICD-10 - L30.9) 07/24/2024 Paresthesia of skin (ICD-10 - R20.2) 08/23/2024 Eczema of both hands (ICD-10 - L30.9) 09/07/2024 Eczema of both hands (ICD-10 - L30.9) 09/27/2024 Lipoma (ICD-10 - D17.9) 10/16/2024 Other specified arthritis, unspecified hand (ICD-10 - M13.849) 05/03/2024 Eczema of both hands (ICD-10 - L30.9) 10/19/2024 Acute non-recurrent sinusitis, unspecified location (ICD-10 - J01.90) Rest and drink more liquids, especially water. You may use a humidifier or vaporizer to help keep the drainage moist. Iokk-kjt-jjcvppz Nasal Saline may help the stuffy and runny nose. Use Ibuprofen and or Tylenol as needed for fever, chills, body aches or pain. Children 5 years old should not be given plam-xoc-znjpsoc cough and cold medications such as guaifenesin and dextromethorphan. If you're over age 5, you may try grex-sjk-mcgdage cold medications such as guaifenesin and dextromethorphan, or multi-symptom cold reliever such as Dayquil to help reduce the symptoms. Antibiotics have been prescribed. You should take these until completed and follow the directions. Antibiotics can sometimes cause upset stomach, and in rare cases, serious allergic reactions or serious gastrointestinal problems. If you start having severe abdominal pain, severe vomiting, or bloody diarrhea, you should be reevaluated by your physician or urgent care immediately. Follow up with your Primary Care Provider or return to clinic if symptoms do not improve within 3-5 days 10/19/2024 Nasal congestion (ICD-10 - R09.81) 11/01/2024 Paresthesia of skin (ICD-10 - R20.2) 11/13/2024 Eczema of both hands (ICD-10 - L30.9) 11/17/2024 Low back pain at multiple sites (ICD-10 - M54.50) 12/29/2024 Eczema of both hands (ICD-10 - L30.9) 01/11/2025 Paresthesia of skin (ICD-10 - R20.2) 01/26/2025 Eczema of both hands (ICD-10 - L30.9) 02/14/2025 Eczema of both hands (ICD-10 - L30.9) 02/23/2025 Cellulitis (ICD-10 - L03.90) needs testanus 02/23/2025 Abrasion (ICD-10 - T14.8XXA) 02/28/2025 Eczema of both hands (ICD-10 - L30.9) 03/14/2025 Flank pain (ICD-10 - R10.9) 03/21/2025 Eczema of both hands (ICD-10 - L30.9) 04/16/2025 Acute recurrent frontal sinusitis (ICD-10 - J01.11) 04/16/2025 Hip pain, acute, left (ICD-10 - M25.552) 09/01/2024 Neck pain (ICD-10 - M54.2) 04/16/2025 Mucocele of nasal sinus (ICD-10 - J34.1) 04/16/2025 Hoarseness (ICD-10 - R49.0) 03/14/2025 Low back pain at multiple sites (ICD-10 - M54.50) 10/19/2024 Acute recurrent frontal sinusitis (ICD-10 - J01.11) 05/03/2024 Paresthesia of skin (ICD-10 - R20.2) 10/16/2024 Paresthesia of skin (ICD-10 - R20.2) 04/25/2024 Nasal congestion (ICD-10 - R09.81) 04/27/2024 Encounter for immunization (ICD-10 - Z23) 10/19/2024 Cerumen impaction (ICD-10 - H61.20) 03/14/2025 Cellulitis (ICD-10 - L03.90) 03/14/2025 Hip pain, acute, left (ICD-10 - M25.552) 10/19/2024 Bilateral impacted cerumen (ICD-10 - H61.23) 11/17/2024 Other Recommended to rest and use a heating pad on the area. Take NSAIDs for pain as needed Plan Of Treatment Pending Test Test Name Order Date CMP (COMPLETE METABOLIC PANEL) 3 PSA, PROSTATE-SPECIFIC ANTIGEN 3 XR Chest PA and Lateral (Routine CXR) * 08/05/2023 Cerumen Removal - performed 10/19/2024 CBC W/AUTO DIFF 07/07/2023 STOOL OCCULT BLOOD 07/07/2023 GLYCOHEMOGLOBIN A1C 07/07/2023 LIPID PROFILE 07/07/2023 XR HIP LT 2 3V W PELVIS 11/17/2024 XR HIP LT 2 3V W PELVIS 03/14/2025 XR LSPINE MIN 4 VIEWS 03/14/2025 XR LSPINE MIN 4 VIEWS 11/17/2024 THYROID PANEL (T4/TSH/FREE T3) XR HIP RT 2 3V W PELVIS 11/17/2024 CT HIP LEFT WO CONTRAST 04/16/2025 CT sinus w con 04/16/2025 Insurance Providers Payer Name Payer Address Payer Phone Subscriber Number Group Number Insured Name Patient Relationship to Insured Coverage Start Date Coverage End Date [employer] MEDICARE [address] [place] [id number] Kedar Núñez Self - patient is the insured Medications Administered Medication Instructions Date of Administration Dosage Notes Dupixent 12/03/2022 300 mg Dupixent 12/03/2022 300 mg Dupixent 12/29/2022 300 mg Dupixent 01/13/2023 300 mg Dupixent 01/28/2023 300 mg Dupixent 02/15/2023 300 mg Dupixent 03/09/2023 300 mg Dupixent 04/16/2023 2 mL Dupixent 05/12/2023 2 mL Dupixent 05/31/2023 2 mL Dupixent 06/30/2023 300 mg Dupixent 07/16/2023 2 mL Dupixent 07/30/2023 2 mL Dupixent 08/13/2023 2 mL Dupixent 08/25/2023 300 mg Dupixent 09/09/2023 2 mL Dupixent 10/01/2023 2 mL Dupixent 10/15/2023 300 mg Dupixent 10/28/2023 300 mg Dupixent 11/12/2023 2 mL Dupixent 11/26/2023 2 mL Dupixent 12/17/2023 300 mg Dupixent 12/31/2023 300 mg Dupixent 12/31/2023 2 mL Dupixent 01/12/2024 2 mL Dupixent 01/27/2024 2 mL Dupixent 02/09/2024 2 mL Dupixent 03/09/2024 300 mg Dupixent 03/23/2024 2 mL Dupixent 04/05/2024 300 mg Dupixent 04/19/2024 2 mL Dupixent 05/03/2024 2 mL Dupixent 05/17/2024 2 mL Dupixent 06/08/2024 300 mg Dupixent 06/26/2024 300 mg Dupixent 07/13/2024 2 mL Dupixent 07/24/2024 2 mL Dupixent 08/23/2024 2 mL Dupixent 09/07/2024 300 mg Dupixent 09/27/2024 300 mg Dupixent 10/16/2024 2 mL Dupixent 11/01/2024 2 mL Dupixent 11/13/2024 2 mL Dupixent 12/29/2024 2 mL Dupixent 01/11/2025 2 mL Dupixent 01/26/2025 2 mL Dupixent 02/14/2025 2 mL Dupixent 02/28/2025 2 mL Dupixent 03/21/2025 2 mL Ketorolac Tromethamine 09/17/2023 60 mg 60 Ketorolac Tromethamine 03/14/2025 60 mg Orphenadrine Citrate 09/17/2023 60 mg 60 Triamcinolone 40 mg/ml 03/14/2025 120 mg Medical (General) History Medical History History ICD Code Pain in joints of right hand M25.541 Other specified arthritis, unspecified h and M13.849 Over weight E66.3 De Quervain's tenosynovitis, bilateral M 65.4 Gastro-esophageal reflux disease without esophagitis K21.9 Acute recurrent frontal sinusitis J01.11 Renal mass N28.89 Varicocele I86.1 Seasonal allergic rhinitis J30.2 Ankle edema R60.0 Acquired cyst of kidney N28.1 Paresthesia of skin R20.2 Neck pain M54.2 Diverticulitis K57.92 Hypertension I10 Irritable bowel syndrome K58.9 Eczema of both hands L30.9 Palpitations R00.2 Impotence N52.9 Surgical History Surgery Date(Month/Year) Rt Shoulder surgery
--- OUTSIDE RECORDS SUMMARY | 2025-04-19 14:07 | XMS_ITS | Encounter Summary ---
Author Organization [facility] Address [address] [place] [address] Care Team Providers Care Reel Winder Name Role Phone Marshall Faye MD Primary Care Provider [phone] Encounter Details Date Type Department Care Team ([facility] Contact Info) Description 01/06/2023 Abstract [facility] [address] [facility] [address] [place] [address] Nuha King MD [address] [facility] [address] [place] [address] Social History Tobacco Use Types [...] Upcoming Encounters Date Type Department Care Team ([facility] Contact Info) Description 04/25/2025 10:30 AM EDT Office Visit [facility] [address] [facility] [address] [place] [address] Joycelyn Christine MD [address] [facility] [address] [place] [address] 06/06/2025 10:50 AM EDT Office Visit [facility] [address] [facility] [address] [place] [address] Nuha King MD [address] [facility] [address] [place] [address] documented as of this encounter Visit Diagnoses Not on filedocumented in this encounter Care Teams Reel Winder Relationship Specialty Start Date End Date Marshall Faye MD [address] [place] [address] PCP - General Family Medicine 04/16/25 documented as of this encounter
--- OUTSIDE RECORDS SUMMARY | 2025-04-19 14:07 | XMS_ITS | Clinical Summary ---
Author Organization [facility] Address [address] [place] [address] Care Team Providers Care Casey Saw Operator Name Role Phone Marshall Faye MD Primary Care Provider [phone] Allergies Active Allergy Reactions Criticality Noted Date [...] Encounters Date Type Department Care Team Description 04/19/2025 Telephone [facility] [place] [facility] [address] [place] [address] [place] [address] SlovenianKelly LPN 04/02/2025 Telephone [facility] [address] [place] [address] [place] [address] SlovenianKelly gradyKIMBERLY from Last 3 Months Family History Medical [...] Care Team (Late st Contact Info) Description 04/25/2025 10:30 AM EDT Office Visit [facility] [place] [facility] [address] [facility] [address] [place] [address] Joycelyn Christine MD [address] [facility] [address] [place] [address] 06/06/2025 10:50 AM EDT Office Visit [facility] [address] [place] [address] [place] [address] Nuha King MD [address] [place] [address] [place] [address] Health Maintenance Due Date Last Done Comments Influenza Vaccine (#1) 2025 , 06/05/2022, 05/08/2020, Additional history exists Pneumococcal Vaccine: 65+ Years Completed 04/27/2024, 04/27/2024, 06/24/2017 Insurance [employer] MEDICARE ADVANTAGE Care Teams Casey Saw Operator Relationship Specialty Start Date End Date Marshall Faye MD [address] [place] [address] PCP - General Family Medicine 04/16/25
--- OUTSIDE RECORDS SUMMARY | 2025-04-19 14:07 | XMS_ITS | Clinical Summary ---
Author Organization [facility] Address [address] [address] Phone Care Team Providers Care Stone Sawyer Name Role Phone Marshall Faye MD Primary Care Provider [phone] Allergies No known active allergies Medications irbesartan [...] 75+ series) 2023 COVID-19 Vaccine ( - season) 2025 07/07/2021, 11/02/2020, 10/05/2020 Influenza Vaccine [...] GOLDEN MEDICARE A[employer] GOLDEN MEDICARE Care Teams Stone Sawyer Relationship Specialty Start Date End Date Marshall Faye MD [address] [place] [address] PCP - General Family Medicine 04/24/24
--- OUTSIDE RECORDS SUMMARY | 2025-04-19 14:07 | XMS_ITS | Encounter Summary ---
Author Organization [facility] Address [address] [place] [address] Phone Care Team Providers Care Networking Technician Name Role Phone Marshall Faye MD Primary Care Provider [phone] Encounter Details Date Type Department Care Team ([facility] st Contact Info) Description 03/19/2023 Scanned Document [facility] [address] [place] [address] Conversion, Onbase Social History Tobacco Use Types [...] on filedocumented in this encounter Care Teams Networking Technician Relationship Specialty Start Date End Date Marshall Faye MD [address] [place] [address] PCP - General Family Medicine 04/24/24 documented as of this encounter
--- OUTSIDE RECORDS SUMMARY | 2025-04-19 14:07 | XMS_ITS | Encounter Summary ---
Author Organization [facility] Address [address] [place] [address] Care Team Providers Care Hearth Feeder Name Role Phone Marshall Faye MD Primary Care Provider [phone] Encounter Details Date Type Department Care Team (Late Contact Info) Description 04/19/2025 Telephone [facility] [place] [facility] [address] [facility] [address] [place] [address] Kelly Amezquita LPN [address] [place] [address] Social History Tobacco Use Types Packs/Day Years [...] encounter Miscellaneous Notes * Telephone Encounter - Kelly Amezquita LPN - 04/19/2025 1:35 PM EDT Pt requesting refills of Dupixent, however, he has not been seen since March 2024. Pt has follow up scheduled 06/06/2025. Send refill now or wait until appointment? ([facility] requires 90 day supply) documented in this encounter Plan of Treatment Upcoming Encounters Date Type Department Care Team (Late Contact Info) Description 04/25/2025 10:30 AM EDT Office Visit [facility] [place] [facility] [address] [place] [address] [place] [address] Joycelyn Christine MD [address] [place] [address] [place] [address] 06/06/2025 10:50 AM EDT Office Visit [facility] [address] [place] [address] [place] [address] Nuha King MD [address] [facility] [address] [place] [address] documented as of this encounter Visit Diagnoses Not on filedocumented in this encounter Care Teams Hearth Feeder Relationship Specialty Start Date End Date Marshall Faye MD [address] [facility] [place] [address] PCP - General Family Medicine 04/16/25 documented as of this encounter
--- OUTSIDE RECORDS SUMMARY | 2025-04-19 14:23 | XMS_ITS | CCD ---
Author Organization [facility] Care Team Providers Care Skin Carver Name Role Phone PHYSICIAN, DEFAULT Unavailable Unavailable [...] Unavailable HOY ., DR GALAN Consulting Unavailable TRENTON, DR ALIYA Sierra Consulting Unavailable HOY ., DR GALAN Attending Unavailable HOY ., DR GALAN Admitting Unavailable HOY ., DR GALAN Primary Care Unavailable HOY ., DR GALAN Consulting Unavailable DONNELL RENTERIA Consulting Unavailable Adama Faye MD Primary Care Provider [phone] OSMIN GOODEN Referring Unavailable ADAMA FAYE [...] Eruption of skin (disorder) [facility] (2 sources) Penicillins Drug allergy (disorder) [address] [facility] Repository (3 sources) Penicillins Propensity to adverse reactions to drug 3 Rash [facility] (1 source) ALLERGIES NOT ON FILE; Translations: [ALLERGIES NOT ON FILE] Propensity to adverse reactions (disorder) [facility] 3 Repository (4 sources) Penicillins Drug [...] Corticosteroid Start: 10-02-2024 Flonase 0.05 m g/inh [place] 1 spray(s), Nasal, Daily, Refill(s) 0 Start [...] spray(s) nasal route three times daily Ipratropium [place] 0.03 % Nasal Solution USE 2 SPRAYS [...] mg Cap-EC) fluticasone nasal (Flonase 0.05 mg/inh [place]) irbesartan (irbesartan 300 mg Tab) loratadine (loratadine [...] Unchanged fluticasone nasal (Flonase 0.05 mg/ inh [place]) 1 Sprays Nasal Inhalation Every day Contact [...] you for choosing us for your care. 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 Please feel free to contact my office by calling [phone] with any questions. Provider Impressions 1. Frontal [...] observation. 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 : Unknown Radiologist to Determine Optimal Study : Y What are the patient's signs and symptoms? : Bony frontal sinus neoplasm Patient Discussion/Summary Please feel free to contact my office by calling [phone] with any questions. Provider Impressions 1. Frontal [...] to home so I will ask my department secretary to print off the order [...] 40 MG Oral Capsule Delayed Release Ipratropium [place] 0.03 % Nasal SolutionUSE 2 SPRAYS IN [...] Throat clearing (786.09) (R09.89) Orders Start: Ipratropium [place] 0.03 % Nasal Solution; USE 2 SPRAYS IN EACH NOSTRIL 3 TIMES DAILY NEEDED Patient Discussion/Summary Please feel free to contact my office by calling [phone] with any questions. Provider Impressions 1. Frontal [...] A Adams MD 10/15/22 Final result Normal [facility] No acute osseous abnormality. Degenerative changes 1st [facility] joint [facility] RIS CONSOLIDATED EXAMINATION: THREE XRAY VIEWS OF THE LEFT HAND 10/15/2022 9:57 am COMPARISON: None. HISTORY: ORDERING SYSTEM PROVIDED HISTORY: Pain in both hands FINDINGS: There is no evidence of acute fracture. There is normal alignment. No acute joint abnormality. No focal osseous lesion. No focal soft tissue abnormality. Degenerative changes seen in the 1st CMC joint. Vascular calcifications. [facility] CONSOLIDATED Luis A Adams [...] osseous abnormality. Degenerative changes 1st [facility] joint [facility] Phone: Radiology Study observation (narrative) [facility] [employer] Phone: XR HAND LEFT (MIN 3 VIEWS)Or dered By: Luis A Adams on 10-15-2022 [employer] Phone: XR HAND RIGHT (MIN 3 VIEWS)o [...] A Adams MD 10/15/22 Final result Normal [facility] No acute osseous abnormality. Degenerative changes 3rd MCP joint and 1st [facility] joint [facility] CONSOLIDATED EXAMINATION: THREE XRAY [...] with joint space narrowing and bony overgrowth. [facility] CONSOLIDATED Luis A Adams [...] 3rd MCP joint and 1st CMC joint [employer] Phone: Radiology Study observation (narrative) [employer] Phone: XR HAND RIGHT (MIN 3 VIEWS)O rdered By: Luis A Adams on 10-15-2022 [employer] Phone: PERLA by IFAon 10-06-2022 Antinuclear Antibodies, IFA Negative Normal [facility] Comment on above: Result Comment: Nega tive <1:80 Borderline 1:80 Positive >1:80 ICAP nomenclature: AC-0 For more information about Hep-2 cell patterns use ANApatterns.org, the official website for the International Consensus on Antinuclear Antibody (PERLA) Patterns (ICAP). Performed By: #### C BC #### [facility] [address] [place] [address] Dr. Akua Thomas ANTISTREPTOLYSIN O AB (ASO)o n 10-06-2022 Antistreptolysin O Ab 69.9 IU/mL Normal 0.0-200.0 [facility] Comment on above: Performed By: #### A SOAB #### [facility] [address] [address] [address] Akua Thomas CALCIUM IONIZEDon 10-06-2022 Calcium, Ionized, Serum 5.5 mg/dL Normal 4.5-5.[address] [facility] Comment on above: Performed By: #### C AIONZ #### [facility] [address] [place] [address] Dr. Akua Thomas RHEUMATOID FACTORon 10-06-19 RA Latex Turbid. 12.6 IU/mL Normal <14.0 [facility] Comment on above: Performed By: #### R F #### [facility] [address] [place] [address] Dr. Akua Thomas CBC AUTO DIFFon 10-05-2022 BASO # 0.0 103/ul Normal 0.0-0.[address] [facility] Comment on above: Performed By: #### C BC #### [facility] [address] [place] [address] Dr. Akua Thomas Basophils/100 WBC (Bld) 0.2 % Normal 0.2-2.[address] [facility] Comment on above: Performed By: #### C BC #### [facility] [address] [place] [address] Dr. Akua Thomas EO # 0.1 103/ul Normal 0.0-0.[address] [facility] Comment on above: Performed By: #### C BC #### [facility] [address] [place] [address] Dr. Akua Thomas Eosinophils/100 WBC (Bld) 1.4 % Normal 0.9-7.[address] [facility] Comment on above: Performed By: #### C BC #### [facility] [address] [place] [address] Dr. Akua Thomas Erythrocyte distribution width (RBC) [Ratio] 14.3 % Normal 11.0-15.[address] [facility] Comment on above: Performed By: #### C BC #### [facility] [address] [place] [address] Dr. Akua Thomas Hematocrit (Bld) [Volume fraction] 45.5 % Normal 42.0-54.[address] [facility] Comment on above: Performed By: #### C BC #### [facility] [address] [place] [address] Dr. Akua Thomas Hemoglobin (Bld) [Mass/Vol] 15.1 g/dL Normal 14.0-18.[address] [facility] Comment on above: Performed By: #### C BC #### [facility] [address] [place] [address] Dr. Akua Thomas IG # 0.03 10e3/ul Normal 0.00-0.[address] [facility] Comment on above: Performed By: #### C BC #### [facility] [address] [place] [address] Dr. Akua Thomas IG % 0.3 % Normal 0.0-0.[address] [facility] Comment on above: Performed By: #### C BC #### [facility] [address] [place] [address] Dr. Akua Thomas LYMPH # 3.0 103/ul Normal 1.2-3.[address] [facility] Comment on above: Performed By: #### C BC #### [facility] [address] [place] [address] Dr. Akua Thomas Lymphocytes/100 WBC (Bld) 31.9 % Normal 20.5-60.[address] [facility] Comment on above: Performed By: #### C BC #### [facility] [address] [place] [address] Dr. Akua Thomas MANUAL DIFF REQ NO Normal [facility] Comment on above: Performed By: #### C BC #### [facility] [address] [place] [address] Dr. Akua Thomas MCH (RBC) [Entitic mass] 29.6 pg Normal 25.9-34.[address] [facility] Comment on above: Performed By: #### C BC #### [facility] [address] [place] [address] Dr. Akua Thomas MCHC (RBC) [Mass/Vol] 33.2 g/dL Normal 29.9-35.[address] [facility] Comment on above: Performed By: #### C BC #### [facility] [address] [place] [address] Dr. Akua Thomas MCV (RBC) [Entitic vol] 89.2 fL Normal 80.0-94.[address] [facility] Comment on above: Performed By: #### C BC #### [facility] [address] [place] [address] Dr. Akua Thomas MONO # 0.7 103/ul Normal 0.3-0.[address] [facility] Comment on above: Performed By: #### C BC #### [facility] [address] [address] [address] Akua Thomas Monocytes/100 WBC (Bld) 7.2 % Normal 1.7-12.[address] [facility] Comment on above: Performed By: #### C BC #### [facility] [address] [address] [address] Akua Thomas NEUT # 5.5 103/ul Normal 1.4-6.5 [facility] Comment on above: Performed By: #### C BC #### [facility] [address] [place] [address] Dr. Akua Thomas Neutrophils/100 WBC (Bld) 59.0 % Normal 43.0-75.0 [facility] Comment on above: Performed By: #### C BC #### [facility] [address] [place] [address] Dr. Akua Thomas Platelet mean volume (Bld) [Entitic vol] 9.9 fL Normal 9.5-13.[address] [facility] Comment on above: Performed By: #### C BC #### [facility] [address] [place] [address] Dr. Akua Thomas PLT 237 103/ul Normal 150-450 [facility] Comment on above: Performed By: #### C BC #### [facility] [address] [place] [address] Dr. Akua Thomas RBC 5.10 106/ul Normal 4.70-6.10 [facility] Comment on above: Performed By: #### C BC #### [facility] [address] [place] [address] Dr. Akua Thomas WBC 9.3 103/ul Normal 4.0-11.0 [facility] Comment on above: Performed By: #### C BC #### [facility] [address] [place] [address] Dr. Akua Thomas CRPon 10-05-2022 CRP [Mass/Vol] mg/L Normal <=1.0 [facility] Comment on above: Performed By: #### C MP, URIC, PHOS, MG, T7, CRP, TSH #### [facility] [address] [place] [address] Dr. Akua Thomas FREE THYROXINE INDEX T7on FTI 3.28 Normal 1.30-4.[address] [facility] Comment on above: Performed By: #### C BC #### [facility] [address] [place] [address] Dr. Akua Thomas T3U 36.0 % Normal 33.0-40.[address] [facility] Comment on above: Performed By: #### C BC #### [facility] [address] [place] [address] Dr. Akua Thomas T4 [Mass/Vol] 9.10 ug/dL Normal 4.50-12.10 [facility] Comment on above: Performed By: #### C BC #### [facility] [address] [place] [address] Dr. Akua Thomas IRONon 10-05-2022 Iron [Mass/Vol] 119.0 ug/dL Normal 65.0-175.0 [facility] Comment on above: Performed By: #### I SHILPI #### [facility] [address] [place] [address] Dr. Akua Thomas MAGNESIUMon 10-05-2022 Magnesium [Mass/Vol] 1.8 mg/dL Normal 1.8-2.[address] [facility] Comment on above: Performed By: #### C BC #### [facility] [address] [place] [address] Dr. Akua hTomas PHOSPHORUSon 10-05-2022 Phosphate [Mass/Vol] 3.4 mg/dL Normal 2.6-4.[address] [facility] Comment on above: Performed By: #### C BC #### [facility] [address] [place] [address] Dr. Akua Thomas PROF 14(COMP METB)on 023 Albumin [Mass/Vol] 4.0 g/dL Normal 3.4-5.0 [facility] Comment on above: Performed By: #### C BC #### [facility] [address] [place] [address] Dr. Akua Thomas Albumin/Globulin [Mass ratio] 1.4 {ratio} Normal [facility] Comment on above: Performed By: #### C BC #### [facility] [address] [place] [address] Dr. Akua Thomas ALP [Catalytic activity/Vol] 119 U/L Critically high 46-[address] [facility] Comment on above: Performed By: #### C BC #### [facility] [address] [place] [address] Dr. Akua Thomas ALT [Catalytic activity/Vol] 69 U/L Critically high 16-[address] [facility] Comment on above: Performed By: #### C BC #### [facility] [address] [place] [address] Dr. Akua Thomas Anion gap [Moles/Vol] 10.0 mmol/L Normal [facility] Comment on above: Performed By: #### C BC #### [facility] [address] [place] [address] Dr. Akua Thomas AST [Catalytic activity/Vol] 37 U/L Normal 15-[address] [facility] Comment on above: Performed By: #### C BC #### [facility] [address] [place] [address] Dr. Akua Thomas Bilirubin [Mass/Vol] 0.7 mg/dL Normal 0.2-1.[address] [facility] Comment on above: Performed By: #### C BC #### [facility] [address] [place] [address] Dr. Akua Thomas Calcium [Mass/Vol] 9.2 mg/dL Normal 8.5-10.1 [facility] Comment on above: Performed By: #### C BC #### [facility] [address] [place] [address] Dr. Akua Thomas Chloride [Moles/Vol] 100 mmol/L Normal 98-[address] [facility] Comment on above: Performed By: #### C BC #### [facility] [address] [place] [address] Dr. Akua Thomas CO2 [Moles/Vol] 30.5 mmol/L Normal 21.0-32.0 [facility] Comment on above: Performed By: #### C BC #### [facility] [address] [place] [address] Dr. Akua Thomas Creatinine [Mass/Vol] 0.75 mg/dL Normal 0.70-1.30 [facility] Comment on above: Performed By: #### C BC #### [facility] [address] [address] [address] Akua Thomas EGFR-AF GEORGIAN >60 Normal >=60 [facility] Comment on above: Performed By: #### C BC #### [facility] [address] [place] [address] Dr. Akua Thomas EGFR-NON AF GEORGIAN >60 Normal >=[address] [facility] Comment on above: Performed By: #### C BC #### [facility] [address] [place] [address] Dr. Akua Thomas Globulin (S) [Mass/Vol] 2.9 g/dL Normal [facility] Comment on above: Performed By: #### C BC #### [facility] [address] [place] [address] Dr. Akua Thomas Glucose [Mass/Vol] 97 mg/dL Normal 74-106 [facility] Comment on above: Performed By: #### C BC #### [facility] [address] [place] [address] Dr. Akua Thomas Potassium [Moles/Vol] 4.5 mmol/L Normal 3.5-5.1 [facility] Comment on above: Performed By: #### C BC #### [facility] [address] [place] [address] Dr. Akua Thomas Protein [Mass/Vol] 6.9 g/dL Normal 6.4-8.2 [facility] Comment on above: Performed By: #### C BC #### [facility] [address] [place] [address] Dr. Akua Thomas Sodium [Moles/Vol] 136 mmol/L Normal 136-145 [facility] Comment on above: Performed By: #### C BC #### [facility] [address] [address] [address] Akua Thomas Urea nitrogen [Mass/Vol] 24.0 mg/dL Critically high 7.0-18.[address] [facility] Comment on above: Performed By: #### C BC #### [facility] [address] [place] [address] Dr. Akua Thomas Urea nitrogen/Creatinin e [Mass ratio] 32.0 mg/mg Normal [facility] Comment on above: Performed By: #### C BC #### [facility] [address] [place] [address] Dr. Akua Thomas TSHon 10-05-2022 TSH 0.725 uIU/mL Normal 0.358-3.[address] [facility] Comment on above: Performed By: #### C BC #### [facility] [address] [place] [address] Dr. Akua Thomas URIC ACID SERUMon 10-05-2022 Urate [Mass/Vol] 2.2 mg/dL Critically low 3.5-7.[address] [facility] Comment on above: Performed By: #### C MP, URIC, PHOS, MG, T7, CRP, TSH #### [facility] [address] [place] [address] Dr. Akua Thomas XR HAND LT MIN 3Von 10-05-19 23 XR HAND LT MIN 3V EXAMINATION: XR WRIS T MARÍA MIN 3 V, XR HAND LT MIN 3V HISTORY: Arthritis of hand COMPARISON: No relevant comparison available. FINDINGS: RIGHT FINDINGS: BONES: No acute fracture or dislocation. Severe degenerative changes at the first carpometacarpal joint with [id number] articulation and extensive heterotopic ossification SOFT TISSUES: [...] ALIYA KILLIAN Date: 2022-10-05 13:24 Normal [facility] CT SINUSES WO CONon 09-16-[address] [...] mastoid sinuses are not included in the [id number]. IMPRESSION: There is a small mass seen [...] DONNELL RENTERIA Date: 2022-09-16 19:40 Normal [facility] OCC BLD IMMUNO SCREENon 04-10 OCCULT BLOOD Negative Normal NEGATIVE [facility] Comment on above: Performed By: #### C BC #### [facility] [address] [place] [address] Dr. Akua Thomas PSA, FREE AND TOTAL RATIOon 04-10-2022 % Free PSA 17.8 % Normal [facility] Comment on above: Result Comment: The table [...] men. Performed By: #### C BC #### [facility] [address] [place] [address] Dr. Akua Thomas Prostate specific Ag [Mass/Vol] 0.9 ng/mL Normal 0.0-4.[address] [facility] Comment on above: Result Comment: Leslye FOSTER methodology. . According to the [place] [employer], Serum PSA should decrease and [...] disease. Performed By: #### C BC #### [facility] [address] [place] [address] Dr. Akua Thomas PSA, Free 0.16 ng/mL Normal N/A [facility] Comment on above: Result Comment: Leslye ceballos ECLASHLYN methodology. Performed By: #### C BC #### [facility] [address] [place] [address] Dr. Akua Thomas T4 LABCORPon 04-10-2022 T4 [Mass/Vol] 8.0 ug/dL Normal 4.5-12.0 [facility] Comment on above: Performed By: #### C BC #### [facility] [address] [place] [address] Dr. Akua Thomas CBC AUTO DIFFon 04-09-2022 BASO # 0.0 103/ul Normal 0.0-0.[address] [facility] Comment on above: Performed By: #### C BC #### [facility] [address] [place] [address] Dr. Akua Thomas Basophils/100 WBC (Bld) 0.2 % Normal 0.2-2.[address] [facility] Comment on above: Performed By: #### C BC #### [facility] [address] [place] [address] Dr. Akua Thomas EO # 0.2 103/ul Normal 0.0-0.7 [facility] Comment on above: Performed By: #### C BC #### [facility] [address] [place] [address] Dr. Akua Thomas Eosinophils/100 WBC (Bld) 2.2 % Normal 0.9-7.[address] [facility] Comment on above: Performed By: #### C BC #### [facility] [address] [place] [address] Dr. Akua Thomas Erythrocyte distribution width (RBC) [Ratio] 14.2 % Normal 11.0-15.[address] [facility] Comment on above: Performed By: #### C BC #### [facility] [address] [place] [address] Dr. Akua Thomas Hematocrit (Bld) [Volume fraction] 43.3 % Normal 42.0-54.[address] [facility] Comment on above: Performed By: #### C BC #### [facility] [address] [place] [address] Dr. Akua Thomas Hemoglobin (Bld) [Mass/Vol] 14.2 g/dL Normal 14.0-18.[address] [facility] Comment on above: Performed By: #### C BC #### [facility] [address] [place] [address] Dr. Akua Thomas IG # 0.02 10e3/ul Normal 0.00-0.[address] [facility] Comment on above: Performed By: #### C BC #### [facility] [address] [place] [address] Dr. Akua Thomas IG % 0.2 % Normal 0.0-0.5 [facility] Comment on above: Performed By: #### C BC #### [facility] [address] [place] [address] Dr. Akua Thomas LYMPH # 1.8 103/ul Normal 1.2-3.8 [facility] Comment on above: Performed By: #### C BC #### [facility] [address] [place] [address] Dr. Akua Thomas Lymphocytes/100 WBC (Bld) 20.6 % Normal 20.5-60.[address] [facility] Comment on above: Performed By: #### C BC #### [facility] [address] [place] [address] Dr. Akua Thomas MANUAL DIFF REQ NO Normal [facility] Comment on above: Performed By: #### C BC #### [facility] [address] [place] [address] Dr. Akua Thomas MCH (RBC) [Entitic mass] 29.8 pg Normal 25.9-34.[address] [facility] Comment on above: Performed By: #### C BC #### [facility] [address] [place] [address] Dr. Akua Thomas MCHC (RBC) [Mass/Vol] 32.8 g/dL Normal 29.9-35.2 [facility] Comment on above: Performed By: #### C BC #### [facility] [address] [place] [address] Dr. Akua Thomas MCV (RBC) [Entitic vol] 91.0 fL Normal 80.0-94.0 [facility] Comment on above: Performed By: #### C BC #### [facility] [address] [place] [address] Dr. Akua Thomas MONO # 0.7 103/ul Normal 0.3-0.8 [facility] Comment on above: Performed By: #### C BC #### [facility] [address] [place] [address] Dr. Akua Thomas Monocytes/100 WBC (Bld) 8.2 % Normal 1.7-12.[address] [facility] Comment on above: Performed By: #### C BC #### [facility] [address] [place] [address] Dr. Akua Thomas NEUT # 6.1 103/ul Normal 1.4-6.[address] [facility] Comment on above: Performed By: #### C BC #### [facility] [address] [place] [address] Dr. Akua Thomas Neutrophils/100 WBC (Bld) 68.6 % Normal 43.0-75.[address] [facility] Comment on above: Performed By: #### C BC #### [facility] [address] [place] [address] Dr. Akua Thomas Platelet mean volume (Bld) [Entitic vol] 10.1 fL Normal 9.5-13.5 [facility] Comment on above: Performed By: #### C BC #### [facility] [address] [place] [address] Dr. Akua Thomas PLT 231 103/ul Normal 150-[address] [facility] Comment on above: Performed By: #### C BC #### [facility] [address] [place] [address] Dr. Akua Thomas RBC 4.76 106/ul Normal 4.70-6.[address] [facility] Comment on above: Performed By: #### C BC #### [facility] [address] [place] [address] Dr. Akua Thomas WBC 8.9 103/ul Normal 4.0-11.[address] [facility] Comment on above: Performed By: #### C BC #### [facility] [address] [place] [address] Dr. Akua Thomas FREE T3on 04-09-2022 FREE T3 2.53 pg/mlL Normal 2.18-3.[address] [facility] Comment on above: Performed By: #### R F #### [facility] [address] [place] [address] Dr. Akua Thomas GLYCOHEMOGLOBIN A1Con 2021 ADA RECOMMENDATION SEE BELOW Normal [facility] Comment on above: Result Comment: ADA RECOMMENDED LIMIT 4.0 - 6.0 ADA THERAPEUTIC TARGET < 7.0 ACTION SUGGESTED > 7.0 Performed By: #### A 1C #### [facility] [address] [address] [address] Akua Thomas Glucose [Mass/Vol] 123 mg/dL Normal [facility] Comment on above: Performed By: #### A 1C #### [facility] [address] [address] [address] Akua Thomas HbA1c (Bld) [Mass fraction] 5.9 % Normal 4.5-6.[address] [facility] Comment on above: Performed By: #### A 1C #### [facility] [address] [place] [address] Dr. Akua Thomas LIPID PROFILEon 04-09-2022 CHOL-HDL RATIO NORM SEE BELOW Normal [facility] Comment on above: Result Comment: 3.3 - 4.4 LOW RISK 4.4 - 7.1 AVERAGE RISK 7.1 - 11.0 MODERATE RISK >11.0 HIGH RISK Performed By: #### R F #### [facility] [address] [place] [address] Dr. Akua Thomas Cholesterol [Mass/Vol] 154 mg/dL Normal <=[address] [facility] Comment on above: Performed By: #### R F #### [facility] [address] [place] [address] Dr. Akua Thomas Cholesterol in HDL [Mass/Vol] 71 mg/dL Critically high 40-[address] [facility] Comment on above: Performed By: #### R F #### [facility] [address] [place] [address] Dr. Akua Thomas Cholesterol in LDL [Mass/Vol] 74.8 mg/dL Normal [facility] Comment on above: Performed By: #### R F #### [facility] [address] [place] [address] Dr. Akua Thomas Cholesterol.total/ Cholesterol in HDL [Mass ratio] 2.2 {ratio} Normal [facility] Comment on above: Performed By: #### R F #### [facility] [address] [place] [address] Dr. Akua Thomas HDL NORMAL > or = 60 mg/dl - LO W CARDIOVASCULAR RISK <40 mg/dl - HIGH CARDIOVASCULAR RISK Normal [facility] Comment on above: Performed By: #### R F #### [facility] [address] [place] [address] Dr. Akua Thomas LDL CALC NORMAL SEE BELOW Normal [facility] Comment on above: Result Comment: <100 mg/dl OPTIMAL 100 - 129 mg/dl NEAR OR ABOVE OPTIMAL 130 - 159 mg/dl BORDERLINE HIGH 160 - 189 mg/dl HIGH >190 mg/dl VERY HIGH Performed By: #### R F #### [facility] [address] [place] [address] Dr. Akua Thomas Triglyceride [Mass/Vol] 41 mg/dL Normal <=[address] [facility] Comment on above: Performed By: #### R F #### [facility] [address] [place] [address] Dr. Akua Thomas VLDL CALC 8.2 mg/dL Normal [facility] Comment on above: Performed By: #### R F #### [facility] [address] [place] [address] Dr. Akua Thomas PROF 14(COMP METB)on 022 Albumin [Mass/Vol] 3.8 g/dL Normal 3.4-5.0 [facility] Comment on above: Performed By: #### R F #### [facility] [address] [place] [address] Dr. Akua Thomas Albumin/Globulin [Mass ratio] 1.4 {ratio} Normal [facility] Comment on above: Performed By: #### R F #### [facility] [address] [place] [address] Dr. Akua Thomas ALP [Catalytic activity/Vol] 127 U/L Critically high 46-116 [facility] Comment on above: Performed By: #### R F #### [facility] [address] [place] [address] Dr. Akua Thomas ALT [Catalytic activity/Vol] 45 U/L Normal 16-[address] [facility] Comment on above: Performed By: #### R F #### [facility] [address] [place] [address] Dr. Akua Thomas Anion gap [Moles/Vol] 12.6 mmol/L Normal [facility] Comment on above: Performed By: #### R F #### [facility] [address] [place] [address] Dr. Akua Thomas AST [Catalytic activity/Vol] 28 U/L Normal 15-[address] [facility] Comment on above: Performed By: #### R F #### [facility] [address] [place] [address] Dr. Akua Thomas Bilirubin [Mass/Vol] 0.8 mg/dL Normal 0.2-1.[address] [facility] Comment on above: Performed By: #### R F #### [facility] [address] [place] [address] Dr. Akua Thomas Calcium [Mass/Vol] 8.7 mg/dL Normal 8.5-10.1 [facility] Comment on above: Performed By: #### R F #### [facility] [address] [place] [address] Dr. Akua Thomas Chloride [Moles/Vol] 102 mmol/L Normal 98-[address] [facility] Comment on above: Performed By: #### R F #### [facility] [address] [place] [address] Dr. Akua Thomas CO2 [Moles/Vol] 28.1 mmol/L Normal 21.0-32.0 [facility] Comment on above: Performed By: #### R F #### [facility] [address] [place] [address] Dr. Akua Thomas Creatinine [Mass/Vol] 0.77 mg/dL Normal 0.70-1.[address] [facility] Comment on above: Performed By: #### R F #### [facility] [address] [place] [address] Dr. Akua Thomas EGFR-AF GEORGIAN >60 Normal >=60 [facility] Comment on above: Performed By: #### R F #### [facility] [address] [place] [address] Dr. Akua Thomas EGFR-NON AF GEORGIAN >60 Normal >=[address] [facility] Comment on above: Performed By: #### R F #### [facility] [address] [address] [address] Akua Thomas Globulin (S) [Mass/Vol] 2.7 g/dL Normal [facility] Comment on above: Performed By: #### R F #### [facility] [address] [place] [address] Dr. Akua Thomas Glucose [Mass/Vol] 105 mg/dL Normal 74-106 [facility] Comment on above: Performed By: #### R F #### [facility] [address] [place] [address] Dr. Akua Thomas Potassium [Moles/Vol] 3.7 mmol/L Normal 3.5-5.[address] [facility] Comment on above: Performed By: #### R F #### [facility] [address] [place] [address] Dr. Akua Thomas Protein [Mass/Vol] 6.5 g/dL Normal 6.4-8.2 [facility] Comment on above: Performed By: #### R F #### [facility] [address] [place] [address] Dr. Akua Thomas Sodium [Moles/Vol] 139 mmol/L Normal 136-145 [facility] Comment on above: Performed By: #### R F #### [facility] [address] [place] [address] Dr. Akua Thomas Urea nitrogen [Mass/Vol] 17.0 mg/dL Normal 7.0-18.[address] [facility] Comment on above: Performed By: #### R F #### [facility] [address] [place] [address] Dr. Akua Thomas Urea nitrogen/Creatinin e [Mass ratio] 22.1 mg/mg Normal [facility] Comment on above: Performed By: #### R F #### [facility] [address] [place] [address] Dr. Akua Thomas TSHon 04-09-2022 TSH 0.547 uIU/mL Normal 0.358-3.[address] [facility] Comment on above: Performed By: #### R F #### [facility] [address] [place] [address] Dr. Akua Thomas Vital Signs Date Time Vital Sign Value Performing Clinician Edil rees 10-10-2024 13:51-0500 Blood Pressure Location Luis A MORRELLL [facility] 10-10-2024 13:51-0500 Diastolic blood pressure 68 mm[Hg] Luis A NILL [facility] 10-10-2024 13:51-0500 Heart rate 70 /min Luis A NILL [facility] 10-10-2024 13:51-0500 Respiratory rate 16 /min Luis A NILL [facility] 10-10-2024 13:51-0500 Systolic blood pressure 146 mm[Hg] Luis A NILL [facility] Encounters Encounter Date Encounter Type Care Provider Facility Start: 10-10-2024 End: 10-10-2024 ambulatory Luis A CASTILLO Facility:[facility] Start: 10-10-2024 End: 10-10-2024 Patient encounter procedure Luis A CASTILLO [facility] Start: 05-23-2024 End: 05-23-2024 Office outpatient visit 15 minutes Phillip Purvis MD Work Phone: [facility] Comment on above: 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 Work Phone: Start: 04-13-[address] Phillip Gallegos Facility:[id number] Start: 03-03-2023 Office outpatient visit 15 minutes Referring Provider Unknown [facility] Work Phone: Start: 03-03-2023 Patient encounter procedure Referring Provider Unknown [facility] Work Phone: Start: 03-03-[address] Phillip Gallegos Facility:[id number] Start: 11-04-2022 Office outpatient ne w 45 minutes Referring Provider Unknown [facility] 4100 Work Phone: Start: 11-04-2022 Patient encounter procedure Referring Provider Unknown [facility] Work Phone: Start: 11-04-[address] Phillip Gallegos Facility:[id number] Start: 10-15-2022 End: 10-18-2022 [facility]ulatory [facility] Start: 10-15-2022 End: 10-17-2022 Subsequent hospital visit by physician Paresh Griffith Dr Room 4 [facility] Comment on above: Pain in both hands Start: 10-05-2022 End: 10-06-[address] ADAMA FAYE . Facility: Start: 09-24-2022 ambulatory KRISTOFER RANKIN Facility :[facility]1 Start: 09-16-2022 End: 09-17-[address] ADAMA FAYE . Facility:[facility] Start: 08-19-2022 End: 08-19-2022 Patient encounter procedure KRISTOFER RANKIN [facility] Start: 05-01-2022 End: 05-01-[address] ADAMA FAYE . Facility:[facility] Start: 04-09-2022 End: 04-10-[address] ADAMA FAYE . Facility:[facility]1 Start: 07-12-2017 End: 07-13-2017 Ambulatory DEFAULT PHYSICIAN Facility:[facility] Procedures Date Procedure Procedure Detail Performing [...] DERM [address] [place] [address] Nuha Turner MD [address] [place] [address] [facility] Start: 06-22-2024 End: 06-22-2024 Patient encounter procedure 06/22/2024 11:00 AM EST Office Visit [address] [address] [place] [address] [place] [address] [facility] Start: 04-13-2024 End: 04-13-2025 CT Sinuses WO contrast CT sinuss wo IV contrast volumetric surgical planning Imaging Routine Benign neoplasm of frontal sinus Expected: 04/13/2024, Expires: 04/13/2025 [facility] Service Area Work Phone: Comment on above: Expected: 04/13/2024 , Expires: 04/13/2025 Start: 04-09-2024 COVID-19 Vaccine ( season) COVID-19 Vaccine ( season) [facility] Start: 04-09-2024 COVID-19 Vaccine ( season) COVID-19 Vaccine ( season) [facility] Start: 04-09-2024 Influenza vaccination Influenza Vacc ine (#1) [facility] Start: 04-04-2024 End: 04-04-2024 Patient encounter procedure 04/04/2024 11:00 AM EDT Office Visit [facility] [address] [place] [address] Nuha Turner MD [address] [place] [address] Arrived [facility] Comment on above: Arrived Start: 2023 RSV High Risk: (Elde rly (60+) or Population) (1 - 1-dose 75+ series) RSV High Risk: (Elderly (60+) or Population) (1 - 1-dose 75+ series) [facility] Start: 03-03-2023 PHUONG, Provider : Phillip Purvis, Status: Pen, Time: 1:00 PM PHUONG, Provider: Phillip Purvis, Status: Pen, Time: 1:00 PM EW-Qkdjmfqlzwupze-[place]xa [place] Work Phone: Start: 10-15-2022 Annual Wellness Visi t (AWV) Annual Wellness Visit (AWV) [facility] Start: 09-01-2021 COVID-19 Vaccine (4 - Booster for Moderna series) COVID-19 Vaccine (4 - Booster for Moderna series) [facility] Start: 06-24-2018 Pneumococcal 65+ yea rs Vaccine (2 - PPSV23 if available, else PCV20) Pneumococcal 65+ years Vaccine (2 - PPSV23 if available, else PCV20) [facility] Start: 06-24-2018 Pneumococcal Vaccine : 65+ Years (2 of 2 - PPSV23 or PCV20) Pneumococcal Vaccine: 65+ Years (2 of 2 - PPSV23 or PCV20) [facility] Start: 2013 Abdominal aortic aneurysm screening [facility] Start: 2008 RSV patient s and/or patients aged 60+ years (1 - 1-dose 60+ series) RSV patients and/or patients aged 60+ years (1 - 1-dose 60+ series) [facility] Start: 1998 Shingles vaccine (1 of 2) Shingles vaccine (1 of 2) [facility] Start: 1998 Zoster Vaccines (1 o f 2) Zoster Vaccines (1 of 2) [facility] Start: 1993 Screening for malign ant neoplasm of colon [facility] Start: 1970 DTaP/Tdap/Td Vaccine s (1 - Tdap) DTaP/Tdap/Td Vaccines (1 - Tdap) [facility] Start: 1967 DTaP/Tdap/Td vaccine (1 - Tdap) DTaP/Tdap/Td vaccine (1 - Tdap) [facility] Start: 1966 Hepatitis C screening B ON [facility] Start: 1960 Depression Screen Depression Screen [facility] Start: 1958 Lipid panel Lipids [facility] Start: 1948 Annual wellness visit Medicare Initial Physical (IPPE) [facility] Start: 1948 Lipid panel Lipid Panel [facility] Start: 1948 Medicare Annual Wellness Visit Medicare Annual Wellness Visit (AWV) [facility] Start: 1948 Screening for malign ant neoplasm of colon [facility] Immunizations Immunization Date Immunization Notes Care Provider Codie kumar 06-05-2022 influenza virus vaccine, unspecified formulation KRISTOFER MASSIEL [facility] 07-07-2021 SARS-CoV-2 (COVID-19 ) mRNA-1273 vaccine KRISTOFER MASSIEL [facility] 11-02-2020 SARS-CoV-2 (COVID-19 ) mRNA-1273 vaccine KRISTOFER MASSIEL [facility] Comment on above: Result Comment: 2022: TPV70 10-05-2020 SARS-CoV-2 (COVID-19 ) mRNA-1273 vaccine KRISTOFER MASSIEL [facility] Comment on above: Result Comment: 2022: [id number] 05-08-2020 influenza virus vaccine, unspecified formulation KRISTOFER MASSIEL [facility] 05-17-2019 influenza virus vaccine, unspecified formulation KRISTOFER MASSIEL [facility] [place] 05-25-2018 influenza virus vaccine, unspecified formulation KRISTOFER MASSIEL [facility] 06-24-2017 pneumococcal conjuga te vaccine, 13 valent KRISTOFER MASSIEL [facility] NEGATED: Highlighted row has not occurred!06-20-2019 influenza virus vaccine, unspecified formulation KRISTOFER MASSIEL [facility] [place] Payers Date Payer Category Payer Medicare [id number] 2022 Medicare (Managed Care) [employer] [place] [employer] [id number] 1959 Medicare [id number] 1959 Self-pay 1948 Unknown [id number] [id number]. 593 1948 Unknown [id number] 2.16.840.1.645362.3.579.2. 593 1948 Unknown [id number] 2.16.840.1.083104.3.579.2. 593 1948 Unknown [id number] 2.16.840.1.391028.3.579.2. 593 1948 Unknown [id number] 2.16.840.1.616494.3.579.2. 593 1948 Unknown [id number] 2.16.840.1.616962.3.579.2. 173 1948 Unknown [id number] 2.16.840.1.012973.3.579.2. 173 1948 Unknown [id number] 2.16.840.1.672339.3.579.2. 173 1948 Unknown [id number] 2.16.840.1.917030.3.579.2. 356 1948 Unknown [id number] 2.16.840.1.403559.3.579.2. 356 1948 Unknown [id number] 2.16.840.1.871137.3.579.2. 356 1948 Unknown [id number] 2.16.840.1.292745.3.579.2. 1259 1948 Unknown [id number] 2.16.840.1.520791.3.579.2. 1244 1948 Unknown [id number] 2.16.840.1.529502.3.579.2. 1244 1948 Unknown [id number] 2.16.840.1.435430.3.579.2. 727 Unknown Social History Date Type Detail Facility Start: 08-19-2022 End: 10-10-2024 Tobacco smoking status Never smoked tobacco (finding) [facility] Tobacco smoking status Never [facility] Start: 04-04-2024 End: 05-23-2024 Sex Assigned At Male [facility] Start: 10-15-2022 End: 05-23-2024 Tobacco smoking status NHIS Ex-smoker [facility] Phone: End: 08-09-1973 History of tobacco use Current smoker [facility]: End: 08-09-1973 History of tobacco use Cigarette Smoker [facility]: Start: 10-15-2022 End: 01-06-2023 Tobacco use and exposure Smokeless tobacco non-user [facility] Phone: Start: 10-15-2022 End: 04-04-2024 Alcohol intake Lifetime non-drinker (finding) [facility] Phone: Start: 10-15-2022 Tobacco Comment Only smoked fo r about a year [facility] Phone: Start: 1950 Sex Assigned At Not on file [facility] Phone: Start: 04-04-2024 End: 05-23-2024 History of Social function [facility] Start: 04-03-2024 End: 05-23-2024 Exposure to SARS-CoV-2 (event) Unable to assess [facility] Work Phone: Tobacco smoking status NHIS Tobacco smoking consumption unknown [facility] Work Phone: Start: 01-06-2023 Alcohol Comment caffeine 1-2 cups/da y [facility] Functional Status Date Assessment Result Facility 10-10-2024 Functional Status N/A [facility] [place] 08-19-2022 Functional Status N/A [facility] Clinical Notes 08-19-2022 to 10-10-2024 Phillip Purvis [...] E&M of New Patient Low 30-44 Min 00988 US Chest or Upper Back, Limited Follow-up [...] mg Cap-EC, Oral, Daily Flonase 0.05 mg/inh [place], 1 spray(s), Nasal, Daily irbesartan 300 mg [...] 05/25/2018 Recorded pneumococcal 13-valent vaccine 06/24/2017 Recorded [facility] Comment on above: Result Comment: Elec [...] Phillip Purvis MD documented in this encounter [facility] Work Phone: 05-03-2024 Telephone encounter Note Patient called requesting a refill of: Triamcinolone 0.1% cream Diagnosis: Atopic Dermatitis Prescribing provider: Nuha Turner MD Last visit: 04/04/2024 Next visit: 04/04/25 Action: prescription was sent to patient's pharmacy [facility] with enough refills until next visit. [facility] 05-03-2024 Miscellaneous Notes Patient called requesting a refill of: Triamcinolone 0.1% cream Diagnosis: Atopic Dermatitis Prescribing provider: Nuha Turner MD Last visit: 04/04/2024 Next visit: 04/04/25 Action: prescription was sent to patient's pharmacy [facility] with enough refills until next visit. documented in this encounter [facility] 04-13-2024 History of Present illness Narrative An [...] Phillip Purvis MD. documented in this encounter [facility] Work Phone: 04-04-2024 History of Present illness [...] Visit: 1 year documented in this encounter [facility] 04-13-2023 Chief complaint Narrative - Reported An [...] of immunotherapy6. Reflux on proton pump inhibitor [facility] Work Phone: 03-03-2023 Chief complaint Narrative - [...] of immunotherapy6. Reflux on proton pump inhibitor LX-[place]vglvp[place]ipaksa-[place] Work Phone: 11-04-2022 Chief complaint Narrative - Reported An interactive audio and video telecommunication system which permits real time communications between the patient (at the originating site) and provider (at the distant site) was utilized to provide this telehealth service.Verbal consent was requested and obtained from KEDAR NÚÑEZ on this date, 11/04/2022 01:15 PM , for a telehealth visit.Frontal sinus lesion [facility] Work Phone: 11-04-2022 History of Present illness Narrative Reason for visit:KEDAR NÚÑEZ patient presents since last being seen 11/04/22.Medications currently on for sinonasal symptoms.Ipratropium BID.Medications tried in the past for sinonasal symptoms Flonase/Fluticasone.Spoke about PND [facility] Work Phone: 11-04-2022 History of Present illness Narrative Reason for visit:KEDAR NÚÑEZ patient presents since last being seen 11/04/22.Medications currently on for sinonasal symptoms.Ipratropium BID.Medications tried in the past for sinonasal symptoms Flonase/Fluticasone.Kedar presents for routine follow-up. He continues to have issues related to postnasal drainage despite ipratropium. He does feel the ipratropium is providing some measure of benefit. [facility] Work Phone: 08-19-2022 Hospital Discharge instructions [...] including vitamins, herbs, eye drops, creams, and buoy-pkv-emyiinb medicines. Any problems you or family members [...] provider tells you to take them. Taking zzzb-vqu-tvsccjy medicines, vitamins, herbs, and supplements. Eating and [...] 07/26/2006 Document Revised: 11/15/2019 Document Reviewed: 04/26/2019 [employer] Patient Education 2019 [employer]. Follow Up Care 08/05/2021 11:01:39 With:MASSIEL CASE, KRISTOFER Ceballos, URL Address: [address] 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 Work Phone: Evaluation note* Diagnosis Other atopic [...] moisture in his throat * PMHx: Hypertension QI-Vhyqwxwosvgclw-Tgcefwcj Work Phone: History of Present illness Narrative* [...] move the food through. * PMHx: Hypertension JE-[facility]wxifuetefjosc-[facility] Work Phone: History of Present illness Narrative* Main Symptoms: * Patient has posterior nasal drainage. * Associated Symptoms: * Patient has throat clearing. * Patient has coughing. * Medications currently on for sinonasal symptoms Flonase/Fluticasone - PRN (as needed) . * Ipratropium BID. EM-Sjsxhfhverafet-[facility]wstpmp[facility] 4[facility] Work Phone: Hospital Discharge instructions No data available for this section [facility] [place] Progress note No data available for this section [facility] Summary Purpose Family History No Family History [...] contrast volumetric surgical planning Phillip Purvis MD [address] [facility] [address] [place] [address] Referral ID Status Reason Start Date Expiration Date Visits Requested Visits Authorized [id number] Pending Review Perform Procedure 04/13/2024 04/13/2025 1 1 Additional Source Comments (unrecognized sect ion and content) No Status Records FoundNo Status Records FoundNo Status Records FoundNo Status Records FoundNo Status Records FoundNo Status Records FoundNo Status Records FoundNo Status Records Found INFORMATION SOURCE (unrecogn ized section and content) DATE CREATED AUTHOR 02/01/2018 [facility] DATE CREATED AUTHOR AUTHOR'S ORGANIZ ATION 10/10/2022 [facility] DATE CREATED AUTHOR AUTHOR'S ORGANIZ ATION 10/18/2022 [facility] DATE CREATED AUTHOR AUTHOR'S ORGANIZ ATION 04/13/2023 [facility] DATE CREATED AUTHOR AUTHOR'S ORGANIZ ATION 04/15/2023 [facility] DATE CREATED AUTHOR AUTHOR'S ORGANIZ ATION 04/06/2024 [facility] EPIC DATE CREATED AUTHOR AUTHOR'S ORGANIZ ATION 05/31/2024 [facility] DATE CREATED AUTHOR AUTHOR'S ORGANIZ ATION 10/12/2024 [facility] Patient Care team informatio n (unrecognized section and content) Skin Carver Relationship Specialty Start Date End Date Adama Faye MD [address] [place] [address] PCP - General Family Medicine 10/08/22 Skin Carver Relationship Specialty Start Date End Date Adama Faye MD [address] [place] [address] PCP - General Family Medicine 10/08/22 Skin Carver Relationship Specialty Start Date End Date Adama Faye MD [address] [place] [address] PCP - General Family Medicine 04/24/24 Reason [...] BE BASED ON THE PRIMARY CLINICAL RECORDS. [employer] provides no warranty or guarantee of the accuracy or completeness of information in this document.
== END 2025-04-19 14:05 | disposition home or self-care (01) ==
LOC: CT 14:04
PROVIDERS: PCP Family Medicine; Visit Provider Family Medicine
DX: M25.552 Pain in left hip (principal); M16.12 Unilateral primary osteoarthritis, left hip
CPT/HCPCS: 73700; 76376

== ENCOUNTER 2025-05-02 09:56 | Outpatient (OUT) | payer MEDICARE, SELFPAY ==
--- OUTSIDE RECORDS SUMMARY | 2025-05-02 09:58 | XMS_ITS | Encounter Summary ---
Author Organization [facility] Address [address] [place] [address] Phone Care Team Providers Care Oil Producer Name Role Phone Marshall Faye MD Primary Care Provider [phone] Encounter Details Date Type Department Care Team ([facility] st Contact Info) Description 03/19/2023 Scanned Document [facility] [address] [place] [address] Conversion, Onbase Social History Tobacco Use Types [...] on filedocumented in this encounter Care Teams Oil Producer Relationship Specialty Start Date End Date Marshall Faye MD [address] [place] [address] PCP - General Family Medicine 04/24/24 documented as of this encounter
--- OUTSIDE RECORDS SUMMARY | 2025-05-02 09:58 | XMS_ITS | Encounter Summary ---
Author Organization [facility] Address [address], [address] [place] [address] Care Team Providers Care Specimen Accessioner Name Role Phone Marshall Faye MD Primary Care Provider [phone] Encounter Details Date Type Department Care Team (Late st Contact Info) Description 04/29/2025 Orders Only [facility] Admitting [address] [id number] Marshall Faye MD [address] [place] [address] Social History Tobacco Use Types Packs/Day Years Used Date Smoking Tobacco: Former Cigarettes Q uit: 1973 Smokeless Tobacco: Never Comments:Only smoked for abo ut a year Alcohol Use Standard Drinks/Week Comments Never 0 (1 standard drink = 0.6 oz pur e alcohol) Sex and Gender Information Value Date Recorded Sex Assigned at Not on file Legal Sex Male 3:54 PM EST Gender Identity Not on file Sexual Orientation Not on file documented as of this encounter Plan of Treatment Not on file documented as of this encounter Visit Diagnoses Not on filedocumented in this encounter Additional Health Concerns Assessment Noted Time A Body Mass Index follow-up plan has been documented for the patient 10/15/2022 10:48 AM EST documented as of this encounter Care Teams Specimen Accessioner Relationship Specialty Start Date End Date Marshall Faye MD [address] [place] [address] PCP - General Family Medicine 10/08/22 documented as of this encounter
--- OUTSIDE RECORDS SUMMARY | 2025-05-02 09:59 | XMS_ITS | Encounter Summary ---
Author Organization [facility] Address [address], [address] [place] [address] Care Team Providers Care Tactical/Mobile Watch Officer Name Role Phone Marshall Faye MD Primary Care Provider [phone] Reason for Referral * Imaging (Routine) - Open Specialty Diagnoses / Procedures Referred By Contac t Referred To Contact Radiology Diagnoses Arthritis of left hip Procedures CT HIP LEFT WO CONTRAST Marshall Faye MD [address] [place] [address] Phone: tel: fax: Referral ID Status Reason Start Date Expiration Date Visits Re quested Visits Authorized [id number] Open 04/23/2025 04/23/2026 1 1 Encounter Details Date Type Department Care Team (Latest Contact Info) Description 04/23/2025 Transcribe Orders [facility] Pre Access [address] [phone] Marshall Faye MD [address] [phone] Arthritis of left hip (Primary Dx) Social History Tobacco Use Types Packs/Day Years [...] as of this encounter Plan of Treatment Scheduled Orders Name Type Priority Associated Diagnoses Orde r Schedule CT HIP LEFT WO CONTRAST Imaging Routine Arthritis of left hip Expected: 04/23/2025, Expires: 04/23/2026 documented as of this encounter Visit Diagnoses Diagnosis Arthritis of left hip- Primary documented in this encounter Additional Health Concerns Assessment Noted Time A Body Mass Index follow-up plan has been documented for the patient 10/15/2022 10:48 AM EST documented as of this encounter Care Teams Tactical/Mobile Watch Officer Relationship Specialty Start Date End Date Marshall Faye MD [address] [place] [address] PCP - General Family Medicine 10/08/22 documented as of this encounter
--- OUTSIDE RECORDS SUMMARY | 2025-05-02 09:59 | XMS_ITS | Encounter Summary ---
Author Organization [facility] Address [address], [address] [place] [address] Care Team Providers Care Knowledge Management Advisor Name Role Phone Marshall Faye MD Primary Care Provider [phone] Encounter Details Date Type Department Care Team (Late st Contact Info) Description 04/20/2025 Transcribe Orders [facility] Pre Access [address] [place] [address] [place] [address] [place] [address] [phone] Social History Tobacco Use Types Packs/Day Years [...] documented as of this encounter Care Teams Knowledge Management Advisor Relationship Specialty Start Date End Date Marshall Faye MD [address] [place] [address] PCP - General Family Medicine 10/08/22 documented as of this encounter
--- OUTSIDE RECORDS SUMMARY | 2025-05-02 09:59 | XMS_ITS | Clinical Summary ---
Author Organization [facility] Address [address] [address] Phone Care Team Providers Care Chief Of Party Name Role Phone Marshall Faye MD Primary Care Provider [phone] Allergies No known active allergies Medications irbesartan [...] GOLDEN MED[employer]ARE [employer] GOLDEN MED[employer]ARE Care Teams Chief Of Party Relationship Specialty Start Date End Date Marshall Faye MD [address] [place] [address] PCP - General Family Medicine 04/24/24
--- OUTSIDE RECORDS SUMMARY | 2025-05-02 10:06 | XMS_ITS | CCD ---
Author Organization [facility] CliniSymn Care Team Providers Care Automotive Repair Technician Name Role Phone PHYSICIAN, DEFAULT Unavailable Unavailable PHYSICIAN, DEFAULT Unavailable Unavailable Adama Faye Primary Care Physician [place] ., DR GALAN Attending Unavailable HOY ., DR GALAN Admitting Unavailable HOY ., DR GALAN Primary Care Unavailable HOY ., DR GALAN Consulting Unavailable MASSIELKRISTOFER QUACH Admitting Unavailable KRISTOFER RANKIN Attending Unavailable HOY ., DR GALAN Primary Care Unavailable HOY ., DR GALAN Attending Unavailable HOY ., DR GALAN Admitting Unavailable HOY ., DR GALAN Primary Care Unavailable HOY ., DR GALAN Consulting Unavailable HOY ., DR GALAN Attending Unavailable HOY ., DR GALAN Admitting Unavailable HOY ., DR GALAN Primary Care Unavailable HOY ., DR GALAN Consulting Unavailable RAILROAD, DR ALIYA Sierra Consulting Unavailable HOY ., DR GALAN Attending Unavailable HOY ., DR GALAN Admitting Unavailable HOY ., DR GALAN Primary Care Unavailable HOY ., DR GALAN Consulting Unavailable DONNELL RENTERIA Consulting Unavailable Adama Faye MD Primary Care Provider [phone] OSMIN GOODEN Referring Unavailable ADAMA FAYE Primary [...] Unavailable Dr. Phillip Purvis Attending Susan vailable Adama Faye MD Primary Care Provider [phone] PHILLIP PURVIS Attending Unavailable PHILLIP PURVIS Attending Unavailable ADAMA FAYE Primary Care Unavailable Unavailable Primary Care Provider Unavailnilesh e Unavailable Primary Care Provider Unavailabl e Luis A CASTILLO Attending Unavailable Adama Faye Referring Unavailable Adama Faye MD Primary Care Provider JOYCELYN PENDLETON Attending Unavailable Allergies Allergy Classification Reported Allergen(s) Allergy Type Date of Onset Reaction(s) Facility (3 sources) Penicillin; Translations: [penicillin] Drug Allergy Eruption of skin (disorder) [facility] (2 sources) Penicillins Drug allergy (disorder) 3 [facility] Repository (3 sources) Penicillins Propensity to adverse reactions to drug 3 [facility] (1 source) ALLERGIES NOT ON FILE; Translations: [ALLERGIES NOT ON FILE] Propensity to adverse reactions (disorder) [facility] 3 Repository (7 sources) Penicillins Drug Allergy 3 Unknown [facility] Medications Current Medications Medication Drug Class(es) Dates Sig (Normalized) Sig (Original) aspirin 81 mg oral tablet (12 sources) Platelet Aggregation Inhibitor, Nonsteroidal Anti-inflammatory Drug Start: 06-01-2019 take 1 tablet by mouth once daily aspirin 81 mg oral tablet 81 mg = 1 tab(s), Oral, Daily, # 30 tab(s), Refills(s) 0 Start Date: 06/01/19 Status: Ordered ASPIRIN 81 PO Ac tive ASPIRIN 81 PO As pir-81 Active take 1 tablet by mouth once renee y aspirin 81 MG EC tablet Take 81 mg by mouth daily 0 Active cefdinir 300 mg oral capsule (2 sources) Cephalosporin Antibacterial Start: 04-25-2025 End: 05-05-2025 take 1 capsule by mouth in the morning cefdinir (Omnicef) 300 MG capsule Indications: Chronic sinusitis, unspecified location Take 1 capsule (300 mg) by mouth in the morning and 1 capsule (300 mg) before bedtime. Do all this for 10 days. 20 capsule 04/25/2025 05/05/2025 Active 1 ml dexamethasone phosphate 4 mg/ml injection (3 sources) Corticosteroid Start: 10-15-2022 dexamethasone (DECADRON) injection 4 mg diclofenac sodium 0.01 mg/mg topical gel (7 sources) Nonsteroidal Anti-inflammatory Drug Start: 10-02-2024 diclofenac topical 1% gel as directed, Refill(s) 0 Start [...] 2 ml dupilumab 150 mg/ml prefilled syringe (16 sources) Interleukin-4 Receptor alpha Antagonist Start: 04-19-2025 Dupixent 300 MG/2ML injection Indications: Atopic Dermatitis Inject 1 Syringe (300 mg) under the skin every 14 (fourteen) days 12 mL 04/19/2025 Active Start: 04-06-2024 Dupixent 300 M G/2ML injection Indications: Atopic Dermatitis Inject 1 Syringe (300 mg) under the skin every 14 (fourteen) days 12 mL 4 04/06/2024 Active Start: 02-02-2019 End: 04-24-2025 dupilumab (Dupixent) 300 MG/ 2ML injection Inject 1 PFS Subcutaneous every other week 02/02/2019 04/24/2025 Discontinued dupilumab (Dupix ent Pen) 300 mg/2 mL pen injector Inject under the skin. Active dupilumab (DUPIX ENT) 300 MG/2ML SOPN injection Inject 300 mg into the skin every 14 days 0 Active famotidine 20 mg oral tablet (2 sources) Histamine-2 Receptor Antagonist Start: 04-25-2025 End: 07-24-2025 take 1 tablet by mouth at bedtime famotidine (Pepcid) 20 MG tablet Indications: Chronic laryngitis Take 1 tablet (20 mg) by mouth at bedtime 90 tablet 04/25/2025 07/24/2025 Active fluticasone propionate 0.05 mg/actuat metered dose nasal spray (7 sources) Corticosteroid Start: 10-02-2024 fluticasone (Flonase Allergy Relief) 50 MCG/ACT nasal spray Administer into affected nostril(s) 10/02/2024 Active Start: 10-02-2024 Flonase 0.05 m g/inh [place] 1 spray(s), Nasal, Daily, Refill(s) 0 Start Date: 10/02/24 Status: Ordered take 1 spray(s) nasa l route twice daily as needed fluticasone (FLONASE) 50 MCG/ACT nasal spray 1 spray by Each Nostril route 2 times daily as needed 0 Active irbesartan 300 mg oral tablet (11 sources) Angiotensin 2 Receptor Donna Start: 03-27-2022 take 1 tablet by mouth once daily irbesartan 300 mg Tab 300 mg = 1 tab(s), Oral, Daily, Refills(s) 0 Start Date: 10/02/24 Status: Ordered lisinopril 40 mg oral tablet (1 source) Angiotensin Converting Enzyme Inhibitor Start: 04-28-2019 take 1 mg by mouth once daily lisinopril 40 mg Tab mg tab(s), Oral, Daily, Refills(s) 0 Start Date: 04/28/19 Status: Ordered loratadine 10 mg oral tablet (4 sources) Start: 10-02-2024 loratadine (Claritin) 10 MG tablet Take 10 mg by mouth 10/02/2024 Active multivitamin tablet (1 source) take 1 tablet by mouth once daily multivitamin tablet Take 1 tablet by mouth once daily. Active simvastatin 40 mg oral tablet (16 sources) HMG-CoA Reductase Inhibitor Start: 04-28-2019 take [...] Refills(s) 0 Start Date: 10/02/24 Status: Ordered Completed/Discontinued Medications Medication Drug Class(es) Dates Sig (Normalized) Sig (Original) betamethasone 0.0005 mg/mg topical ointment (6 sources) Corticosteroid Start: 11-02-2022 End: 04-24-2025 betamethasone dipropionate (Diprolene) 0.05 % ointment apply to hands and feet (avoid face and skin folds) Externally bid prn (hold when clear) for 30 day(s) 11/02/2022 04/24/2025 Discontinued (Therapy completed) cetirizine hydrochloride 10 mg oral tablet (13 sources) Histamine-1 Receptor Antagonist End: 04-24-2025 cetirizine (ZyrTEC) 10 MG tablet 1 (one) time each day at the same time. 04/24/2025 Discontinued (Therapy completed) Cetirizine HCl T ABS Quantity: 0 Refills: 0 Ordered: 03-Mar-2023 DO Active take 2 tablets by mouth once baron ly cetirizine (ZYRTEC) 10 MG tablet Take 20 mg by mouth daily 0 Active esomeprazole 40 mg delayed release oral capsule (15 sources) Proton Pump Inhibitor Start: 12-05-2022 Esomeprazole Magnesi um 40 MG Oral Capsule Delayed Release Quantity: 90 Refills: 0 Ordered: 05-Dec-2022 DO Start : 05-Dec-2022 Active Start: 04-28-2019 take 1 mg by mouth once daily esomeprazole 40 mg Cap-EC mg cap(s), Oral, Daily, Refills(s) 0 Start Date: 04/28/19 Status: Ordered take 1 capsule by [facility] twice daily esomeprazole (NexIUM) [address] [...] spray(s) nasal route three times daily Ipratropium [place] 0.03 % Nasal Solution USE 2 SPRAYS [...] 22-Jun-2022 Active montelukast 10 mg oral tablet (14 sources) Leukotriene Receptor Antagonist Start: 01-11-2023 Montelukast Sodium 10 MG Oral Tablet Quantity: 90 Refills: 0 Ordered: 11-Jan-2023 DO Start : 11-Jan-2023 Active Montelukast Sodi um (SINGULAIR PO) Active take 1 tablet by mouth once renee y montelukast (Singulair) 10 mg tablet Take 1 tablet (10 mg) by mouth once daily. Active Montelukast Sodi um (SINGULAIR PO) Singulair Active triamcinolone acetonide 1 mg/ml topical cream (15 sources) Corticosteroid Start: 11-22-2024 End: 04-24-2025 triamcinolone (Kenalog) 0.1 % cream Indications: Other atopic dermatitis Apply to affected areas, up to twice a day when flared, do not use one the face, groin, or underarms, 30 day supply 454 g 11 11/22/2024 04/24/2025 Discontinued (Therapy completed) Start: 05-03-2024 triamcinolone (Kenalog) 0.1 % cream Indications: Other atopic dermatitis Apply to affected areas, up to twice a day when flared, do not use one the face, groin, or underarms, 30 day supply 454 g 11 05/03/2024 Active End: 04-24-2025 triamcinolone (Kenalog) 0.1 % cream Apply to itchy areas topically bid prn for flares. Avoid face and groin for 30 days 04/24/2025 Discontinued (Therapy completed) End: 04-24-2025 triamcinolone (Kenalog) 0.1 % cream every 12 (twelve) hours. 04/24/2025 Discontinued (Therapy completed) Problems Active Problems Problem Classification Problem Date Documented Da te Episodic/Chronic Abdominal pain (5 sources) Left lower quadrant pain; Translations: [Left lower quadrant pain] Onset: 5 06-20-2019 Episodic Allergic reactions (3 sources) Atopic dermatitis; Translations: [Other atopic dermatitis] 04-04-2024 Chronic Allergic reactions (4 sources) Eczema; Translations: [Dermatitis, unspecified] Onset: 5 10-02-2024 Episodic Asthma (5 sources) Asthma; Translations: [Unspecified asthma, uncomplicated] Onset: 5 04-28-2019 Chronic Calculus of urinary tract (6 sources) Kidney stone; Translations: [Calculus of kidney] Onset: 3 Episodic Deficiency and other anemia (1 source) Anemia, unspecified; Translations: [ANEMIA UNSPECIFIED] Onset: 3 Episodic Disorders of lipid metabolism (9 sources) Hyperlipidemia; Translations: [Hyperlipidemia, unspecified] Onset: 2 04-28-2019 Chronic Diverticulosis and diverticulitis (3 sources) Diverticulosis of colon; Translations: [Diverticulosis of large intestine without perforation or abscess without bleeding] Onset: 3 04-24-2025 Chronic Esophageal disorders (9 sources) Gastroesophageal reflux disease; Translations: [Gastroesophageal reflux disease with hiatal hernia] Onset: 5 04-28-2019 Chronic Essential hypertension (5 sources) Hypertensive disorder; Translations: [Essential hypertension] Onset: 3 04-28-2019 Chronic Hyperplasia of prostate (6 sources) Benign prostatic hypertrophy with outflow obstruction; Translations: [Benign prostatic hyperplasia with lower urinary tract symptoms] Onset: 3 Chronic Neoplasms of unspecified nature or uncertain behavior (5 sources) Neoplasm of frontal sinus; 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] Episodic Osteoarthritis (5 sources) Arthritis; Translations: [Unspecified osteoarthritis, unspecified site] Onset: 5 04-28-2019 Chronic Other and unspecified benign neoplasm [...] 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 Other diseases of kidney and ureters (3 sources) Parapelvic renal cyst; Translations: [Cyst of kidney, acquired] Onset: 5 04-24-2025 Episodic Other gastrointestinal disorders (3 sources) Irritable bowel syndrome; Translations: [Irritable bowel syndrome without diarrhea] Onset: 3 04-24-2025 Chronic Other gastrointestinal disorders (5 sources) Abdominal bloating; Translations: [Abdominal distension (gaseous)] Onset: 5 08-07-2019 Episodic Other gastrointestinal disorders (5 sources) Constipation alternates with diarrhea; Translations: [Other specified symptoms and signs involving the digestive system and abdomen] Onset: 5 06-20-2019 Episodic Other non-traumatic joint disorders (4 sources) Other specified arthritis, unspecified hand; Translations: [OTHER SPECIFIED ARTHRITIS UNS HAND] Onset: 3 Chronic Other nutritional; endocrine; and metabolic disorders (4 sources) Overweight; Translations: [Overweight] Onset: 5 10-10-2024 Episodic Other nutritional; endocrine; and metabolic disorders (4 sources) Overweight in adulthood with body mass index of 25 or more but less than 30; Translations: [Body mass index (BMI) 26.0-26.9, adult] Onset: 5 10-10-2024 Episodic Other skin disorders (1 source) Mass of trunk; Translations: [Localized swelling, mass and lump, trunk] Onset: Episodic Other skin disorders (4 sources) Mass of subcutaneous tissue of back; Translations: [Localized swelling, mass and lump, trunk] Onset: 5 10-10-2024 Episodic Other upper respiratory disease (4 sources) Other seasonal allergic rhinitis; Translations: [OTHER SEASONAL ALLERGIC RHINITIS] Onset: Chronic Other upper respiratory disease (1 source) Seasonal allergic rhinitis 10-02-2024 Chronic Other upper respiratory disease (2 sources) Chronic laryngitis; Translations: [Chronic laryngitis] 04-25-2025 Chronic Other upper respiratory disease (6 sources) Nasal discharge; Translations: [Other disease of nasal cavity and sinuses] Episodic Other upper respiratory disease (2 sources) Hoarse; Translations: [Dysphonia] 04-25-2025 Episodic Other upper respiratory infections (2 sources) Chronic sinusitis; Translations: [Chronic sinusitis, unspecified] 04-25-2025 Chronic Past or Other Problems Problem Classification Problem [...] Instructions Your Care Team Attending Physician - Luis A CASTILLO MD Primary Care Physician - Adama Faye MD Referring Physician - Adama Faye MD This Is Your Medications List Contact prescribing physician if questions or concerns aspirin (aspirin 81 mg oral tablet) diclofenac topical (diclofenac topical 1% gel) dupilumab (Dupixent 300 mg/2 mL subcutaneous solution) esomeprazole (esomeprazole 40 mg Cap-EC) fluticasone nasal (Flonase 0.05 mg/inh [place]) irbesartan (irbesartan 300 mg Tab) loratadine (loratadine [...] Unchanged fluticasone nasal (Flonase 0.05 mg/ inh [place]) 1 Sprays Nasal Inhalation Every day Contact [...] you for choosing us for your care. Basil [place] 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 Please feel free to contact my office by calling [phone] with any questions. Provider Impressions 1. Frontal [...] observation. Given that there is been no exchange mechanic 6 months I recommended virtual follow-up in [...] 40 MG Oral Capsule Delayed Release Ipratropium [place] 0.03 % Nasal SolutionUSE 2 SPRAYS IN [...] Apr 14 2023 11:03AM EST (Author) Normal [employer] Falls Screening (Age 18+)on 04-13-2023 Fall risk assessment a) No falls within the last year -Otolaryngo [facility] [address] Work Phone: Tobacco use status [facility] b) No -Otolaryngo [facility] [address] Work Phone: Established Visit (Otolaryng [...] free to contact my office by calling [phone] with any questions. Provider Impressions 1. Frontal [...] home so I will ask my medical unit secretary to print off the order and [...] No Known Environmental Allergies Recorded By: Katie Uamña; 03/03/2023 3:05:56 PM No Known Food Allergies Recorded By: Katie Umaña; 03/03/2023 3:05:56 PM Current Meds Medication NameInstruction Cetirizine HCl TABS Diclofenac Sodium 75 MG Oral Tablet Delayed Release Esomeprazole Magnesium 40 MG Oral Capsule Delayed Release Ipratropium [place] 0.03 % Nasal SolutionUSE 2 SPRAYS IN [...] Throat clearing (786.09) (R09.89) Orders Start: Ipratropium [place] 0.03 % Nasal Solution; USE 2 SPRAYS IN EACH NOSTRIL 3 TIMES DAILY NEEDED Patient Discussion/Summary Please feel free to contact my office by calling [phone] with any questions. Provider Impressions 1. Frontal [...] A Adams MD 10/15/22 Final result Normal [facility] No acute osseous abnormality. Degenerative changes 1st CMC joint [facility] EXAMINATION: THREE XRAY VIEWS OF THE LEFT HAND 10/15/2022 9:57 am COMPARISON: None. HISTORY: ORDERING SYSTEM PROVIDED HISTORY: Pain in both hands FINDINGS: There is no evidence of acute fracture. There is normal alignment. No acute joint abnormality. No focal osseous lesion. No focal soft tissue abnormality. Degenerative changes seen in the 1st CMC joint. Vascular calcifications. [facility] Luis A Adams MD [...] osseous abnormality. Degenerative changes 1st CMC joint [employer] [facility] [employer] [facility] Phone: Radiology Study observation (narrative) [employer] [facility] [employer] [facility] Phone: XR HAND LEFT (MIN 3 VIEWS)Or dered By: Luis A Adams on 10-15-2022 [facility] [email or web address] Phone: XR HAND RIGHT (MIN 3 VIEWS)o [...] A Adams MD 10/15/22 Final result Normal [facility] No acute osseous abnormality. Degenerative changes 3rd MCP joint and 1st CMC joint [facility] EXAMINATION: THREE XRAY VIEWS [...] with joint space narrowing and bony overgrowth. [facility] Luis A Adams MD [...] 3rd MCP joint and 1st CMC joint [facility] [email or web address] Phone: Radiology Study observation (narrative) [employer] Phone: XR HAND RIGHT (MIN 3 VIEWS)O rdered By: Luis A Adams on 10-15-2022 [employer] Phone: PERLA by IFAon 10-06-2022 Antinuclear Antibodies, IFA Negative Normal [facility] Comment on above: Result Comment: Nega tive <1:80 Borderline 1:80 Positive >1:80 ICAP nomenclature: AC-0 For more information about Hep-2 cell patterns use ANApatterns.org, the official website for the International Consensus on Antinuclear Antibody (PERLA) Patterns (ICAP). Performed By: #### C BC #### [facility] [address] [place] [address] Dr. Akua Thomas ANTISTREPTOLYSIN O AB (ASO)o n 10-06-2022 Antistreptolysin O Ab 69.9 IU/mL Normal 0.0-200.0 [facility] Comment on above: Performed By: #### A SOAB #### [facility] [address] [place] [address] Dr. Akua Thomas CALCIUM IONIZEDon 10-06-2022 Calcium, Ionized, Serum 5.5 mg/dL Normal 4.5-5.6 [facility] Comment on above: Performed By: #### C AIONZ #### [facility] [address] [place] [address] Dr. Akua Thomas RHEUMATOID FACTORon 10-06-19 RA Latex Turbid. 12.6 IU/mL Normal <14.[address] [facility] Comment on above: Performed By: #### R F #### [facility] [address] [place] [address] Dr. Akua Thomas CBC AUTO DIFFon 10-05-2022 BASO # 0.0 103/ul Normal 0.0-0.1 [facility] Comment on above: Performed By: #### C BC #### [facility] [address] [place] [address] Dr. Akua Thomas Basophils/100 WBC (Bld) 0.2 % Normal 0.2-2.0 [facility] Comment on above: Performed By: #### C BC #### [facility] [address] [place] [address] Dr. Akua Thomas EO # 0.1 103/ul Normal 0.0-0.7 [facility] Comment on above: Performed By: #### C BC #### [facility] [address] [place] [address] Dr. Akua Thomas Eosinophils/100 WBC (Bld) 1.4 % Normal 0.9-7.0 [facility] Comment on above: Performed By: #### C BC #### [facility] [address] [place] [address] Dr. Akua Thomas Erythrocyte distribution width (RBC) [Ratio] 14.3 % Normal 11.0-15.0 [facility] Comment on above: Performed By: #### C BC #### [facility] [address] [place] [address] Dr. Akua Thomas Hematocrit (Bld) [Volume fraction] 45.5 % Normal 42.0-54.0 [facility] Comment on above: Performed By: #### C BC #### [facility] [address] [place] [address] Dr. Akua Thomas Hemoglobin (Bld) [Mass/Vol] 15.1 g/dL Normal 14.0-18.0 [facility] Comment on above: Performed By: #### C BC #### [facility] [address] [place] [address] Dr. Akua Thomas IG # 0.03 10e3/ul Normal 0.00-0.03 [facility] Comment on above: Performed By: #### C BC #### [facility] [address] [place] [address] Dr. Akua Thomas IG % 0.3 % Normal 0.0-0.5 [facility] Comment on above: Performed By: #### C BC #### [facility] [address] [place] [address] Dr. Akua Thomas LYMPH # 3.0 103/ul Normal 1.2-3.8 [facility] Comment on above: Performed By: #### C BC #### [facility] [address] [place] [address] Dr. Akua Thomas Lymphocytes/100 WBC (Bld) 31.9 % Normal 20.5-60.0 [facility] Comment on above: Performed By: #### C BC #### [facility] [address] [place] [address] Dr. Akua Thomas MANUAL DIFF REQ NO Normal [facility] Comment on above: Performed By: #### C BC #### [facility] [address] [place] [address] Dr. Akua Thomas MCH (RBC) [Entitic mass] 29.6 pg Normal 25.9-34.0 [facility] Comment on above: Performed By: #### C BC #### [facility] [address] [place] [address] Dr. Akua Thomas MCHC (RBC) [Mass/Vol] 33.2 g/dL Normal 29.9-35.2 [facility] Comment on above: Performed By: #### C BC #### [facility] [address] [place] [address] Dr. Akua Thomas MCV (RBC) [Entitic vol] 89.2 fL Normal 80.0-94.0 [facility] Comment on above: Performed By: #### C BC #### [facility] [address] [place] [address] Dr. Akua Thomas MONO # 0.7 103/ul Normal 0.3-0.8 [facility] Comment on above: Performed By: #### C BC #### [facility] [address] [place] [address] Dr. Akua Thomas Monocytes/100 WBC (Bld) 7.2 % Normal 1.7-12.0 [facility] Comment on above: Performed By: #### C BC #### [facility] [address] [place] [address] Dr. Akua Thomas NEUT # 5.5 103/ul Normal 1.4-6.5 [facility] Comment on above: Performed By: #### C BC #### [facility] [address] [place] [address] Dr. Akua Thomas Neutrophils/100 WBC (Bld) 59.0 % Normal 43.0-75.0 [facility] Comment on above: Performed By: #### C BC #### [facility] [address] [place] [address] Dr. Akua Thomas Platelet mean volume (Bld) [Entitic vol] 9.9 fL Normal 9.5-13.5 [facility] Comment on above: Performed By: #### C BC #### [facility] [address] [place] [address] Dr. Akua Thomas PLT 237 103/ul Normal 150-450 [facility] Comment on above: Performed By: #### C BC #### [facility] [address] [place] [address] Dr. Akua Thomas RBC 5.10 106/ul Normal 4.70-6.10 [facility] Comment on above: Performed By: #### C BC #### [facility] [address] [place] [address] Dr. Akua Thomas WBC 9.3 103/ul Normal 4.0-11.0 [facility] Comment on above: Performed By: #### C BC #### [facility] [address] [place] [address] Dr. Akua Thomas CRPon 10-05-2022 CRP [Mass/Vol] mg/L Normal <=1.0 [facility] Comment on above: Performed By: #### C MP, URIC, PHOS, MG, T7, CRP, TSH #### [facility] [address] [place] [address] Dr. Akua Thomas FREE THYROXINE INDEX T7on FTI 3.28 Normal 1.30-4.50 [facility] Comment on above: Performed By: #### C BC #### [facility] [address] [place] [address] Dr. Akua Thomas T3U 36.0 % Normal 33.0-40.0 [facility] Comment on above: Performed By: #### C BC #### [facility] [address] [place] [address] Dr. Akua Thomas T4 [Mass/Vol] 9.10 ug/dL Normal 4.50-12.10 The [facility] Comment on above: Performed By: #### C BC #### [facility] [address] [place] [address] Dr. Akua Thomas IRONon 10-05-2022 Iron [Mass/Vol] 119.0 ug/dL Normal 65.0-175.0 [facility] Comment on above: Performed By: #### I SHILPI #### [facility] [address] [place] [address] Dr. Akua Thomas MAGNESIUMon 10-05-2022 Magnesium [Mass/Vol] 1.8 mg/dL Normal 1.8-2.4 [facility] Comment on above: Performed By: #### C BC #### [facility] [address] [place] [address] Dr. Akua Thomas PHOSPHORUSon 10-05-2022 Phosphate [Mass/Vol] 3.4 mg/dL Normal 2.6-4.7 [facility] Comment on above: Performed By: #### C BC #### [facility] [address] [place] [address] Dr. Akua Thomas PROF 14(COMP METB)on 023 Albumin [Mass/Vol] 4.0 g/dL Normal 3.4-5.0 [facility] Comment on above: Performed By: #### C BC #### [facility] [address] [place] [address] Dr. Akua Thomas Albumin/Globulin [Mass ratio] 1.4 {ratio} Normal [facility] Comment on above: Performed By: #### C BC #### [facility] [address] [place] [address] Dr. Akua Thomas ALP [Catalytic activity/Vol] 119 U/L Critically high 46-116 [facility] Comment on above: Performed By: #### C BC #### [facility] [address] [place] [address] Dr. Akua Thomas ALT [Catalytic activity/Vol] 69 U/L Critically high 16-63 [facility] Comment on above: Performed By: #### C BC #### [facility] [address] [place] [address] Dr. Akua Thomas Anion gap [Moles/Vol] 10.0 mmol/L Normal [facility] Comment on above: Performed By: #### C BC #### [facility] [address] [place] [address] Dr. Akua Thomas AST [Catalytic activity/Vol] 37 U/L Normal 15-37 [facility] Comment on above: Performed By: #### C BC #### [facility] [address] [place] [address] Dr. Akua Thomas Bilirubin [Mass/Vol] 0.7 mg/dL Normal 0.2-1.0 [facility] Comment on above: Performed By: #### C BC #### [facility] [address] [place] [address] Dr. Akua Thomas Calcium [Mass/Vol] 9.2 mg/dL Normal 8.5-10.1 [facility] Comment on above: Performed By: #### C BC #### [facility] [address] [place] [address] Dr. Akua Thomas Chloride [Moles/Vol] 100 mmol/L Normal 98-107 [facility] Comment on above: Performed By: #### C BC #### [facility] [address] [place] [address] Dr. Akua Thomas CO2 [Moles/Vol] 30.5 mmol/L Normal 21.0-32.0 [facility] Comment on above: Performed By: #### C BC #### [facility] [address] [place] [address] Dr. Akua Thomas Creatinine [Mass/Vol] 0.75 mg/dL Normal 0.70-1.30 [facility] Comment on above: Performed By: #### C BC #### [facility] [address] [place] [address] Dr. Akua Thomas EGFR-AF AUSTRALIAN >60 Normal >=60 [facility] Comment on above: Performed By: #### C BC #### [facility] [address] [place] [address] Dr. Akua Thomas EGFR-NON AF AUSTRALIAN >60 Normal >=60 [facility] Comment on above: Performed By: #### C BC #### [facility] [address] [address] [address] Akua Thomas Globulin (S) [Mass/Vol] 2.9 g/dL Normal [facility] Comment on above: Performed By: #### C BC #### [facility] [address] [address] [address] Akua Thomas Glucose [Mass/Vol] 97 mg/dL Normal 74-106 [facility] Comment on above: Performed By: #### C BC #### [facility] [address] [address] [address] Akua Thomas Potassium [Moles/Vol] 4.5 mmol/L Normal 3.5-5.1 [facility] Comment on above: Performed By: #### C BC #### [facility] [address] [place] [address] Dr. Akua Thomas Protein [Mass/Vol] 6.9 g/dL Normal 6.4-8.2 [facility] Comment on above: Performed By: #### C BC #### [facility] [address] [place] [address] Dr. Akua Thomas Sodium [Moles/Vol] 136 mmol/L Normal 136-145 [facility] Comment on above: Performed By: #### C BC #### [facility] [address] [place] [address] Dr. Akua Thomas Urea nitrogen [Mass/Vol] 24.0 mg/dL Critically high 7.0-18.0 [facility] Comment on above: Performed By: #### C BC #### [facility] [address] [place] [address] Dr. Akua Thomas Urea nitrogen/Creatinin e [Mass ratio] 32.0 mg/mg Normal [facility] Comment on above: Performed By: #### C BC #### [facility] [address] [place] [address] Dr. Akua Thomas TSHon 10-05-2022 TSH 0.725 uIU/mL Normal 0.358-3.74 0 [facility] Comment on above: Performed By: #### C BC #### [facility] [address] [place], [place] [address] Dr. Akua Thomas URIC ACID SERUMon 10-05-2022 Urate [Mass/Vol] 2.2 mg/dL Critically low 3.5-7.2 [facility] Comment on above: Performed By: #### C MP, URIC, PHOS, MG, T7, CRP, TSH #### [facility] [address] [place], [place] [address] Dr. Akua Thomas XR HAND LT MIN 3Von 10-05-19 23 XR HAND LT MIN 3V EXAMINATION: XR WRIS T MARÍA MIN 3 V, XR HAND LT MIN 3V HISTORY: Arthritis of hand COMPARISON: No relevant comparison available. FINDINGS: RIGHT FINDINGS: BONES: No acute fracture or dislocation. 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 IMPRESSION: There is a small mass seen [...] DONNELL RENTERIA Date: 2022-09-16 19:40 Normal [facility] OCC BLD IMMUNO SCREENon 04-10 OCCULT BLOOD Negative Normal NEGATIVE [facility] Comment on above: Performed By: #### C BC #### [facility] [id number] [address] Akua Thomas PSA, FREE AND TOTAL RATIOon 04-10-2022 % Free PSA 17.8 % Normal [facility] Comment on above: Result Comment: The table [...] men. Performed By: #### C BC #### [facility] [address] [place], [place] [address] Dr. Akua Thomas Prostate specific Ag [Mass/Vol] 0.9 ng/mL Normal 0.0-4.0 [facility] Comment on above: Result Comment: Leslye FOSTER methodology. . According to the [employer], Serum PSA should decrease and [...] disease. Performed By: #### C BC #### [facility] [address] [place] [address] Dr. Akua Thomas PSA, Free 0.16 ng/mL Normal N/A [facility] Comment on above: Result Comment: Leslye ceballos ECLIA methodology. Performed By: #### C BC #### [facility] [address] [place] [address] Dr. Akua Thomas T4 LABCORPon 04-10-2022 T4 [Mass/Vol] 8.0 ug/dL Normal 4.5-12.0 [facility] Comment on above: Performed By: #### C BC #### [facility] [address] [place] [address] Dr. Akua Thomas CBC AUTO DIFFon 04-09-2022 BASO # 0.0 103/ul Normal 0.0-0.1 [facility] Comment on above: Performed By: #### C BC #### [facility] [address] [place] [address] Dr. Akua Thomas Basophils/100 WBC (Bld) 0.2 % Normal 0.2-2.0 [facility] Comment on above: Performed By: #### C BC #### [facility] [address] [place] [address] Dr. Akua Thomas EO # 0.2 103/ul Normal 0.0-0.7 [facility] Comment on above: Performed By: #### C BC #### [facility] [address] [place] [address] Dr. Akua Thomas Eosinophils/100 WBC (Bld) 2.2 % Normal 0.9-7.0 [facility] Comment on above: Performed By: #### C BC #### [facility] [address] [place] [address] Dr. Akua Thomas Erythrocyte distribution width (RBC) [Ratio] 14.2 % Normal 11.0-15.0 [facility] Comment on above: Performed By: #### C BC #### [facility] [address] [place] [address] Dr. Akua Thomas Hematocrit (Bld) [Volume fraction] 43.3 % Normal 42.0-54.0 [facility] Comment on above: Performed By: #### C BC #### [facility] [address] [place] [address] Dr. Akua Thomas Hemoglobin (Bld) [Mass/Vol] 14.2 g/dL Normal 14.0-18.0 [facility] Comment on above: Performed By: #### C BC #### [facility] [address] [place] [address] Dr. Akua Thomas IG # 0.02 10e3/ul Normal 0.00-0.03 [facility] Comment on above: Performed By: #### C BC #### [facility] [address] [place] [address] Dr. Akua Thomas IG % 0.2 % Normal 0.0-0.5 [facility] Comment on above: Performed By: #### C BC #### [facility] [address] [place] [address] Dr. Akua Thomas LYMPH # 1.8 103/ul Normal 1.2-3.8 [facility] Comment on above: Performed By: #### C BC #### [facility] [address] [place] [address] Dr. Akua Thomas Lymphocytes/100 WBC (Bld) 20.6 % Normal 20.5-60.0 [facility] Comment on above: Performed By: #### C BC #### [facility] [address] [place] [address] Dr. Akua Thomas MANUAL DIFF REQ NO Normal [facility] [place] [facility] Comment on above: Performed By: #### C BC #### [facility] [address] [place] [address] Dr. Akua Thomas MCH (RBC) [Entitic mass] 29.8 pg Normal 25.9-34.0 [facility] Comment on above: Performed By: #### C BC #### [facility] [address] [place] [address] Dr. Akua Thomas MCHC (RBC) [Mass/Vol] 32.8 g/dL Normal 29.9-35.2 [facility] Comment on above: Performed By: #### C BC #### [facility] [address] [place] [address] Dr. Akua Thomas MCV (RBC) [Entitic vol] 91.0 fL Normal 80.0-94.0 [facility] Comment on above: Performed By: #### C BC #### [facility] [address] [place] [address] Dr. Akua Thomas MONO # 0.7 103/ul Normal 0.3-0.8 [facility] Comment on above: Performed By: #### C BC #### [facility] [address] [place] [address] Dr. Akua Thomas Monocytes/100 WBC (Bld) 8.2 % Normal 1.7-12.0 [facility] Comment on above: Performed By: #### C BC #### [facility] [address] [place] [address] Dr. Akua Thomas NEUT # 6.1 103/ul Normal 1.4-6.5 [facility] Comment on above: Performed By: #### C BC #### [facility] [address] [place] [address] Dr. Akua Thomas Neutrophils/100 WBC (Bld) 68.6 % Normal 43.0-75.0 [facility] Comment on above: Performed By: #### C BC #### [facility] [address] [place] [address] Dr. Akua Thomas Platelet mean volume (Bld) [Entitic vol] 10.1 fL Normal 9.5-13.5 [facility] Comment on above: Performed By: #### C BC #### [facility] [address] [place], [place] [id number] Dr. Akua Thomas PLT 231 103/ul Normal 150-450 [facility] Comment on above: Performed By: #### C BC #### [facility] [address] [place] [address] Dr. Akua Thomas RBC 4.76 106/ul Normal 4.70-6.10 [facility] Comment on above: Performed By: #### C BC #### [facility] [address] [place] [address] Dr. Akua Thomas WBC 8.9 103/ul Normal 4.0-11.0 [facility] Comment on above: Performed By: #### C BC #### [facility] [address] [place] [address] Dr. Akua Thomas FREE T3on 04-09-2022 FREE T3 2.53 pg/mlL Normal 2.18-3.98 [facility] Comment on above: Performed By: #### R F #### [facility] [address] [place] [address] Dr. Akua Thomas GLYCOHEMOGLOBIN A1Con 2021 ADA RECOMMENDATION SEE BELOW Normal [facility] Comment on above: Result Comment: ADA RECOMMENDED LIMIT 4.0 - 6.0 ADA THERAPEUTIC TARGET < 7.0 ACTION SUGGESTED > 7.0 Performed By: #### A 1C #### [facility] [address] [place] [address] Dr. Akua Thomas Glucose [Mass/Vol] 123 mg/dL Normal [facility] Comment on above: Performed By: #### A 1C #### [facility] [address] [place] [address] Dr. Akua Thomas HbA1c (Bld) [Mass fraction] 5.9 % Normal 4.5-6.2 [facility] Comment on above: Performed By: #### A 1C #### [facility] [address] [place] [address] Dr. Akua Thomas LIPID PROFILEon 04-09-2022 CHOL-HDL RATIO NORM SEE BELOW Normal [facility] Comment on above: Result Comment: 3.3 - 4.4 LOW RISK 4.4 - 7.1 AVERAGE RISK 7.1 - 11.0 MODERATE RISK >11.0 HIGH RISK Performed By: #### R F #### [facility] [address] [address] [address] Akua Thomas Cholesterol [Mass/Vol] 154 mg/dL Normal <=200 [facility] Comment on above: Performed By: #### R F #### [facility] [address] [address] [address] Akua Thomas Cholesterol in HDL [Mass/Vol] 71 mg/dL Critically high 40-60 [facility] Comment on above: Performed By: #### R F #### [facility] [address] [address] [address] Akua Thomas Cholesterol in LDL [Mass/Vol] 74.8 mg/dL Normal [facility] Comment on above: Performed By: #### R F #### [facility] [address] [address] [address] Akua Thomas Cholesterol.total/ Cholesterol in HDL [Mass ratio] 2.2 {ratio} Normal [facility] Comment on above: Performed By: #### R F #### [facility] [address] [address] [address] Akua Thomas HDL NORMAL > or = 60 mg/dl - LO W CARDIOVASCULAR RISK <40 mg/dl - HIGH CARDIOVASCULAR RISK Normal [facility] Comment on above: Performed By: #### R F #### [facility] [address] [address] [address] Akua Thomas LDL CALC NORMAL SEE BELOW Normal [facility] Comment on above: Result Comment: <100 mg/dl OPTIMAL 100 - 129 mg/dl NEAR OR ABOVE OPTIMAL 130 - 159 mg/dl BORDERLINE HIGH 160 - 189 mg/dl HIGH >190 mg/dl VERY HIGH Performed By: #### R F #### [facility] [address] [address] [address] Akua Thomas Triglyceride [Mass/Vol] 41 mg/dL Normal <=150 [facility] Comment on above: Performed By: #### R F #### [facility] [address] [address] [address] Akua Thomas VLDL CALC 8.2 mg/dL Normal [facility] Comment on above: Performed By: #### R F #### [facility] [address] [place] [address] Dr. Akua Thomas PROF 14(COMP METB)on 022 Albumin [Mass/Vol] 3.8 g/dL Normal 3.4-5.0 [facility] Comment on above: Performed By: #### R F #### [facility] [address] [place] [address] Dr. Akua Thomas Albumin/Globulin [Mass ratio] 1.4 {ratio} Normal [facility] Comment on above: Performed By: #### R F #### [facility] [address] [place] [address] Dr. Akua Thomas ALP [Catalytic activity/Vol] 127 U/L Critically high 46-116 [facility] Comment on above: Performed By: #### R F #### [facility] [address] [place] [address] Dr. Akua Thomas ALT [Catalytic activity/Vol] 45 U/L Normal 16-63 [facility] Comment on above: Performed By: #### R F #### [facility] [address] [place] [address] Dr. Akua Thomas Anion gap [Moles/Vol] 12.6 mmol/L Normal [facility] Comment on above: Performed By: #### R F #### [facility] [address] [place] [address] Dr. Akua Thomas AST [Catalytic activity/Vol] 28 U/L Normal 15-37 [facility] Comment on above: Performed By: #### R F #### [facility] [address] [place] [address] Dr. Akua Thomas Bilirubin [Mass/Vol] 0.8 mg/dL Normal 0.2-1.0 [facility] Comment on above: Performed By: #### R F #### [facility] [address] [place] [address] Dr. Akua Thomas Calcium [Mass/Vol] 8.7 mg/dL Normal 8.5-10.1 [facility] Comment on above: Performed By: #### R F #### [facility] [address] [address] [address] Akua Thomas Chloride [Moles/Vol] 102 mmol/L Normal 98-107 [facility] Comment on above: Performed By: #### R F #### [facility] [address] [address] [address] Akua Thomas CO2 [Moles/Vol] 28.1 mmol/L Normal 21.0-32.[address] [facility] Comment on above: Performed By: #### R F #### [facility] [address] [place] [address] Dr. Akua Thomas Creatinine [Mass/Vol] 0.77 mg/dL Normal 0.70-1.30 [facility] Comment on above: Performed By: #### R F #### [facility] [address] [place] [address] Dr. Akua Thomas EGFR-AF AUSTRALIAN >60 Normal >=[address] [facility] Comment on above: Performed By: #### R F #### [facility] [address] [place] [address] Dr. Akua Thomas EGFR-NON AF AUSTRALIAN >60 Normal >=60 [facility] Comment on above: Performed By: #### R F #### [facility] [address] [place] [address] Dr. Akua Thomas Globulin (S) [Mass/Vol] 2.7 g/dL Normal [facility] Comment on above: Performed By: #### R F #### [facility] [address] [place] [address] Dr. Akua Thomas Glucose [Mass/Vol] 105 mg/dL Normal 74-106 [facility] Comment on above: Performed By: #### R F #### [facility] [address] [place] [address] Dr. Akua Thomas Potassium [Moles/Vol] 3.7 mmol/L Normal 3.5-5.1 [facility] Comment on above: Performed By: #### R F #### [facility] [address] [place], [place] [address] Dr. Akua Thomas Protein [Mass/Vol] 6.5 g/dL Normal 6.4-8.2 [facility] Comment on above: Performed By: #### R F #### [facility] [address] [place], [place] [address] Dr. Akua Thomas Sodium [Moles/Vol] 139 mmol/L Normal 136-145 [facility] Comment on above: Performed By: #### R F #### [facility] [address] [place], [place] [address] Dr. Akua Thomas Urea nitrogen [Mass/Vol] 17.0 mg/dL Normal 7.0-18.0 [facility] Comment on above: Performed By: #### R F #### [facility] [address] [place], [place] [address] Dr. Akua Thomas Urea nitrogen/Creatinin e [Mass ratio] 22.1 mg/mg Normal [facility] Comment on above: Performed By: #### R F #### [facility] [address], [place] [address] Dr. Akua Thomas TSHon 04-09-2022 TSH 0.547 uIU/mL Normal 0.358-3.74 0 [facility] Comment on above: Performed By: #### R F #### [facility] [address] [place], [place] [address] Dr. Akua Thomas Vital Signs Date Time Vital Sign Value Performing Clinician Facility 04-25-2025 10: Body height 180.3 cm Joycelyn Pendleton MD Work Phone: [facility] 04-25-2025 10: Body mass index (BMI) [Ratio] 23.01 kg/m2 Joycelyn Pendleton MD Work Phone: [facility] 04-25-2025 10: Body weight 74.84 kg Joycelyn Pendleton MD Work Phone: [facility] 04-25-2025 10:16040 Diastolic blood pressure 68 mm[Hg] Joycelyn Pendleton MD Work Phone: [facility] 04-25-2025 10:16-0400 Heart rate 75 /min Joycelyn Pendleton MD Work Phone: [facility] 04-25-2025 10:16-0400 Systolic blood pressure 121 mm[Hg] Joycelyn Pendleton MD Work Phone: [facility] 10-10-2024 13:51-0500 Blood Pressure Location Luis A NILL [facility] 10-10-2024 13:51-0500 Diastolic blood pressure 68 mm[Hg] Luis A NILL [facility] 10-10-2024 13:51-0500 Heart rate 70 /min Luis A NILL [facility] 10-10-2024 13:51-0500 Respiratory rate 16 /min Luis A NILL [facility] 10-10-2024 13:51-0500 Systolic blood pressure 146 mm[Hg] Luis A NILL [facility] Encounters Encounter Date Encounter Type Care Provider Facility Start: 04-25-2025 End: 04-25-2025 [employer] Pendleton MD Work Phone: [facility] Start: 04-25-2025 End: 04-25-2025 Bammiguel Pendleton MD Work Phone: [facility] Start: 04-25-2025 End: 04-25-2025 Office outpatient visit 25 minutes [facility] Comment on above: Chronic laryngitis ( Primary Dx); Hoarse; Chronic sinusitis, unspecified location; LPRD (laryngopharyngeal reflux disease) Start: 04-25-2025 End: 04-25-2025 ambulatory JOYCELYN PENDLETON Not Available Start: 10-10-2024 End: 10-10-2024 ambulatory Luis A CASTILLO Facility:[facility] Start: 10-10-2024 End: 10-10-2024 Patient encounter procedure Luis A Alva CASTILLO [facility] [place] [facility] Start: 05-23-2024 End: 05-23-2024 Office outpatient visit 15 minutes Phillip Purvis MD Work Phone: [facility] Comment on above: 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) Start: 05-23-2024 ambulatory PHILLIP Phyllis [facility] Start: 05-03-2024 End: 05-03-2024 Telephone encounter Nunu Charles MA [facility] Comment on above: Med Refill Start: 04-13-2024 End: 04-13-2024 ambulatory PHILLIP Phyllis [facility] Start: 04-13-2024 End: 04-13-2024 Office outpatient visit 15 minutes Phillip Purvis MD Work Phone: [facility] Comment on above: 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 Phillip Gallegos Facility:[id number] Start: 03-03-2023 Office outpatient visit 15 minutes Referring Provider Unknown KC-Wnqabbziqjdsgc-Lqtkei ke Work Phone: Start: 03-03-2023 Patient encounter procedure Referring Provider Unknown XJ-Lipwmhqwxxxdhw-Ewsewv ke Work Phone: Start: 03-03-[address] Phillip Gallegos Facility:[id number] Start: 11-04-2022 Office outpatient ne w 45 minutes Referring Provider Unknown [facility] Work Phone: Start: 11-04-2022 Patient encounter procedure Referring Provider Unknown SR-Qlmfgdlambrsnq-Ysllcj ke Work Phone: Start: 11-04-[address] Phillip Gallegos Facility:[id number] Start: 10-15-2022 End: 10-18-2022 ambulatory OSMIN GOODEN [facility] Start: 10-15-2022 End: 10-17-2022 Subsequent hospital visit by physician [address] Room 4 [facility] Radiology Comment on above: Pain in both hands Start: 10-05-2022 End: 10-06-[address] ADAMA FAYE . Facility:[facility]1 Start: 09-24-2022 ambulatory KRISTOFER RANKIN Facility :[facility]1 Start: 09-16-2022 End: 09-17-[address] ADAMA FAYE . Facility:[facility]1 Start: 08-19-2022 End: 08-19-2022 Patient encounter procedure KRISTOFER RANKIN [facility] Start: 05-01-2022 End: 05-01-[address] ADAMA FAYE . Facility:[facility]1 Start: 04-09-2022 End: 04-10-[address] ADAMA FAYE . Facility:[facility]1 Start: 07-12-2017 End: 07-13-2017 Ambulatory DEFAULT PHYSICIAN Facility:[facility] Procedures Date Procedure Procedure Detail Performing Clinician Start: 10-15-2022 End: 03-09-2023 Radex hand minimum 3 views Osmin guerrero MD Work Phone: Start: 07-09-2019 Colonoscopy Luis A MORRELLLucille Start: 07-09-2019 Esophagogastroduodenoscopy Luis A MORRELLLucille Colonoscopy KRISTOFER RANKIN Shoulder region stru cture (body structure) KRISTOFER RANKIN Plan of Treatment Date Care Activity Detail Author Start: 06-06-2025 End: 06-06-2025 Patient encounter procedure 06/06/2025 10:50 AM EDT Office Visit [facility] [address] [place] [address] Nuha King MD [address] [place], [place] [id number] [facility] Start: 04-25-2025 End: 04-25-2025 Patient encounter procedure 04/25/2025 10:30 AM EDT Office Visit [facility] [place] [facility] [address] [place] [address] Joycelyn Pendleton MD [address] [place] [address] Arrived [facility] [place] [facility] Comment on above: Arrived Start: 04-09-2025 Influenza vaccination [facility] Start: 04-04-2025 End: 04-04-2025 Patient encounter procedure 04/04/2025 10:45 AM EDT Office Visit [facility] [address] [place] [address] Nuha King MD [address] [place], [place] [phone] [facility] Start: 06-22-2024 End: 06-22-2024 Patient encounter procedure 06/22/2024 11:00 AM EST Office Visit [address] [phone] [place] [address] [place] [address] [facility] Start: 04-13-2024 End: 04-13-2025 CT Sinuses WO contrast CT sinuss wo IV contrast volumetric surgical planning Imaging Routine Benign neoplasm of frontal sinus Expected: 04/13/2024, Expires: 04/13/2025 [facility] Service Area Work Phone: Comment on above: Expected: 04/13/2024 , Expires: 04/13/2025 Start: 04-09-2024 COVID-19 Vaccine ( season) COVID-19 Vaccine ( season) [facility] Start: 04-09-2024 COVID-19 Vaccine ( season) COVID-19 Vaccine ( season) [facility] Start: 04-09-2024 Influenza vaccination Influenza Vacc ine (#1) [facility] Start: 04-04-2024 End: 04-04-2024 Patient encounter procedure 04/04/2024 11:00 AM EDT Office Visit [facility] [address] [place] [address] Nuha King MD [address] [place] [address] Arrived [facility] Comment on above: Arrived Start: 2023 RSV High Risk: (Elderly (60+) or Population) (1 - 1-dose 75+ series) RSV High Risk: (Elderly (60+) or Population) (1 - 1-dose 75+ series) [facility] Start: 03-03-2023 VIRNICOLÁS, Provider : Phillip Purvis, Status: Pen, Time: 1:00 PM VIRFUCHAYA, Provider: Phillip Purvis, Status: Pen, Time: 1:00 PM QZ-Dxdedpivjtopvm-Pzfgs georgie Work Phone: Start: 10-15-2022 Annual Wellness Visi t (AWV) Annual Wellness Visit (AWV) [facility] Start: 09-01-2021 COVID-19 Vaccine (4 - Booster for Moderna series) COVID-19 Vaccine (4 - Booster for Moderna series) [facility] Start: 06-24-2018 Pneumococcal 65+ yea rs Vaccine (2 - PPSV23 if available, else PCV20) Pneumococcal 65+ years Vaccine (2 - PPSV23 if available, else PCV20) [facility] Start: 06-24-2018 Pneumococcal Vaccine : 65+ Years (2 of 2 - PPSV23 or PCV20) Pneumococcal Vaccine: 65+ Years (2 of 2 - PPSV23 or PCV20) [facility] Start: 2013 Abdominal aortic aneurysm screening [facility] Start: 2008 RSV patient s and/or patients aged 60+ years (1 - 1-dose 60+ series) RSV patients and/or patients aged 60+ years (1 - 1-dose 60+ series) [facility] Start: 1998 Shingles vaccine (1 of 2) Shingles vaccine (1 of 2) [facility] Start: 1998 Zoster Vaccines (1 o f 2) Zoster Vaccines (1 of 2) [facility] Start: 1993 Screening for malignant neoplasm of colon [facility] Start: 1970 DTaP/Tdap/Td Vaccine s (1 - Tdap) DTaP/Tdap/Td Vaccines (1 - Tdap) [facility] Start: 1967 DTaP/Tdap/Td vaccine (1 - Tdap) DTaP/Tdap/Td vaccine (1 - Tdap) [facility] Start: 1966 Hepatitis C screening B [facility] Start: 1960 Depression Screen Depression Screen [facility] Start: 1958 Lipid panel Lipids [facility] Start: 1948 Annual wellness visit Medicare Initial Physical (IPPE) [facility] Start: 1948 Lipid panel Lipid Panel [facility] Start: 1948 Medicare Annual Wellness Visit Medicare Annual Wellness Visit (AWV) [facility] Start: 1948 Screening for malignant neoplasm of colon [facility] Immunizations Immunization Date Immunization Notes Care Provider Codie goldpamela 05-17-2024 influenza virus vaccine, unspecified formulation Joycelyn Pendleton MD Work Phone: [facility] 06-05-2022 influenza virus vaccine, unspecified formulation KRISTOFER MASSIEL [facility] 07-07-2021 SARS-CoV-2 (COVID-19 ) mRNA-1273 vaccine KRISTOFER MASSIEL [facility] 11-02-2020 SARS-CoV-2 (COVID-19 ) mRNA-1273 vaccine KRISTOFER MASSIEL [facility] Comment on above: Result Comment: 2022: [id number] 10-05-2020 SARS-CoV-2 (COVID-19 ) mRNA-1273 vaccine KRISTOFER MASSIEL [facility] Comment on above: Result Comment: 2022: [id number] 05-08-2020 influenza virus vaccine, unspecified formulation KRISTOFER MASSIEL [facility] 05-17-2019 influenza virus vaccine, unspecified formulation KRISTOFER MASSIEL [facility] [place] 05-25-2018 influenza virus vaccine, unspecified formulation KRISTOFER MASSIEL [facility] 06-24-2017 pneumococcal conjugate vaccine, 13 valent KRISTOFER MASSIEL [facility] NEGATED: Highlighted row has not occurred!11-12-2019 influenza virus vaccine, unspecified formulation KRISTOFER MASSIEL [facility] [place] Payers Date Payer Category Payer Medicaid [employer] MED[employer]ARE A DVANTAGE [id number] 2022 Medicare [id number] 2022 Medicare (Managed Care) [employer] GO EN MEDICARE [id number] 1959 Medicare [id number] 1959 Self-pay 1950 Unknown [id number] [id number]. 593 1948 Unknown [id number] 2.16.840.1.436007.3.579.2. 593 1948 Unknown [id number] 2.16.840.1.456101.3.579.2. 593 1948 Unknown [id number] 2.16.840.1.520037.3.579.2. 593 1948 Unknown [id number] 2.16.840.1.282546.3.579.2. 593 1948 Unknown [id number] 2.16.840.1.303778.3.579.2. 173 1948 Unknown [id number] 2.16.840.1.145925.3.579.2. 173 1948 Unknown [id number] 2.16.840.1.107265.3.579.2. 173 1948 Unknown [id number] 2.16.840.1.903930.3.579.2. 356 1948 Unknown [id number] 2.16.840.1.009935.3.579.2. 356 1948 Unknown [id number] 2.16.840.1.972214.3.579.2. 356 1948 Unknown [id number] 2.16.840.1.243125.3.579.2. 1244 1948 Unknown [id number] 2.16.840.1.999196.3.579.2. 1244 1948 Unknown [id number] 2.16.840.1.911738.3.579.2. 727 1948 Unknown [id number] 2.16.840.1.470181.3.579.2. 1259 Unknown Social History Date Type Detail Facility Start: 08-19-2022 End: 01-06-2023 Tobacco smoking status Never smoked tobacco (finding) [facility] Tobacco smoking status Never [facility] Start: 05-23-2024 End: 04-25-2025 Sex Assigned At Male [facility] Start: 10-15-2022 End: 05-23-2024 Tobacco smoking status WVIS Ex-smoker [facility] [employer] Work Phone: End: 08-09-1973 History of tobacco use Current smoker [employer] Phone: End: 08-09-1973 History of tobacco use Cigarette Smoker [employer] Phone: Start: 10-15-2022 End: 01-06-2023 Tobacco use and exposure Smokeless tobacco non-user [employer] Phone: Start: 10-15-2022 End: 04-25-2025 Alcohol intake Lifetime non-drinker (finding) [employer] Phone: Start: 10-15-2022 Tobacco Comment Only smoked fo r about a year [employer] Phone: Start: 1950 Sex Assigned At Not on file B ON [email or web address] Phone: Start: 05-23-2024 End: 04-25-2025 History of Social function [facility] Start: 04-03-2024 End: 05-23-2024 Exposure to SARS-CoV-2 (event) Unable to assess [facility] Work Phone: Tobacco smoking status NHIS Tobacco smoking consumption unknown [facility] Work Phone: Start: 01-06-2023 Alcohol Comment caffeine 1-2 cups/da y [facility] Functional Status Date Assessment Result Facility 10-10-2024 Functional Status N/A [facility] [place] 08-19-2022 Functional Status N/A [facility] Clinical Notes 08-19-2022 to 04-25-2025 Joycelyn Pendleton MD - 04/25/2025 10:30 AM EDTKenjonathan Purvis MD - 05/23/2024 4:30 PM EDTTelephone Encounter - Nunu Charles MA - 05/03/2024 9:29 AM EDT Note Date & Type Note Facility 04-25-2025 History of Present illness Narrative Images from the original note were not included. Subjective Patient ID: Kedar Núñez is a 74 y.o. male who presents for Throat Problem (Hoarseness) C/O sinonasal congestion and hoarseness 6-7 mo. Tx with zyrtec. No throat or ear pain. Takes Nexium 40mg at 6, but does not eat breakfast. 2 years ago was referred to Dr Purvis for eval of a possible frontal sinus neoplasm. Was getting CTs to follow. No change noted. Getting set up for follow up CT today Family History Problem Relation Name Age of Onset Hypertension Mother Heart disease Mother Hypertension Father Stroke Father Active Ambulatory Problems Diagnosis Date Noted Alternating constipation and diarrhea 04/24/2025 Arthritis 04/24/2025 Asthma (HCC) 04/24/2025 BMI 26.0-26.9,adult 04/24/2025 BPH with obstruction/lower urinary tract symptoms 04/24/2025 Diverticulosis of colon 03/07/2013 Essential hypertension 03/07/2013 GERD (gastroesophageal reflux disease) 04/24/2025 Hyperlipidemia 04/24/2025 Irritable bowel syndrome 03/07/2013 Kidney stone on left side 04/24/2025 LLQ abdominal pain 04/24/2025 Mass of subcutaneous tissue of back 04/24/2025 Eczema 04/24/2025 Overweight 04/24/2025 Postprandial bloating 04/24/2025 Parapelvic renal cyst 04/24/2025 Resolved Ambulatory Problems Diagnosis Date Noted No Resolved Ambulatory Problems Past Medical History: Diagnosis Date Atopic dermatitis Nasal sinus cyst Past Surgical History: Procedure Laterality Date CATARACT EXTRACTION Bilateral SHOULDER SURGERY Right Allergies Allergen Reactions Penicillins Unknown Current Outpatient Medications on File Prior to Visit Medication Sig Dispense Refill ASPIRIN 81 PO Dupixent 300 MG/2ML injection Inject 1 Syringe (300 mg) under the skin every 14 (fourteen) days 12 mL 0 esomeprazole (NexIUM) [address] capsule take 1 capsule by oral route 2 times every day Oral fluticasone (Flonase Allergy Relief) 50 MCG/ACT nasal spray Administer into affected nostril(s) irbesartan (Avapro) 300 MG tablet Take 300 mg by mouth Daily loratadine (Claritin) 10 MG tablet Take 10 mg by mouth Montelukast Sodium (SINGULAIR PO) SIMVASTATIN PO Simvastatin [DISCONTINUED] dupilumab (Dupixent) 300 MG/2ML injection Inject 1 PFS Subcutaneous every other week [DISCONTINUED] betamethasone dipropionate (Diprolene) 0.05 % ointment apply to hands and feet (avoid face and skin folds) Externally bid prn (hold when clear) for 30 day(s) [DISCONTINUED] cetirizine (ZyrTEC) 10 MG tablet 1 (one) time each day at the same time. [DISCONTINUED] Dupixent 300 MG/2ML injection Inject 1 Syringe (300 mg) under the skin every 14 (fourteen) days 12 mL 4 [DISCONTINUED] triamcinolone (Kenalog) 0.1 % cream Apply to itchy areas topically bid prn for flares. Avoid face and groin for 30 days [DISCONTINUED] triamcinolone (Kenalog) 0.1 % cream every 12 (twelve) hours. [DISCONTINUED] triamcinolone (Kenalog) 0.1 % cream Apply to affected areas, up to twice a day when flared, do not use one the face, groin, or underarms, 30 day supply 454 g 11 No current facility-administered medications on file prior to visit. Objective Last Recorded Vitals Vitals: 04/25/25 1016 BP: 121/68 Pulse: 75 ENT Physical Exam Nose External Nose: nares patent bilaterally; external nose normal; Internal Nose: nasal mucosa normal; septum normal; bilateral inferior turbinates normal; Oral Cavity/Oropharynx Lips: normal; Teeth: normal; Gums: gingiva normal; Tongue: normal; Oral mucosa: normal; Hard palate: normal; Base of Tongue: normal; OC/OP comments: Poor IDL Patient ID: Kedar Núñez is a 74 y.o. male. Procedures A diagnostic flexible fiberoptic laryngoscopy was performed. The flexible fiberoptic laryngoscope was placed into the nose and advanced to the level of the tip of the epiglottis. Examination of the larynx including both surfaces of the epiglottis false and true vocal folds, arytenoids and surrounding mucosal surfaces show no evidence of lesion, ulceration or mass. Normal bilateral true vocal fold motion is present. Bilateral piriform sinuses and base of tongue appear without lesion Assessment/Plan Diagnoses and all orders for this visit: Chronic laryngitis Hoarse Chronic sinusitis, unspecified location Cefdinir for chronic sinusitis. Hoarseness likely due to LPRD. Modify reflux regimen with HS pepcid and reflux precautions documented in this encounter [facility] 10-10-2024 Note General Surgery Offi ce/Clinic Note [...] E&M of New Patient Low 30-44 Min 73280 US Chest or Upper Back, Limited Follow-up [...] mg Cap-EC, Oral, Daily Flonase 0.05 mg/inh [place], 1 spray(s), Nasal, Daily irbesartan 300 mg [...] 05/25/2018 Recorded pneumococcal 13-valent vaccine 06/24/2017 Recorded [facility] Comment on above: Result Comment: Elec [...] Phillip Purvis MD documented in this encounter [facility] Work Phone: 05-03-2024 Telephone encounter Note Patient called requesting a refill of: Triamcinolone 0.1% cream Diagnosis: Atopic Dermatitis Prescribing provider: Nuha King MD Last visit: 04/04/2024 Next visit: 04/04/25 Action: prescription was sent to patient's pharmacy [facility] with enough refills until next visit. [facility] 05-03-2024 Miscellaneous Notes Patient called requesting a refill of: Triamcinolone 0.1% cream Diagnosis: Atopic Dermatitis Prescribing provider: Nuha King MD Last visit: 04/04/2024 Next visit: 04/04/25 Action: prescription was sent to patient's pharmacy [facility] with enough refills until next visit. documented in this encounter [facility] 04-13-2024 History of Present illness [...] Phillip Purvis MD. documented in this encounter [facility] Work Phone: 04-04-2024 History of Present illness [...] Visit: 1 year documented in this encounter [facility] 04-13-2023 Chief complaint Narrative - [...] of immunotherapy6. Reflux on proton pump inhibitor ZZ-[facility]rcpkpfsuachwt[facility] Work Phone: 03-03-2023 Chief [...] of immunotherapy6. Reflux on proton pump inhibitor JJ-Eagdmcdkftajcm-Dkfp [place] Work Phone: 11-04-2022 Chief complaint Narrative - Reported An interactive audio and video telecommunication system which permits real time communications between the patient (at the originating site) and provider (at the distant site) was utilized to provide this telehealth service.Verbal consent was requested and obtained from KEDAR NÚÑEZ on this date, 11/04/2022 01:15 PM , for a telehealth visit.Frontal sinus lesion SS-Zwisfmmoejhtco-Mmfs[facility] Work Phone: 11-04-2022 History of Present illness Narrative Reason for visit:KEDAR NÚÑEZ patient presents since last being seen 11/04/22.Medications currently on for sinonasal symptoms.Ipratropium BID.Medications tried in the past for sinonasal symptoms Flonase/Fluticasone.Spoke about PND GN-Tkevhcldohxpot-[place] Work Phone: 11-04-2022 History of Present illness Narrative Reason for visit:KEDAR NÚÑEZ patient presents since last being seen 11/04/22.Medications currently on for sinonasal symptoms.Ipratropium BID.Medications tried in the past for sinonasal symptoms Flonase/Fluticasone.Kedar presents for routine follow-up. He continues to have issues related to postnasal drainage despite ipratropium. He does feel the ipratropium is providing some measure of benefit. KB-Lhcnqhmjvmubza-Hxyc [place] [facility] Phone: 08-19-2022 Hospital Discharge instructions Patient Education [...] including vitamins, herbs, eye drops, creams, and szvj-zxa-uvwdrax medicines. Any problems you or family members [...] provider tells you to take them. Taking ybue-hmq-ayhjnds medicines, vitamins, herbs, and supplements. Eating and [...] 07/26/2006 Document Revised: 11/15/2019 Document Reviewed: 04/26/2019 [employer] Patient Education 2019 [employer]. Follow Up Care 08/05/2021 11:01:39 With:KRISTOFER RANKIN PA-C, URL Address: [address] 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, middle ear, and accessory sinuses documented in this encounter [facility] Work Phone: Evaluation note* Diagnosis Other atopic dermatitis- Primary [facility] Diagnosis Other atopic dermatitis [facility] Diagnosis Chronic laryngitis- Primary Hoarse Dysphonia Chronic sinusitis, unspecified location LPRD (laryngopharyngeal reflux disease) Acute laryngitis, without mention of obstruction documented in this encounter [facility] [...] moisture in his throat * PMHx: Hypertension QW-Exeeawtygjbuug-Macrsawc Work Phone: History of Present illness Narrative* [...] move the food through. * PMHx: Hypertension MT-Hkzfgqelzfiweq-[facility]rffetc[facility] Work Phone: History of Present illness Narrative* Main Symptoms: * Patient has posterior nasal drainage. * Associated Symptoms: * Patient has throat clearing. * Patient has coughing. * Medications currently on for sinonasal symptoms Flonase/Fluticasone - PRN (as needed) . * Ipratropium BID. [facility] [address] Work Phone: Hospital Discharge instructions No data available for this section [facility] [place] Progress note No data available for this section [facility] Summary Purpose Family History No Family History Records FoundNo Family History Records FoundNo Family History Records FoundNo Family History Records FoundNo Family History Records FoundNo Family History Records Found No data available for this section No Family History Records FoundNo Family History [...] contrast volumetric surgical planning Phillip Purvis MD [address] [facility] [address] [place] [address] Referral ID Status Reason Start Date Expiration Date Visits Requested Visits Authorized [id number] Pending Review Perform Procedure 04/13/2024 04/13/2025 1 1 Additional Source Comments (unrecognized sect ion and content) No Status Records FoundNo Status Records FoundNo Status Records FoundNo Status Records FoundNo Status Records FoundNo Status Records FoundNo Status Records FoundNo Status Records Found INFORMATION SOURCE (unrecogn ized section and content) DATE CREATED AUTHOR 02/01/2018 [facility] DATE CREATED AUTHOR AUTHOR'S ORGANIZ ATION 10/10/2022 [facility] DATE CREATED AUTHOR AUTHOR'S ORGANIZ ATION 10/18/2022 [facility] DATE CREATED AUTHOR AUTHOR'S ORGANIZ ATION 04/13/2023 [facility] DATE CREATED AUTHOR AUTHOR'S ORGANIZ ATION 04/15/2023 [employer] DATE CREATED AUTHOR AUTHOR'S ORGANIZ ATION 05/31/2024 [facility] DATE CREATED AUTHOR AUTHOR'S ORGANIZ ATION 10/12/2024 [facility] DATE CREATED AUTHOR AUTHOR'S ORGANIZ ATION 04/26/2025 [facility] d[facility] Specialists EPIC Patient Care team informatio n (unrecognized section and content) [employer] Technician Relationship Specialty Start Date End Date Adama Faye MD [address] [place] [address] PCP - General Family Medicine 10/08/22 Autom[employer] Repair Technician Relationship Specialty Start Date End Date Adama Faye MD [address] [place] [address] PCP - General Family Medicine 10/08/22 Automotive Repair Technician Relationship Specialty Start Date End Date Adama Faye MD [address] [place] [address] PCP - General Family Medicine 04/24/24 Automotive Repair Technician Relationship Specialty Start Date End Date Adama Faye MD [address] [place] [address] PCP - General Family Medicine 04/16/25 Automotive Repair Technician Relationship Specialty Start Date End Date Adama Faye MD [address] [place] [address] PCP - General Family Medicine 04/16/25 Reason for Visit (unrecogniz ed section and content) Reason Comments Follow-up Reason Onset Date Comments Med Refill 05/03/2024 Reason Comments Throat Problem Hoarseness FOR RECORDS PERTAINING TO PATIENTS WHO ARE [...] BE BASED ON THE PRIMARY CLINICAL RECORDS. [facility] [employer] [facility]. provides no warranty or guarantee of the accuracy or completeness of information in this document.
[2025-05-02 10:13] LABS: Estimated GFR (African America >60 (>=60 mL/min/1.73m^2); Estimated GFR (Non-African Ame >60 (>=60 mL/min/1.73m^2)
--- NOTE | 2025-05-02 10:45 | CT_ITS ---
The [address] [address] Patient Name: KEDAR VENTURA MRN: [id number] date: 1950 Sex: M Assigned Patient Location: LAB Current Patient Location: LAB Accession/Order Number: [id number] Exam Date: 05/02/2025 10:25 Report Date: 05/02/2025 12:38 At the request of: ADAMA OSBORNE MD Procedure: CT sinus w con CT PARANASAL SINUSES WITH IV CONTRAST: CLINICAL HISTORY: Mucocele Of Nasal Sinus COMPARISON: CT sinus study 04/20/2024 TECHNIQUE: Contiguous axial enhanced images were obtained through the paranasal sinuses. Coronal reconstructions were also performed. This CT exam was performed using one or more following dose reduction techniques: Automated exposure control, adjustment of the mA and/or kV according to patient size, or use of iterative reconstruction technique. FINDINGS: Previously identified/reported mucocele involving the right frontal sinus is grossly unchanged when compared to the prior study measuring less than 9 mm in greatest axial dimension. Remaining sinuses appear clear. No bony destruction. No nasal lesion is seen. Nasal septum is slightly deviated towards the right with spur present. Ostiomeatal complexes appear patent. No soft tissue swelling. Intraorbital contents appear unremarkable. Nasopharynx appears unremarkable. CT/CT sinus w con IMPRESSION: PREVIOUSLY IDENTIFIED/REPORTED MUCOCELE INVOLVING THE RIGHT FRONTAL SINUS IS UNCHANGED COMPARED TO THE PRIOR CT STUDY FROM 2023. NO ACUTE PROCESS. Impression dictated by: Sampson Garcia Jr., D.O. 05/02/2025 12:38 PM Dictation Location: [place] [address] Electronically authenticated by: [id number] Y Date: 05/02/2025 12:38
== END 2025-05-02 09:57 | disposition home or self-care (01) ==
LOC: LAB 09:57
PROVIDERS: Pathology Anatomic Pathology & Clinical Pathology; PCP Family Medicine; Visit Provider Family Medicine
DX: J34.1 Cyst and mucocele of nose and nasal sinus (principal)
CPT/HCPCS: 36415; 70487; 82565; Q9967

== ENCOUNTER 2025-05-15 10:16 | Day surgery (SDC) | payer MEDICARE, SELFPAY ==
--- OUTSIDE RECORDS SUMMARY | 2025-05-15 10:24 | XMS_ITS | Clinical Summary ---
Author Organization [facility] Address [address] [facility], [address] [place] [address] Care Team Providers Care Fitness Coach Name Role Phone Marshall Faye MD Primary Care Provider [phone] Allergies Active Allergy Reactions Criticality Noted Date [...] mg 4 mg OTHER ONCE 10/15/2022 Active Encounters Date Type Department Care Team Description 04/29/2025 Orders Only [facility] Admitting [address] [place] [address] Marshall Faye MD 04/23/2025 Transcribe Orders [facility] Pre Access [address] [place] [address] Marshall Faye MD Arthritis of left hip (Primary Dx) 04/20/2025 Transcribe Orders [facility] Pre Access [address] [place] [address] Marshall Faye MD from Last 3 Months Family History Medical [...] (#1) 03/09/2025 06/05/2022, 05/08/2020, 05/25/2018 COVID-19 Vaccine (4 - 5-2 6 season) 2025 07/07/2021, 11/02/2020, 10/05/2020 Hepatitis [...] this topic Insurance [employer] MEDICARE Care Teams Fitness Coach Relationship Specialty Start Date End Date Marshall Faye MD [address] [place] [address] PCP - General Family Medicine 10/08/22
--- OUTSIDE RECORDS SUMMARY | 2025-05-15 10:24 | XMS_ITS | Clinical Summary ---
Author Organization [facility] Address [address] [place] [address] Care Team Providers Care Trade Union Secretary Name Role Phone Marshall Faye MD Primary Care Provider [phone] Allergies Active Allergy Reactions Criticality Noted Date Comments Penicillins Unknown 12/27/2022 Medications Montelukast Sodium (SINGULAIR PO) Activ e SIMVASTATIN PO Simvastatin Act lukasz esomeprazole (NexIUM) [address] capsule take 1 capsule by oral route 2 times every day Oral Active ASPIRIN 81 PO Active Dupixent 300 MG/2ML injectionIndica tions:Atopic Dermatitis Inject 1 Syringe (300 mg) under the skin every 14 (fourteen) days 12 mL 025 Active fluticasone (Flonase Allergy Relief) 50 MCG/ACT nasal spray Administer into affected nostril(s) 025 Active irbesartan (Avapro) 300 MG tablet Take 300 mg by mouth Daily Active loratadine (Claritin) 10 MG tablet Take 10 mg by mouth 025 Active famotidine (Pepcid) 20 MG tabletIndicatio ns:Chronic laryngitis Take 1 tablet (20 mg) by mouth at bedtime 90 tablet 025 2024 Active triamcinolone (Kenalog) 0.1 % cream Apply to itchy areas topically bid prn for flares. Avoid face and groin for 30 days 2024 Discontinued(T herapy completed) dupilumab (Dupixent) 300 MG/2ML injection Inject 1 PFS Subcutaneous every other week 019 2024 Discontinued cetirizine (ZyrTEC) 10 MG tablet 1 (one) time each day at the same time. 2024 Discontinued(T herapy completed) betamethasone dipropionate (Diprolene) 0.05 % ointment apply to hands and feet (avoid face and skin folds) Externally bid prn (hold when clear) for 30 day(s) 023 2024 Discontinued(T herapy completed) triamcinolone (Kenalog) 0.1 % cream every 12 (twelve) hours. 2024 Discontinued(T herapy completed) Dupixent 300 MG/2ML injectionIndica tions:Atopic Dermatitis Inject 1 Syringe (300 mg) under the skin every 14 (fourteen) days 12 mL 4 024 2024 Discontinued(R eorder) triamcinolone (Kenalog) 0.1 % creamIndication s:Other atopic dermatitis Apply to affected areas, up to twice a day when flared, do not use one the face, groin, or underarms, 30 day supply 454 g 11 025 2024 Discontinued(T herapy completed) cefdinir (Omnicef) 300 MG capsuleIndicati ons:Chronic sinusitis, unspecified location Take 1 capsule (300 mg) by mouth in the morning and 1 capsule (300 mg) before bedtime. Do all this for 10 days. 20 capsule 025 2024 Active Problems Problem Noted Date Diagnosed Date Alternating constipation and diarrhea 04/24/2025 Arthritis 04/24/2025 Asthma 04/24/2025 BMI 26.0-26.9,adult 04/24/2025 BPH with obstruction/lower urinary tract symptom s 04/24/2025 GERD (gastroesophageal reflux disease) Hyperlipidemia 04/24/2025 Kidney stone on left side 04/24/2025 LLQ abdominal pain 04/24/2025 Mass of subcutaneous tissue of back 04/24/2025 Eczema 04/24/2025 Overweight 04/24/2025 Postprandial bloating 04/24/2025 Parapelvic renal cyst 04/24/2025 Diverticulosis of colon 03/07/2013 Essential hypertension 03/07/2013 Irritable bowel syndrome 03/07/2013 Encounters Date Type Department Care Team Description 05/02/2025 Orders Only [facility] [address] [place] [address] Marshall Faye MD 04/25/2025 10:30 AM EDT Office Visit [facility] [address] [place] [address] Joycelyn Christine MD Chronic laryngitis (Primary Dx); Hoarse; Chronic sinusitis, unspecified location; LPRD (laryngopharyngeal reflux disease) 04/25/2025 Orders Only [facility] [address] [place] [address] Marshall Faye MD 04/25/2025 Bamboo flowsheet [facility] [address] [facility] [address] [place] [address] Joycelyn Christine MD 04/25/2025 Travel 04/19/2025 Telephone [facility] [address] [place] [address] Kelly Amezquita LPN 04/02/2025 Telephone [facility] [address] [place] [address] Kelly Amezquita LPN from Last 3 Months Family History Medical [...] Sign Reading Time Taken Comments Blood Pressure 121/68 04/25/2025 10:16 AM EDT Pulse 75 04/25/2025 10:16 AM EDT Temperature - - Respiratory Rate - - Oxygen Saturation - - Inhaled Oxygen Concentration - - Weight 74.8 kg (165 lb) 04/25/2025 10:16 AM EDT Height 180.3 cm (5' 11 ) 04/25/2025 10:16 AM EDT Body Mass Index 23.01 04/25/2025 10:16 AM EDT Plan of Treatment Upcoming Encounters Date Type Department Care Team (Late st Contact Info) Description 06/06/2025 10:50 AM EDT Office Visit [facility] [address] [place] [address] Nuha King MD [address] [place] [address] Health Maintenance Due Date Last Done Comments Influenza Vaccine (#1) 2025 , 06/05/2022, 05/08/2020, Additional history exists Pneumococcal Vaccine: 65+ Years Completed 04/27/2024, 04/27/2024, 06/24/2017 Procedures Procedure Name Priority Date/Time Associated Diagnosis Comments CT SINUSES WITH CONTRAST Routine 05/02/2025 2:04 PM EDT XR PARANASAL SINUSES 3+ VIEWS Routine 04/16/2025 10:47 AM EDT from Last 3 Months Results * CT SINUSES WITH CONTRAST (05/02/2025 2:04 PM EDT) Anatomical Region Laterality Modality Radiographic Makeda ging Marshall Faye MD IMG XR PROCEDURES Final Result * XR paranasal sinuses 3+ views (04/16/2025 10:47 AM EDT) Anatomical Region Laterality Modality Head, Neck Radiographic Makeda ging Marshall Faye MD IMG XR PROCEDURES Final Result from Last 3 Months Insurance [employer] MEDICARE ADVANTAGE Care Teams Trade Union Secretary Relationship Specialty Start Date End Date Marshall Faye MD [address] [place] [phone] PCP - General Family Medicine 04/16/25
--- OUTSIDE RECORDS SUMMARY | 2025-05-15 10:24 | XMS_ITS | Encounter Summary ---
Author Organization [facility] Address [address] [place] [address] Care Team Providers Care Medical Lead Name Role Phone Marshall Faye MD Primary Care Provider [phone] Encounter Details Date Type Department Care Team ([facility] Contact Info) Description 01/06/2023 Abstract [facility] [address] [facility] [address] [place] [address] Nuha King MD [address] [facility] [address] [place] [address] Social History Tobacco Use Types [...] Upcoming Encounters Date Type Department Care Team ([facility] Contact Info) Description 06/06/2025 10:50 AM EDT Office Visit [facility] [address] [facility] [address] [place] [address] Nuha King MD [address] [address] documented as of this encounter Visit Diagnoses Not on filedocumented in this encounter Care Teams Medical Lead Relationship Specialty Start Date End Date Marshall Faye MD [address] [place] [address] PCP - General Family Medicine 04/16/25 documented as of this encounter
--- OUTSIDE RECORDS SUMMARY | 2025-05-15 10:24 | XMS_ITS | Encounter Summary ---
Author Organization [facility] Address [address] [facility] [place] [address] Care Team Providers Care Polymer Tester Name Role Phone Marshall Faye MD Primary Care Provider [phone] Encounter Details Date Type Department Care Team (Late st Contact Info) Description 04/20/2025 Transcribe Orders [facility] Pre Access [address] [place] [address] [place] [address] [place] [address] [phone] Social History Tobacco Use Types Packs/Day Years [...] documented as of this encounter Care Teams Polymer Tester Relationship Specialty Start Date End Date Marshall Faye MD [address] [place] [address] PCP - General Family Medicine 10/08/22 documented as of this encounter
--- OUTSIDE RECORDS SUMMARY | 2025-05-15 10:24 | XMS_ITS | Encounter Summary ---
Author Organization [facility] Address [address] [facility] [place] [address] Care Team Providers Care Ice Cream Maker Name Role Phone Marshall Faye MD Primary Care Provider [phone] Encounter Details Date Type Department Care Team (Late st Contact Info) Description 04/29/2025 Orders Only [facility] Admitting [address] [phone] Marshall Faye MD [address] [place] [address] Social History Tobacco Use Types Packs/Day Years [...] documented as of this encounter Care Teams Ice Cream Maker Relationship Specialty Start Date End Date Marshall Faye MD [address] [place] [address] PCP - General Family Medicine 10/08/22 documented as of this encounter
--- OUTSIDE RECORDS SUMMARY | 2025-05-15 10:24 | XMS_ITS | Encounter Summary ---
Author Organization [facility] Address [address] [place] [address] Care Team Providers Care Environmental Marketing Representative Name Role Phone Marshall Faye MD Primary Care Provider [phone] Encounter Details Date Type Department Care Team (Late Contact Info) Description 05/02/2025 Orders Only [facility] [address] [facility] [address] [place] [address] Marshall Faye MD [address] [place] [address] Social History Tobacco Use Types Packs/Day Years [...] Department Care Team (Late Contact Info) Description 06/06/2025 10:50 AM EDT Office Visit [facility] [address] [facility] [address] [place] [address] Nuha King MD [address] [facility] [address] [place] [address] documented as of this encounter Procedures Procedure Name Priority Date/Time Associated Diagnosis Comments CT SINUSES WITH CONTRAST Routine 05/02/2025 2:04 PM EDT documented in this encounter Results * CT SINUSES WITH CONTRAST (05/02/2025 2:04 PM EDT) Anatomical Region Laterality Modality Radiographic Makeda ging us Marshall Faye MD IMG XR PROCEDURES Final Result documented in this encounter Visit Diagnoses Not on filedocumented in this encounter Care Teams Environmental Marketing Representative Relationship Specialty Start Date End Date Marshall Faye MD [address] [place] [address] PCP - General Family Medicine 04/16/25 documented as of this encounter
--- OUTSIDE RECORDS SUMMARY | 2025-05-15 10:24 | XMS_ITS | Encounter Summary ---
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 Purvis on 06/05/25. Images Requested: CT Head Addendum: Imaging received- NM PET CT MYELOMA STAGING documented in this encounter Plan of Treatment Upcoming Encounters Date Type Department Care Team (Late st Contact Info) Description 06/05/2025 4:15 PM EDT Telemedicine [facility] [address] [place] [address] Charles Purvis MD [address] [place] [address] documented as of this encounter Visit Diagnoses Not on filedocumented in this encounter Additional Health Concerns Assessment Noted Time A fall risk assessment has been complete d for the patient 05/23/2024 3:26 PM EDT documented as of this encounter Care Teams Tile Layer Supervisor Relationship Specialty Start Date End Date Marshall Faye MD [address] [place] [phone] PCP - General Family Medicine 04/24/24 documented as of this encounter
--- OUTSIDE RECORDS SUMMARY | 2025-05-15 10:24 | XMS_ITS | Encounter Summary ---
Author Organization [facility] Address [address] [place] [address] Phone Care Team Providers Care Necktie Operator Pockets And Pieces Name Role Phone Marshall Faye MD Primary Care Provider [phone] Encounter Details Date Type Department Care Team (Late st Contact Info) Description 03/19/2023 Scanned Document [facility] [address] [place] [address] Conversion, Onbase Social History Tobacco Use Types [...] Info) Description 06/05/2025 4:15 PM EDT Telemedicine [facility] [address] [place] [phone] Charles Purvis MD [address] [place] [address] documented as of this encounter Procedures Procedure Name Priority Date/Time Associated Diagnosis Comments OUTSIDE IMAGING SCAN 03/19/2023 documented in this encounter Results * OUTSIDE IMAGING SCAN (03/19/2023) Anatomical Region Laterality Modality Other Narrative 03/19/2023 Ordered by an unspecified provider. us Onbase Conversion OUTSIDE SCAN Final Result documented in this encounter Visit Diagnoses Not on filedocumented in this encounter Care Teams Necktie Operator Pockets And Pieces Relationship Specialty Start Date End Date Marshall Faye MD [address] [place] [address] PCP - General Family Medicine 04/24/24 documented as of this encounter
--- OUTSIDE RECORDS SUMMARY | 2025-05-15 10:24 | XMS_ITS | Encounter Summary ---
Author Organization [facility] Address [address] [place] [address] Phone Care Team Providers Care Strategic Planning Manager Name Role Phone Marshall Faye MD Primary Care Provider [phone] Encounter Details Date Type Department Care Team (Late st Contact Info) Description 05/08/2025 Scanned Document [facility] [address] [place] [address] Generic Provider, No Assigned Pcp, [place] [address] Social History Tobacco Use Types Packs/Day Years [...] Info) Description 06/05/2025 4:15 PM EDT Telemedicine [facility] [address] [place] [address] Charles Purvis MD [address] [place] [address] documented as of this encounter Visit Diagnoses Not on filedocumented in this encounter Additional Health Concerns Assessment Noted Time A fall risk assessment has been complete d for the patient 05/23/2024 3:26 PM EDT documented as of this encounter Care Teams Strategic Planning Manager Relationship Specialty Start Date End Date Marshall Faye MD [address] [facility] [place] [address] PCP - General Family Medicine 04/24/24 documented as of this encounter
--- OUTSIDE RECORDS SUMMARY | 2025-05-15 10:24 | XMS_ITS | Clinical Summary ---
Author Organization [facility] Address [address] [place] [address] Phone Care Team Providers Care Body Stylist Name Role Phone Marshall Faye MD Primary Care Provider [phone] Allergies No known active allergies Medications irbesartan [...] 1 tablet by mouth once daily. 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 Imaging Request from Last 3 Months Social History Tobacco Use Types Packs/Day Years Used Date Smoking Tobacco: Former Cigarettes Q uit: 1974 Smokeless Tobacco: Never Tobacco Cessation:Counseling Given: Not Answered Sex and Gender Information Value Date Recorded Sex Assigned at Not on file Legal Sex Male 12:13 PM EDT Gender Identity Not on file Sexual Orientation Not on file Plan of Treatment Upcoming Encounters Date Type Department Care Team (Late st Contact Info) Description 06/05/2025 4:15 PM EDT Telemedicine [facility] [address] [place] [phone] Charles Purvis MD [address] [place] [address] Health Maintenance Due Date Last Done Comments [...] patient's age to complete this topic Insurance [place] [employer] [place] MEDICARE Care Teams Body Stylist Relationship Specialty Start Date End Date Marshall Faye MD [address] [facility] [place] [address] PCP - General Family Medicine 04/24/24
--- OUTSIDE RECORDS SUMMARY | 2025-05-15 10:24 | XMS_ITS | Encounter Summary ---
Author Organization [facility] Address [address] [place] [address] Care Team Providers Care Wood Mill Supervisor Name Role Phone Marshall Faye MD Primary Care Provider [phone] Encounter Details Date Type Department Care Team (Late Contact Info) Description 04/25/2025 Orders Only [facility] [address] [facility] [address] [place] [address] Marshall Faye MD [address] [place] [address] Social History Tobacco Use Types Packs/Day Years [...] Office Visit [facility] [address] [facility] [address] [place] [address] Nuha King MD [address] [facility] [address] [place] [address] documented as of this encounter Procedures Procedure Name Priority Date/Time Associated Diagnosis Comments XR PARANASAL SINUSES 3+ VIEWS Routine 04/16/2025 10:47 AM EDT documented in this encounter Results * XR paranasal sinuses 3+ views (04/16/2025 10:47 AM EDT) Anatomical Region Laterality Modality Head, Neck Radiographic Makeda ging us Marshall Faye MD IMG XR PROCEDURES Final Result documented in this encounter Visit Diagnoses Not on filedocumented in this encounter Care Teams Wood Mill Supervisor Relationship Specialty Start Date End Date Marshall Faye MD [address] [place] [address] PCP - General Family Medicine 04/16/25 documented as of this encounter
--- OUTSIDE RECORDS SUMMARY | 2025-05-15 10:28 | XMS_ITS | CCD ---
Author Organization [facility] CliniSyfl Care Team Providers Care Toy Consultant Name Role Phone PHYSICIAN, DEFAULT Unavailable Unavailable [...] Unavailable HOY ., DR GALAN Consulting Unavailable [place], DR ALIYA Sierra Consulting Unavailable HOY ., DR GALAN Attending Unavailable HOY ., DR GALAN Admitting Unavailable HOY ., DR GALAN Primary Care Unavailable HOY ., DR GALAN Consulting Unavailable DONNELL RENTERIA Consulting Unavailable Adama Faye MD Primary Care Provider OSMIN GOODEN Referring Unavailable ADAMA FAYE Primary [...] Care Unavailable Dr. Phillip Purvis Attending Susan Adama Yates MD Primary Care Provider [phone] Unavailable Primary Care Provider Unavailnilesh e Unavailable Primary Care Provider Unavailnilesh e Luis A CASTILLO Attending Unavailable Adama Faye Referring Unavailable Adama Faye MD Primary Care Provider JOYCELYN PENDLETON Attending Unavailable PHILLIP PURVIS Attending Unavailable ADAMA FAYE Primary Care Unavailable Allergies Allergy Classification Reported Allergen(s) Allergy Type Date of Onset Reaction(s) Facility (3 sources) Penicillin; Translations: [penicillin] Drug Allergy Eruption of skin (disorder) [facility] (2 sources) Penicillins Drug allergy (disorder) 3 [facility] Repository (3 sources) Penicillins Propensity to adverse reactions to drug 3 Rash [facility] (7 sources) Penicillins Drug Allergy 3 Unknown [...] Active Start: 10-02-2024 Flonase 0.05 m g/inh [place] 1 spray(s), Nasal, Daily, Refill(s) 0 Start [...] 04/28/19 Status: Ordered take 1 capsule by [facility] twice daily esomeprazole (NexIUM) [address] [...] pain; Translations: [Left lower quadrant pain] Onset: 06-20-2019 Episodic Allergic reactions (3 sources) Atopic [...] cavity and accessory sinuses] 05-29-2024 Episodic Other circulatory disease (5 sources) Clearing [...] trunk] Onset: 5 Episodic Other skin disorders (4 sources) Mass [...] Translations: [OTHER FATIGUE] Onset: 05-04-2022 Episodic Other and unspecified benign neoplasm (2 sources) Benign neoplasm of middle ear, nasal cavity and accessory sinuses; Translations: [Benign neoplasm of middle ear, nasal cavity and accessory sinuses] Onset: 05-23-2024 Episodic Other screening for suspected conditions (not [...] mg Cap-EC) fluticasone nasal (Flonase 0.05 mg/inh [place]) irbesartan (irbesartan 300 mg Tab) loratadine (loratadine [...] Unchanged fluticasone nasal (Flonase 0.05 mg/ inh [place]) 1 Sprays Nasal Inhalation Every day Contact [...] choosing us for your care. 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 Please feel free to contact my office by calling [phone] with any questions. Provider Impressions 1. Frontal [...] Given that there is been no change management lead 6 months I recommended virtual follow-up in [...] Apr 14 2023 11:03AM EST (Author) Normal [employer] Falls Screening (Age 18+)on 04-13-2023 Fall risk assessment a) No falls within the last year MG-Otolaryngo [facility] 4100 Work Phone: Tobacco use status [facility] b) No -Otolaryngo [facility] [address]107 Work Phone: Established Visit (Otolaryng ology)on 03-03-2023 [...] free to contact my office by calling [phone] with any questions. Provider Impressions 1. Frontal [...] to home so I will ask my attendance secretary to print off the order and [...] free to contact my office by calling [phone] with any questions. Provider Impressions 1. Frontal [...] A Adams MD 10/15/22 Final result Normal [facility] No acute osseous abnormality. Degenerative changes 1st CMC joint [facility] EXAMINATION: THREE XRAY VIEWS OF THE LEFT HAND 10/15/2022 9:57 am COMPARISON: None. HISTORY: ORDERING SYSTEM PROVIDED HISTORY: Pain in both hands FINDINGS: There is no evidence of acute fracture. There is normal alignment. No acute joint abnormality. No focal osseous lesion. No focal soft tissue abnormality. Degenerative changes seen in the 1st CMC joint. Vascular calcifications. [facility] Luis A Adams MD - [...] osseous abnormality. Degenerative changes 1st CMC joint [employer] Phone: Radiology Study observation (narrative) [employer] Phone: XR HAND LEFT (MIN 3 VIEWS)Or dered By: Luis A Adams on 10-15-2022 [employer] [facility] Phone: XR HAND RIGHT (MIN 3 VIEWS)o [...] A Adams MD 10/15/22 Final result Normal [facility] No acute osseous abnormality. Degenerative changes 3rd MCP joint and 1st CMC joint [facility] EXAMINATION: THREE XRAY VIEWS OF [...] joint space narrowing and bony overgrowth. [facility] Luis A Adams MD - [...] 3rd MCP joint and 1st CMC joint [employer] Phone: Radiology Study observation (narrative) [employer] Phone: XR HAND RIGHT (MIN 3 VIEWS)O rdered By: Luis A Adams on 10-15-2022 [employer] Phone: PERLA by IFAon 10-06-2022 Antinuclear Antibodies, IFA Negative Normal [facility] Comment on above: Result Comment: Nega tive <1:80 Borderline 1:80 Positive >1:80 ICAP nomenclature: AC-0 For more information about Hep-2 cell patterns use ANApatterns.org, the official website for the International Consensus on Antinuclear Antibody (PERLA) Patterns (ICAP). Performed By: #### C BC #### [facility] [address] [place] [address] Dr. Akua Thomas ANTISTREPTOLYSIN O AB (ASO)o n 10-06-2022 Antistreptolysin O Ab 69.9 IU/mL Normal 0.0-200.0 [facility] Comment on above: Performed By: #### A SOAB #### [facility] [address] [place] [address] Dr. Akua Thomas CALCIUM IONIZEDon 10-06-2022 Calcium, Ionized, Serum 5.5 mg/dL Normal 4.5-5.6 [facility] Comment on above: Performed By: #### C AIONZ #### [facility] [address] [place] [address] Dr. Akua Thomas RHEUMATOID FACTORon 10-06-19 RA Latex Turbid. 12.6 IU/mL Normal <14.0 [facility] Comment on above: Performed By: #### R F #### [facility] [address] [place] [address] Dr. Akua Thomas CBC AUTO DIFFon 10-05-2022 BASO # 0.0 103/ul Normal 0.0-0.1 [facility] Comment on above: Performed By: #### C BC #### [facility] [address] [place] [address] Dr. Akua Thomas Basophils/100 WBC (Bld) 0.2 % Normal 0.2-2.0 [facility] Comment on above: Performed By: #### C BC #### [facility] [address] [place] [address] Dr. Akua Thomas EO # 0.1 103/ul Normal 0.0-0.7 [facility] Comment on above: Performed By: #### C BC #### [facility] [address] [place] [address] Dr. Akua Thomas Eosinophils/100 WBC (Bld) 1.4 % Normal 0.9-7.0 [facility] Comment on above: Performed By: #### C BC #### [facility] [address] [place] [address] Dr. Akua Thomas Erythrocyte distribution width (RBC) [Ratio] 14.3 % Normal 11.0-15.0 [facility] Comment on above: Performed By: #### C BC #### [facility] [address] [place] [address] Dr. Akua Thomas Hematocrit (Bld) [Volume fraction] 45.5 % Normal 42.0-54.0 [facility] Comment on above: Performed By: #### C BC #### [facility] [address] [place] [address] Dr. Akua Thomas Hemoglobin (Bld) [Mass/Vol] 15.1 g/dL Normal 14.0-18.0 [facility] Comment on above: Performed By: #### C BC #### [facility] [address] [place] [address] Dr. Akua Thomas IG # 0.03 10e3/ul Normal 0.00-0.03 [facility] Comment on above: Performed By: #### C BC #### [facility] [address] [place] [address] Dr. Akua Thomas IG % 0.3 % Normal 0.0-0.5 [facility] Comment on above: Performed By: #### C BC #### [facility] [address] [place] [address] Dr. Akua Thomas LYMPH # 3.0 103/ul Normal 1.2-3.8 [facility] Comment on above: Performed By: #### C BC #### [facility] [address] [place] [address] Dr. Akua Thomas Lymphocytes/100 WBC (Bld) 31.9 % Normal 20.5-60.0 [facility] Comment on above: Performed By: #### C BC #### [facility] [address] [place] [address] Dr. Akua Thomas MANUAL DIFF REQ NO Normal [facility] Comment on above: Performed By: #### C BC #### [facility] [address] [place] [address] Dr. Akua Thomas MCH (RBC) [Entitic mass] 29.6 pg Normal 25.9-34.0 [facility] Comment on above: Performed By: #### C BC #### [facility] [address] [place] [address] Dr. Akua Thomas MCHC (RBC) [Mass/Vol] 33.2 g/dL Normal 29.9-35.2 [facility] Comment on above: Performed By: #### C BC #### [facility] [address] [place] [address] Dr. Akua Thomas MCV (RBC) [Entitic vol] 89.2 fL Normal 80.0-94.0 [facility] Comment on above: Performed By: #### C BC #### [facility] [address] [place] [address] Dr. Akua Thomas MONO # 0.7 103/ul Normal 0.3-0.8 [facility] Comment on above: Performed By: #### C BC #### [facility] [address] [place] [address] Dr. Akua Thomas Monocytes/100 WBC (Bld) 7.2 % Normal 1.7-12.0 [facility] Comment on above: Performed By: #### C BC #### [facility] [address] [place] [address] Dr. Akua Thomas NEUT # 5.5 103/ul Normal 1.4-6.5 [facility] Comment on above: Performed By: #### C BC #### [facility] [address] [place] [address] Dr. Akua Thomas Neutrophils/100 WBC (Bld) 59.0 % Normal 43.0-75.0 [facility] Comment on above: Performed By: #### C BC #### [facility] [address] [place] [address] Dr. Akua Thomas Platelet mean volume (Bld) [Entitic vol] 9.9 fL Normal 9.5-13.5 [facility] Comment on above: Performed By: #### C BC #### [facility] [address] [place] [address] Dr. Akua Thomas PLT 237 103/ul Normal 150-450 [facility] Comment on above: Performed By: #### C BC #### [facility] [address] [place] [address] Dr. Akua Thomas RBC 5.10 106/ul Normal 4.70-6.10 [facility] Comment on above: Performed By: #### C BC #### [facility] [address] [place] [address] Dr. Akua Thomas WBC 9.3 103/ul Normal 4.0-11.0 [facility] Comment on above: Performed By: #### C BC #### [facility] [address] [place] [address] Dr. Akua Thomas CRPon 10-05-2022 CRP [Mass/Vol] mg/L Normal <=1.0 [facility] Comment on above: Performed By: #### C MP, URIC, PHOS, MG, T7, CRP, TSH #### [facility] [address] [place] [address] Dr. Akua Thomas FREE THYROXINE INDEX T7on FTI 3.28 Normal 1.30-4.50 [facility] Comment on above: Performed By: #### C BC #### [facility] [address] [place] [address] Dr. Akua Thomas T3U 36.0 % Normal 33.0-40.0 [facility] Comment on above: Performed By: #### C BC #### [facility] [address] [place] [address] Dr. Akua Thomas T4 [Mass/Vol] 9.10 ug/dL Normal 4.50-12.10 [facility] Comment on above: Performed By: #### C BC #### [facility] [address] [place] [address] Dr. Akua Thomas IRONon 10-05-2022 Iron [Mass/Vol] 119.0 ug/dL Normal 65.0-175.0 [facility] Comment on above: Performed By: #### I SHILPI #### [facility] [address] [place] [address] Dr. Akua Thomas MAGNESIUMon 10-05-2022 Magnesium [Mass/Vol] 1.8 mg/dL Normal 1.8-2.4 [facility] Comment on above: Performed By: #### C BC #### [facility] [address] [place] [address] Dr. Akua Thomas PHOSPHORUSon 10-05-2022 Phosphate [Mass/Vol] 3.4 mg/dL Normal 2.6-4.7 [facility] Comment on above: Performed By: #### C BC #### [facility] [address] [place] [address] Dr. Akua Thomas PROF 14(COMP METB)on 023 Albumin [Mass/Vol] 4.0 g/dL Normal 3.4-5.0 [facility] Comment on above: Performed By: #### C BC #### [facility] [address] [place] [address] Dr. Akua Thomas Albumin/Globulin [Mass ratio] 1.4 {ratio} Normal [facility] Comment on above: Performed By: #### C BC #### [facility] [address] [place] [address] Dr. Akua Thomas ALP [Catalytic activity/Vol] 119 U/L Critically high 46-116 [facility] Comment on above: Performed By: #### C BC #### [facility] [address] [place] [address] Dr. Akua Thomas ALT [Catalytic activity/Vol] 69 U/L Critically high 16-63 [facility] Comment on above: Performed By: #### C BC #### [facility] [address] [place] [address] Dr. Akua Thomas Anion gap [Moles/Vol] 10.0 mmol/L Normal [facility] Comment on above: Performed By: #### C BC #### [facility] [address] [place] [address] Dr. Akua Thomas AST [Catalytic activity/Vol] 37 U/L Normal 15-37 [facility] Comment on above: Performed By: #### C BC #### [facility] [address] [place] [address] Dr. Akua Thomas Bilirubin [Mass/Vol] 0.7 mg/dL Normal 0.2-1.0 [facility] Comment on above: Performed By: #### C BC #### [facility] [address] [place] [address] Dr. Akua Thomas Calcium [Mass/Vol] 9.2 mg/dL Normal 8.5-10.1 [facility] Comment on above: Performed By: #### C BC #### [facility] [address] [place] [address] Dr. Akua Thomas Chloride [Moles/Vol] 100 mmol/L Normal 98-107 [facility] Comment on above: Performed By: #### C BC #### [facility] [address] [place] [address] Dr. Akua Thomas CO2 [Moles/Vol] 30.5 mmol/L Normal 21.0-32.0 [facility] Comment on above: Performed By: #### C BC #### [facility] [address] [place] [address] Dr. Akua Thomas Creatinine [Mass/Vol] 0.75 mg/dL Normal 0.70-1.30 [facility] Comment on above: Performed By: #### C BC #### [facility] [address] [place] [address] Dr. Akua Thomas EGFR-AF BHUTANESE >60 Normal >=60 [facility] Comment on above: Performed By: #### C BC #### [facility] [address] [place] [address] Dr. Akua Thomas EGFR-NON AF BHUTANESE >60 Normal >=60 [facility] Comment on above: Performed By: #### C BC #### [facility] [address] [place] [address] Dr. Akua Thomas Globulin (S) [Mass/Vol] 2.9 g/dL Normal [facility] Comment on above: Performed By: #### C BC #### [facility] [address] [place] [address] Dr. Akua Thomas Glucose [Mass/Vol] 97 mg/dL Normal 74-106 [facility] Comment on above: Performed By: #### C BC #### [facility] [address] [address] [address] Akua Thomas Potassium [Moles/Vol] 4.5 mmol/L Normal 3.5-5.1 [facility] Comment on above: Performed By: #### C BC #### [facility] [address] [place] [address] Dr. Akua Thomas Protein [Mass/Vol] 6.9 g/dL Normal 6.4-8.2 [facility] Comment on above: Performed By: #### C BC #### [facility] [address] [place] [address] Dr. Akua Thomas Sodium [Moles/Vol] 136 mmol/L Normal 136-145 [facility] Comment on above: Performed By: #### C BC #### [facility] [address] [place] [address] Dr. Akua Thomas Urea nitrogen [Mass/Vol] 24.0 mg/dL Critically high 7.0-18.0 [facility] Comment on above: Performed By: #### C BC #### [facility] [address] [place] [address] Dr. Akua Thomas Urea nitrogen/Creatinin e [Mass ratio] 32.0 mg/mg Normal [facility] Comment on above: Performed By: #### C BC #### [facility] [address] [place] [address] Dr. Akua Thomas TSHon 10-05-2022 TSH 0.725 uIU/mL Normal 0.358-3.74 0 [facility] Comment on above: Performed By: #### C BC #### [facility] [address] [place] [address] Dr. Akua Thomas URIC ACID SERUMon 10-05-2022 Urate [Mass/Vol] 2.2 mg/dL Critically low 3.5-7.2 [facility] Comment on above: Performed By: #### C MP, URIC, PHOS, MG, T7, CRP, TSH #### [facility] [address] [address] [address] Akua Thomas XR HAND LT MIN 3Von 10-05-19 23 XR HAND LT MIN 3V EXAMINATION: XR WRIS T MARÍA MIN 3 V, XR HAND LT MIN 3V HISTORY: Arthritis of hand COMPARISON: No relevant comparison available. FINDINGS: RIGHT FINDINGS: BONES: No acute fracture or dislocation. Severe degenerative changes at the first carpometacarpal joint with [id number]-ra-[id number] articulation and extensive heterotopic ossification SOFT TISSUES: [...] Moderate degenerative changes Electronically authenticated by: ALIYA KLILIAN Date: 2022-10-05 13:24 Normal [facility] CT SINUSES WO CONon 09-16-19 CT SINUSES WO CON EXAMINATION: CT SINU [...] mastoid sinuses are not included in the [id number]. IMPRESSION: There is a small mass seen [...] DONNELL RENTERIA Date: 2022-09-16 19:40 Normal [facility] OCC BLD IMMUNO SCREENon 04-10 OCCULT BLOOD Negative Normal NEGATIVE [facility] Comment on above: Performed By: #### C BC #### [facility] [address] [place], [place] [address] Dr. Akua Thomas PSA, FREE AND TOTAL RATIOon 04-10-2022 % Free PSA 17.8 % Normal [facility] Comment on above: Result [...] men. Performed By: #### C BC #### [facility] [address] [place], [place] [address] Dr. Akua Thomas Prostate specific Ag [Mass/Vol] 0.9 ng/mL Normal 0.0-4.0 [facility] Comment on above: Result Comment: Leslye ceballos ECLIA methodology. . According to the [employer], Serum PSA should decrease and [...] disease. Performed By: #### C BC #### [facility] [address] [place] [address] Dr. Akua Thomas PSA, Free 0.16 ng/mL Normal N/A [facility] Comment on above: Result Comment: Leslye ceballos ECLIA methodology. Performed By: #### C BC #### [facility] [address] [place] [address] Dr. Akua Thomas T4 LABCORPon 04-10-2022 T4 [Mass/Vol] 8.0 ug/dL Normal 4.5-12.0 [facility] Comment on above: Performed By: #### C BC #### [facility] [address] [place] [address] Dr. Akua Thomas CBC AUTO DIFFon 04-09-2022 BASO # 0.0 103/ul Normal 0.0-0.1 [facility] Comment on above: Performed By: #### C BC #### [facility] [address] [place] [address] Dr. Akua Thomas Basophils/100 WBC (Bld) 0.2 % Normal 0.2-2.0 [facility] Comment on above: Performed By: #### C BC #### [facility] [address] [place] [address] Dr. Akua Thomas EO # 0.2 103/ul Normal 0.0-0.7 [facility] Comment on above: Performed By: #### C BC #### [facility] [address] [place] [address] Dr. Akua Thomas Eosinophils/100 WBC (Bld) 2.2 % Normal 0.9-7.0 [facility] Comment on above: Performed By: #### C BC #### [facility] [address] [place] [address] Dr. Akua Thomas Erythrocyte distribution width (RBC) [Ratio] 14.2 % Normal 11.0-15.0 [facility] Comment on above: Performed By: #### C BC #### [facility] [address] [place] [address] Dr. Akua Thomas Hematocrit (Bld) [Volume fraction] 43.3 % Normal 42.0-54.0 [facility] Comment on above: Performed By: #### C BC #### [facility] [address] [place] [address] Dr. Akua Thomas Hemoglobin (Bld) [Mass/Vol] 14.2 g/dL Normal 14.0-18.0 [facility] Comment on above: Performed By: #### C BC #### [facility] [address] [place] [address] Dr. Akua Thomas IG # 0.02 10e3/ul Normal 0.00-0.03 [facility] Comment on above: Performed By: #### C BC #### [facility] [address] [place] [address] Dr. Akua Thomas IG % 0.2 % Normal 0.0-0.5 [facility] Comment on above: Performed By: #### C BC #### [facility] [address] [place] [address] Dr. Akua Thomas LYMPH # 1.8 103/ul Normal 1.2-3.8 [facility] Comment on above: Performed By: #### C BC #### [facility] [address] [place] [address] Dr. Akua Thomas Lymphocytes/100 WBC (Bld) 20.6 % Normal 20.5-60.0 [facility] Comment on above: Performed By: #### C BC #### [facility] [address] [place] [address] Dr. Akua Thomas MANUAL DIFF REQ NO Normal [facility] Comment on above: Performed By: #### C BC #### [facility] [address] [place] [address] Dr. Akua Thomas MCH (RBC) [Entitic mass] 29.8 pg Normal 25.9-34.0 [facility] Comment on above: Performed By: #### C BC #### [facility] [address] [address] [address] Akua Thomas MCHC (RBC) [Mass/Vol] 32.8 g/dL Normal 29.9-35.2 [facility] Comment on above: Performed By: #### C BC #### [facility] [address] [place] [address] Dr. Akua Thomas MCV (RBC) [Entitic vol] 91.0 fL Normal 80.0-94.0 [facility] Comment on above: Performed By: #### C BC #### [facility] [address] [place] [address] Dr. Akua Thomas MONO # 0.7 103/ul Normal 0.3-0.8 [facility] Comment on above: Performed By: #### C BC #### [facility] [address] [place] [address] Dr. Akua Thomas Monocytes/100 WBC (Bld) 8.2 % Normal 1.7-12.0 [facility] Comment on above: Performed By: #### C BC #### [facility] [address] [place] [address] Dr. Akua Thomas NEUT # 6.1 103/ul Normal 1.4-6.5 [facility] Comment on above: Performed By: #### C BC #### [facility] [address] [place] [address] Dr. Akua Thomas Neutrophils/100 WBC (Bld) 68.6 % Normal 43.0-75.0 [facility] Comment on above: Performed By: #### C BC #### [facility] [address] [place] [address] Dr. Akua Thomas Platelet mean volume (Bld) [Entitic vol] 10.1 fL Normal 9.5-13.5 [facility] Comment on above: Performed By: #### C BC #### [facility] [address] [place] [address] Dr. Akua Thomas PLT 231 103/ul Normal 150-450 [facility] Comment on above: Performed By: #### C BC #### [facility] [address] [address] [address] Akua Thomas RBC 4.76 106/ul Normal 4.70-6.10 [facility] Comment on above: Performed By: #### C BC #### [facility] [address] [place] [address] Dr. Akua Thomas WBC 8.9 103/ul Normal 4.0-11.0 [facility] Comment on above: Performed By: #### C BC #### [facility] [address] [place] [address] Dr. Akua Thomas FREE T3on 04-09-2022 FREE T3 2.53 pg/mlL Normal 2.18-3.98 [facility] Comment on above: Performed By: #### R F #### [facility] [address] [place] [address] Dr. Akua Thomas GLYCOHEMOGLOBIN A1Con 2021 ADA RECOMMENDATION SEE BELOW Normal [facility] Comment on above: Result Comment: ADA RECOMMENDED LIMIT 4.0 - 6.0 ADA THERAPEUTIC TARGET < 7.0 ACTION SUGGESTED > 7.0 Performed By: #### A 1C #### [facility] [address] [place] [address] Dr. Akua Thomas Glucose [Mass/Vol] 123 mg/dL Normal [facility] Comment on above: Performed By: #### A 1C #### [facility] [address] [place] [address] Dr. Akua Thomas HbA1c (Bld) [Mass fraction] 5.9 % Normal 4.5-6.2 [facility] Comment on above: Performed By: #### A 1C #### [facility] [address] [place] [address] Dr. Akua Thomas LIPID PROFILEon 04-09-2022 CHOL-HDL RATIO NORM SEE BELOW Normal [facility] Comment on above: Result Comment: 3.3 - 4.4 LOW RISK 4.4 - 7.1 AVERAGE RISK 7.1 - 11.0 MODERATE RISK >11.0 HIGH RISK Performed By: #### R F #### [facility] [address] [address] [address] Akua Thomas Cholesterol [Mass/Vol] 154 mg/dL Normal <=200 [facility] Comment on above: Performed By: #### R F #### [facility] [address] [address] [address] Akua Thomas Cholesterol in HDL [Mass/Vol] 71 mg/dL Critically high 40-60 [facility] Comment on above: Performed By: #### R F #### [facility] [address] [address] [address] Akua Thomas Cholesterol in LDL [Mass/Vol] 74.8 mg/dL Normal [facility] Comment on above: Performed By: #### R F #### [facility] [address] [address] [address] Akua Thomas Cholesterol.total/ Cholesterol in HDL [Mass ratio] 2.2 {ratio} Normal [facility] Comment on above: Performed By: #### R F #### [facility] [address] [address] [address] Akua Thomas HDL NORMAL > or = 60 mg/dl - LO W CARDIOVASCULAR RISK <40 mg/dl - HIGH CARDIOVASCULAR RISK Normal [facility] Comment on above: Performed By: #### R F #### [facility] [address] [address] [address] Akua Thomas LDL CALC NORMAL SEE BELOW Normal [facility] Comment on above: Result Comment: <100 mg/dl OPTIMAL 100 - 129 mg/dl NEAR OR ABOVE OPTIMAL 130 - 159 mg/dl BORDERLINE HIGH 160 - 189 mg/dl HIGH >190 mg/dl VERY HIGH Performed By: #### R F #### [facility] [address] [address] [address] Akua Thomas Triglyceride [Mass/Vol] 41 mg/dL Normal <=150 [facility] Comment on above: Performed By: #### R F #### [facility] [address] [address] [address] Akua Thomas VLDL CALC 8.2 mg/dL Normal [facility] Comment on above: Performed By: #### R F #### [facility] [address] [place] [address] Dr. Akua Thomas PROF 14(COMP METB)on 022 Albumin [Mass/Vol] 3.8 g/dL Normal 3.4-5.0 [facility] Comment on above: Performed By: #### R F #### [facility] [address] [place] [address] Dr. Akua Thomas Albumin/Globulin [Mass ratio] 1.4 {ratio} Normal [facility] Comment on above: Performed By: #### R F #### [facility] [address] [place] [address] Dr. Akua Thomas ALP [Catalytic activity/Vol] 127 U/L Critically high 46-116 [facility] Comment on above: Performed By: #### R F #### [facility] [address] [place] [address] Dr. Akua Thomas ALT [Catalytic activity/Vol] 45 U/L Normal 16-63 [facility] Comment on above: Performed By: #### R F #### [facility] [address] [place] [address] Dr. Akua Thomas Anion gap [Moles/Vol] 12.6 mmol/L Normal [facility] Comment on above: Performed By: #### R F #### [facility] [address] [place] [address] Dr. Akua Thomas AST [Catalytic activity/Vol] 28 U/L Normal 15-37 [facility] Comment on above: Performed By: #### R F #### [facility] [address] [place] [address] Dr. Akua Thomas Bilirubin [Mass/Vol] 0.8 mg/dL Normal 0.2-1.0 [facility] Comment on above: Performed By: #### R F #### [facility] [address] [place] [address] Dr. Akua Thomas Calcium [Mass/Vol] 8.7 mg/dL Normal 8.5-10.1 [facility] Comment on above: Performed By: #### R F #### [facility] [address] [place] [address] Dr. Akua Thomas Chloride [Moles/Vol] 102 mmol/L Normal 98-107 [facility] Comment on above: Performed By: #### R F #### [facility] [address] [address] [address] Akua Thomas CO2 [Moles/Vol] 28.1 mmol/L Normal 21.0-32.0 [facility] Comment on above: Performed By: #### R F #### [facility] [address] [address] [address] Akua Thomas Creatinine [Mass/Vol] 0.77 mg/dL Normal 0.70-1.30 [facility] Comment on above: Performed By: #### R F #### [facility] [address] [place] [address] Dr. Akua Thomas EGFR-AF BHUTANESE >60 Normal >=60 [facility] Comment on above: Performed By: #### R F #### [facility] [address] [address] [address] Akua Thomas EGFR-NON AF BHUTANESE >60 Normal >=60 [facility] Comment on above: Performed By: #### R F #### [facility] [address] [place] [address] Dr. Akua Thomas Globulin (S) [Mass/Vol] 2.7 g/dL Normal [facility] Comment on above: Performed By: #### R F #### [facility] [address] [place] [address] Dr. Akua Thomas Glucose [Mass/Vol] 105 mg/dL Normal 74-106 [facility] Comment on above: Performed By: #### R F #### [facility] [address] [address] [address] Akua Thomas Potassium [Moles/Vol] 3.7 mmol/L Normal 3.5-5.1 [facility] Comment on above: Performed By: #### R F #### [facility] [address] [place] [address] Dr. Akua Thomas Protein [Mass/Vol] 6.5 g/dL Normal 6.4-8.2 [facility] Comment on above: Performed By: #### R F #### [facility] [address] [place], [place] [address] Dr. Akua Thomas Sodium [Moles/Vol] 139 mmol/L Normal 136-145 [facility] Comment on above: Performed By: #### R F #### [facility] [address] [place], [place] [address] Dr. Akua Thomas Urea nitrogen [Mass/Vol] 17.0 mg/dL Normal 7.0-18.0 [facility] Comment on above: Performed By: #### R F #### [facility] [address] [address] [address] Akua Thomas Urea nitrogen/Creatinin e [Mass ratio] 22.1 mg/mg Normal [facility] Comment on above: Performed By: #### R F #### [facility] [address] [place] [address] Dr. Akua Thomas TSHon 04-09-2022 TSH 0.547 uIU/mL Normal 0.358-3.74 0 [facility] Comment on above: Performed By: #### R F #### [facility] [address] [place], [place] [id number] Dr. Akua Thomas Vital Signs Date Time Vital Sign Value Performing Clinician Facility 04-25-2025 10:16040 Body height 180.3 cm Joycelyn Pendleton MD Work Phone: [facility] 04-25-2025 10:16-040 Body mass index (BMI) [Ratio] 23.01 kg/m2 Joycelyn Pendleton MD Work Phone: [facility] 04-25-2025 10:16040 Body weight 74.84 kg Joycelyn Pendleton MD Work Phone: [facility] 04-25-2025 10:16-040 Diastolic blood pressure 68 mm[Hg] Joycelyn Pendleton MD Work Phone: [facility] 04-25-2025 10:16-0400 Heart rate 75 /min Joycelyn Pendleton MD Work Phone: [facility] 04-25-2025 10:16-0400 Systolic blood pressure 121 mm[Hg] Joycelyn Pendleton MD Work Phone: [facility] 10-10-2024 13:51-0500 Blood Pressure Location Luis A NILL [facility] 10-10-2024 13:51-0500 Diastolic blood pressure 68 mm[Hg] Luis A NILL [facility] 10-10-2024 13:51-0500 Heart rate 70 /min Luis A NILL [facility] 10-10-2024 13:51-0500 Respiratory rate 16 /min Luis A NILL [facility] 10-10-2024 13:51-0500 Systolic blood pressure 146 mm[Hg] Luis A NILL [facility] Encounters Encounter Date Encounter Type Care Provider Facility Start: 04-25-2025 End: 04-25-2025 Oumar Pendleton MD [facility] Start: 04-25-2025 End: 04-25-2025 Oumar Pendleton MD Work Phone: [facility] Start: 04-25-2025 End: 04-25-2025 Office outpatient visit 25 minutes Joycelyn Pendleton MD Work Phone: [facility] Comment on above: Chronic laryngitis ( Primary Dx); Hoarse; Chronic sinusitis, unspecified location; LPRD (laryngopharyngeal reflux disease) Start: 04-25-2025 End: 04-25-2025 ambulatory JOYCELYN PENDLETON Not Available Start: 10-10-2024 End: 10-10-2024 ambulatory Luis A CASTILLO Facility:[facility] Start: 10-10-2024 End: 10-10-2024 Patient encounter procedure Luis A Calle JONATHAN [facility] Start: 05-23-2024 End: 05-23-2024 Office outpatient visit 15 minutes Phillip Purvis MD Work Phone: [email or web address] Comment on above: 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 Phillip Gallegos Facility:[id number] Start: 03-03-2023 Office outpatient visit 15 minutes Referring Provider Unknown UB-Xkwfgzmlyijmlo-Ipwpyc Work Phone: Start: 03-03-2023 Patient encounter procedure Referring Provider Unknown ZQ-Besgzwpesvahtk-Tsepcz lilibeth Work Phone: Start: 03-03-[address] Phillip Gallegos Facility:[id number] Start: 11-04-2022 Office outpatient ne w 45 minutes Referring Provider Unknown [facility] Work Phone: Start: 11-04-2022 Patient encounter procedure Referring Provider Unknown MU-Settjpcchqcpgl-Imllae lilibeth Work Phone: Start: 11-04-[address] Phillip Gallegos Facility:[id number] Start: 10-15-2022 End: 10-18-[address] [facility] Start: 10-15-2022 End: 10-17-2022 Subsequent hospital visit by physician Paresh Griffith Dr Room 4 [facility] Comment on above: Pain in both hands Start: 10-05-2022 End: 10-06-[address] ADAMA FAYE . Facility:[facility]1 Start: 09-24-2022 ambulatory KRISTOFER RANKIN Facility :[facility]1 Start: 09-16-2022 End: 09-17-[address] ADAMA FAYE . Facility:[facility] Start: 08-19-2022 End: 08-19-2022 Patient encounter procedure KRISTOFER RANKIN [facility] Start: 05-01-2022 End: 05-01-[address] ADAMA FAYE . Facility:[facility]1 Start: 04-09-2022 End: 04-10-[address] ADAMA FAYE . Facility:[facility]1 Start: 07-12-2017 End: 07-13-2017 Ambulatory DEFAULT PHYSICIAN Facility:[facility] Procedures Date Procedure Procedure Detail Performing Clinician Start: 10-15-2022 End: 10-15-2022 Radex hand minimum 3 views Osmin guerrero MD Work Phone: Start: 07-09-2019 Colonoscopy Luis A CASTILLO Start: 07-09-2019 Esophagogastroduodenoscopy Luis A NILL Colonoscopy KRISTOFER RANKIN Shoulder region stru cture (body structure) KRISTOFER RANKIN Plan of Treatment Date Care Activity Detail Author Start: 06-06-2025 End: 06-06-2025 Patient encounter procedure 06/06/2025 10:50 AM EDT Office Visit [facility] [address] [place] [address] Nuha King MD [address] [place] [address] [facility] Start: 04-25-2025 End: 04-25-2025 Patient encounter procedure 04/25/2025 10:30 AM EDT Office Visit [facility] [address] [facility] [address] [place] [id number] Joycelyn Pendleton MD [address] [facility] [address] [place] [address] Arrived [facility] Comment on above: Arrived Start: 04-09-2025 Influenza vaccination Influenza Vacc ine (#1) [facility] Start: 04-04-2025 End: 04-04-2025 Patient encounter procedure 04/04/2025 10:45 AM EDT Office Visit [facility] [address] [place] [address] Nuha King MD [address] [place] [address] [facility] Start: 06-22-2024 End: 06-22-2024 Patient encounter procedure 06/22/2024 11:00 AM EST Office Visit [address] [address] [place] [address] [place], [place] [id number] [facility] Start: 04-13-2024 End: 04-13-2025 CT Sinuses WO contrast CT sinuss wo IV contrast volumetric surgical planning Imaging Routine Benign neoplasm of frontal sinus Expected: 04/13/2024, Expires: 04/13/[address] [facility] Service Area Work Phone: Comment on above: Expected: 04/13/2024 , Expires: 04/13/2025 Start: 04-09-2024 COVID-19 Vaccine ( season) COVID-19 Vaccine ( season) [facility] Start: 04-09-2024 COVID-19 Vaccine () COVID-19 Vaccine () [facility] Start: 04-09-2024 Influenza vaccination Influenza Vacc ine (#1) [facility] Start: 04-04-2024 End: 04-04-2024 Patient encounter procedure 04/04/2024 11:00 AM EDT Office Visit [facility] [address] [place] [id number] Nuha King MD [address] [place] [address] Arrived [facility] Comment on above: Arrived Start: 2023 RSV High Risk: (Elderly (60+) or Population) (1 - 1-dose 75+ series) RSV High Risk: (Elderly (60+) or Population) (1 - 1-dose 75+ series) [facility] Start: 03-03-2023 VIRNICOLÁS, Provider : Phillip Purvis, Status: Pen, Time: 1:00 PM PHUONG, Provider: Phillip Purvis, Status: Pen, Time: 1:00 PM PC-Lvpuiiapzgcgjz-Roofe ake Work Phone: Start: 10-15-2022 Annual Wellness Visi t (AWV) Annual Wellness Visit (AWV) [facility] Start: 09-01-2021 COVID-19 Vaccine (4 - Booster for Moderna series) COVID-19 Vaccine (4 - Booster for Moderna series) [facility] Start: 06-24-2018 Pneumococcal 65+ yea rs Vaccine (2 - PPSV23 if available, else PCV20) Pneumococcal 65+ years Vaccine (2 - PPSV23 if available, else PCV20) [facility] Start: 06-24-2018 Pneumococcal Vaccine : 65+ Years (2 of 2 - PPSV23 or PCV20) Pneumococcal Vaccine: 65+ Years (2 of 2 - PPSV23 or PCV20) [facility] Start: 2013 Abdominal aortic aneurysm screening [facility] Start: 2008 RSV patient s and/or patients aged 60+ years (1 - 1-dose 60+ series) RSV patients and/or patients aged 60+ years (1 - 1-dose 60+ series) [facility] Start: 1998 Shingles vaccine (1 of 2) Shingles vaccine (1 of 2) [facility] Start: 1998 Zoster Vaccines (1 o f 2) Zoster Vaccines (1 of 2) [facility] Start: 1993 Screening for malignant neoplasm of colon [facility] Start: 1970 DTaP/Tdap/Td Vaccine s (1 - Tdap) DTaP/Tdap/Td Vaccines (1 - Tdap) [facility] Start: 1967 DTaP/Tdap/Td vaccine (1 - Tdap) DTaP/Tdap/Td vaccine (1 - Tdap) [facility] Start: 1966 Hepatitis C screening B ON [facility] Start: 1960 Depression Screen Depression Screen [facility] Start: 1958 Lipid panel Lipids [facility] Start: 1948 Annual wellness visit Medicare Initial Physical (IPPE) [facility] Start: 1948 Lipid panel Lipid Panel [facility] Start: 1948 Medicare Annual Wellness Visit Medicare Annual Wellness Visit (AWV) [facility] Start: 1948 Screening for malignant neoplasm of colon [facility] Immunizations Immunization Date Immunization Notes Care Provider Codie gold 05-17-2024 influenza virus vaccine, unspecified formulation Joycelyn Pendleton MD Work Phone: [facility] 06-05-2022 influenza virus vaccine, unspecified formulation KRISTOFER MASSIEL [facility] 07-07-2021 SARS-CoV-2 (COVID-19 ) mRNA-1273 vaccine KRISTOFER MASSIEL [facility] 11-02-2020 SARS-CoV-2 (COVID-19 ) mRNA-1273 vaccine KRISTOFER MASSIEL [facility] Comment on above: Result Comment: 2022: TPV70 10-05-2020 SARS-CoV-2 (COVID-19 ) mRNA-1273 vaccine KRISTOFER MASSIEL [facility] Comment on above: Result Comment: 2022: [id number] 05-08-2020 influenza virus vaccine, unspecified formulation KRISTOFER MASSIEL [facility] 05-17-2019 influenza virus vaccine, unspecified formulation KRISTOFER MASSIEL [facility] 05-25-2018 influenza virus vaccine, unspecified formulation KRISTOFER MASSIEL [facility] 06-24-2017 pneumococcal conjugate vaccine, 13 valent KRISTOFER MASSIEL [facility] NEGATED: Highlighted row has not occurred!06-20-2019 influenza virus vaccine, unspecified formulation KRISTOFER MASSIEL [facility] [place] Payers Date Payer Category Payer Medicaid [employer] MED[employer]ARE A DVANTAGE [id number] 2022 Medicare [id number] 2022 Medicare (Managed Care) [employer] [place] [employer] [id number] 1961 Medicare [id number] 1961 Self-pay 1948 Unknown [id number] [id number]. 593 1948 Unknown [id number] 2.16.840.1.426091.3.579.2. 593 1948 Unknown [id number] 2.16.840.1.055241.3.579.2. 593 1948 Unknown [id number] 2.16.840.1.264834.3.579.2. 593 1948 Unknown [id number] 2.16.840.1.566368.3.579.2. 593 1948 Unknown [id number] 2.16.840.1.966524.3.579.2. 173 1948 Unknown [id number] 2.16.840.1.848427.3.579.2. 173 1948 Unknown [id number] 2.16.840.1.157090.3.579.2. 173 1948 Unknown [id number] 2.16.840.1.297345.3.579.2. 356 1948 Unknown [id number] 2.16.840.1.281122.3.579.2. 356 1948 Unknown [id number] 2.16.840.1.143745.3.579.2. 356 1948 Unknown [id number] 2.16.840.1.085689.3.579.2. 727 1948 Unknown [id number] 2.16.840.1.765811.3.579.2. 1259 1948 Unknown [id number] 2.16.840.1.435196.3.579.2. 1244 Unknown Social History Date Type Detail Facility Start: 08-19-2022 End: 01-06-2023 Tobacco smoking status Never smoked tobacco (finding) [facility] Tobacco smoking status Never [facility] Start: 05-23-2024 End: 04-25-2025 Sex Assigned At Male [facility] Start: 10-15-2022 End: 05-23-2024 Tobacco smoking status NHIS Ex-smoker [employer] Phone: End: 08-09-1973 History of tobacco use Current smoker [employer] Phone: End: 08-09-1973 History of tobacco use Cigarette Smoker [employer] Phone: Start: 10-15-2022 End: 01-06-2023 Tobacco use and exposure Smokeless tobacco non-user [employer] Phone: Start: 10-15-2022 End: 04-25-2025 Alcohol intake Lifetime non-drinker (finding) [employer] Phone: Start: 10-15-2022 Tobacco Comment Only smoked fo r about a year [employer] Phone: Start: 1950 Sex Assigned At Not on file B ON [employer] Phone: Start: 05-23-2024 End: 04-25-2025 History of Social function [facility] Start: 04-03-2024 End: 05-23-2024 Exposure to SARS-CoV-2 (event) Unable to assess [facility] Work Phone: Tobacco smoking status NHIS Tobacco smoking consumption unknown [facility] Work Phone: Start: 01-06-2023 Alcohol Comment caffeine 1-2 cups/da y [facility] Functional Status Date Assessment Result Facility 10-10-2024 Functional Status N/A [facility] [place] 08-19-2022 Functional Status N/A [facility] Clinical Notes 08-19-2022 to 04-25-2025 Joycelyn Pendleton [...] and reflux precautions documented in this encounter [facility] 10-10-2024 Note General Surgery Offi ce/Clinic Note [...] E&M of New Patient Low 30-44 Min 89956 US Chest or Upper Back, Limited Follow-up [...] mg Cap-EC, Oral, Daily Flonase 0.05 mg/inh [place], 1 spray(s), Nasal, Daily irbesartan 300 mg [...] 05/25/2018 Recorded pneumococcal 13-valent vaccine 06/24/2017 Recorded [facility] Comment on above: Result Comment: Elec [...] Attestation By signing my name below, I, Cuba Moody, Myriam, attest that this documentation has been prepared under the direction and in the presence of Phillip Purvis MD. Signature: Phillip Purvis MD documented in this encounter [facility] Work Phone: 05-03-2024 Telephone encounter Note Patient called requesting a refill of: Triamcinolone 0.1% cream Diagnosis: Atopic Dermatitis Prescribing provider: Nuha King MD Last visit: 04/04/2024 Next visit: 04/04/25 Action: prescription was sent to patient's pharmacy [facility] with enough refills until next visit. [facility] 05-03-2024 Miscellaneous Notes Patient called requesting a refill of: Triamcinolone 0.1% cream Diagnosis: Atopic Dermatitis Prescribing provider: Nuha King MD Last visit: 04/04/2024 Next visit: 04/04/25 Action: prescription was sent to patient's pharmacy [facility] with enough refills until next visit. documented in this encounter [facility] 04-13-2024 History of Present illness Narrative [...] Phillip Purvis MD. documented in this encounter [facility] Work Phone: 04-04-2024 History of Present [...] Visit: 1 year documented in this encounter [facility] 04-13-2023 Chief complaint Narrative - Reported [...] of immunotherapy6. Reflux on proton pump inhibitor [facility] Work Phone: 03-03-2023 Chief [...] of immunotherapy6. Reflux on proton pump inhibitor YD-Bxfhbjwsmymgoe-[place] Work Phone: 11-04-2022 Chief complaint Narrative - Reported An interactive audio and video telecommunication system which permits real time communications between the patient (at the originating site) and provider (at the distant site) was utilized to provide this telehealth service.Verbal consent was requested and obtained from KEDAR NÚÑEZ on this date, 11/04/2022 01:15 PM , for a telehealth visit.Frontal sinus lesion TV-Cbxtgxwfkgbckq[facility] 4[facility] Work Phone: 11-04-2022 History of Present illness Narrative Reason for visit:KEDAR NÚÑEZ patient presents since last being seen 11/04/22.Medications currently on for sinonasal symptoms.Ipratropium BID.Medications tried in the past for sinonasal symptoms Flonase/Fluticasone.Spoke about PND ZN-Bxkqlnbzzawpbh-[place] Work Phone: 11-04-2022 History of Present illness Narrative Reason for visit:KEDAR NÚÑEZ patient presents since last being seen 11/04/22.Medications currently on for sinonasal symptoms.Ipratropium BID.Medications tried in the past for sinonasal symptoms Flonase/Fluticasone.Kedar presents for routine follow-up. He continues to have issues related to postnasal drainage despite ipratropium. He does feel the ipratropium is providing some measure of benefit. [place] Work Phone: 08-19-2022 Hospital Discharge instructions Patient [...] including vitamins, herbs, eye drops, creams, and biec-fxr-sydccyk medicines. Any problems you or family members [...] provider tells you to take them. Taking xysj-ewi-ssfmtrn medicines, vitamins, herbs, and supplements. Eating and [...] 07/26/2006 Document Revised: 11/15/2019 Document Reviewed: 04/26/2019 [employer] Patient Education 2020 [employer]. 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 * PMHx: Hypertension KG-Vblzbwcxgndhix[facility]pqntei[facility] [address] Work Phone: History of Present illness Narrative* Main Symptoms: * Patient has posterior nasal drainage. * Associated Symptoms: * Patient has throat clearing. * Patient has coughing. * Medications currently on for sinonasal symptoms Flonase/Fluticasone - PRN (as needed) . * Ipratropium BID. WD-Mmatbxjeexgphv-AaxrfqeChi [facility] [address] Work Phone: Hospital Discharge instructions No data available for this section [facility] Progress note No data available for this section [facility] Summary Purpose Family History No Family [...] Referral Specialty Diagnoses / Procedures Referred By Contac t Referred To Contact Radiology Diagnoses Benign neoplasm of frontal sinus Procedures CT sinuss wo IV contrast volumetric surgical planning Phillip Purvis MD [address] [facility] [address] [place] [address] Referral ID Status Reason Start Date Expiration Date Visits Requested Visits Authorized [id number] Pending Review Perform Procedure 04/13/2024 04/13/2025 1 1 Additional Source Comments (unrecognized sect ion and content) No Status Records FoundNo Status Records FoundNo Status Records FoundNo Status Records FoundNo Status Records FoundNo Status Records FoundNo Status Records FoundNo Status Records Found INFORMATION SOURCE (unrecogn ized section and content) DATE CREATED AUTHOR 02/01/2018 [facility] DATE CREATED AUTHOR AUTHOR'S ORGANIZ ATION 10/10/2022 [facility] DATE CREATED AUTHOR AUTHOR'S ORGANIZ ATION 10/18/2022 [facility] DATE CREATED AUTHOR AUTHOR'S ORGANIZ ATION 04/13/2023 [facility] DATE CREATED AUTHOR AUTHOR'S ORGANIZ ATION 04/15/2023 [facility] DATE CREATED AUTHOR AUTHOR'S ORGANIZ ATION 10/12/2024 Emeterio Almonte [facility] ical Center DATE CREATED AUTHOR AUTHOR'S ORGANIZ ATION 04/26/2025 [facility] DATE CREATED AUTHOR AUTHOR'S ORGANIZ ATION 05/11/2025 [facility] Patient Care team informatio n (unrecognized section and content) Toy Consultant Relationship Specialty Start Date End Date Adama Faye MD [address] [place] [address] PCP - General Family Medicine 10/08/22 [employer] Consultant Relationship Specialty Start Date End Date Adama Faye MD [address] [place] [address] PCP - General Family Medicine 10/08/22 Toy Consultant Relationship Specialty Start Date End Date Adama Faye MD [address] [facility] [place] [address] PCP - General Family Medicine 04/24/24 Toy Consultant Relationship Specialty Start Date End Date Adama Faye MD [address] [place] [address] PCP - General Family Medicine 04/16/25 Toy Consultant Relationship Specialty Start Date End Date Adama Faye MD [address] [place] [address] PCP - General Family Medicine 04/16/25 Reason [...] BE BASED ON THE PRIMARY CLINICAL RECORDS. [facility] [email or web address] [facility]. provides no warranty or guarantee of the accuracy or completeness of information in this document.
--- NOTE | 2025-05-15 10:46 | FL_ITS ---
The [address] [address] Patient Name: KEDAR VENTURA MRN: [id number] date: 1950 Sex: M Assigned Patient Location: [place] Current Patient Location: [place] Accession/Order Number: [id number] Exam Date: 05/15/2025 11:35 Report Date: 05/15/2025 12:45 At the request of: ADAMA OSBORNE MD Procedure: FL guided needle placement Fluoroscopic guided left hip steroid injection. Reason for exam: Left hip pain. FINDINGS: After questions were answered, informed consent was obtained. The patient was placed on the fluoroscopic table and the left hip was localized and prepped in the normal sterile fashion. 1% lidocaine was utilized for local anesthesia. Using fluoroscopic guidance, a 20-gauge spinal needle was advanced into the left hip joint. A small amount of contrast was injected into the joint to confirm placement. A combination of 40 mg of Kenalog and 2 mL of 0.5% bupivacaine was then injected into the joint without difficulty. The needle was then withdrawn and hemostasis was achieved. No immediate complication. Fluoroscopy time 0.7 minutes. 2 images were obtained. FL/FL hip inj LT IMPRESSION: Successful fluoroscopically guided left hip steroid injection. Impression dictated by: Sampson Garcia Jr. DSriramOSriram 05/15/2025 12:45 PM Dictation Location: [place] [address] Electronically authenticated by: [id number] Y Date: 05/15/2025 12:45
--- NOTE | 2025-05-15 10:46 | FL_ITS ---
The [address] [address] Patient Name: KEDAR VENTURA MRN: [id number] date: 1950 Sex: M [place]igned Patient Location[place] Accession/Order Number: [id number] Exam Date: 05/15/2025 11:35 Report Date: 05/15/2025 12:45 At the request of: ADAMA OSBORNE MD Procedure: FL guided needle placement Fluoroscopic guided left hip steroid injection. Reason for exam: Left hip pain. FINDINGS: After questions were answered, informed consent was obtained. The patient was placed on the fluoroscopic table and the left hip was localized and prepped in the normal sterile fashion. 1% lidocaine was utilized for local anesthesia. Using fluoroscopic guidance, a 20-gauge spinal needle was advanced into the left hip joint. A small amount of contrast was injected into the joint to confirm placement. A combination of 40 mg of Kenalog and 2 mL of 0.5% bupivacaine was then injected into the joint without difficulty. The needle was then withdrawn and hemostasis was achieved. No immediate complication. Fluoroscopy time 0.7 minutes. 2 images were obtained. FL/FL guided needle placement IMPRESSION: Successful fluoroscopically guided left hip steroid injection. Impression dictated by: Sherman Camacho Jr.OSriram 05/15/2025 12:45 PM Dictation Location: [place] [address] Electronically authenticated by: [id number] Y Date: 05/15/2025 12:45
[2025-05-15] MEDS: BUPIVACAINE HCL 0.5% PF 50 MG/10 ML VIAL 2 ML INJ (11:50)
[2025-05-15] MEDS: TRIAMCINOLONE ACETONIDE 40 MG/ML VIAL INJ (11:50)
--- NOTE | 2025-05-15 13:15 | SUR.PREOP ---
[address] Garcia
== END 2025-05-15 12:15 | disposition home or self-care (01) ==
LOC: FL 10:22
PROVIDERS: Radiology Diagnostic Radiology; PCP Family Medicine; Visit Provider Family Medicine
DX: M25.552 Pain in left hip (principal); Z01.812 Encounter for preprocedural laboratory examination; Z79.899 Other long term (current) drug therapy
CPT/HCPCS: 20610; 36415; 77002; 85049; 85610; J0665; J3301; Q9967

== ENCOUNTER 2025-05-15 10:24 | Outpatient (OUT) | payer MEDICARE, SELFPAY ==
--- OUTSIDE RECORDS SUMMARY | 2025-05-15 10:32 | XMS_ITS | CCD ---
Author Organization [facility] Care Team Providers Care Administrative Liaison Name Role Phone PHYSICIAN, DEFAULT Unavailable Unavailable [...] Unavailable HOY ., DR GALAN Consult[employer] Unavailable [place], DR ALIYA Sierra [employer] Unavailable HOY ., [...] Primary Care Unavailable Dr. Phillip Purvis Attending Ussan Adama Yates MD Primary Care Provider [phone] Unavailable Primary Care Provider Unavailnilesh e Unavailable Primary Care Provider Unavailnilesh e Luis A CASTILLO Attending Unavailable Adama Faye Referring Unavailable Adama Faye MD Primary Care Provider [phone] JOYCELYN PENDLETON Attending Unavailable PHILLIP PURVIS Attending Unavailable ADAMA FAYE Primary Care Unavailable Allergies Allergy Classification Reported Allergen(s) Allergy Type Date of Onset Reaction(s) Facility (3 sources) Penicillin; Translations: [penicillin] Drug Allergy Eruption of skin (disorder) [facility] (2 sources) Penicillins Drug allergy (disorder) [address] [facility] Repository (3 sources) Penicillins Propensity to adverse reactions to drug 3 Rash [facility] (7 sources) Penicillins Drug Allergy 3 Unknown [...] Active Start: 10-02-2024 Flonase 0.05 m g/inh Korbel 1 spray(s), Nasal, Daily, Refill(s) 0 Start [...] 04/28/19 Status: Ordered take 1 capsule by [facility] twice daily esomeprazole (NexIUM) [address] [...] spray(s) nasal route three times daily Ipratropium Newell 0.03 % Nasal Solution USE 2 SPRAYS [...] mg Cap-EC) fluticasone nasal (Flonase 0.05 mg/inh Korbel) irbesartan (irbesartan 300 mg Tab) loratadine (loratadine [...] Unchanged fluticasone nasal (Flonase 0.05 mg/ inh Korbel) 1 Sprays Nasal Inhalation Every day Contact [...] choosing us for your care. 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 Please feel free to contact my office by calling [phone] with any questions. Provider Impressions 1. Frontal [...] observation. Given that there is been no liner roll changer 6 months I recommended virtual follow-up [...] 40 MG Oral Capsule Delayed Release Ipratropium Newell 0.03 % Nasal SolutionUSE 2 SPRAYS IN [...] Apr 14 2023 11:03AM EST (Author) Normal e-volo Falls Screening (Age 18+)on 04-13-2023 Fall risk assessment a) No falls within the last year MG-Otolaryngo [facility] 4100 Work Phone: Tobacco use status [facility] b) No -Otolaryngo [facility] 4109 Work Phone: Established Visit (Otolaryng ology)on 03-03-2023 [...] free to contact my office by calling [phone] with any questions. Provider Impressions 1. Frontal [...] to home so I will ask my escrow secretary to print off the order and [...] 40 MG Oral Capsule Delayed Release Ipratropium Newell 0.03 % Nasal SolutionUSE 2 SPRAYS IN [...] Throat clearing (786.09) (R09.89) Orders Start: Ipratropium Newell 0.03 % Nasal Solution; USE 2 SPRAYS IN EACH NOSTRIL 3 TIMES DAILY NEEDED Patient Discussion/Summary Please feel free to contact my office by calling [phone] with any questions. Provider Impressions 1. Frontal [...] Adams MD 10/15/22 Final result Normal [facility] No acute osseous abnormality. Degenerative changes 1st CMC joint [facility] EXAMINATION: THREE XRAY VIEWS OF THE LEFT HAND 10/15/2022 9:57 am COMPARISON: None. HISTORY: ORDERING SYSTEM PROVIDED HISTORY: Pain in both hands FINDINGS: There is no evidence of acute fracture. There is normal alignment. No acute joint abnormality. No focal osseous lesion. No focal soft tissue abnormality. Degenerative changes seen in the 1st CMC joint. Vascular calcifications. [facility] Luis A Adams MD - 10/15/2022 [...] osseous abnormality. Degenerative changes 1st CMC joint [employer] Phone: Radiology Study observation (narrative) [employer] Phone: XR HAND LEFT (MIN 3 VIEWS)Or dered By: Luis A Adams on 10-15-2022 [facility]: XR HAND RIGHT (MIN 3 VIEWS)o [...] Adams MD 10/15/22 Final result Normal [facility] No acute osseous abnormality. Degenerative changes 3rd MCP joint and 1st CMC joint [facility] EXAMINATION: THREE XRAY VIEWS OF THE [...] space narrowing and bony overgrowth. [facility] Luis A Adams MD - 10/15/2022 [...] 3rd MCP joint and 1st CMC joint [employer] Phone: Radiology Study observation (narrative) [employer] Phone: XR HAND RIGHT (MIN 3 VIEWS)O rdered By: Luis A Adams on 10-15-2022 [employer] Phone: PERLA by IFAon 10-06-2022 Antinuclear Antibodies, IFA Negative Normal [facility] Comment on above: Result Comment: Nega tive <1:80 Borderline 1:80 Positive >1:80 ICAP nomenclature: AC-0 For more information about Hep-2 cell patterns use ANApatterns.org, the official website for the International Consensus on Antinuclear Antibody (PERLA) Patterns (ICAP). Performed By: #### C BC #### [facility] [address] [place] [address] Dr. Akua Thomas ANTISTREPTOLYSIN O AB (ASO)o n 10-06-2022 Antistreptolysin O Ab 69.9 IU/mL Normal 0.0-200.[address] [facility] Comment on above: Performed By: #### A SOAB #### [facility] [address] [place] [address] Dr. Akua Thomas CALCIUM IONIZEDon 10-06-2022 Calcium, Ionized, Serum 5.5 mg/dL Normal 4.5-5.[address] [facility] Comment on above: Performed By: #### C AIONZ #### [facility] [address] [place] [address] Dr. Akua Thomas RHEUMATOID FACTORon 10-06-19 RA Latex Turbid. 12.6 IU/mL Normal <14.0 [facility] Comment on above: Performed By: #### R F #### [facility] [address] [place] [address] Dr. Akua Thomas CBC AUTO DIFFon 10-05-2022 BASO # 0.0 103/ul Normal 0.0-0.1 [facility] Comment on above: Performed By: #### C BC #### [facility] [address] [place] [address] Dr. Akua Thomas Basophils/100 WBC (Bld) 0.2 % Normal 0.2-2.0 [facility] Comment on above: Performed By: #### C BC #### [facility] [address] [place] [address] Dr. Akua Thomas EO # 0.1 103/ul Normal 0.0-0.7 [facility] Comment on above: Performed By: #### C BC #### [facility] [address] [place] [address] Dr. Akua Thomas Eosinophils/100 WBC (Bld) 1.4 % Normal 0.9-7.[address] [facility] Comment on above: Performed By: #### C BC #### [facility] [address] [place] [address] Dr. Akua Thomas Erythrocyte distribution width (RBC) [Ratio] 14.3 % Normal 11.0-15.[address] [facility] Comment on above: Performed By: #### C BC #### [facility] [address] [place] [address] Dr. Akua Thomas Hematocrit (Bld) [Volume fraction] 45.5 % Normal 42.0-54.[address] [facility] Comment on above: Performed By: #### C BC #### [facility] [address] [place] [address] Dr. Akua Thomas Hemoglobin (Bld) [Mass/Vol] 15.1 g/dL Normal 14.0-18.[address] [facility] Comment on above: Performed By: #### C BC #### [facility] [address] [place] [address] Dr. Akua Thomas IG # 0.03 10e3/ul Normal 0.00-0.[address] [facility] Comment on above: Performed By: #### C BC #### [facility] [address] [place] [address] Dr. Akua Thomas IG % 0.3 % Normal 0.0-0.[address] [facility] Comment on above: Performed By: #### C BC #### [facility] [address] [place] [address] Dr. Akua Thomas LYMPH # 3.0 103/ul Normal 1.2-3.8 [facility] Comment on above: Performed By: #### C BC #### [facility] [address] [place] [address] Dr. Akua Thomas Lymphocytes/100 WBC (Bld) 31.9 % Normal 20.5-60.[address] [facility] Comment on above: Performed By: #### C BC #### [facility] [address] [place] [address] Dr. Akua Thomas MANUAL DIFF REQ NO Normal [facility] [place] [facility] Comment on above: Performed By: #### C BC #### [facility] [address] [place] [address] Dr. Akua Thomas MCH (RBC) [Entitic mass] 29.6 pg Normal 25.9-34.[address] [facility] Comment on above: Performed By: #### C BC #### [facility] [address] [place] [address] Dr. Akua Thomas MCHC (RBC) [Mass/Vol] 33.2 g/dL Normal 29.9-35.[address] [facility] Comment on above: Performed By: #### C BC #### [facility] [address] [place] [address] Dr. Akua Thomas MCV (RBC) [Entitic vol] 89.2 fL Normal 80.0-94.[address] [facility] Comment on above: Performed By: #### C BC #### [facility] [address] [place] [address] Dr. Akua Thomas MONO # 0.7 103/ul Normal 0.3-0.[address] [facility] Comment on above: Performed By: #### C BC #### [facility] [address] [place] [address] Dr. Akua Thomas Monocytes/100 WBC (Bld) 7.2 % Normal 1.7-12.[address] [facility] Comment on above: Performed By: #### C BC #### [facility] [address] [place] [address] Dr. Akua Thomas NEUT # 5.5 103/ul Normal 1.4-6.5 [facility] Comment on above: Performed By: #### C BC #### [facility] [address] [place] [address] Dr. Akua Thomas Neutrophils/100 WBC (Bld) 59.0 % Normal 43.0-75.[address] [facility] Comment on above: Performed By: #### C BC #### [facility] [address] [place] [address] Dr. Akua Thomas Platelet mean volume (Bld) [Entitic vol] 9.9 fL Normal 9.5-13.[address] [facility] Comment on above: Performed By: #### C BC #### [facility] [address] [place] [address] Dr. Akua Thomas PLT 237 103/ul Normal 150-450 [facility] Comment on above: Performed By: #### C BC #### [facility] [address] [place] [address] Dr. Akua Thomas RBC 5.10 106/ul Normal 4.70-6.10 [facility] Comment on above: Performed By: #### C BC #### [facility] [address] [place] [address] Dr. Akua Thomas WBC 9.3 103/ul Normal 4.0-11.0 [facility] Comment on above: Performed By: #### C BC #### [facility] [address] [place] [address] Dr. Akua Thomas CRPon 10-05-2022 CRP [Mass/Vol] mg/L Normal <=1.0 [facility] Comment on above: Performed By: #### C MP, URIC, PHOS, MG, T7, CRP, TSH #### [facility] [address] [place] [address] Dr. Akua Thomas FREE THYROXINE INDEX T7on FTI 3.28 Normal 1.30-4.[address] [facility] Comment on above: Performed By: #### C BC #### [facility] [address] [place] [address] Dr. Akua Thomas T3U 36.0 % Normal 33.0-40.0 [facility] Comment on above: Performed By: #### C BC #### [facility] [address] [place] [address] Dr. Akua Thomas T4 [Mass/Vol] 9.10 ug/dL Normal 4.50-12.10 [facility] Comment on above: Performed By: #### C BC #### [facility] [address] [place] [address] Dr. Akua Thomas IRONon 10-05-2022 Iron [Mass/Vol] 119.0 ug/dL Normal 65.0-175.0 [facility] Comment on above: Performed By: #### I SHILPI #### [facility] [address] [place] [address] Dr. Akua Thomas MAGNESIUMon 10-05-2022 Magnesium [Mass/Vol] 1.8 mg/dL Normal 1.8-2.4 [facility] Comment on above: Performed By: #### C BC #### [facility] [address] [place] [address] Dr. Akua Thomas PHOSPHORUSon 10-05-2022 Phosphate [Mass/Vol] 3.4 mg/dL Normal 2.6-4.7 [facility] Comment on above: Performed By: #### C BC #### [facility] [address] [place] [address] Dr. Akua Thomas PROF 14(COMP METB)on 023 Albumin [Mass/Vol] 4.0 g/dL Normal 3.4-5.0 [facility] Comment on above: Performed By: #### C BC #### [facility] [address] [place] [address] Dr. Akua Thomas Albumin/Globulin [Mass ratio] 1.4 {ratio} Normal [facility] Comment on above: Performed By: #### C BC #### [facility] [address] [place] [address] Dr. Akua Thomas ALP [Catalytic activity/Vol] 119 U/L Critically high 46-116 [facility] Comment on above: Performed By: #### C BC #### [facility] [address] [place] [address] Dr. Akua Thomas ALT [Catalytic activity/Vol] 69 U/L Critically high 16-63 [facility] Comment on above: Performed By: #### C BC #### [facility] [address] [place] [address] Dr. Akua Thomas Anion gap [Moles/Vol] 10.0 mmol/L Normal [facility] Comment on above: Performed By: #### C BC #### [facility] [address] [place] [address] Dr. Akua Thomas AST [Catalytic activity/Vol] 37 U/L Normal 15-37 [facility] Comment on above: Performed By: #### C BC #### [facility] [address] [place] [address] Dr. Akua Thomas Bilirubin [Mass/Vol] 0.7 mg/dL Normal 0.2-1.[address] [facility] Comment on above: Performed By: #### C BC #### [facility] [address] [place] [address] Dr. Akua Thomas Calcium [Mass/Vol] 9.2 mg/dL Normal 8.5-10.1 [facility] Comment on above: Performed By: #### C BC #### [facility] [address] [place] [address] Dr. Akua Thomas Chloride [Moles/Vol] 100 mmol/L Normal 98-[address] [facility] Comment on above: Performed By: #### C BC #### [facility] [address] [place] [address] Dr. Akua Thomas CO2 [Moles/Vol] 30.5 mmol/L Normal 21.0-32.0 [facility] Comment on above: Performed By: #### C BC #### [facility] [address] [place] [address] Dr. Akua Thomas Creatinine [Mass/Vol] 0.75 mg/dL Normal 0.70-1.[address] [facility] Comment on above: Performed By: #### C BC #### [facility] [address] [place] [address] Dr. Akua Thomas EGFR-AF PARAGUAYAN >60 Normal >=60 [facility] Comment on above: Performed By: #### C BC #### [facility] [address] [place] [address] Dr. Akua Thomas EGFR-NON AF PARAGUAYAN >60 Normal >=[address] [facility] Comment on above: Performed By: #### C BC #### [facility] [address] [place] [address] Dr. Akua Thomas Globulin (S) [Mass/Vol] 2.9 g/dL Normal [facility] Comment on above: Performed By: #### C BC #### [facility] [address] [place] [address] Dr. Akua Thomas Glucose [Mass/Vol] 97 mg/dL Normal 74-106 [facility] Comment on above: Performed By: #### C BC #### [facility] [address] [address] [address] Akua Thomas Potassium [Moles/Vol] 4.5 mmol/L Normal 3.5-5.[address] [facility] Comment on above: Performed By: #### C BC #### [facility] [address] [place] [address] Dr. Akua Thomas Protein [Mass/Vol] 6.9 g/dL Normal 6.4-8.2 [facility] Comment on above: Performed By: #### C BC #### [facility] [address] [place] [address] Dr. Akua Thomas Sodium [Moles/Vol] 136 mmol/L Normal 136-145 [facility] Comment on above: Performed By: #### C BC #### [facility] [address] [place] [address] Dr. Akua Thomas Urea nitrogen [Mass/Vol] 24.0 mg/dL Critically high 7.0-18.[address] [facility] Comment on above: Performed By: #### C BC #### [facility] [address] [place] [address] Dr. Akua Thomas Urea nitrogen/Creatinin e [Mass ratio] 32.0 mg/mg Normal [facility] Comment on above: Performed By: #### C BC #### [facility] [address] [place] [address] Dr. Akua Thomas TSHon 10-05-2022 TSH 0.725 uIU/mL Normal 0.358-3.[address] [facility] Comment on above: Performed By: #### C BC #### [facility] [address] [place] [address] Dr. Akua Thomas URIC ACID SERUMon 10-05-2022 Urate [Mass/Vol] 2.2 mg/dL Critically low 3.5-7.2 [facility] Comment on above: Performed By: #### C MP, URIC, PHOS, MG, T7, CRP, TSH #### [facility] [address] [address] [address] Akua Thomas XR HAND LT MIN 3Von 10-05-19 23 XR HAND LT MIN 3V EXAMINATION: XR WRIS T MARÍA MIN 3 V, XR HAND LT MIN 3V HISTORY: Arthritis of hand COMPARISON: No relevant comparison available. FINDINGS: RIGHT FINDINGS: BONES: No acute fracture or dislocation. Severe degenerative changes at the first carpometacarpal joint with [id number] articulation and extensive heterotopic ossification SOFT TISSUES: [...] CONCLUSION: Moderate degenerative changes Electronically authenticated by: ALIAY KILLIAN Date: 2022-10-05 13:24 Normal [facility] CT SINUSES WO CONon 09-16-19 CT [...] mastoid sinuses are not included in the [id number]. IMPRESSION: There is a small mass seen [...] RENTERIA Date: 2022-09-16 19:40 Normal [facility] OCC BLD IMMUNO SCREENon 04-10 OCCULT BLOOD Negative Normal NEGATIVE [facility] Comment on above: Performed By: #### C BC #### [facility] [address], [place] [address] Dr. Akua Thomas PSA, FREE AND TOTAL RATIOon 04-10-2022 % Free PSA 17.8 % Normal [facility] Comment on above: Result Comment: The [...] Performed By: #### C BC #### [facility] [address], [place] [address] Dr. Akua Thomas Prostate specific Ag [Mass/Vol] 0.9 ng/mL Normal 0.0-4.[address] [facility] Comment on above: Result Comment: Leslye ceballos ECLIA methodology. . According to the [employer], Serum PSA should decrease and [...] Performed By: #### C BC #### [facility] [address] [place] [address] Dr. Akua Thomas PSA, Free 0.16 ng/mL Normal N/A [facility] Comment on above: Result Comment: Leslye ceballos ECLIA methodology. Performed By: #### C BC #### [facility] [address] [place] [address] Dr. Akua Thomas T4 LABCORPon 04-10-2022 T4 [Mass/Vol] 8.0 ug/dL Normal 4.5-12.0 [facility] Comment on above: Performed By: #### C BC #### [facility] [address] [place] [address] Dr. Akua Thomas CBC AUTO DIFFon 04-09-2022 BASO # 0.0 103/ul Normal 0.0-0.[address] [facility] Comment on above: Performed By: #### C BC #### [facility] [address] [place] [address] Dr. Akua Thomas Basophils/100 WBC (Bld) 0.2 % Normal 0.2-2.[address] [facility] Comment on above: Performed By: #### C BC #### [facility] [address] [place] [address] Dr. Akua Thomas EO # 0.2 103/ul Normal 0.0-0.[address] [facility] Comment on above: Performed By: #### C BC #### [facility] [address] [place] [address] Dr. Akua Thomas Eosinophils/100 WBC (Bld) 2.2 % Normal 0.9-7.[address] [facility] Comment on above: Performed By: #### C BC #### [facility] [address] [place] [address] Dr. Akua Thomas Erythrocyte distribution width (RBC) [Ratio] 14.2 % Normal 11.0-15.[address] [facility] Comment on above: Performed By: #### C BC #### [facility] [address] [place] [address] Dr. Akua Thomas Hematocrit (Bld) [Volume fraction] 43.3 % Normal 42.0-54.[address] [facility] Comment on above: Performed By: #### C BC #### [facility] [address] [place] [address] Dr. Akua Thomas Hemoglobin (Bld) [Mass/Vol] 14.2 g/dL Normal 14.0-18.[address] [facility] Comment on above: Performed By: #### C BC #### [facility] [address] [place] [address] Dr. Akua Thomas IG # 0.02 10e3/ul Normal 0.00-0.[address] [facility] Comment on above: Performed By: #### C BC #### [facility] [address] [place] [address] Dr. Akua Thomas IG % 0.2 % Normal 0.0-0.[address] [facility] Comment on above: Performed By: #### C BC #### [facility] [address] [place] [address] Dr. Akau Thomas LYMPH # 1.8 103/ul Normal 1.2-3.[address] [facility] Comment on above: Performed By: #### C BC #### [facility] [address] [place] [address] Dr. Akua Thomas Lymphocytes/100 WBC (Bld) 20.6 % Normal 20.5-60.[address] [facility] Comment on above: Performed By: #### C BC #### [facility] [address] [place] [address] Dr. Akua Thomas MANUAL DIFF REQ NO Normal [facility] Comment on above: Performed By: #### C BC #### [facility] [address] [place] [address] Dr. Akua Thomas MCH (RBC) [Entitic mass] 29.8 pg Normal 25.9-34.[address] [facility] Comment on above: Performed By: #### C BC #### [facility] [address] [address] [address] Akua Thomas MCHC (RBC) [Mass/Vol] 32.8 g/dL Normal 29.9-35.[address] [facility] Comment on above: Performed By: #### C BC #### [facility] [address] [place] [address] Dr. Akua Thomas MCV (RBC) [Entitic vol] 91.0 fL Normal 80.0-94.[address] [facility] Comment on above: Performed By: #### C BC #### [facility] [address] [place] [address] Dr. Akua Thomas MONO # 0.7 103/ul Normal 0.3-0.[address] [facility] Comment on above: Performed By: #### C BC #### [facility] [address] [place] [address] Dr. Akua Thomas Monocytes/100 WBC (Bld) 8.2 % Normal 1.7-12.[address] [facility] Comment on above: Performed By: #### C BC #### [facility] [address] [place] [address] Dr. Akua Thomas NEUT # 6.1 103/ul Normal 1.4-6.[address] [facility] Comment on above: Performed By: #### C BC #### [facility] [address] [place] [address] Dr. Akua Thomas Neutrophils/100 WBC (Bld) 68.6 % Normal 43.0-75.0 [facility] [facility] Comment on above: Performed By: #### C BC #### [facility] [address] [place] [address] Dr. Akua Thomas Platelet mean volume (Bld) [Entitic vol] 10.1 fL Normal 9.5-13.5 [facility] Comment on above: Performed By: #### C BC #### [facility] [address] [place] [address] Dr. Akua Thomas PLT 231 103/ul Normal 150-450 [facility] Comment on above: Performed By: #### C BC #### [facility] [address] [address] [address] Akua Thomas RBC 4.76 106/ul Normal 4.70-6.[address] [facility] Comment on above: Performed By: #### C BC #### [facility] [address] [place] [address] Dr. Akua Thomas WBC 8.9 103/ul Normal 4.0-11.[address] [facility] Comment on above: Performed By: #### C BC #### [facility] [address] [place] [address] Dr. Akua Thomas FREE T3on 04-09-2022 FREE T3 2.53 pg/mlL Normal 2.18-3.[address] [facility] Comment on above: Performed By: #### R F #### [facility] [address] [place] [address] Dr. Akua Thomas GLYCOHEMOGLOBIN A1Con 2021 ADA RECOMMENDATION SEE BELOW Normal [facility] Comment on above: Result Comment: ADA RECOMMENDED LIMIT 4.0 - 6.0 ADA THERAPEUTIC TARGET < 7.0 ACTION SUGGESTED > 7.0 Performed By: #### A 1C #### [facility] [address] [place] [address] Dr. Akua Thomas Glucose [Mass/Vol] 123 mg/dL Normal [facility] Comment on above: Performed By: #### A 1C #### [facility] [address] [place] [address] Dr. Akua Thomas HbA1c (Bld) [Mass fraction] 5.9 % Normal 4.5-6.[address] [facility] Comment on above: Performed By: #### A 1C #### [facility] [address] [place] [address] Dr. Akua Thomas LIPID PROFILEon 04-09-2022 CHOL-HDL RATIO NORM SEE BELOW Normal [facility] Comment on above: Result Comment: 3.3 - 4.4 LOW RISK 4.4 - 7.1 AVERAGE RISK 7.1 - 11.0 MODERATE RISK >11.0 HIGH RISK Performed By: #### R F #### [facility] [address] [address] [address] Akua Thomas Cholesterol [Mass/Vol] 154 mg/dL Normal <=[address] [facility] Comment on above: Performed By: #### R F #### [facility] [address] [address] [address] Akua Thomas Cholesterol in HDL [Mass/Vol] 71 mg/dL Critically high 40-[address] [facility] Comment on above: Performed By: #### R F #### [facility] [address] [address] [address] Akua Thomas Cholesterol in LDL [Mass/Vol] 74.8 mg/dL Normal [facility] Comment on above: Performed By: #### R F #### [facility] [address] [address] [address] Akua Thomas Cholesterol.total/ Cholesterol in HDL [Mass ratio] 2.2 {ratio} Normal [facility] Comment on above: Performed By: #### R F #### [facility] [address] [address] [address] Akua Thomas HDL NORMAL > or = 60 mg/dl - LO W CARDIOVASCULAR RISK <40 mg/dl - HIGH CARDIOVASCULAR RISK Normal [facility] Comment on above: Performed By: #### R F #### [facility] [address] [address] [address] Akua Thomas LDL CALC NORMAL SEE BELOW Normal [facility] [place] [facility] Comment on above: Result Comment: <100 mg/dl OPTIMAL 100 - 129 mg/dl NEAR OR ABOVE OPTIMAL 130 - 159 mg/dl BORDERLINE HIGH 160 - 189 mg/dl HIGH >190 mg/dl VERY HIGH Performed By: #### R F #### [facility] [address] [address] [address] Akua Thomas Triglyceride [Mass/Vol] 41 mg/dL Normal <=150 [facility] Comment on above: Performed By: #### R F #### [facility] [address] [address] [address] Akua Thomas VLDL CALC 8.2 mg/dL Normal [facility] Comment on above: Performed By: #### R F #### [facility] [address] [place] [address] Dr. Akua Thomas PROF 14(COMP METB)on 022 Albumin [Mass/Vol] 3.8 g/dL Normal 3.4-5.0 [facility] Comment on above: Performed By: #### R F #### [facility] [address] [place] [address] Dr. Akua Thomas Albumin/Globulin [Mass ratio] 1.4 {ratio} Normal [facility] Comment on above: Performed By: #### R F #### [facility] [address] [place] [address] Dr. Akua Thomas ALP [Catalytic activity/Vol] 127 U/L Critically high 46-[address] [facility] Comment on above: Performed By: #### R F #### [facility] [address] [place] [address] Dr. Akua Thomas ALT [Catalytic activity/Vol] 45 U/L Normal 16-[address] [facility] Comment on above: Performed By: #### R F #### [facility] [address] [place] [address] Dr. Akua Thomas Anion gap [Moles/Vol] 12.6 mmol/L Normal [facility] Comment on above: Performed By: #### R F #### [facility] [address] [place] [address] Dr. Akua Thomas AST [Catalytic activity/Vol] 28 U/L Normal 15-[address] [facility] Comment on above: Performed By: #### R F #### [facility] [address] [place] [address] Dr. Akua Thomas Bilirubin [Mass/Vol] 0.8 mg/dL Normal 0.2-1.[address] [facility] Comment on above: Performed By: #### R F #### [facility] [address] [place] [address] Dr. Akua Thomas Calcium [Mass/Vol] 8.7 mg/dL Normal 8.5-10.1 [facility] Comment on above: Performed By: #### R F #### [facility] [address] [place] [address] Dr. Akua Thomas Chloride [Moles/Vol] 102 mmol/L Normal 98-107 [facility] Comment on above: Performed By: #### R F #### [facility] [address] [address] [address] Akua Thomas CO2 [Moles/Vol] 28.1 mmol/L Normal 21.0-32.0 [facility] Comment on above: Performed By: #### R F #### [facility] [address] [address] [address] Akua Thomas Creatinine [Mass/Vol] 0.77 mg/dL Normal 0.70-1.30 [facility] Comment on above: Performed By: #### R F #### [facility] [address] [place] [address] Dr. Akua Thomas EGFR-AF PARAGUAYAN >60 Normal >=60 [facility] Comment on above: Performed By: #### R F #### [facility] [address] [address] [address] Akua Thomas EGFR-NON AF PARAGUAYAN >60 Normal >=60 [facility] Comment on above: Performed By: #### R F #### [facility] [address] [place] [address] Dr. Akua Thomas Globulin (S) [Mass/Vol] 2.7 g/dL Normal [facility] Comment on above: Performed By: #### R F #### [facility] [address] [place] [address] Dr. Akua Thomas Glucose [Mass/Vol] 105 mg/dL Normal 74-106 [facility] Comment on above: Performed By: #### R F #### [facility] [address] [address] [address] Akua Thomas Potassium [Moles/Vol] 3.7 mmol/L Normal 3.5-5.1 [facility] Comment on above: Performed By: #### R F #### [facility] [address] [place] [address] Dr. Akua Thomas Protein [Mass/Vol] 6.5 g/dL Normal 6.4-8.2 [facility] Comment on above: Performed By: #### R F #### [facility] [address], [place] [address] Dr. Akua Thomas Sodium [Moles/Vol] 139 mmol/L Normal 136-145 [facility] Comment on above: Performed By: #### R F #### [facility] [address], [place] [address] Dr. Akua Thomas Urea nitrogen [Mass/Vol] 17.0 mg/dL Normal 7.0-18.[address] [facility] Comment on above: Performed By: #### R F #### [facility] [address] [address] [address] Akua Thomas Urea nitrogen/Creatinin e [Mass ratio] 22.1 mg/mg Normal [facility] Comment on above: Performed By: #### R F #### [facility] [address] [place] [address] Dr. Akua Thomas TSHon 04-09-2022 TSH 0.547 uIU/mL Normal 0.358-3.[address] [facility] Comment on above: Performed By: #### R F #### [facility] [address] [place], [place] [address] Dr. Akua Thomas Vital Signs Date Time Vital Sign Value Performing Clinician Facility 04-25-2025 10:16040 Body height 180.3 cm Joycelyn Pendleton MD Work Phone: [facility] 04-25-2025 10:16-040 Body mass index (BMI) [Ratio] 23.01 kg/m2 Joycelyn Pendleton MD Work Phone: [facility] 04-25-2025 10:16040 Body weight 74.84 kg Joycelyn Pendleton MD Work Phone: [facility] 04-25-2025 10:16-040 Diastolic blood pressure 68 mm[Hg] Joycelyn Pendleton MD Work Phone: [facility] 04-25-2025 10:16-0400 Heart rate 75 /min Joycelyn Pendleton MD Work Phone: [facility] 04-25-2025 10:16-0400 Systolic blood pressure 121 mm[Hg] Joycelyn Pendleton MD Work Phone: [facility] 10-10-2024 13:51-0500 Blood Pressure Location Luis A NILL [facility] 10-10-2024 13:51-0500 Diastolic blood pressure 68 mm[Hg] Luis A NILL [facility] 10-10-2024 13:51-0500 Heart rate 70 /min Luis A NILL [facility] 10-10-2024 13:51-0500 Respiratory rate 16 /min Luis A NILL [facility] 10-10-2024 13:51-0500 Systolic blood pressure 146 mm[Hg] Luis A NILL [facility] Encounters Encounter Date Encounter Type Care Provider Facility Start: 04-25-2025 End: 04-25-2025 Oumar [facility] Start: 04-25-2025 End: 04-25-2025 Oumar Pendleton MD [facility] Start: 04-25-2025 End: 04-25-2025 Office outpatient visit 25 minutes Joycelyn Pendleton MD [facility] Comment on above: Chronic laryngitis ( Primary Dx); Hoarse; Chronic sinusitis, unspecified location; LPRD (laryngopharyngeal reflux disease) Start: 04-25-2025 End: 04-25-2025 ambulatory JOYCELYN PENDLETON Not Available Start: 10-10-2024 End: 10-10-2024 ambulatory Luis A CASTILLO Facility:[facility] Start: 10-10-2024 End: 10-10-2024 Patient encounter procedure Luis A [address] JONATHAN [facility] General [facility] [place] Start: 05-23-2024 End: 05-23-2024 Office outpatient visit 15 minutes Phillip Purvis MD Work Phone: [facility] Comment on above: 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 Phillip Gallegos Facility:[id number] Start: 03-03-2023 Office outpatient visit 15 minutes Referring Provider Unknown ZK-Ewbyofqruzjxju-Mkdqja Work Phone: Start: 03-03-2023 Patient encounter procedure Referring Provider Unknown HT-Gyikfwkelrxehn-Pdhmjh lilibeth Work Phone: Start: 03-03-[address] Phillip Gallegos Facility:[id number] Start: 11-04-2022 Office outpatient ne w 45 minutes Referring Provider Unknown [facility] Work Phone: Start: 11-04-2022 Patient encounter procedure Referring Provider Unknown RO-Qaesbbzuxnvtsu-Utqzfc lilibeth Work Phone: Start: 11-04-[address] Phillip Gallegos Facility:[id number] Start: 10-15-2022 End: 10-18-2022 ambulatory OSMIN GOODEN [facility] Start: 10-15-2022 End: 10-17-2022 Subsequent hospital visit by physician Paresh Griffith Dr Room 4 [facility] Comment on above: Pain in both hands Start: 10-05-2022 End: 10-06-[address] ADAMA FAYE . Facility:[facility]1 Start: 09-24-2022 ambulatory KRISTOFER RANKIN Facility :[facility]1 Start: 09-16-2022 End: 09-17-[address] ADAMA FAYE . Facility:[facility] Start: 08-19-2022 End: 08-19-2022 Patient encounter procedure KRISTOFER RANKIN [facility] Start: 05-01-2022 End: 05-01-[address] ADAMA FAYE . Facility:[facility]1 Start: 04-09-2022 End: 04-10-[address] ADAMA FAYE . Facility:[facility]1 Start: 07-12-2017 End: 07-13-2017 Ambulatory DEFAULT PHYSICIAN Facility:[facility] Procedures Date Procedure Procedure Detail Performing [...] Dermatology [address] [place] [address] Nuha King MD [address] [place] [address] [facility] Start: 04-25-2025 End: 04-25-2025 Patient encounter procedure 04/25/2025 10:30 AM EDT Office Visit [facility] [address] [facility] [address] [place] [id number] Joycelyn Pendleton MD [address] [facility] [address] [place] [address] Arrived [facility] Comment on above: Arrived Start: 04-09-2025 Influenza vaccination Influenza Vacc ine (#1) [facility] Start: 04-04-2025 End: 04-04-2025 Patient encounter procedure 04/04/2025 10:45 AM EDT Office Visit [facility] [address] [place] [address] Nuha King MD [address] [place] [address] [facility] Start: 06-22-2024 End: 06-22-2024 Patient encounter procedure 06/22/2024 11:00 AM EST Office Visit [address] [address] [place] [address] [place], [place] [id number] [facility] Start: 04-13-2024 End: 04-13-2025 CT Sinuses WO contrast CT sinuss wo IV contrast volumetric surgical planning Imaging Routine Benign neoplasm of frontal sinus Expected: 04/13/2024, Expires: 04/13/2025 [facility] Service Area Work Phone: Comment on above: Expected: 04/13/2024 , Expires: 04/13/2025 Start: 04-09-2024 COVID-19 Vaccine ( season) COVID-19 Vaccine ( season) [facility] Start: 04-09-2024 COVID-19 Vaccine () COVID-19 Vaccine () [facility] Start: 04-09-2024 Influenza vaccination Influenza Vacc ine (#1) [facility] Start: 04-04-2024 End: 04-04-2024 Patient encounter procedure 04/04/2024 11:00 AM EDT Office Visit [facility] [address] [place] [id number] Nuha King MD [address] [place] [address] Arrived [facility] Comment on above: Arrived Start: 2023 RSV High Risk: (Elderly (60+) or Population) (1 - 1-dose 75+ series) RSV High Risk: (Elderly (60+) or Population) (1 - 1-dose 75+ series) [facility] Start: 03-03-2023 VIRNICOLÁS, Provider : Phillip Purvis, Status: Pen, Time: 1:00 PM PHUONG, Provider: Phillip Purvis, Status: Pen, Time: 1:[address]-Riywgqbcicnwki-Uccce ake Work Phone: Start: 10-15-2022 Annual Wellness Visi t (AWV) Annual Wellness Visit (AWV) [facility] Start: 09-01-2021 COVID-19 Vaccine (4 - Booster for Moderna series) COVID-19 Vaccine (4 - Booster for Moderna series) [facility] Start: 06-24-2018 Pneumococcal 65+ yea rs Vaccine (2 - PPSV23 if available, else PCV20) Pneumococcal 65+ years Vaccine (2 - PPSV23 if available, else PCV20) [facility] Start: 06-24-2018 Pneumococcal Vaccine : 65+ Years (2 of 2 - PPSV23 or PCV20) Pneumococcal Vaccine: 65+ Years (2 of 2 - PPSV23 or PCV20) [facility] Start: 2013 Abdominal aortic aneurysm screening [facility] Start: 2008 RSV patient s and/or patients aged 60+ years (1 - 1-dose 60+ series) RSV patients and/or patients aged 60+ years (1 - 1-dose 60+ series) [facility] Start: 1998 Shingles vaccine (1 of 2) Shingles vaccine (1 of 2) [facility] Start: 1998 Zoster Vaccines (1 o f 2) Zoster Vaccines (1 of 2) [facility] Start: 1993 Screening for malignant neoplasm of colon [facility] Start: 1970 DTaP/Tdap/Td Vaccine s (1 - Tdap) DTaP/Tdap/Td Vaccines (1 - Tdap) [facility] Start: 1967 DTaP/Tdap/Td vaccine (1 - Tdap) DTaP/Tdap/Td vaccine (1 - Tdap) [facility] Start: 1966 Hepatitis C screening [facility] Start: 1960 Depression Screen Depression Screen [facility] Start: 1958 Lipid panel Lipids [facility] Start: 1948 Annual wellness visit Medicare Initial Physical (IPPE) [facility] Start: 1948 Lipid panel Lipid Panel [facility] Start: 1948 Medicare Annual Wellness Visit Medicare Annual Wellness Visit (AWV) [facility] Start: 1948 Screening for malignant neoplasm of colon [facility] Immunizations Immunization Date Immunization Notes Care Provider Codie gold 05-17-2024 influenza virus vaccine, unspecified formulation Joycelyn Pendleton MD Work Phone: [facility] 06-05-2022 influenza virus vaccine, unspecified formulation KRISTOFER MASSIEL [facility] 07-07-2021 SARS-CoV-2 (COVID-19 ) mRNA-1273 vaccine KRISTOFER MASSIEL [facility] 11-02-2020 SARS-CoV-2 (COVID-19 ) mRNA-1273 vaccine KRISTOFER MASSIEL [facility] Comment on above: Result Comment: 2022: [id number] 10-05-2020 SARS-CoV-2 (COVID-19 ) mRNA-1273 vaccine KRISTOFER MASSIEL [facility] Comment on above: Result Comment: 2022: [id number] 05-08-2020 influenza virus vaccine, unspecified formulation KRISTOFER MASSIEL [facility] 05-17-2019 influenza virus vaccine, unspecified formulation KRISTOFER MASSIEL [facility] [place] 05-25-2018 influenza virus vaccine, unspecified formulation KRISTOFER MASSIEL [facility] 06-24-2017 pneumococcal conjugate vaccine, 13 valent KRISTOFER MASSIEL [facility] NEGATED: Highlighted row has not occurred!06-20-2019 influenza virus vaccine, unspecified formulation KRISTOFER MASSIEL [facility] General Surgery [place] Payers Date Payer Category Payer Medicaid [employer] MEDICARE A DVANTAGE [id number] 2022 Medicare [id number] 2022 Medicare (Managed Care) [employer] [place] [employer] [id number] 1961 Medicare [id number] 1959 Self-pay 1948 Unknown [id number] [id number]. 593 1948 Unknown [id number] [id number]. 593 1948 Unknown [id number] 2.16.840.1.324020.3.579.2. 593 1948 Unknown [id number] 2.16.840.1.124065.3.579.2. 593 1948 Unknown [id number] 2.16.840.1.647876.3.579.2. 593 1948 Unknown [id number] 2.16.840.1.849409.3.579.2. 173 1948 Unknown [id number] 2.16.840.1.463179.3.579.2. 173 1948 Unknown [id number] 2.16.840.1.011134.3.579.2. 173 1948 Unknown [id number] 2.16.840.1.190331.3.579.2. 356 1948 Unknown [id number] 2.16.840.1.458339.3.579.2. 356 1948 Unknown [id number] 2.16.840.1.822822.3.579.2. 356 1948 Unknown [id number] 2.16.840.1.709230.3.579.2. 727 1948 Unknown [id number] 2.16.840.1.493491.3.579.2. 1259 1948 Unknown [id number] [id number]. 1244 Unknown Social History Date Type Detail Facility Start: 08-19-2022 End: 01-06-2023 Tobacco smoking status Never smoked tobacco (finding) [facility] Tobacco smoking status Never [facility] Start: 05-23-2024 End: 04-25-2025 Sex Assigned At Male [facility] Start: 10-15-2022 End: 05-23-2024 Tobacco smoking status NHIS Ex-smoker [employer] Phone: End: 08-09-1973 History of tobacco use Current smoker [employer] Phone: End: 08-09-1973 History of tobacco use Cigarette Smoker [employer] Phone: Start: 10-15-2022 End: 01-06-2023 Tobacco use and exposure Smokeless tobacco non-user [employer] Phone: Start: 10-15-2022 End: 04-25-2025 Alcohol intake Lifetime non-drinker (finding) [employer] Phone: Start: 10-15-2022 Tobacco Comment Only smoked fo r about a year [employer] Phone: Start: 1950 Sex Assigned At Not on file B ON [employer] Phone: Start: 05-23-2024 End: 04-25-2025 History of Social function [facility] Start: 04-03-2024 End: 05-23-2024 Exposure to SARS-CoV-2 (event) Unable to assess [facility] Work Phone: Tobacco smoking status NHIS Tobacco smoking consumption unknown [facility] Work Phone: Start: 01-06-2023 Alcohol Comment caffeine 1-2 cups/da y [facility] Functional Status Date Assessment Result Facility 10-10-2024 Functional Status N/A [facility] General Surgery [place] 08-19-2022 Functional Status N/A [facility] Clinical Notes 08-19-2022 to 04-25-2025 Joycelyn [...] and reflux precautions documented in this encounter [facility] 10-10-2024 Note General Surgery Offi [...] E&M of New Patient Low 30-44 Min 90552 US Chest or Upper Back, Limited Follow-up [...] mg Cap-EC, Oral, Daily Flonase 0.05 mg/inh Korbel, 1 spray(s), Nasal, Daily irbesartan 300 mg [...] 05/25/2018 Recorded pneumococcal 13-valent vaccine 06/24/2017 Recorded [facility] Comment on above: Result Comment: Elec tronically [...] this encounter [facility] Work Phone: 05-03-2024 Telephone encounter Note Patient called requesting a refill of: Triamcinolone 0.1% cream Diagnosis: Atopic Dermatitis Prescribing provider: Nuha King MD Last visit: 04/04/2024 Next visit: 04/04/25 Action: prescription was sent to patient's pharmacy [facility] with enough refills until next visit. [facility] 05-03-2024 Miscellaneous Notes Patient called requesting a refill of: Triamcinolone 0.1% cream Diagnosis: Atopic Dermatitis Prescribing provider: Nuha King MD Last visit: 04/04/2024 Next visit: 04/04/25 Action: prescription was sent to patient's pharmacy [facility] with enough refills until next visit. documented in this encounter [facility] 04-13-2024 History of Present illness [...] proton pump inhibitor History Of Present Illness: eKdar Núñez presents since last being seen 04/13/23. [...] allergic rhinitis with history of immunotherapy Discussion: Keadr Núñez and I discussed his imaging and [...] this encounter [facility] Work Phone: 04-04-2024 History of Present [...] Visit: 1 year documented in this encounter [facility] 04-13-2023 Chief complaint Narrative - [...] of immunotherapy6. Reflux on proton pump inhibitor [facility] Work Phone: 03-03-2023 Chief complaint [...] of immunotherapy6. Reflux on proton pump inhibitor [facility]Y-[facility]fi[facility] Work Phone: 11-04-2022 Chief complaint Narrative - Reported An interactive audio and video telecommunication system which permits real time communications between the patient (at the originating site) and provider (at the distant site) was utilized to provide this telehealth service.Verbal consent was requested and obtained from KEDAR NÚÑEZ on this date, 11/04/2022 01:15 PM , for a telehealth visit.Frontal sinus lesion [facility] Work Phone: 11-04-2022 History of Present illness Narrative Reason for visit:KEDAR NÚÑEZ patient presents since last being seen 11/04/22.Medications currently on for sinonasal symptoms.Ipratropium BID.Medications tried in the past for sinonasal symptoms Flonase/Fluticasone.Spoke about PND XF-[place] Work Phone: 11-04-2022 History of Present illness Narrative Reason for visit:KEDAR NÚÑEZ patient presents since last being seen 11/04/22.Medications currently on for sinonasal symptoms.Ipratropium BID.Medications tried in the past for sinonasal symptoms Flonase/Fluticasone.Kedar presents for routine follow-up. He continues to have issues related to postnasal drainage despite ipratropium. He does feel the ipratropium is providing some measure of benefit. [place]ugxecudjglp[place] Work Phone: 08-19-2022 Hospital Discharge instructions [...] including vitamins, herbs, eye drops, creams, and kqds-wsu-kxpsxnt medicines. Any problems you or family members [...] provider tells you to take them. Taking xqxy-whs-fudhyli medicines, vitamins, herbs, and supplements. Eating and [...] 07/26/2006 Document Revised: 11/15/2019 Document Reviewed: 04/26/2019 [employer] Patient Education 2020 [employer]. 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 * PMHx: Hypertension [facility] Work Phone: History of Present illness Narrative* Main Symptoms: * Patient has posterior nasal drainage. * Associated Symptoms: * Patient has throat clearing. * Patient has coughing. * Medications currently on for sinonasal symptoms Flonase/Fluticasone - PRN (as needed) . * Ipratropium BID. [facility] Work Phone: Hospital Discharge instructions No data available for this section [facility] [place] Progress note No data available for this [...] contrast volumetric surgical planning Phillip Purvis MD [address] [facility] [address] [place] [address] Referral ID Status Reason Start Date Expiration Date Visits Requested Visits Authorized [id number] Pending Review Perform Procedure 04/13/2024 04/13/2025 1 1 Additional Source Comments (unrecognized sect ion and content) No Status Records FoundNo Status Records FoundNo Status Records FoundNo Status Records FoundNo Status Records FoundNo Status Records FoundNo Status Records FoundNo Status Records Found INFORMATION SOURCE (unrecogn ized section and content) DATE CREATED AUTHOR 02/01/2018 [facility] DATE CREATED AUTHOR AUTHOR'S ORGANIZ ATION 10/10/2022 [facility] DATE CREATED AUTHOR AUTHOR'S ORGANIZ ATION 10/18/2022 [facility] DATE CREATED AUTHOR AUTHOR'S ORGANIZ ATION 04/13/2023 [facility] DATE CREATED AUTHOR AUTHOR'S ORGANIZ ATION 04/15/2023 [facility] DATE CREATED AUTHOR AUTHOR'S ORGANIZ ATION 10/12/2024 Emeterio Almonte [facility] DATE CREATED AUTHOR AUTHOR'S ORGANIZ ATION 04/26/2025 [facility] DATE CREATED AUTHOR AUTHOR'S ORGANIZ ATION 05/11/2025 [facility] Ambulatory Patient Care team informatio n (unrecognized section and content) Administrative Liaison Relationship Specialty Start Date End Date Adama Faye MD [address] [place] [address] PCP - General Family Medicine 10/08/22 Administrative Liaison Relationship Specialty Start Date End Date Adama Faye MD [address] [place] [address] PCP - General Family Medicine 10/08/22 Administrative Liaison Relationship Specialty Start Date End Date Adama Faye MD [address] [place] [address] PCP - General Family Medicine 04/24/24 Administrative Liaison Relationship Specialty Start Date End Date Adama Faye MD [address] [place] [address] PCP - General Family Medicine 04/16/25 Administrative Liaison Relationship Specialty Start Date End Date Adama Faye MD [address] [place] [address] PCP - General Family Medicine 04/16/25 Reason [...] PRIMARY CLINICAL RECORDS. [facility]. provides no warranty or guarantee of the accuracy or completeness of information in this document.
[2025-05-15 10:37] LABS: Platelet Count 241 10^3/uL (150-450)
[2025-05-15 10:52] LABS: INR 1.04; Prothrombin Time 11.0 sec (9.0-11.6)
== END 2025-05-15 10:25 | disposition home or self-care (01) ==
LOC: LAB 10:25
PROVIDERS: PCP Family Medicine
DX: Z01.812 Encounter for preprocedural laboratory examination (principal)
CPT/HCPCS: 36415; 85049; 85610

== ENCOUNTER 2025-07-16 11:41 | Outpatient (OUT) | payer MEDICARE, SELFPAY ==
--- OUTSIDE RECORDS SUMMARY | 2025-07-16 11:46 | XMS_ITS | CCD ---
Author Organization [facility] Care Team Providers Care Carport Erector Name Role Phone PHYSICIAN, DEFAULT Unavailable Unavailable [...] Unavailable HOY ., DR GALAN Consulting Unavailable [place], DR ALIYA Sierra Consulting Unavailable HOY ., DR GALAN Attending Unavailable HOY ., DR GALAN Admitting Unavailable HOY ., DR GALAN Primary Care Unavailable HOY ., DR GALAN Consulting Unavailable DONNELL RENTERIA Consulting Unavailable Adama Faye MD Primary Care Provider [phone] OSMIN GOODEN Referring Unavailable NEYDA, ADAMA M Primary Care Unavailable OSMIN GOODEN Referring Unavailable MARY ANN FAYELAS M Primary Care Unavailable OSMIN GOODEN Referring Unavailable NEYDA ADAMA M Primary Care Unavailable Unknown, Referring Provider Unavailable Unav ailable Unavailable Unavailable Yaniv, Dr. Phillip Will Attending Susan vailable Yaniv, Dr. Phillip Will Referring Susan vailable UNKNOWN, PCP Primary Care Unavailable Yaniv, Dr. Phillip Will Attending Susan vailable Yaniv, Dr. Phillip Will Referring Susan vailable UNKNOWN, PCP Primary Care Unavailable Dr. Phillip Purvis Referring Susan cesar UNKNOWN, PCP Primary Care Unavailable Dr. Phillip Purvis Attending Susan vayasminble Adama Faye MD Primary Care Provider Unavailable Primary Care Provider Unavailabl e Unavailable Primary Care Provider Unavailabl e Luis A CASTILLO Attending Unavailable Adama Faye Referring Unavailable Adama Faye MD Primary Care Provider JOYCELYN PENDLETON Attending Unavailable PHILLIP PURVIS Attending Unavailable ADAMA FAYE Primary Care Unavailable Adama Faye MD Primary Care Provider Allergies Allergy ClassificationReported Allergen(s)Allergy TypeDate of OnsetReaction(s) Facility (3 sources)Penicillin; Translations: [penicillin]Drug AllergyEruption of skin (disorder)[facility] (2 sources)PenicillinsDrug allergy (disorder)76-48-5529[facility] (3 sources)PenicillinsPropensity to adverse reactions to jjfu12-68-3373DbpnAGLUVA [facility] (8 sources)PenicillinsDrug Wvzbsgf14-51-1263MsaxryvIMBF Healthcare Medications Current Medications MedicationDrug Class(es)DatesSig (Normalized)Sig (Original)aspirin 81 mg oral tablet (13 sources)Platelet Aggregation Inhibitor, Nonsteroidal Anti-inflammatory Drug Start: 54-61-4300ovdq 1 tablet by mouth once dailyaspirin 81 mg oral tablet 81 mg = 1 tab(s), Oral, Daily, # 30 tab(s), Refills(s) 0 Start Date: 06/01/19 Status: OrderedASPIRIN 81 PO ActiveASPIRIN 81 PO Aspir-81 Activetake 1 tablet by mouth once dailyaspirin 81 MG EC tablet Take 81 mg by mouth daily 0 Active cefdinir 300 mg oral capsule (2 sources)Cephalosporin AntibacterialStart: 04-25-2025 End: 71-72-7202zbym 1 capsule by mouth in the morningcefdinir (Omnicef) 300 MG capsule Indications: Chronic sinusitis, unspecified location Take 1 capsule (300 mg) by mouth in the morning and 1 capsule (300 mg) before bedtime. Do all this for 10 days. 20 capsule 04/25/2025 05/05/2025 Activecetirizine hydrochloride 10 mg oral tablet (14 sources)Histamine-1 Receptor Antagonist End: 89-96-9014yzuw 1 tablet by mouth once dailycetirizine (ZyrTEC) 10 mg tablet Take 1 tablet (10 mg) by mouth once daily. ActiveCetirizine HCl TABS Quantity: 0 Refills: 0 Ordered: 03-Mar-2023 DO Activetake 2 tablets by mouth once daily cetirizine (ZYRTEC) 10 MG tablet Take 20 mg by mouth daily 0 Active1 ml dexamethasone phosphate 4 mg/ml injection (3 sources)CorticosteroidStart: 70-99-4330dcovrofshubvk (DECADRON) injection 4 mgdiclofenac sodium 0.01 mg/mg topical gel (7 sources)Nonsteroidal Anti-inflammatory DrugStart: 88-77-7447mpvvikehuf topical 1% gel as directed, Refill(s) 0 Start Date: 10/02/24 Status: Ordered Start: 04-84-1083Edqevfokkd Sodium 75 MG Oral Tablet Delayed Release Quantity: 60 Refills: 0 Ordered: 02-Dec-2022 DOStart : 02-Dec-2022 Activetake 1 tablet by mouth twice dailydiclofenac (VOLTAREN) 75 MG EC tablet Take 75 mg by mouth 2 times daily 0 Active2 ml dupilumab 150 mg/ml prefilled syringe (18 sources)Interleukin-4 Receptor alpha AntagonistStart: 40-49-3583Btgmxifx 300 MG/2ML injection Indications: Atopic Dermatitis Inject 1 Syringe (300 mg) under the skin every 14 (fourteen) days 12 mL 04/19/2025 ActiveStart: 04-06-2024 Dupixent 300 MG/2ML injection Indications: Atopic Dermatitis Inject 1 Syringe (300 mg) under the skin every 14 (fourteen) days 12 mL 4 04/06/2024 ActiveStart: 02-02-2019 End: 96-05-6480kayoogboq (Dupixent) 300 MG/2ML injection Inject 1 PFS Subcutaneous every other week 02/02/2019 04/24/2025 Discontinueddupilumab (Dupixent Pen) 300 mg/2 mL pen injector Inject under the skin. Activedupilumab (DUPIXENT) 300 MG/2ML SOPN injection Inject 300 mg into the skin every 14 days 0 Activefamotidine 20 mg oral tablet (3 sources)Histamine-2 Receptor AntagonistStart: 04-25-2025 End: 51-63-0838xhkv 1 tablet by mouth at bedtimefamotidine (Pepcid) 20 MG tablet Indications: Chronic laryngitis Take 1 tablet (20 mg) by mouth at bedtime 90 tablet 04/25/2025 07/24/2025 Activefluticasone propionate 0.05 mg/actuat metered dose nasal spray (8 sources)CorticosteroidStart: 54-67-0670xblkgtygmsv (Flonase Allergy Relief) 50 MCG/ACT nasal spray Administer into affected nostril(s) 10/02/2024 Active Start: 52-85-9571Rlvwmme 0.05 mg/inh [place] 1 spray(s), Nasal, Daily, Refill(s) 0 Start Date: 10/02/24 Status: Orderedtake 1 spray(s) nasal route twice daily as neededfluticasone (FLONASE) 50 MCG/ACT nasal spray 1 spray by Each Nostril route 2 times daily as needed 0 Activeirbesartan 300 mg oral tablet (13 sources)Angiotensin 2 Receptor BlockerStart: 73-59-5510ifae 1 tablet by mouth once dailyirbesartan 300 mg Tab 300 mg = 1 tab(s), Oral, Daily, Refills(s) 0 Start Date: 10/02/24 Status: Orderedlisinopril 40 mg oral tablet (1 source)Angiotensin Converting Enzyme InhibitorStart: 76-32-5232onsb 1 mg by mouth once dailylisinopril 40 mg Tab mg tab(s), Oral, Daily, Refills(s) 0 Start Date: 04/28/19 Status: Orderedloratadine 10 mg oral tablet (5 sources)Start: 65-28-9327buooczborx (Claritin) 10 MG tablet Take 10 mg by mouth 10/02/2024 Activemultivitamin tablet (2 sources)take 1 tablet by mouth once dailymultivitamin tablet Take 1 tablet by mouth once daily. Activesimvastatin 40 mg oral tablet (18 sources)HMG-CoA Reductase InhibitorStart: 16-09-0831gidg 1 mg by mouth once daily at bedtimesimvastatin 40 mg Tab mg tab(s), Oral, Once a day (at bedtime), Refills(s) 0 Start Date: 04/28/19 Status: OrderedSIMVASTATIN PO Simvastatin ActivetiZANidine 4 mg oral tablet (1 source)Central alpha-2 Adrenergic AgonistStart: 39-49-0911ugaj 1 tablet by mouth once daily in the morning, then take 2 tablets by mouth at bedtime tiZANidine 4 mg Tab 1 tabs qam and 2 tabs at HS, Oral, Refills(s) 0 Start Date: 10/02/24 Status: Ordered Completed/Discontinued Medications MedicationDrug Class(es)DatesSig (Normalized)Sig (Original)betamethasone 0.0005 mg/mg topical ointment (6 sources)CorticosteroidStart: 11-02-2022 End: 04-43-4847zmvhaagyzqqqu dipropionate (Diprolene) 0.05 % ointment apply to hands and feet (avoid face and skinfolds) Externally bid prn (hold when clear) for 30 day(s) 11/02/2022 04/24/2025 Discontinued (Therapy completed)esomeprazole 40 mg delayed release oral capsule (16 sources)Proton Pump InhibitorStart: 31-41-7969Agljqwcxgbik Magnesium 40 MG Oral Capsule Delayed Release Quantity: 90 Refills: 0 Ordered: 05-Dec-2022 DO Start : 05-Dec-2022 ActiveStart: 68-13-6693ueft 1 mg by mouth once daily esomeprazole 40 mg Cap-EC mg cap(s), Oral, Daily, Refills(s) 0 Start Date: 04/28/19 Status: Orderedtake 1 capsule by mouth twice dailyesomeprazole (NexIUM) [address] capsule take 1 capsule by oral route 2 times every day Oral Activetake 40 mg by mouth once dailyesomeprazole Magnesium (NEXIUM) 40 MG PACK Take 40 mg by mouth daily 0 Activeipratropium bromide 0.021 mg/actuat metered dose nasal spray (7 sources)AnticholinergicStart: 45-66-5042hgfd 2 spray(s) nasal route three times dailyIpratropium [place] 0.03 % Nasal Solution USE 2 SPRAYS IN EACH NOSTRIL 3 TIMES DAILY. Quantity: 1 Refills: 11 Ordered: 13-Apr-2023 Phillip Purvis MD Start : 13-Apr-2023 Activelatanoprost 0.05 mg/ml ophthalmic solution (6 sources)Prostaglandin AnalogStart: 58-07-8573Decjhybsdco 0.005 % Ophthalmic Solution Quantity: 8 Refills: 0 Ordered: 24-Feb-2023 DO Start : 24-Feb-2023 ActiveLatanoprost 0.005 % Ophthalmic Solution Quantity: 0 Refills: 0 Ordered: 03-Mar-2023 DO ActivelevoFLOXacin 750 mg oral tablet (3 sources)Quinolone AntimicrobialStart: 22-66-2632ckch 1 tablet by mouth once dailylevoFLOXacin 750 MG Oral Tablet TAKE 1 TABLET BY MOUTH EVERY DAY Quantity: 10 Refills: 0 Ordered: 22-Jun-2022 DO Start : 22-Jun-2022 Activemontelukast 10 mg oral tablet (16 sources)Leukotriene Receptor AntagonistStart: 88-78-0027Iogzlbbmqwi Sodium 10 MG Oral Tablet Quantity: 90 Refills: 0 Ordered: 11-Jan-2023 DO Start : 11-Jan-2023 Activetake 1 tablet by mouth once dailymontelukast (Singulair) 10 mg tablet Take 1 tablet (10 mg) by mouth once daily. ActiveMontelukast Sodium (SINGULAIR PO) ActiveMontelukast Sodium (SINGULAIR PO) Singulair Active triamcinolone acetonide 1 mg/ml topical cream (15 sources)CorticosteroidStart: 11-22-2024 End: 41-30-3580bpdtujmmlxeyg (Kenalog) 0.1 % cream Indications: Other atopic dermatitis Apply to affected areas, up to twice a day when flared, do not use one the face, groin, or underarms, 30 day supply 454 g 11 11/22/2024 04/24/2025 Discontinued (Therapy completed)Start: 60-56-1802eqzrhzrgfgvvd (Kenalog) 0.1 % cream Indications: Other atopic dermatitis Apply to affected areas, up to twice a day when flared, do not use one the face, groin, or underarms, 30 day supply 454 g 11 05/03/2024 Active End: 94-30-3583pqneeklgidlud (Kenalog) 0.1 % cream Apply to itchy areas topically bid prn for flares. Avoid face and groin for 30 days 04/24/2025 Discontinued (Therapy completed) End: 67-45-4510tdrqpogfwisqy (Kenalog) 0.1 % cream every 12 (twelve) hours. 04/24/2025 Discontinued (Therapy completed) Problems Active Problems Problem ClassificationProblemDateDocumented DateEpisodic/ChronicAbdominal pain (6 sources)Left lower quadrant pain; Translations: [Left lower quadrant pain] Onset: 276594-78-9721KxzuqfifLugdetop reactions (3 sources)Atopic dermatitis; Translations: [Other atopic dermatitis]04-04-2024 ChronicAllergic reactions (5 sources)Eczema; Translations: [Dermatitis, unspecified]Onset: 04-24-2025 99-46-1719ZzaquacvYfwoka (6 sources)Asthma; Translations: [Unspecified asthma, uncomplicated]Onset: 962806-58-4836DzescbcQzvyzldo of urinary tract (7 sources)Kidney stone; Translations: [Calculus of kidney]Onset: 08-19-2022 EpisodicDeficiency and other anemia (1 source)Anemia, unspecified; Translations: [ANEMIA UNSPECIFIED]Onset: 32-69-2679MsfoemwrLexmytkrx of lipid metabolism (10 sources)Hyperlipidemia; Translations: [Hyperlipidemia, unspecified]Onset: 967327-85-4387MizlrrdZsoegudwudoqck and diverticulitis (4 sources)Diverticulosis of colon; Translations: [Diverticulosis of large intestine without perforation or abscess without bleeding]Onset: 03-07-2013 46-53-0446YxudixvKdpzqwddyr disorders (10 sources)Gastroesophageal reflux disease; Translations: [Gastroesophageal reflux disease with hiatal hernia]Onset: 266036-06-5493RqlcdwqDeajxdwgd hypertension (6 sources)Hypertensive disorder; Translations: [Essential hypertension]Onset: 313643-72-1611OcwadtcRuewrscvptc of prostate (7 sources)Benign prostatic hypertrophy with outflow obstruction; Translations: [Benign prostatic hyperplasia with lower urinary tract symptoms]Onset: 31-57-5117SvsieeoAncxmujvn of unspecified nature or uncertain behavior (5 sources)Neoplasm of frontal sinus; 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]EpisodicOsteoarthritis (6 sources)Arthritis; Translations: [Unspecified osteoarthritis, unspecified site]Onset: 116799-31-6610SngslelSfhmu and unspecified benign neoplasm (3 sources)Benign neoplasm of frontal sinus; Translations: [Benign neoplasm of middle ear, nasal cavity and accessory sinuses]14-92-2694JktkcekhWuvcx circulatory disease (5 sources)Clearing throat - hawking; Translations: [Other respiratory abnormalities]EpisodicOther circulatory disease (1 source)Vascular esvjquyyhpjoo26-52-9456EwzqrqndGkrpz connective tissue disease (2 sources)Pain of bilateral hands; Translations: [Pain in right hand]Episodic Other connective tissue disease (3 sources)Pain in right hand; Translations: [Pain in right hand]Onset: 69-63-8760NkpidqnvQtkce connective tissue disease (3 sources)Pain in left hand; Translations: [Pain in left hand]Onset: 10-15-2022 EpisodicOther diseases of kidney and ureters (1 source)Disorder of kidney and/or ureter; Translations: [Other specified disorders of kidney and ureter]Onset: 15-37-7652MdhyllsLoasb diseases of kidney and ureters (2 sources)Renal jfxw23-82-3035WfshmqsKybbp diseases of kidney and ureters (1 source)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; Translations: [Cyst of kidney, acquired]Onset: 16-58-5818ZqrnmmgpNtdlr diseases of kidney and ureters (2 sources)Acquired renal cystic ischtif03-19-6850HenpufqlWkluz diseases of kidney and ureters (4 sources)Parapelvic renal cyst; Translations: [Cyst of kidney, acquired]Onset: 410878-86-2964BuntajltFlhbx gastrointestinal disorders (4 sources)Irritable bowel syndrome; Translations: [Irritable bowel syndrome without diarrhea]Onset: 712641-92-0887EyfuastRehaz gastrointestinal disorders (6 sources)Abdominal bloating; Translations: [Abdominal distension (gaseous)] Onset: 575117-70-9400ZnhzkvodUvggf gastrointestinal disorders (6 sources)Constipation alternates with diarrhea; Translations: [Other specified symptoms and signs involving the digestive system and abdomen]Onset: 04-24-2025 37-95-9102ReymiofuZwyea non-traumatic joint disorders (4 sources)Other specified arthritis, unspecified hand; Translations: [OTHER SPECIFIED ARTHRITIS UNS HAND]Onset: 64-63-1849GwotligYkzlb nutritional; endocrine; and metabolic disorders (5 sources)Overweight; Translations: [Overweight]Onset: EpisodicOther nutritional; endocrine; and metabolic disorders (5 sources)Overweight in adulthood with body mass index of 25 or more but less than 30; Translations: [Body mass index (BMI) 26.0-26.9, adult]Onset: 04-24-2025 05-11-1651BpysamxyJlqpu skin disorders (1 source)Mass of trunk; Translations: [Localized swelling, mass and lump, trunk]Onset: 69-42-4180DatxoysvZeuvn skin disorders (5 sources)Mass of subcutaneous tissue of back; Translations: [Localized swelling, mass and lump, trunk]Onset: 779586-19-3546PcghovlqXpfxc upper respiratory disease (4 sources)Other seasonal allergic rhinitis; Translations: [OTHER SEASONAL ALLERGIC RHINITIS]Onset: 25-00-6208WkryjycCfmzd upper respiratory disease (1 source)Seasonal allergic -85-3789RuxsykdXqeyj upper respiratory disease (2 sources)Chronic laryngitis; Translations: [Chronic laryngitis]04-25-2025 ChronicOther upper respiratory disease (6 sources)Nasal discharge; Translations: [Other disease of nasal cavity and sinuses]EpisodicOther upper respiratory disease (2 sources)Hoarse; Translations: [Dysphonia]20-35-3294QijpybmuKlplx upper respiratory infections (2 sources)Chronic sinusitis; Translations: [Chronic sinusitis, unspecified] 20-92-9103Dvgmyuz Past or Other Problems Problem ClassificationProblemDateDocumented DateEpisodic/ChronicMalaise and fatigue (1 source)Other fatigue; Translations: [OTHER FATIGUE]Onset: 15-25-9353Zsfcuprd Other screening for suspected conditions (not mental disorders or infectious disease) (2 sources)Encounter for screening for malignant neoplasm of rectum; Translations: [Encounter for screening for malignant neoplasm of prostate]Onset: 16-80-8842UlunewrtKbnmjewatrpo (2 sources)Onset: 05-23-2024 Resolved: Results Test NameValueInterpretationReference RangeFacilityAmbulatory Visit Summaryon 48-15-6266Wwtfhxrbfu Visit SummaryAmbulatory Visit Summary KEDAR NÚÑEZ :1950 Visit Date:10/10/2024 [...] mg Cap-EC) fluticasone nasal (Flonase 0.05 mg/inh [place]) irbesartan (irbesartan 300 mg Tab) loratadine (loratadine [...] Cap-EC) By Mouth Every day Contact prescribing physicianif questions or concerns Unchanged fluticasone nasal (Flonase 0.05 mg/ inh [place]) 1 Sprays Nasal Inhalation Every day Contact [...] 2 tabs at HS By Mouth Contact prescribingphysician if questions or concerns Allergies penicillin (Rash) [...] you for choosing us for your care. 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 Please feel free to contact my office by calling [phone] with any questions. Provider Impressions 1. Frontal [...] observation. Given that there is been no gear changer 6 months I recommended virtual follow-up in about 12 months to discuss additional options. He was amenable to this and all questions were answered. Chief Complaint An interactive audio and video telecommunication system which permits real time communications between the patient (at the originating site) and provider (at the distant site) was utilized to providethis telehealth service. Verbal consent was requested and [...] 40 MG Oral Capsule Delayed Release Ipratropium [place] 0.03 % Nasal SolutionUSE 2 SPRAYS IN [...] Purvis MD; Apr 14 2023 11:03AM EST (Author)[facility] TouchworksFalls Screening (Age 18+)on 52-78-8667Yjao risk assessmenta) No falls within the last kmsdOZ-Cwmgitvgckimdh-Kearfzg [facility] [address] Work Phone: Tobacco use status CPHSb) YfXV-Lpbwifryxcagor-MnfszfvChi 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 : Unknown Radiologist to Determine Optimal Study : Y What are the patient's signs and symptoms? : Bony frontal sinus neoplasm Patient Discussion/Summary Please feel free to contact my office by calling [phone] with any questions. Provider Impressions 1. Frontal [...] his context of some measure of dysphagia. Neftali happy to coordinate this assessment but in the short-term he was comfortable deferring. In regard to the frontal sinus lesion, we discussed obtaining a repeat CT sinus about 6 to 8 monthsfollowing his original study in September. An order was placed for this today. He would like to obtain this closer to home so I will ask my payroll secretary to print off the order and [...] (at the distant site) was utilized to providethis telehealth service. 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 Provider Impressions 1. Frontal [...] by his nasal drainage and I suggested atrial of ipratropium. This was prescribed and my [...] (at the distant site) was utilized to providethis telehealth service.1 . Verbal consent was requested [...] from September 16, 2022. There was a fibro- osseous lesion centrally within his right frontal sinus. This did not appear specifically concerning. 'Scores and Scales' Signatures Electronically signed by : Phillip Purvis MD; Nov 06 2022 3:48PM EST (Author)[facility] TouchworksXR HAND LEFT (MIN 3 VIEWS)on 38-44-8984HL HAND LEFT (MIN 3 VIEWS)EXAMINATION: THREE XRAY VIEWS OF THE LEFT HAND [...] by: Luis A Adams MD 10/15/22 Final resultNormalMercy [facility] Hospice acute osseous abnormality. Degenerative changes 1st [facility] joint [facility] CONSOLIDATEDEXAMINATION: THREE XRAY VIEWS OF THE LEFT HAND 10/15/2022 9:57 am COMPARISON: None. HISTORY: ORDERING SYSTEM PROVIDED HISTORY: Pain in both hands FINDINGS: There is no evidence of acute fracture. There is normal alignment. No acute joint abnormality. No focal osseous lesion. No focal soft tissue abnormality. Degenerative changes seen in the 1st CMC joint. Vascular calcifications. [facility] Luis A Jarquin MD - 10/15/2022 EXAMINATION: THREE XRAY VIEWS [...] osseous abnormality. Degenerative changes 1st CMC joint [employer] Phone: radiology Study observation (narrative)[facility] Phone: XR HAND LEFT (MIN 3 VIEWS)Ordered By: Luis A Adams on 98-16-9652[facility] Work Phone: XR HAND RIGHT (MIN 3 VIEWS)on 96-81-0992DP HAND RIGHT (MIN 3 VIEWS)EXAMINATION: THREE XRAY VIEWS OF THE RIGHT HAND [...] by: Luis A Adams MD 10/15/22 Final resultNormalMerConnecticut Hospice acute osseous abnormality. Degenerative changes 3rd MCP joint and 1st [facility] joint [facility] CONSOLIDATEDEXAMINATION: THREE XRAY VIEWS OF THE RIGHT HAND [...] with joint space narrowing and bony overgrowth. [facility] Luis A Jarquin MD - 10/15/2022 EXAMINATION: THREE XRAY VIEWS [...] 3rd MCP joint and 1st CMC joint [employer] Phone: radiology Study observation (narrative)[employer] Phone: XR HAND RIGHT (MIN 3 VIEWS)Ordered By: Luis A Adams on 70-19-0346[facility] Phone: ANA by IFAon 14-52-0447Yyfsrpznxjt Antibodies, IFA NegativeNormalThMercy Health Tiffin HospitalComment on above:Result Comment: Negative <1:80 Borderline 1:80 Positive >1:80 ICAP nomenclature: AC-0 For more information about Hep-2 cell patterns use ANApatterns.org, the official website for the International Consensus on Antinuclear Antibody (PERLA) Patterns (ICAP).Performed By: #### CBC #### [facility] [address] [place] [address] Dr. Akua ThomasANTISTREPTOLYSIN O AB (ASO)on 37-50-8554Uibvuxclmcgxvyrn O Ab69.9 IU/mLNormal0.0-200.0The [facility] HospitalComment on above:Performed By: #### ASOAB #### [facility] [address] [place] [address] Dr. Akua ThomasCALCIUM IONIZEDon 19-98-7691Lubqxgl, Ionized, Serum5.5 mg/dL Normal4.5-5.6The [facility] HospitalComment on above:Performed By: #### CAIONZ #### [facility] [address] [place] [address] Dr. Akua ThomasRHEUMATOID FACTORon [id number] Latex Turbid.12.6 IU/mLNormal <14.0The [facility] HospitalComment on above:Performed By: #### RF #### [facility] [address] [place] [address] Dr. Akua ThomasCBC AUTO DIFFon 97-68-0622WMVX #0.0 103/ulNormal0.0-0.1The [facility] HospitalComment on above:Performed By: #### CBC #### [facility] [address] [place] [address] Dr. Akua ThomasBasophils/100 WBC (Bld)0.2 %Normal0.2-2.0[facility] Comment on above:Performed By: #### CBC #### [facility] [address] [place] [address] Dr. Akua Panda #0.1 103/ulNormal0.0-0.7The [facility] HospitalComment on above: Performed By: #### CBC #### [facility] [address] [place] [address] Dr. Akua Moralesosinophils/100 WBC (Bld)1.4 %Normal0.9-7.0[facility] Comment on above:Performed By: #### CBC #### [facility] [address] [place] [address] Dr. Akua Moralesrythrocyte distribution width (RBC) [Ratio]14.3 %Bprfpr50.0-15.0 The [facility] HospitalComment on above:Performed By: #### CBC #### [facility] [address] [place] [address] Dr. Akua ThomasHematocrit (Bld) [Volume fraction]45.5 %Tdlaeu46.0-54.0The Parkwood HospitalComment on above:Performed By: #### CBC #### [facility] [address] [place] [address] Dr. Akua ThomasHemoglobin (Bld) [Mass/Vol]15.1 g/hIFtenyn47.0-18.0The Parkwood HospitalComment on above:Performed By: #### CBC #### [facility] [address] [place] [address] Dr. Akua Guerra #0.03 10e3/ulNormal0.00-0.03The Parkwood HospitalComment on above:Performed By: #### CBC #### [facility] [address] [place] [address] Dr. Akua Guerra %0.3 %Normal0.0-0.5The Parkwood HospitalComment on above: Performed By: #### CBC #### [facility] [address] [place] [address] Dr. Akua Martínez #3.0 103/ulNormal1.2-3.8The Parkwood HospitalComment on above:Performed By: #### CBC #### [facility] [address] [place] [address] Dr. Akua Elizabethhocytes/100 WBC (Bld)31.9 %Qicxpd57.5-60.0The Parkwood HospitalComment on above:Performed By: #### CBC #### [facility] [address] [place] [address] Dr. Akua Crandall DIFF REQNONormalThe Parkwood HospitalComment on above: Performed By: #### CBC #### [facility] [address] [place] [address] Dr. Akua Subramanian (RBC) [Entitic mass]29.6 reCkgfjn34.9-34.0The Parkwood HospitalComment on above:Performed By: #### CBC #### [facility] [address] [place] [address] Dr. Akua Acosta (RBC) [Mass/Vol]33.2 g/iCPipust00.9-35.2The [facility]wood HospitalComment on above:Performed By: #### CBC #### [facility] [address] [place] [address] Dr. Akua Echeverria (RBC) [Entitic vol]89.2 bKPprpip55.0-94.0The [facility]wood HospitalComment on above:Performed By: #### CBC #### [facility] [address] [place] [address] Dr. Akua Garland #0.7 103/ulNormal0.3-0.8The Parkwood HospitalComment on above:Performed By: #### CBC #### [facility] [address] [place] [address] Dr. Yilan ChangMonocytes/100 WBC (Bld)7.2 %Normal1.7-12.0[facility] Comment on above:Performed By: #### CBC #### [facility] [address] [place] [address] Dr. Akua Singh #5.5 103/ulNormal1.4-6.5The Parkwood HospitalComment on above:Performed By: #### CBC #### [facility] [address] [place] [address] Dr. Akua Messerutrophils/100 WBC (Bld)59.0 %Uuduxj58.0-75.0The Parkwood HospitalComment on above:Performed By: #### CBC #### [facility] [address] [place] [address] Dr. Akua Ramoslet mean volume (Bld) [Entitic vol]9.9 fLNormal9.5-13.5The Parkwood HospitalComment on above:Performed By: #### CBC #### [facility] [address] [place] [address] Dr. Akua SinhaT237 103/iwSrbbqs184-818Ubs Park[facility] HospitalComment on above: Performed By: #### CBC #### [facility] [address] [place] [address] Dr. Akua ThomasRBC5.10 106/ulNormal4.70-6.10The Parkwood HospitalComment on above:Performed By: #### CBC #### [facility] [address] [place] [address] Dr. Akua ThomasWBC9.3 103/ulNormal4.0-11.0The Parkwood HospitalComment on above: Performed By: #### CBC #### [facility] [address] [place] [address] Dr. Akua Lynch 31-81-4348BMO [Mass/Vol]mg/LNormal<=1.0The Parkwood HospitalComment on above:Performed By: #### CMP, URIC, PHOS, MG, T7, CRP, TSH #### [facility] [address] [place] [address] Dr. Akua Peters THYROXINE INDEX T7on 78-48-7107VZM2.17Msrwur0.30-4.50The Parkwood HospitalComment on above:Performed By: #### CBC #### [facility] [address] [place] [address] Dr. Akua ThomasT3U36.0 %Sdjreu01.0-40.0The Parkwood HospitalComment on above: Performed By: #### CBC #### [facility] [address] [place] [address] Dr. Akua ThomasT4 [Mass/Vol]9.10 ug/dLNormal4.50-12.10The [facility] Comment on above:Performed By: #### CBC #### [facility] [address] [place] [address] Dr. Akua HoytNon 25-14-7773Ezgk [Mass/Vol]119.0 ug/tKFmahvo40.0-175.0The Parkwood HospitalComment on above:Performed By: #### IRON #### [facility] [address] [place] [address] Dr. Akua ThomasMAGNESIUMon 20-45-2509Geqfqxqdj [Mass/Vol]1.8 mg/dLNormal1.8-2.4 The Parkwood HospitalComment on above:Performed By: #### CBC #### [facility] [address] [place] [address] Dr. Akua ThomasPHOSPHORUSon 74-79-8101Krzrnddua [Mass/Vol]3.4 mg/dLNormal2.6-4.7 The Parkwood HospitalComment on above:Performed By: #### CBC #### [facility] [address] [place] [address] Dr. Akua Park 14(COMP METB)on 12-12-9651Incslpu [Mass/Vol]4.0 g/dLNormal 3.4-5.0The Parkwood HospitalComment on above:Performed By: #### CBC #### [facility] [address] [place] [address] Dr. Akua ThomasAlbumin/Globulin [Mass ratio]1.4 {ratio}NormalThe Parkwood HospitalComment on above:Performed By: #### CBC #### [facility] [address] [address] [address] Akua OchoaP [Catalytic activity/Vol]119 U/LCritically ohsk67-889Svq Parkwood HospitalComment on above:Performed By: #### CBC #### [facility] [address] [address] [address] Akua OchoaT [Catalytic activity/Vol]69 U/LCritically bwuw00-35Oki [facility] HospitalComment on above:Performed By: #### CBC #### [facility] [address] [place] [address] Dr. Akua Mehtaon gap [Moles/Vol]10.0 mmol/LNormalThe [facility] Comment on above:Performed By: #### CBC #### [facility] [address] [place] [address] Dr. Akua ThomasAST [Catalytic activity/Vol]37 U/ZBcmoji02-42Lnz [facility] HospitalComment on above:Performed By: #### CBC #### [facility] [address] [place] [address] Dr. Akua ThomasBilirubin [Mass/Vol]0.7 mg/dLNormal0.2-1.0The [facility] Comment on above:Performed By: #### CBC #### [facility] [address] [place] [address] Dr. Akua ThomasCalcium [Mass/Vol]9.2 mg/dLNormal8.5-10.1The [facility] Comment on above:Performed By: #### CBC #### [facility] [address] [place] [address] Dr. Akua ThomasChloride [Moles/Vol]100 mmol/LRxrlas23-770Ygk [facility] Comment on above:Performed By: #### CBC #### [facility] [address] [place] [address] Dr. Akua ThomasCO2 [Moles/Vol]30.5 mmol/VYfitdx03.0-32.0The [facility] Comment on above:Performed By: #### CBC #### [facility] [address] [place] [address] Dr. Akua ThomasCreatinine [Mass/Vol]0.75 mg/dLNormal0.70-1.30The Parkwood HospitalComment on above:Performed By: #### CBC #### [facility] [address] [address] [address] Akua MoralesGFR-AF VATICAN CITIZEN>60Normal>=60The [facility]wood HospitalComment on above:Performed By: #### CBC #### [facility] [address] [place] [address] Dr. Akua MoralesGFR-NON AF VATICAN CITIZEN>60Normal>=60The [facility] HospitalComment on above:Performed By: #### CBC #### [facility] [address] [place] [address] Dr. Akua ThomasGlobulin (S) [Mass/Vol]2.9 g/dLNormalThe Parkwood HospitalComment on above:Performed By: #### CBC #### [facility] [address] [place] [address] Dr. Akua ThomasGlucose [Mass/Vol]97 mg/cSAhxfrj42-215IeuPremier Health Atrium Medical Center Comment on above:Performed By: #### CBC #### [facility] [address] [place] [address] Dr. Akua ThomasPotassium [Moles/Vol]4.5 mmol/LNormal3.5-5.1The [facility] Comment on above:Performed By: #### CBC #### [facility] [address] [address] [address] Akua ThomasProtein [Mass/Vol]6.9 g/dLNormal6.4-8.2The [facility] Comment on above:Performed By: #### CBC #### [facility] [address] [place] [address] Dr. Akua ThomasSodium [Moles/Vol]136 mmol/BMpbwds039-822Bjo [facility] Comment on above:Performed By: #### CBC #### [facility] [address] [address] [address] Akua ThomasUrea nitrogen [Mass/Vol]24.0 mg/dLCritically high7.0-18.0The Parkwood HospitalComment on above:Performed By: #### CBC #### [facility] [address] [address] [address] Akua Daily nitrogen/Creatinine [Mass ratio]32.0 mg/mgNormalThMercy Health Tiffin HospitalComment on above:Performed By: #### CBC #### [facility] [address] [place] [address] Dr. Akua ThomasTSHoanuj 41-08-6837DFN3.725 uIU/mLNormal0.358-3.740The Parkwood HospitalComment on above:Performed By: #### CBC #### [facility] [address] [place] [address] Dr. Akua ThomasURIC ACID SERUMon 88-72-6489Vdahe [Mass/Vol]2.2 mg/dLCritically low3.5-7.2The [facility] HospitalComment on above:Performed By: #### CMP, URIC, PHOS, MG, T7, CRP, TSH #### [facility] [address] [place] [address] Dr. Akua ThomasXR HAND LT MIN 3Von [id number] HAND LT MIN 3VEXAMINATION: XR WRIST MARÍA MIN 3 V, XR HAND LT MIN 3V HISTORY: Arthritis of hand COMPARISON: No relevant comparison available. FINDINGS: RIGHT FINDINGS: BONES: No acute fracture or dislocation. Severe degenerative changes at the first carpometacarpal joint with vvfw-jl-mwfl articulation and extensive heterotopic ossification SOFT TISSUES: [...] Electronically authenticated by: ALIYA KILLIAN Date: 2022-10-05 13:24NormChildren's Hospital for RehabilitationCT SINUSES WO CONon [id number] SINUSES WO CONEXAMINATION: CT SINUSES WO CON HISTORY: Seasonal allergic [...] mastoid sinuses are not included in the tcuiy-oy-igcx. IMPRESSION: There is a small mass seen [...] Electronically authenticated by: DONNELL RENTERIA Date: 2022-09-16 19:40NormChildren's Hospital for RehabilitationOCC BLD IMMUNO SCREENon 46-61-9961AYLENW BLOODNegativeNormal NEGATIVEThe Parkwood HospitalComment on above:Performed By: #### CBC #### [facility] [address] [address] [address] Akua Griffin, FREE AND TOTAL RATIOon 04-10-2022% Free PSA17.8 %NormalThe [facility] on above:Result Comment: The table below lists the probability [...] free PSA for any other population of men.Performed By: #### CBC #### [facility] [address] [place] [address] Dr. Akua ThomasProstate specific Ag [Mass/Vol]0.9 ng/mLNormal0.0-4.0The [facility] on above:Result Comment: [place] ECLIA methodology. . According to the [place] [employer], Serum PSA should decrease and [...] of the presence or absence of malignant disease.Performed By: #### CBC #### [facility] [address] [place] [address] Dr. Akua Griffin, Free0.16 ng/mLNormalN/AThe [facility] on above:Result Comment: [place] ECLIA methodology.Performed By: #### CBC #### [facility] [address] [place] [address] Dr. Akua Lemon4 LABCORPon [id number] [Mass/Vol]8.0 ug/dLNormal4.5-12.0The [facility] on above:Performed By: #### CBC #### [facility] [address] [place] [address] Dr. Akua HanC AUTO DIFFon [id number] #0.0 103/ulNormal0.0-0.1The Parkwood HospitalComment on above:Performed By: #### CBC #### [facility] [address] [place] [address] Dr. Akua ThomasBasophils/100 WBC (Bld)0.2 %Normal0.2-2.0The [facility] Comment on above:Performed By: #### CBC #### [facility] [address] [place] [address] Dr. Akua Panda #0.2 103/ulNormal0.0-0.7The [facility] HospitalComment on above: Performed By: #### CBC #### [facility] [address] [place] [address] Dr. Akua Moralesosinophils/100 WBC (Bld)2.2 %Normal0.9-7.0[facility] Comment on above:Performed By: #### CBC #### [facility] [address] [place] [address] Dr. Akua Moralesrythrocyte distribution width (RBC) [Ratio]14.2 %Dhritp69.0-15.0 The Parkwood HospitalComment on above:Performed By: #### CBC #### [facility] [address] [place] [address] Dr. Akua ThomasHematocrit (Bld) [Volume fraction]43.3 %Alhuxn83.0-54.0The [facility] HospitalComment on above:Performed By: #### CBC #### [facility] [address] [place] [address] Dr. Akua ThomasHemoglobin (Bld) [Mass/Vol]14.2 g/uDQqpomn30.0-18.0The [facility] HospitalComment on above:Performed By: #### CBC #### [facility] [address] [place] [address] Dr. Akua Guerra #0.02 10e3/ulNormal0.00-0.03The [facility] HospitalComment on above:Performed By: #### CBC #### [facility] [address] [address] [address] Akua Guerra %0.2 %Normal0.0-0.5The [facility] HospitalComment on above: Performed By: #### CBC #### [facility] [address] [place] [address] Dr. Akua Martínez #1.8 103/ulNormal1.2-3.8The [facility] HospitalComment on above:Performed By: #### CBC #### [facility] [address] [place] [address] Dr. Akua Elizabethhocytes/100 WBC (Bld)20.6 %Owrpgi96.5-60.0The [facility] HospitalComment on above:Performed By: #### CBC #### [facility] [address] [place] [address] Dr. Akua SorianoUAL DIFF REQNONormalThe Parkwood HospitalComment on above: Performed By: #### CBC #### [facility] [address] [place] [address] Dr. Akua Bhatia (RBC) [Entitic mass]29.8 nbKniqol45.9-34.0The [facility] HospitalComment on above:Performed By: #### CBC #### [facility] [address] [place] [address] Dr. Akua Bhatia (RBC) [Mass/Vol]32.8 g/oWXumddu15.9-35.2The [facility] HospitalComment on above:Performed By: #### CBC #### [facility] [address] [place] [address] Dr. Akua Bhatia (RBC) [Entitic vol]91.0 kUGnkqqv86.0-94.0The [facility] HospitalComment on above:Performed By: #### CBC #### [facility] [address] [place] [address] Dr. Akua Garland #0.7 103/ulNormal0.3-0.8The [facility] HospitalComment on above:Performed By: #### CBC #### [facility] [address] [place] [address] Dr. Akua Healyocytes/100 WBC (Bld)8.2 %Normal1.7-12.0The [facility] Comment on above:Performed By: #### CBC #### [facility] [address] [place] [address] Dr. Akua MesserUT #6.1 103/ulNormal1.4-6.5The [facility] HospitalComment on above:Performed By: #### CBC #### [facility] [address] [place] [address] Dr. Akua Messerutrophils/100 WBC (Bld)68.6 %Qjboqx09.0-75.0The [facility] HospitalComment on above:Performed By: #### CBC #### [facility] [address] [place] [address] Dr. Akua Ramoslet mean volume (Bld) [Entitic vol]10.1 fLNormal9.5-13.5The [facility] HospitalComment on above:Performed By: #### CBC #### [facility] [address] [place] [address] Dr. Akua ThomasPLT231 103/edLuqojn388-397Xuh [facility] HospitalComment on above: Performed By: #### CBC #### [facility] [address] [place] [address] Dr. Akua ThomasRBC4.76 106/ulNormal4.70-6.10The [facility] HospitalComment on above:Performed By: #### CBC #### [facility] [address] [place] [address] Dr. Akua ThomasWBC8.9 103/ulNormal4.0-11.0The [facility] HospitalComment on above: Performed By: #### CBC #### [facility] [address] [place] [address] Dr. Akua Peters T3on 91-52-3602PTYO T32.53 pg/mlLNormal2.18-3.98The [facility] HospitalComment on above:Performed By: #### RF #### [facility] [address] [place] [address] Dr. Akua ThomsaGLYCOHEMOGLOBIN A1Con [id number] RECOMMENDATIONSEE BELOWSt. Elizabeth HospitalComforest health medical center on above:Result Comment: ADA RECOMMENDED LIMIT 4.0 - 6.0 ADA THERAPEUTIC TARGET < 7.0 ACTION SUGGESTED > 7.0Performed By: #### A1C #### [facility] [address] [place] [address] Dr. Akua ThomasGlucose [Mass/Vol]123 mg/dLNoGenesis HospitalComment on above:Performed By: #### A1C #### [facility] [address] [place] [address] Dr. Akua ThomasHbA1c (Bld) [Mass fraction]5.9 %Normal4.5-6.2Prem[facility] Atrium Medical CenterComment on above:Performed By: #### A1C #### [facility] [address] [place] [address] Dr. Akua ThomasLIPID PROFILEon [id number]-HDL RATIO NORMSEE [facility] LimaComforest health medical center on above:Result Comment: 3.3 - 4.4 LOW RISK 4.4 - 7.1 AVERAGE RISK 7.1 - 11.0 MODERATE RISK >11.0 HIGH RISKPerformed By: #### RF #### [facility] [address] [place] [address] Dr. Akua ThomasCholesterol [Mass/Vol]154 mg/dLNormal<=200The [facility] Comment on above:Performed By: #### RF #### [facility] [address] [place] [address] Dr. Akua ThomasCholesterol in HDL [Mass/Vol]71 mg/dLCritically vxig77-22Nla [facility] HospitalComforest [facility] center on above:Performed By: #### RF #### [facility] [address] [place] [address] Dr. Akua ThomasCholesterol in LDL [Mass/Vol]74.8 mg/dLNoGenesis HospitalComforest health medical center on above:Performed By: #### RF #### [facility] [address] [place] [address] Dr. Akua ThomasCholesterol.total/Cholesterol in HDL [Mass ratio]2.2 {ratio} NormalThe Parkwood HospitalComment on above:Performed By: #### RF #### [facility] [address] [place] [address] Dr. Akua Krishnan NORMAL> or = 60 mg/dl - LOW CARDIOVASCULAR RISK <40 mg/dl - HIGH CARDIOVASCULAR RISKMarion HospitalComment on above:Performed By: #### RF #### [facility] [address] [place] [address] Dr. Akua ThomasLDL CALC NORMALSEE BELOWMarion HospitalComment on above:Result Comment: <100 mg/dl OPTIMAL 100 - 129 mg/dl NEAR OR ABOVE OPTIMAL 130 - 159 mg/dl BORDERLINE HIGH 160 - 189 mg/dl HIGH >190 mg/dl VERY HIGH Performed By: #### RF #### [facility] [address] [place] [address] Dr. Akua ThomasTriglyceride [Mass/Vol]41 mg/dLNormal<=150[facility] Comment on above:Performed By: #### RF #### [facility] [address] [place] [address] Dr. Akua ThomasVLDL CALC8.2 mg/dLNormChildren's Hospital for RehabilitationComment on above: Performed By: #### RF #### [facility] [address] [place] [address] Dr. Akua ThomasPROF 14(COMP METB)on 83-07-6549Qhmsznx [Mass/Vol]3.8 g/dLNormal 3.4-5.0[facility]rium Medical CenterComment on above:Performed By: #### RF #### [facility] [address] [place] [address] Dr. Akua ThomasAlbumin/Globulin [Mass ratio]1.4 {ratio}NormalThe Parkwood HospitalComment on above:Performed By: #### RF #### [facility] [address] [place] [address] Dr. Akua Browning [Catalytic activity/Vol]127 U/LCritically argz38-801Yuo [facility] HospitalComment on above:Performed By: #### RF #### [facility] [address] [place] [address] Dr. Akua Jaramillo [Catalytic activity/Vol]45 U/DCvhzxf53-04Oox [facility] HospitalComment on above:Performed By: #### RF #### [facility] [address] [place] [address] Dr. Akua Staley gap [Moles/Vol]12.6 mmol/LNormalThe [facility] Comment on above:Performed By: #### RF #### [facility] [address] [place] [address] Dr. Akua ThomasAST [Catalytic activity/Vol]28 U/STdftag98-52Ciu [facility] HospitalComment on above:Performed By: #### RF #### [facility] [address] [place] [address] Dr. Akua ThomasBilirubin [Mass/Vol]0.8 mg/dLNormal0.2-1.0[facility] Comment on above:Performed By: #### RF #### [facility] [address] [place] [address] Dr. Akua ThomasCalcium [Mass/Vol]8.7 mg/dLNormal8.5-10.1[facility] Comment on above:Performed By: #### RF #### [facility] [address] [place] [address] Dr. Akua ThomasChloride [Moles/Vol]102 mmol/VBuumgj52-628Goz [facility] Comment on above:Performed By: #### RF #### [facility] [address] [place] [address] Dr. Akua ThomasCO2 [Moles/Vol]28.1 mmol/AGjhdwq54.0-32.0The [facility] Comment on above:Performed By: #### RF #### [facility] [address] [place] [address] Dr. Akua ThomasCreatinine [Mass/Vol]0.77 mg/dLNormal0.70-1.30The [facility] HospitalComment on above:Performed By: #### RF #### [facility] [address] [address] [address] Akua MoralesGFR-AF VATICAN CITIZEN>60Normal>=60The [facility] HospitalComment on above:Performed By: #### RF #### [facility] [address] [address] [address] Akua MoralesGFR-NON AF VATICAN CITIZEN>60Normal>=60The [facility] HospitalComment on above:Performed By: #### RF #### [facility] [address] [address] [address] Akua ThomasGlobulin (S) [Mass/Vol]2.7 g/dLNormalThe [facility] HospitalComment on above:Performed By: #### RF #### [facility] [address] [place] [address] Dr. Akua ThomasGlucose [Mass/Vol]105 mg/oJMfbmbw03-598Apo [facility] Comment on above:Performed By: #### RF #### [facility] [address] [address] [address] Akua ThomasPotassium [Moles/Vol]3.7 mmol/LNormal3.5-5.1The [facility] Comment on above:Performed By: #### RF #### [facility] [address] [address] [address] Akua ThomasProtein [Mass/Vol]6.5 g/dLNormal6.4-8.2The [facility] Comment on above:Performed By: #### RF #### [facility] [address] [address] [address] Akua ThomasSodium [Moles/Vol]139 mmol/ZXsaznz335-794Kgw [facility] Comment on above:Performed By: #### RF #### [facility] [address] [address] [address] Akua ThomasUrea nitrogen [Mass/Vol]17.0 mg/dLNormal7.0-18.0The [facility] HospitalComment on above:Performed By: #### RF #### [facility] [address] [id number] Akua ThomasUrea nitrogen/Creatinine [Mass ratio]22.1 mg/mgNormalThe [facility] HospitalComment on above:Performed By: #### RF #### [facility] [address] [place], [place] [address] Dr. Akua ThomasTSHoanuj 41-54-9607COH0.547 uIU/mLNormal0.358-3.740The [facility] HospitalComment on above:Performed By: #### RF #### [facility] [id number] kAua Thomas Vital Signs Date TimeVital SignValuePerforming BdigsdhpfMclkoyvf25-59-4532 10:16-0400Body wniaea058.3 cmJoycelyn Pendleton MD Work Phone: [phone]-[facility] CenterEjhcgibgzy87-36-1045 10:16-0400Body mass index (BMI) [Ratio]23.01 kg/i0Kwffeicassandra Pendleton MD Work Phone: [phone] CenterDbuotdewpz53-21-8343 10:16-0400Body ofrkuc13.84 kgJoycelyn Pendleton MD Work Phone: [phone]-[facility] CenterFnlivlkjhu29-71-9525 10:16-0400Diastolic blood otheiehg94 mm[Hg]Joycelyn Pendleton MD Work Phone: [phone]-[facility] CenterMrpcirklia20-44-8293 10:16-0400Heart rate75 /min Joycelyn Pendleton MD Work Phone: [facility] CenterRkcidredll61-68-7822 10:16-0400Systolic blood kyznovko178 mm[Hg]Joycelyn Pendleton MD Work Phone: [facility] CenterLubemfjafv15-50-1673 13:51-0500Blood Pressure LocationLuis A CASTILLO [phone]-YorfeWooster [facility] [place] 10-10-2024 13:51-0500Diastolic blood hfepahem22 mm[Hg]Luis A CASTILLO [phone]-YpvktMetrohealth [facility] [place] 10-10-2024 13:51-0500Heart rate70 /minMichael NILL [phone]-DnkipMetrohealth [facility] [place] 10-10-2024 13:51-0500Respiratory rate16 /minMichael NILL [phone]-QmgmgMet[facility] [place] 10-10-2024 13:51-0500Systolic blood qlcesoaw954 mm[Hg]Luis A NILL [phone]-HjmowMetrohealth [facility] [place] Encounters Encounter DateEncounter TypeCare ProviderFacilityStart: 06-05-2025 End: 47-13-9185Iivvbfcehcgo consultation with patientPhillip Purvis MD Work Phone: uh [facility] Psychiatric CenterComment on above:Benign neoplasm of frontal sinus (Primary Dx)Start: 06-05-2025 End: 90-44-4156rtzbxgfudcUKRIOEP D RODRIGUEZSelect [facility] Start: 05-16-2025 End: 20-87-4687Fvilsaqol encounterHicassandra Pendleton MD Work Phone: noms [place] OtolaryngologyComment on above:Hoarseness Start: 04-25-2025 End: 63-84-2113Kxgxby flowsheetHicassandra Pendleton MD Work Phone: NOP[facility] [place] OtolaryngologyStart: 04-25-2025 End: 90-96-6787Tevudb flowsParvin Pendleton MD Work Phone: noms [place] OtolaryngologyStart: 04-25-2025 End: 64-53-3154Ktljir outpatient visit 25 minutesHicassandra Pendleton MD Work Phone: noms [place] OtolaryngologyComment on above:Chronic laryngitis (Primary Dx); Hoarse; Chronic sinusitis, unspecified location; LPRD (laryngopharyngeal reflux disease)Start: 04-25-2025 End: 95-96-3874imesvchiupGLKWGS H TIMMISNot AvailableStart: 10-10-2024 End: 04-32-3035emznrvqjyiFyucyza R NILLFacility:GS BellevueStart: 10-10-2024 End: 76-82-8451Kaagztk encounter procedureMichael R NILL [phone]-AekedWooster [facility] Hospital General Surgery Bill Start: 05-23-2024 End: 35-68-6523Ejvlxu outpatient visit 15 minutesPhillip Purvis MD Work Phone: uh [facility] CenterComment on above:Benign neoplasm of frontal sinus (Primary Dx)Start: 05-03-2024 End: 63-32-9790Lxvsnwmca encounterMelissa Araceli MANOMS SWS DERMComment on above: Med RefillStart: 04-13-2024 End: 38-29-3980Nlrisk outpatient visit 15 minutesPhillip Purvis MD Work Phone: uh [facility] CenterComment on above:Benign neoplasm of frontal sinus (Primary Dx)Start: 04-04-2024 End: 26-59-7798Wbmyfs flowsVickie King MD Work Phone: noms SWS DERMStart: 04-04-2024 End: 64-48-1160Phtvtt Sarah King MD Work Phone: noms SWS DERMStart: 04-04-2024 End: 24-45-1276Drcrcz outpatient visit 15 minutesEmclay King MD Work Phone: noms SWS DERMComment on above:Other atopic dermatitis (Primary Dx)Start: 75-51-1879Pucggxp encounter procedureReferring Provider VwiqrxiLF-Psedmqtrbcaesn-Ngqgpri [facility] [address] Work Phone: Start: 30-86-1190wfzavlzaaaAvSriram Purvis Facility:9448Start: 17-58-7073Vmrdal outpatient visit 15 minutesReferring Provider UymgqjfUT-Uuuatntszskvov-Mjinmgdr Work Phone: Start: 38-00-9791Pjdlhod encounter procedureReferring Provider UhcrfboHO-Wwybrmbzhdnwpw-Dghxrttj Work Phone: Start: 54-06-5818xjldxqkgzzTi. Phillip Purvis Facility:[id number]: 15-41-0056Dtqfpk outpatient new 45 minutesReferring Provider PhsrnjnRE-Akbeddxaxdmwgt-Xxljdej [facility] [address] Work Phone: Start: 38-89-9596Vajmyhh encounter procedureReferring Provider KjjrbojAW-Pxfxuceqyfkzxf-Idziwmvc Work Phone: Start: 39-45-1015sakntstbpzSn. Phillip Purvis Facility:9479Start: 10-15-2022 End: 99-95-3319ckmzaackhmDBXF KLINEFELTWilson Memorial Hospitaltart: 10-15-2022 End: 26-08-6971Asiovqbxec hospital visit by Rigo Griffith [address] RadiologyComment on above:Pain in both handsStart: 10-05-2022 End: 81-87-8042rksozhbiydUF ADAMA HOY .Facility:P4Jelyr: 67-06-6523lmaqslnpgv KRISTOFER PERRYFacility:S3Ybupt: 09-16-2022 End: 48-13-5290wmuehwlqnsRJ ADAMA HOY .Facility:F8Peoby: 08-19-2022 End: 36-02-6348Swcucst encounter procedureJENNIFER E MASSIEL [facility] start: 05-01-2022 End: 69-34-8773tdkoamdadyRB ADAMA HOY .Facility:V2Rhbdk: 04-09-2022 End: 73-00-2629ehvnenpdneDM ADAMA HOY .Facility:C2Ziwia: 07-12-2017 End: 10-71-6323WpxiltpvmwQIWOUML PHYSICIANFacility:[facility] Procedures DateProcedureProcedure DetailPerforming ClinicianStart: 10-15-2022 End: 41-73-9436Dwdrd hand minimum 3 Chastity Gooden MD Work Phone: Start: 75-22-2319CkdvkpsfucqHfpgmzq NILL Start: 10-05-3122VxajergbepomkksdvrppnylkcjSawdwcd NILL ColonoscopyJENNIFER MASSIEL Shoulder region structure (body structure)KRISTOFER RANKIN Plan of Treatment DateCare ActivityDetailAuthorStart: 97-95-4618CVmC/Tdap/Td Vaccines (2 - Td or Tdap)DTaP/Tdap/Td Vaccines (2 - Td or Tdap)[facility] Start: 06-05-2026 End: 17-54-3151Wepdkhluougc consultation with mypmbdt9706/05/2026 4:30 PM EDT Telemedicine [facility] [address] [place] [address] [place], [place] [phone] Phillip Purvis MD [address] [place] [address] [facility] Start: 06-06-2025 End: 22-92-5062Fhsruig encounter uufgpgdbf32/29/2025 10:50 AM EDT Office Visit [facility] [address] [place] [phone] Nuha King MD [address] [place] [address] [facility]ermatologyStart: 04-28-2025 Medicare Annual Wellness VisitMedicare Annual Wellness Visit (AWV)[facility]Start: 04-25-2025 End: 41-69-8339Gehzvwm encounter mqovsxcld53/17/2025 10:30 AM EDT Office Visit [facility] [address] [facility] [address] [place] [address] Joycelyn Pendleton MD [address] [facility] [address] [place] [address] ArrivedNOMS Carlee OtolaryngologyComment on above:ArrivedStart: 27-41-2376SXHTJ-19 Vaccine ( season)COVID-19 Vaccine ()[facility]Start: 04-09-2025 Influenza vaccinationInfluenza Vaccine (#1)[facility] HealthcareStart: 04-04-2025 End: 24-66-6473Gopvmhp encounter olqvqokbi88/27/2025 10:45 AM EDT Office Visit [facility] [address] [place] [phone] Nuha King MD [address] [place] [address] [facility] D[facility]MStart: 04-12-4592Caejiqitg vaccination Influenza Vaccine (#1)[facility]: 06-22-2024 End: 17-95-1461Rjeehxb encounter joqlfivee19/14/2024 11:00 AM EST Office Visit [address] [address] [place] [address] [place], [place] [address] [facility]: 04-13-2024 End: 13-20-5116YX Sinuses WO contrastCT sinuss wo IV contrast volumetric surgical planning Imaging Routine Benign neoplasm of frontal sinus Expected: 04/13/2024, Expires: 04/13/2025[facility] Service Area Work Phone: Comment on above:Expected: 04/13/2024, Expires: 04/13/2025Start: 50-89-8602TMBWX-19 Vaccine (4 - 2023-24 season)COVID-19 Vaccine ( season)[facility]: 69-35-6620PGLRH-19 Vaccine ( season)COVID-19 Vaccine ( season)[facility]: 47-71-9598Awjzojsui vaccinationInfluenza Vaccine (#1)[facility]: 04-04-2024 End: 73-20-8362Itunoup encounter yazctmbfv45/27/2024 11:00 AM EDT Office Visit [facility] [address] [place] [address] Nuha King MD [address] [place] [address] ArrivedNOMS SWS DERMComment on above:ArrivedStart: 67-97-9582WFL High Risk: (Elderly (60+) or Population) (1 - 1-dose 75+ series)RSV High Risk: (Elderly (60+) or Population) (1 - 1-dose 75+ series)[facility]: 86-89-7065EXCTSUKNYI, Provider: Phillip Purvis, Status: Pen, Time: 1:00 PMVIRNICOLÁS, Provider: Phillip Purvis, Status: Pen, Time: 1:00 ZMQE-Rvxlbbmoppqsff-Cyywbrak Work Phone: Start: 54-60-8621Ydjsok Wellness Visit (AWV)Annual Wellness Visit (AWV)[facility]: 58-39-6866BSIJQ-19 Vaccine (4 - Booster for Moderna series)COVID-19 Vaccine (4 - Booster for Moderna series) [facility]: 42-32-8610Cvehgoavgees 65+ years Vaccine (2 - PPSV23 if available, else PCV20)Pneumococcal 65+ years Vaccine (2 - PPSV23 if available, else PCV20)[facility]: 80-87-1332Brymizuyqbqk Vaccine: 65+ Years (2 of 2 - PPSV23 or PCV20)Pneumococcal Vaccine: 65+ Years (2 of 2 - PPSV23 or PCV20)[facility]: 2013 Abdominal aortic aneurysm screeningBallad Health: 76-66-4991OVT patients and/or patients aged 60+ years (1 - 1-dose 60+ series)RSV patients and/or patients aged 60+ years (1 - 1-dose 60+ series) [facility]: 76-09-6577Lbcunurl vaccine (1 of 2) Shingles vaccine (1 of 2)[facility]: 99-23-9744Ulldnd Vaccines (1 of 2)Zoster Vaccines (1 of 2)[facility]: 16-44-0710Zlczaqrxj for malignant neoplasm of [facility]Children[facility]: 11-48-7027UKeB/Tdap/Td Vaccines (1 - Tdap)DTaP/Tdap/Td Vaccines (1 - Tdap)[facility]: 25-26-6059PAyW/Tdap/Td vaccine (1 - Tdap)DTaP/Tdap/Td vaccine (1 - Tdap)[facility]: 1966 Hepatitis C screeningBall[facility] Health: 45-58-6418Cxteydvxtr Screen Depression ScreenBallad Health: 40-58-7997Mvxjz panelLipidsBallad Health: 18-97-0799Dcsgha wellness visitMedicare Initial Physical (IPPE)[facility]: 35-47-9300Sdsqx panel Lipid PanelUnTrumbull Regional Medical Center: 01-22-1949Medicare Annual Wellness VisitMedicare Annual Wellness Visit (AWV)[facility]: 98-77-5631Joxzewhjl for malignant neoplasm of colonUnMansfield Hospital Immunizations Immunization DateImmunizationNotesCare YuzcjtmqIwkxgmca36-00-5246wjuasickq virus vaccine, unspecified formulationJoycelyn Pendleton MD Work Phone: NOMineral [facility] Medical CenterXxufodtbnl20-39-1276qfnqpodbe virus vaccine, unspecified formulationJENNIFER MASSIEL [facility]11-29-2021SARS-CoV-2 (COVID-19) mRNA-1273 vaccineJENNIFER MASSIEL [facility]03-27-2021SARS-CoV-2 (COVID-19) mRNA-1273 vaccineJENNIFER MASSIEL [facility] on above:Result Comment: 2022-08-19: FXL3889-86-0052BRCN-SlD-6 (COVID-19) mRNA-1273 vaccineJENNIFER MASSIEL [facility] on above:Result Comment: 2022-08-19: IYY1996-30-4495blnryabjz virus vaccine, unspecified formulationJENNIFER MASSIEL [facility]10-09-2019influenza virus vaccine, unspecified formulationJENNIFER MASSIEL General Surgery Abqqbwra35-08-0524ornqhnewd virus vaccine, unspecified formulationJENNIFER MASSIEL [facility]11-16-2017pneumococcal conjugate vaccine, 13 valentJENNIFER MASSIEL [facility] HospitalNEGATED: Highlighted row has not occurred!04-88-0868eulnljqxq virus vaccine, unspecified formulationJENNIFER MASSIEL [phone]-XgnzfWooster Community Hospital General Surgery Roxana Payers DatePayer CategoryPayerPolicy ID2023MedicaidAETNA MEDICARE ADVANTAGE [id number] 2023Medicare [id number] 2023Medicare (Managed Care)[place] [id number] [id number] 16-38-5379Qfro-[id number] 2.0.1.835456.3.579.2.593 [id number] 2.0.1.297144.3.57[id number] 2.0.1.468582.3.57[id number] 2.0.1.907555.3.57[id number] 2.840.1.535665.3.57[id number] 2.840.1.887489.3.57[id number] 2.16.840.1.805174.3.57[id number] 2.16.840.1.421266.3.57[id number] 2.16.840.1.094146.3.57[id number] 2.16.840.1.034053.3.57[id number] 2.16.840.1.325005.3.57[id number] 2.16.840.1.599214.3.57[id number] 2.16.840.1.424682.3.57[id number] 2.16.840.1.478014.3.579.2.1244Unknown Social History DateTypeDetailFacilityStart: 08-19-2022 End: 59-91-6687Bgfsrif smoking statusNever smoked tobacco (finding)[facility] HospitalTobacc smoking statusNever [facility] Jacksontart: 05-23-2024 End: 75-42-6255Xya Assigned At BirthKnox Community Hospitaltart: 10-15-2022 End: 13-77-1297Fmpwyjb smoking status NHISEx-smokerBON [facility] Phone: End: 63-53-9411Lzhoqgz of tobacco useCurrent smokerHONORHEALTH [facility] Phone: End: 09-16-0211Eqpgjbt of tobacco useCigarette SmokerCrowdGather Phone: start: 10-15-2022 End: 28-68-8965Ltrhvsv use and exposureSmokeless tobacco non-userHONORHEALTH [facility]SD[facility] Phone: start: 10-15-2022 End: 73-07-7218Kduscjp intakeLifetime non-drinker (finding)[facility] Phone: start: 88-68-8323Jkzrmwm CommentOnly smoked for about a yearHONORHEALTH [facility] Phone: start: 22-70-1356Fyy Assigned At BirthNot on fileHONORHEALTH [facility]SDALE [facility] Phone: start: 05-23-2024 End: 96-76-1420Gwwvman of Social functionNOMS HealthcareStart: 04-03-2024 End: 24-39-6546Shqmrwey to SARS-CoV-2 (event)Unable to assessUnMansfield Hospital Work Phone: Tobacco smoking status NHISTobacco smoking consumption unknownUnMansfield Hospital Work Phone: Start: 97-38-2230Lxktiew Commentcaffeine 1-2 cups/day NOMS HealthcareHistory of tobacco usePassive smokerUnMansfield Hospital Work Phone: Start: 47-61-9900HxsNlfo (finding)[facility] Functional Status YqopPwjsgoxxlsMolwbjQvsuquow29-47-3587Vrlcxbbylo statusUnMansfield Hospital Work Phone: 1(523) 704-800810178031-01-2668NatbblbfgiMansfield Hospital Work Phone: 1(816) 213-605003602633-82-2551Moxeaugriu StatusN/AFisherUniversity Hospitals Health System General Surgery Guplndyl26-90-0359Qxqiywuvjr StatusN/AExec[facility] Clinical Notes 08-19-2022 to 06-05-2025 Note Date & RlefDuzgNfphrdbf28-70-9229 History of Present illness Narrative* Phillip Purvis MD - 06/05/2025 4:15 PM EDT Images from the original note were not included. Sinus & Skull Base Surgery Virtual or Telephone Consent While technically available, the patient was unable or unwilling to consent to connect via audio/video telehealth technology; therefore, I performed this visit using a real-time audio only connectionbetween Kedar Núñez & Phillip Purvis MD. Verbal consent was requested and obtained from Kedar Núñez on this date, 06/05/25, for a telehealth visit, and the patient's location was confirmed at the time of the visit. Chief Complaint: 1. Frontal sinus lesion; favor benign pathology 2. Intermittent nasal airway obstruction 3. Throat clearing, dysphonia 4. Dermatological issues on Dupixent 5. Asthma, allergic rhinitis with history of immunotherapy History Of Present Illness: Kedar Núñez presents since last being seen 05/23/2024. He obtained a noncontrast CT sinus May 02, 2025. We reviewed this together today. Active Problems: Problem List[1] Past Medical History: He has no past medical history on file. Surgical History: He has no past surgical history on file. Family History: Family History[2] Social History: He reports that he quit smoking about 51 years ago. His smoking use included cigarettes. He has never used smokeless tobacco. No history on file for alcohol use and drug use. Allergies: Patient has no known allergies. Current Meds: Current Medications[3] Vitals: Visit Vitals Smoking Status Former Physical Exam: Virtual visit. Results/Data: I personally reviewed the CT sinus with contrast dated 05/02/2025 with the patient today in clinic. 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 No acute process. Provider Impressions: 1. Frontal sinus lesion; favor benign pathology 2. Intermittent nasal airway obstruction 3. Throat clearing, dysphonia 4. Dermatological issues on Dupixent 5. Asthma, allergic rhinitis with history of immunotherapy Discussion: Kedar Núñez and I discussed the frontal sinus lesion. Given its stability in size he was comfortable with continued observation and I recommended repeat assessment in 12 months. I would not recommend repeat imaging in this timeframe. All questions were answered. Time of evaluation: 12 minutes Scribe and Provider Attestation By signing my name below, I, Cuba Fransisco, Scribe, attest that this documentation has been prepared under the direction and in the presence of Phillip Purvis MD. All medical record entries made by the scribe were at the direction of Phillip Purvis MD or personally dictated by Phillip Purvis MD. I, Phillip Purvis MD, have reviewed the chart and agree that the record accurately reflects my personal performance of the history, physical exam, discussion and plan. Signature: Phillip Purvis MD [1] There is no problem list on file for this patient. [2] No family history on file. [3] Current Outpatient Medications: cetirizine (ZyrTEC) 10 mg tablet, Take 1 tablet (10 mg) by mouth once daily., Disp: , Rfl: dupilumab (Dupixent Pen) 300 mg/2 mL pen injector, Inject under the skin., Disp: , Rfl: irbesartan (Avapro) 300 mg tablet, Take 1 tablet (300 mg) by mouth once daily., Disp: , Rfl: montelukast (Singulair) 10 mg tablet, Take 1 tablet (10 mg) by mouth once daily., Disp: , Rfl: multivitamin tablet, Take 1 tablet by mouth once daily., Disp: , Rfl: simvastatin (Zocor) 40 mg tablet, Take 1 tablet (40 mg) by mouth once daily., Disp: , Rfl: [facility] Work Phone: [phone] 717-203110-08-2025 Telephone encounter Note* Telephone Encounter - Elis Pendleton - 05/16/2025 9:33 AM EDT Pt called in to say he is still hoarse, he finished the antibiotic but is still taking the other pill that was prescribed. He wants to know if there is anything else he can do or take. [facility] CenterBaqhdwfmaz37-41-6494 Miscellaneous Notes* Telephone Encounter - Elis Pendleton - 05/16/2025 9:33 AM EDT Pt called in to say he is still hoarse, he finished the antibiotic but is still taking the other pill that was prescribed. He wants to know if there is anything else he can do or take. documented in this encounterMissouri Rehabilitation CenterKxclvjahvh87-88-8879 History of Present illness Narrative* Joycelyn Pendleton MD - 04/25/2025 10:30 AM EDT Images from the original note were not included. Subjective Patient ID: Kedar Núñez is a 74 y.o. male who presents for Throat Problem (Hoarseness) C/O sinonasal congestion and hoarseness 6-7 mo. Tx with zyrtec. No throat or ear pain. Takes Xumgyf57wh at 6, but does not eat breakfast. 2 years ago was referred to Dr Purvis for eval of a possible frontal sinus neoplasm. Was gettingCTs to follow. No change noted. Getting set [...] ulceration or mass. Normal bilateral true vocal foldmotion is present. Bilateral piriform sinuses and base of tongue appear without lesion Assessment/Plan Diagnoses and all orders for this visit: Chronic laryngitis Hoarse Chronic sinusitis, unspecified location Cefdinir for chronic sinusitis. Hoarseness likely due to LPRD. Modify reflux regimen with pepcidand reflux precautions documented in this encounterMissouri Rehabilitation CenterWapbppaowr63-36-6561 NoteGeneral Surgery Office/Clinic Note Chief Complaint consultation for lipoma HPI [...] swallowing difficulties, no hearing loss, no ear infection(s),no nose bleeds. Cardiovascular: normal blood pressure, no [...] of spine, appears attached to vertebra; nontender, nooverlying skin changes, nonmobile. Assessment/Plan 1. Mass of subcutaneous tissue of back (R22.2: Localized swelling, mass and lump, trunk) possible musculoskeletal, on a cyst, not consistent with lipoma on exam; will obtain US of area forinitial evaluation, will call patient with results. Ordered: E&M of New Patient Low 30-44 Min 13609 US Chest or Upper Back, Limited Follow-up [...] mg Cap-EC, Oral, Daily Flonase 0.05 mg/inh [place], 1 spray(s), Nasal, Daily irbesartan 300 mg [...] inactivated 05/25/2018 Recorded pneumococcal 13-valent vaccine 06/24/2017 RecordedSum[facility] Comment on above:Result Comment: Electronically Signed By: JONATHAN SOLIZ, Luis A Livingston\Date and Time Signed: 10/10/24 14:50 AFI06-18-3413 History of Present illness Narrative* Phillip Purvis MD - 05/23/2024 4:30 PM EDT Images from the original note were not included. Sinus & Skull Base Surgery Virtual visit consent: An interactive audio and video telecommunication system which permits real time communications between the patient (at the originating site) and provider (at the distant site) was utilized to providethis telehealth service. Verbal consent was requested and [...] 19, 2023, and September 16, 2022. The lesionof concern within his frontal sinuses has remained [...] Signature: Phillip Purvis MD documented in this encounterEast [facility] Hospital Work Phone: [phone]) 935-519709-25-2024 Telephone encounter Note* Telephone Encounter - Nunu CharlesFAITH - 05/03/2024 9:29 AM EDT Patient called requesting a refill of: Triamcinolone 0.1% cream Diagnosis: Atopic Dermatitis Prescribing provider: Nuha King MD Last visit: 04/04/2024 Next visit: 04/04/25 Action: prescription was sent to patient's pharmacy [facility] with enough refills until next visit. [facility] CenterQfvemakfic28-43-1032 Miscellaneous Notes* Telephone Encounter - Nunu Charles MA - 05/03/2024 9:29 AM EDT Patient called requesting a refill of: Triamcinolone 0.1% cream Diagnosis: Atopic Dermatitis Prescribing provider: Nuha King MD Last visit: 04/04/2024 Next visit: 04/04/25 Action: prescription was sent to patient's pharmacy [facility] with enough refills until next visit. documented in this encounterMissouri Rehabilitation CenterGzfdczyrli38-41-3426 History of Present illness Narrative* Phillip Purvis MD - 04/13/2024 11:30 AM EDT An interactive audio and video telecommunication system which permits real time communications between the patient (at the originating site) and provider (at the distant site) was utilized to providethis telehealth service. Verbal consent was requested and [...] March 19, 2023. Each CT demonstrates a lesioncentrally abutting the anterior table within his frontal [...] imaging. We discussed the rationale for this andhe was comfortable moving forward with aCT sinus. This would be 12 months from his last imaging and about 18 months from his original CT. If the lesion is stable I think observation would make sense moving forward. He was comfortable with this and all questions were answered. He obtains his imaginglocally so I will ask my nurse to reach out to the patient to determine the best way to get the imaging uploaded into our system. All questions were answered. I will see him for a virtual visit after we have access to the imaging to review those results and compare his imaging to his previous studies. Signature: Phillip Purvis MD. documented in this [facility] Work Phone: 1(555) 754-704808-27-2024 History of Present illness Narrative* Nuha King MD - 04/04/2024 11:00 AM EDT Images from the original note were not [...] Next Visit: 1 year documented in this encounterMissouri Rehabilitation CenterJffiowxvrv98-29-5487 Chief complaint Narrative - Reported* An interactive audio and video telecommunication system which permits real time communications between the patient (at the originating site) and provider (at the distant site) was utilized to providethis telehealth service. * Verbal consent was requested and obtained from KEDAR NÚÑEZ on this date, 04/13/2023 04:00 PM , for a telehealth visit. * 1. Frontal sinus lesion; favor benign pathology * 2. Rhinorrhea * 3. Throat clearing, coughing, dysphonia, dysphagia * 4. Dermatological issues on Dupixent * 5. Asthma, allergic rhinitis with history of immunotherapy * 6. Reflux on proton pump inhibitor ON-[facility]ieazktntznvyd-[facility]ewczbTr[facility] Work Phone: 1(738) 248-818907-26-2023 Chief complaint Narrative - Reported* An interactive audio and video telecommunication system which permits real time communications between the patient (at the originating site) and provider (at the distant site) was utilized to providethis telehealth service. * Verbal consent was requested and obtained from KEDAR NÚÑEZ on this date, 03/03/2023 03:45 PM , for a telehealth visit. * 1. Frontal sinus lesion; favor benign pathology * 2. Rhinorrhea * 3. Throat clearing, coughing, dysphonia, dysphagia * 4. Dermatological issues on Dupixent * 5. Asthma, allergic rhinitis with history of immunotherapy * 6. Reflux on proton pump inhibitor NI-Fscdzwtpzkqgsa-Fkgbyocf Work Phone: 1(461) 381-872503-29-2023 Chief complaint Narrative - Reported* An interactive audio and video telecommunication system which permits real time communications between the patient (at the originating site) and provider (at the distant site) was utilized to providethis telehealth service. * Verbal consent was requested and obtained from KEDAR NÚÑEZ on this date, 11/04/2022 01:15 PM , for a telehealth visit. * Frontal sinus [facility] Work Phone: 1(198) 561-364103-29-2023 History of Present illness Narrative* Reason for visit: * KEDAR NÚÑEZ patient presents since last being seen 11/04/22. * Medications currently on for sinonasal symptoms. * Ipratropium BID. * Medications tried in the past for sinonasal symptoms Flonase/Fluticasone. * Spoke about PND [facility] Work Phone: 1(547) 119-757903-29-2023 History of Present illness Narrative* Reason for visit: * KEDAR NÚÑEZ patient presents since last being seen 11/04/22. * Medications currently on for sinonasal symptoms. * Ipratropium BID. * Medications tried in the past for sinonasal symptoms Flonase/Fluticasone. * Kedar presents for routine follow-up. He continues to have issues related to postnasal drainage despite ipratropium. He does feel the ipratropium is providing some measure of benefit. [facility] Work Phone: 1(952) 207-103201-11-2023 Hospital Discharge instructions Patient Education 08/19/2022 13:08:13 Transurethral Resection of the Prostate Transurethral Resection of the Prostate Transurethral resection of the prostate (TURP) is the removal (resection) of part of the gland thatproduces semen (prostate gland). This procedure is done to treat benign prostatic hyperplasia (BPH). BPH is an abnormal, noncancerous (benign) increase in the number of cells that make up the prostate tissue. BPH causes the prostate to get bigger. The enlarged prostate can push against or block thetube that drains urine from the bladder out of the body (urethra). BPH can affect normal urine flowby causing bladder infections, difficulty controlling bladder function, and difficulty emptying thebladder. The goal of TURP is to remove enough prostate tissue to allow for a normal flow of urine. The procedure will allow you to empty your bladder more completely when you urinate so that you can urinate less often. In a transurethral resection, a thin telescope with a light, a tiny camera, and an electric cuttingedge (resectoscope) is passed through the urethra and into the prostate. The opening of the urethrais at the end of the penis. Tell a health care provider about: Any allergies you have. All medicines you are taking, including vitamins, herbs, eye drops, creams, and dzkz-clq-kxkoxrh medicines. Any problems you or family members [...] provider tells you to take them. Taking scxp-hfx-muhzvon medicines, vitamins, herbs, and supplements. Eating and [...] may not be able to drive for upto 10 days after your procedure. Plan to have a responsible adult care for you for at least 24 hours after you leave the hospital orclinic. This is important. What happens during the [...] blood oxygen level will be monitored until youleave the hospital or clinic. You may continue [...] removal (resection) of part of the gland thatproduces semen (prostate gland). The goal of this [...] 07/26/2006 Document Revised: 11/15/2019 Document Reviewed: 04/26/2019 [employer] Patient Education 2020 Truly Accomplished. Follow Up Care 08/05/2021 11:01:39 With:MASSIEL CASE, KRISTOFER Juan, URL Address: [address] 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, middle ear, and accessory sinuses documented in this encounter [facility] Work Phone: Evaluation note* Diagnosis 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, middle ear, and accessory sinuses documented in this encounter [facility] Work Phone: Evaluation note* Diagnosis Other atopic dermatitis- Primary [facility] Other atopic dermatitis [facility] Diagnosis Chronic laryngitis- Primary Hoarse Dysphonia Chronic sinusitis, unspecified location LPRD (laryngopharyngeal reflux disease) Acute laryngitis, without mention of obstruction documented in [facility]* Diagnosis 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, middle ear, and accessory sinuses documented in this encounter [facility] Work Phone: History of Present illness Narrative* [...] moisture in his throat * PMHx: Hypertension [facility] Work Phone: History of Present illness Narrative* [...] move the food through. * PMHx: Hypertension [place] Work Phone: History of Present illness Narrative* Main Symptoms: * Patient has posterior nasal drainage. * Associated Symptoms: * Patient has throat clearing. * Patient has coughing. * Medications currently on for sinonasal symptoms Flonase/Fluticasone - PRN (as needed) . * Ipratropium BID. [facility] [address] Work Phone: Hospital Discharge instructions No data available for this section [facility] General Surgery [place] Progress note No data available for this section [facility] Summary Purpose Family History No Family [...] on proton pump inhibitor Reason for Referral SpecialtyDiagnoses / ProceduresReferred By ContactReferred To ContactRadiology Diagnoses Benign neoplasm of frontal sinus Procedures CT sinuss wo IV contrast volumetric surgical planning Phillip Purvis MD [address] [facility] [address] [place] [address] Referral IDStatusReasonStart DateExpiration DateVisits RequestedVisits [id number] Review Perform Procedure Additional Source Comments (unrecognized sect ion and content) No Status Records FoundNo Status Records FoundNo Status Records FoundNo Status Records FoundNo Status Records FoundNo Status Records FoundNo Status Records FoundNo Status Records Found INFORMATION SOURCE (unrecogn ized section and content) DATE CREATED AUTHOR 02/01/2018 [facility] DATE CREATED AUTHOR AUTHOR'S ORGANIZ ATION 10/10/2022 [facility] DATE CREATED AUTHOR AUTHOR'S ORGANIZ ATION 10/18/2022 [facility] DATE CREATED AUTHOR AUTHOR'S ORGANIZ ATION 04/13/2023 [facility] DATE CREATED AUTHOR AUTHOR'S ORGANIZ ATION 04/15/2023 [employer] DATE CREATED AUTHOR AUTHOR'S ORGANIZ ATION 10/12/2024 [facility] DATE CREATED AUTHOR AUTHOR'S ORGANIZ ATION 04/26/2025 [facility] DATE CREATED AUTHOR AUTHOR'S ORGANIZ ATION 06/17/2025 [facility] Ambulatory Patient Care team informatio n (unrecognized section and content) Team MemberRelationshipSpecialtyStart DateEnd Date Adama Faye MD [address] [place] [address] PCP - GeneralFamily Medicine10/08/22Team MemberRelationshipSpecialtyStart DateEnd Date Adama Faye MD [address] [place] [address] PCP - GeneralFamily Medicine10/08/22Team MemberRelationshipSpecialtyStart DateEnd Date Adama Faye MD [address] [place] [address] PCP - GeneralFamily Medicine04/24/24Team MemberRelationshipSpecialtyStart DateEnd Date Adama Faye MD [address] [facility] [place] [address] PCP - GeneralFamily Medicine04/16/25Team MemberRelationshipSpecialtyStart DateEnd Date Adama Faye MD [address] [facility] [place] [address] PCP - GeneralFamily Medicine04/16/25Team MemberRelationshipSpecialtyStart DateEnd Date Adama Faye MD [address] [place] [address] PCP - GeneralFamily Medicine04/16/25Team MemberRelationshipSpecialtyStart DateEnd Date Adama Faye MD [address] [facility] [address] PCP - GeneralFamily Medicine04/24/24 Reason for Visit (unrecogniz ed section and content) ReasonCommentsFollow-upReasonOnset DateCommentsMed [id number] CommentsThroat ProblemHoarsenessReasonOnset UcnhLfrwqlsnCorbfwgefi17/08/2025 FOR RECORDS PERTAINING TO PATIENTS WHO ARE [...] BE BASED ON THE PRIMARY CLINICAL RECORDS. [employer] [facility]. provides no warranty or guarantee of the accuracy or completeness of information in this document.
[2025-07-16 12:11] LABS: Hematocrit 43.9 % (42.0-54.0); Hemoglobin 14.6 g/dL (14.0-18.0); Immature Granulocytes Abs Auto 0.03 10^3/uL (0.00-0.03); Immature Granulocytes Pct Auto 0.3 % (0.0-0.5); Lymphocytes Absolute Auto 2.1 10^3/uL (1.2-3.8); Mean Corpuscular HGB Conc 33.3 g/dL (29.9-35.2); Mean Corpuscular Hemoglobin 30.5 pg (25.9-34.0); Mean Corpuscular Volume 91.6 fL (80.0-94.0); Platelet Count 235 10^3/uL (150-450); Red Blood Count 4.79 10^6/uL (4.70-6.10); White Blood Count 9.5 10^3/uL (4.0-11.0)
[2025-07-16 12:55] LABS: Alanine Aminotransferase 29 U/L (16-63); Albumin Globulin Ratio 1.6; Albumin Level 3.9 g/dL (3.4-5.0); Alkaline Phosphatase 96 U/L (46-116); Anion Gap 9.4; Aspartate Amino Transferase 24 U/L (15-37); Blood Urea Nitrogen 11.0 mg/dL (7.0-18.0); Calcium 9.3 mg/dL (8.5-10.1); Carbon Dioxide 30.2 mmol/L (21.0-32.0); Chloride 104 mmol/L (98-107); Cholesterol 179 mg/dL (<=200); Estimated GFR (African America >60 (>=60 mL/min/1.73m^2); Estimated GFR (Non-African Ame >60 (>=60 mL/min/1.73m^2); Free T3 2.41 pg/mL (2.18-3.98); Globulin 2.5 g/dL; Glucose 96 mg/dL (74-106); HDL Cholesterol 85 mg/dL (40-60); Potassium 3.6 mmol/L (3.5-5.1); Sodium 140 mmol/L (136-145); Thyroid Stimulating Hormone 0.437 uIU/mL (0.358-3.740); Total Protein 6.4 g/dL (6.4-8.2); Triglycerides 57 mg/dL (<=150); VLDL CHOLESTEROL 11.4 mg/dL
[2025-07-17 04:08] LABS: CA 19-9 5 U/mL (0-35); CEA 1.6 ng/mL (0.0-4.7)
== END 2025-07-16 11:42 | disposition home or self-care (01) ==
PROVIDERS: PCP Family Medicine; Visit Provider Family Medicine
DX: J01.90 Acute sinusitis, unspecified (principal); I10 Essential (primary) hypertension; R63.4 Abnormal weight loss; R09.81 Nasal congestion; E11.9 Type 2 diabetes mellitus without complications; Z12.5 Encounter for screening for malignant neoplasm of prostate; R97.8 Other abnormal tumor markers
CPT/HCPCS: 36415; 80053; 80061; 82378; 83036; 83525; 84436; 84443; 84481; 85025; 86301; G0103